=== PATIENT | male | born 1945 | race Caucasian/White ===

== ENCOUNTER 2020-10-01 10:44 | Observation (INO) ==
--- OUTSIDE RECORDS SUMMARY | 2020-10-01 10:48 | External Medical Summary | Continuity of Care Document ---
:1945 Author Name Brie Alarcon Address Unavailable Unavailable , Care Team Providers Name Role Phone Brie Alarcon Unavailable [email or web address], [email or web address] Unavailable Unavailable Problems Active medical history not documented Allergies and Adverse Reactions Allergy history not documented Medications Medications not documented Procedures Procedures not documented Immunizations Immunizations not documented Plan of Treatment Planned Observations Planned Goals not documented Results No Known Results Results not documented
--- NOTE | 2020-10-01 11:17 | Emergency Department Note ---
Impression & Plan Confusion, Fall, Contusion of hip ED Provider Note NAME: KAMERON LOPEZ AGE: 75 SEX: M : 1945 ARRIVES VIA: Ambulance INFORMANT: Patient, prehospital personnel ED PROVIDER(S): Toby Torres DO CHIEF COMPLAINT: Fall HPI: The patient is a 75-year-old male who presented to the emergency department for an evaluation after a fall. The fall was unwitnessed. We do not know the exact time of the fall. The patient was found on the floor by family members. The patient complains of left hip pain according to the prehospital personnel. The patient is also had an alteration in his mental status. The history was limited secondary to patient's mental status. The patient himself does not complain of any chest pain. He denies having any nausea or vomiting. He denies having any cough or difficulty breathing. He does have a reported fever prior to arrival. The patient was unable to ambulate because of pain in the hip. ROS: See above HPI for pertinent positives & negatives. A total of 10 systems reviewed and were otherwise negative. PAST MEDICAL HISTORY: See Below PAST SURGICAL HISTORY: See Below FAMILY HISTORY: See Below SOCIAL HISTORY: See Below HOME MEDICATIONS: See Below ALLERGIES: See Below VITALS: See Below PHYSICAL EXAMINATION: GENERAL: The patient is listless and slow to respond to questions. He does not answer questions slowly but I am unsure if he is answering appropriately. EYES: The conjunctivae are clear. The pupils are round and reactive. EARS, NOSE, MOUTH AND THROAT: The nose is without any evidence of any deformity. NECK: The neck is nontender and supple. RESPIRATORY: Normal respiratory effort is noted there is no evidence of wheezing rhonchi or rales CARDIOVASCULAR: Regular rate and rhythm noted there no murmurs rubs or gallops normal S1 normal S2. GASTROINTESTINAL abdomen is mildly distended. There is left-sided tenderness to palpation but no guarding rigidity. BACK: No midline tenderness or or step-off noted range of motion in flexion extension as well as rotation no signs of muscle spasm noted MUSCULOSKELETAL/EXTREMITIES: Patient has pain with range of motion of both hips. There is no deformity or shortening of either hip. The patient appears to have more pain with range of motion testing of the right hip rather than the left. SKIN: There is no obvious evidence of any rash. There are no petechiae, pallor or cyanosis noted. NEUROLOGIC: Patient is awake to verbal commands. He appears to acknowledge his name. He does not appear to be oriented to place or date at this time. Strength is symmetric but diminished bilaterally. MEDICAL DECISION MAKING: The patient is a 75-year-old male who presented to the emergency department by ambulance for an evaluation. The patient had an unwitnessed fall. The patient does take oral anticoagulation. The patient was found by family members. The patient was very confused upon arrival to the emergency department. He was able to answer questions but appeared to be somewhat listless. I discussed the patient's laboratory and radiographic studies with him. The patient was not found to have any signs of definite infection although he did have a reported fever prior to arrival. The patient appeared to have hip pain on evaluation but no definite bony injury was noted. I discussed this case with the on-call [facility] hospitalist. Given the patient's confusion I do feel he may require further inpatient management. Triage Nursing notes reviewed. Prior medical records reviewed Vital Signs: reviewed and remarkable for no significant abnormalities Differential diagnosis: Infection, hypoglycemia, electrolyte abnormalities, overdose, toxicologic, cardiac sources, intracerebral event, neurologic, trauma, as well as other pathologies. ER treatment provided: See below Diagnostics interpreted by me: ECG: EKG was obtained in the emergency department. My interpretation is sinus rhythm at 76 bpm. There is no ectopy. There was no acute ST segment abnormalities noted. This was compared to a tracing from January 132014. No significant changes were noted. Cardiac Monitoring: An order was placed for continuous cardiac monitoring. The monitor shows a rate of 85 bpm with sinus rhythm. Laboratory studies: As stated above and show below. Imaging studies: See below Consultation(s): 1440: I discussed this case with Judy who is on-call for the [facility] group. Past Med/Surg History Medical History Confusion Dizziness (09/19/14) Pulmonary embolism Right knee DJD Right knee pain Vertigo Social History Smoking Status: Unknown if ever smoked Preferred Language: Turkish Feels Safe at Home: Yes Allergies Allergies Allergy/AdvReac Type Severity Reaction Status Date / Time No Known Drug Allergies Allergy Unknown ` Verified 10/01/20 12:15 Home Meds Home Medications Medication Instructions Recorded Confirmed aspirin [Aspirin Low-Strength] 81 mg PO DAILY #0 06/24/10 10/01/20 folic acid 1 mg PO DAILY #30 09/19/14 10/01/20 WARFARIN SODIUM 5 mg PO UD #60 01/13/15 10/01/20 Saccharomyces boulardii 250 mg PO BID 10/01/20 10/01/20 atorvastatin 40 mg PO DAILY 10/01/20 10/01/20 donepezil 23 mg PO DAILY 10/01/20 10/01/20 memantine 10 mg PO BID 10/01/20 10/01/20 thiamine HCl (vitamin B1) 100 mg PO DAILY 10/01/20 10/01/20 warfarin 10 mg PO DAILY 10/01/20 10/01/20 Results & Data (ED) Vital Signs Vital Signs - 24 hr 10/01/20 10:55 10/01/20 11:35 10/01/20 11:37 Temperature 37 C Temperature Source Oral Pulse Rate 82 Pulse Rate [Apical] 87 Pulse Rhythm Regular Pulse Rhythm [Apical] Regular Pulse Strength Normal Pulse Strength [Apical] Normal Respiratory Rate 16 22 Respiratory Effort / Characteristics Non-Labored Spontaneous Non-Labored Spontaneous Respiratory Depth Normal Normal Respiratory Pattern Regular Regular Blood Pressure 125/79 Blood Pressure [Right Arm] 126/75 Blood Pressure Mean 94 Blood Pressure Mean [Right Arm] 92 Blood Pressure Position Lying Blood Pressure Position [Right Arm] Lying Pulse Oximetry 96 97 97 Oxygen Delivery Method Room Air Room Air Room Air Sepsis Recent Fever Within 48 Hours Yes Sepsis New/Unexplained Change in Mental Status No Sepsis Action Taken by Nursing No Action Required 10/01/20 12:01 10/01/20 12:49 10/01/20 13:36 Temperature Temperature Source Pulse Rate Pulse Rate [Apical] 82 78 77 Pulse Rhythm Pulse Rhythm [Apical] Regular Regular Pulse Strength Pulse Strength [Apical] Normal Normal Respiratory Rate 18 18 20 Respiratory Effort / Characteristics Non-Labored Spontaneous Non-Labored Spontaneous Non-Labored Respiratory Depth Normal Normal Normal Respiratory Pattern Regular Regular Blood Pressure Blood Pressure [Right Arm] 132/72 130/70 125/69 Blood Pressure Mean Blood Pressure Mean [Right Arm] 92 90 87 Blood Pressure Position Blood Pressure Position [Right Arm] Lying Lying Pulse Oximetry 95 95 95 Oxygen Delivery Method Room Air Room Air Room Air Sepsis Recent Fever Within 48 Hours Sepsis New/Unexplained Change in Mental Status Sepsis Action Taken by Assisted Medications Current Medication List: was personally reviewed by me Laboratory Data Attestation: I reviewed the patient's lab results. Result diagrams: 10/01/20 11:15 10/01/20 11:15 Lab Results 10/01/20 10/01/20 10/01/20 Range/Units 11:15 11:15 11:15 WBC 10.79 (4.8-10.8) K/uL RBC 5.31 (4.7-6.1) M/uL Hgb 17.4 (14.0-18.0) g/dL POC Hgb (14.0-18.0) g/dl Hct 49.8 (42-52) % POC Hct (42-52) % MCV 93.8 (80-100) fL MCH 32.8 (25-34) pg MCHC 34.9 (32-36) g/dL RDW Std Deviation 50.7 H (36.4-46.3) fL RDW Coeff of Brynn 14.7 H (11.5-14.5) % Plt Count 171 (130-400) K/uL MPV 9.8 (7.4-10.4) fL Immature Gran % (Auto) 0.2 % Neut % (Auto) 76.7 % Lymph % (Auto) 9.0 % Cassia % (Auto) 13.2 % Eos % (Auto) 0.5 % Baso % (Auto) 0.4 % Neut # (Auto) 8.29 H (1.4-6.5) K/uL Lymph # (Auto) 0.97 L (1.2-3.4) K/uL Cassia # (Auto) 1.42 H (0.11-0.59) K/uL Eos # (Auto) 0.05 (0-0.5) K/uL Baso # (Auto) 0.04 (0-0.2) K/uL Immature Gran # (Auto) 0.02 (0.00-0.02) K/uL PT 20.7 H (9.0-12.0) Seconds INR 2.0 H (0.9-1.1) APTT 38.8 H (21.0-31.0) Seconds PTT Ratio 1.4 POC Sodium (135-144) mmol/L Sodium 137 (136-145) mmol/L POC Potassium (3.3-5.0) mmol/L Potassium 4.4 (3.5-5.1) mmol/L POC Chloride (101-112) mmol/L Chloride 105 (98-107) mmol/L Carbon Dioxide 26 (21-32) mmol/L POC Total CO2 (24-31) mmol/L Anion Gap 7.0 (3-11) POC Anion Gap (16-25) mmol/L POC BUN (7-18) mg/dl BUN 11 (7-18) mg/dl Creatinine 1.23 (0.6-1.4) mg/dl POC Creatinine (0.6-1.3) mg/dl Est Cr Clr Drug Dosing 56.0 ml/min Est GFR ( Amer) 65.2 Est GFR (Non-Af Amer) 56.3 BUN/Creatinine Ratio 9.0 L (10-20) Glucose 102 H (70-99) mg/dl POC Glucose (other) (70-99) mg/dl Lactate (0.4-2.0) mmol/L Calcium 9.4 (8.5-10.1) mg/dl POC Ioniz Calcium Yessica (1.12-1.32) mmol/l Magnesium 2.2 (1.8-2.4) mg/dl Total Bilirubin 1.1 H (0.2-1) mg/dl AST 36 (15-37) U/L ALT 54 (12-78) U/L Alkaline Phosphatase 93 (45-117) U/L Total Creatine Kinase (39-308) U/L CK-MB (CK-2) (0.5-3.6) ng/ml CK/CKMB % Calc Troponin I 0.018 (0-0.045) ng/ml Total Protein 8.1 (6.4-8.2) gm/dl Albumin 3.8 (3.4-5.0) gm/dl Globulin 4.3 H (2.5-4.0) gm/dl Albumin/Globulin Ratio 0.9 (0.9-2) Procalcitonin (0-0.5) ng/ml Urine Color Urine Appearance (Clear) Urine pH (4.5-7.5) Ur Specific [place] (1.000-1.030) Urine Protein (Negative) Urine Glucose (UA) (Negative) Urine Ketones (Negative) Urine Blood (Negative) Urine Nitrite (Negative) Urine Bilirubin (Negative) Urine Urobilinogen (Negative) Ur Leukocyte Esterase (Negative) Urine WBC (Auto) (0-5) /hpf Urine RBC (Auto) (0-4) /hpf U Hyaline Cast (Auto) (0-5) /lpf U Epithel Cells (Auto) (0-5) /lpf Urine Bacteria (Auto) (Negative) COVID-19 Eval Order SARS-CoV-2 (PCR) (Negative) Nasopharyn COVID-19 PCR Influenza Type A (PCR) Influenza Type B (PCR) RSV (RT-PCR) (Neg) 10/01/20 10/01/20 10/01/20 Range/Units 11:15 11:15 11:21 WBC (4.8-10.8) K/uL RBC (4.7-6.1) M/uL Hgb (14.0-18.0) g/dL POC Hgb (14.0-18.0) g/dl Hct (42-52) % POC Hct (42-52) % MCV (80-100) fL MCH (25-34) pg MCHC (32-36) g/dL RDW Std Deviation (36.4-46.3) fL RDW Coeff of Brynn (11.5-14.5) % Plt Count (130-400) K/uL MPV (7.4-10.4) fL Immature Gran % (Auto) % Neut % (Auto) % Lymph % (Auto) % Cassia % (Auto) % Eos % (Auto) % Baso % (Auto) % Neut # (Auto) (1.4-6.5) K/uL Lymph # (Auto) (1.2-3.4) K/uL Cassia # (Auto) (0.11-0.59) K/uL Eos # (Auto) (0-0.5) K/uL Baso # (Auto) (0-0.2) K/uL Immature Gran # (Auto) (0.00-0.02) K/uL PT (9.0-12.0) Seconds INR (0.9-1.1) APTT (21.0-31.0) Seconds PTT Ratio POC Sodium (135-144) mmol/L Sodium (136-145) mmol/L POC Potassium (3.3-5.0) mmol/L Potassium (3.5-5.1) mmol/L POC Chloride (101-112) mmol/L Chloride (98-107) mmol/L Carbon Dioxide (21-32) mmol/L POC Total CO2 (24-31) mmol/L Anion Gap (3-11) POC Anion Gap (16-25) mmol/L POC BUN (7-18) mg/dl BUN (7-18) mg/dl Creatinine (0.6-1.4) mg/dl POC Creatinine (0.6-1.3) mg/dl Est Cr Clr Drug Dosing ml/min Est GFR ( Amer) Est GFR (Non-Af Amer) BUN/Creatinine Ratio (10-20) Glucose (70-99) mg/dl POC Glucose (other) (70-99) mg/dl Lactate 1.1 (0.4-2.0) mmol/L Calcium (8.5-10.1) mg/dl POC Ioniz Calcium Yessica (1.12-1.32) mmol/l Magnesium (1.8-2.4) mg/dl Total Bilirubin (0.2-1) mg/dl AST (15-37) U/L ALT (12-78) U/L Alkaline Phosphatase (45-117) U/L Total Creatine Kinase 99 (39-308) U/L CK-MB (CK-2) < 1.0 (0.5-3.6) ng/ml CK/CKMB % Calc TNP Troponin I (0-0.045) ng/ml Total Protein (6.4-8.2) gm/dl Albumin (3.4-5.0) gm/dl Globulin (2.5-4.0) gm/dl Albumin/Globulin Ratio (0.9-2) Procalcitonin 0.28 (0-0.5) ng/ml Urine Color Urine Appearance (Clear) Urine pH (4.5-7.5) Ur Specific [place] (1.000-1.030) Urine Protein (Negative) Urine Glucose (UA) (Negative) Urine Ketones (Negative) Urine Blood (Negative) Urine Nitrite (Negative) Urine Bilirubin (Negative) Urine Urobilinogen (Negative) Ur Leukocyte Esterase (Negative) Urine WBC (Auto) (0-5) /hpf Urine RBC (Auto) (0-4) /hpf U Hyaline Cast (Auto) (0-5) /lpf U Epithel Cells (Auto) (0-5) /lpf Urine Bacteria (Auto) (Negative) COVID-19 Eval Order SARS-CoV-2 (PCR) (Negative) Nasopharyn COVID-19 PCR Influenza Type A (PCR) Influenza Type B (PCR) RSV (RT-PCR) (Neg) 10/01/20 10/01/20 10/01/20 Range/Units 11:23 11:38 11:38 WBC (4.8-10.8) K/uL RBC (4.7-6.1) M/uL Hgb (14.0-18.0) g/dL POC Hgb 17.7 (14.0-18.0) g/dl Hct (42-52) % POC Hct 52 (42-52) % MCV (80-100) fL MCH (25-34) pg MCHC (32-36) g/dL RDW Std Deviation (36.4-46.3) fL RDW Coeff of Brynn (11.5-14.5) % Plt Count (130-400) K/uL MPV (7.4-10.4) fL Immature Gran % (Auto) % Neut % (Auto) % Lymph % (Auto) % Cassia % (Auto) % Eos % (Auto) % Baso % (Auto) % Neut # (Auto) (1.4-6.5) K/uL Lymph # (Auto) (1.2-3.4) K/uL Cassia # (Auto) (0.11-0.59) K/uL Eos # (Auto) (0-0.5) K/uL Baso # (Auto) (0-0.2) K/uL Immature Gran # (Auto) (0.00-0.02) K/uL PT (9.0-12.0) Seconds INR (0.9-1.1) APTT (21.0-31.0) Seconds PTT Ratio POC Sodium 138 (135-144) mmol/L Sodium (136-145) mmol/L POC Potassium 4.5 (3.3-5.0) mmol/L Potassium (3.5-5.1) mmol/L POC Chloride 102 (101-112) mmol/L Chloride (98-107) mmol/L Carbon Dioxide (21-32) mmol/L POC Total CO2 28 (24-31) mmol/L Anion Gap (3-11) POC Anion Gap 14.0 L (16-25) mmol/L POC BUN 13 (7-18) mg/dl BUN (7-18) mg/dl Creatinine (0.6-1.4) mg/dl POC Creatinine 1.1 (0.6-1.3) mg/dl Est Cr Clr Drug Dosing ml/min Est GFR ( Amer) Est GFR (Non-Af Amer) BUN/Creatinine Ratio (10-20) Glucose (70-99) mg/dl POC Glucose (other) 106 H (70-99) mg/dl Lactate (0.4-2.0) mmol/L Calcium (8.5-10.1) mg/dl POC Ioniz Calcium Yessica 1.13 (1.12-1.32) mmol/l Magnesium (1.8-2.4) mg/dl Total Bilirubin (0.2-1) mg/dl AST (15-37) U/L ALT (12-78) U/L Alkaline Phosphatase (45-117) U/L Total Creatine Kinase (39-308) U/L CK-MB (CK-2) (0.5-3.6) ng/ml CK/CKMB % Calc Troponin I (0-0.045) ng/ml Total Protein (6.4-8.2) gm/dl Albumin (3.4-5.0) gm/dl Globulin (2.5-4.0) gm/dl Albumin/Globulin Ratio (0.9-2) Procalcitonin (0-0.5) ng/ml Urine Color Dark Yellow Urine Appearance Clear (Clear) Urine pH 8.5 H (4.5-7.5) Ur Specific [place] 1.021 (1.000-1.030) Urine Protein Trace H (Negative) Urine Glucose (UA) Negative (Negative) Urine Ketones Negative (Negative) Urine Blood Negative (Negative) Urine Nitrite Negative (Negative) Urine Bilirubin Negative (Negative) Urine Urobilinogen Negative (Negative) Ur Leukocyte Esterase Negative (Negative) Urine WBC (Auto) 0 (0-5) /hpf Urine RBC (Auto) 0-4 (0-4) /hpf U Hyaline Cast (Auto) 1-5 (0-5) /lpf U Epithel Cells (Auto) 10-20 H (0-5) /lpf Urine Bacteria (Auto) Negative (Negative) COVID-19 Eval Order Covid19 [facility] to [facility] SARS-CoV-2 (PCR) (Negative) Nasopharyn COVID-19 PCR Influenza Type A (PCR) Influenza Type B (PCR) RSV (RT-PCR) (Neg) 10/01/20 10/01/20 Range/Units 11:38 11:38 WBC (4.8-10.8) K/uL RBC (4.7-6.1) M/uL Hgb (14.0-18.0) g/dL POC Hgb (14.0-18.0) g/dl Hct (42-52) % POC Hct (42-52) % MCV (80-100) fL MCH (25-34) pg MCHC (32-36) g/dL RDW Std Deviation (36.4-46.3) fL RDW Coeff of Brynn (11.5-14.5) % Plt Count (130-400) K/uL MPV (7.4-10.4) fL Immature Gran % (Auto) % Neut % (Auto) % Lymph % (Auto) % Cassia % (Auto) % Eos % (Auto) % Baso % (Auto) % Neut # (Auto) (1.4-6.5) K/uL Lymph # (Auto) (1.2-3.4) K/uL Cassia # (Auto) (0.11-0.59) K/uL Eos # (Auto) (0-0.5) K/uL Baso # (Auto) (0-0.2) K/uL Immature Gran # (Auto) (0.00-0.02) K/uL PT (9.0-12.0) Seconds INR (0.9-1.1) APTT (21.0-31.0) Seconds PTT Ratio POC Sodium (135-144) mmol/L Sodium (136-145) mmol/L POC Potassium (3.3-5.0) mmol/L Potassium (3.5-5.1) mmol/L POC Chloride (101-112) mmol/L Chloride (98-107) mmol/L Carbon Dioxide (21-32) mmol/L POC Total CO2 (24-31) mmol/L Anion Gap (3-11) POC Anion Gap (16-25) mmol/L POC BUN (7-18) mg/dl BUN (7-18) mg/dl Creatinine (0.6-1.4) mg/dl POC Creatinine (0.6-1.3) mg/dl Est Cr Clr Drug Dosing ml/min Est GFR ( Amer) Est GFR (Non-Af Amer) BUN/Creatinine Ratio (10-20) Glucose (70-99) mg/dl POC Glucose (other) (70-99) mg/dl Lactate (0.4-2.0) mmol/L Calcium (8.5-10.1) mg/dl POC Ioniz Calcium Yessica (1.12-1.32) mmol/l Magnesium (1.8-2.4) mg/dl Total Bilirubin (0.2-1) mg/dl AST (15-37) U/L ALT (12-78) U/L Alkaline Phosphatase (45-117) U/L Total Creatine Kinase (39-308) U/L CK-MB (CK-2) (0.5-3.6) ng/ml CK/CKMB % Calc Troponin I (0-0.045) ng/ml Total Protein (6.4-8.2) gm/dl Albumin (3.4-5.0) gm/dl Globulin (2.5-4.0) gm/dl Albumin/Globulin Ratio (0.9-2) Procalcitonin (0-0.5) ng/ml Urine Color Urine Appearance (Clear) Urine pH (4.5-7.5) Ur Specific [place] (1.000-1.030) Urine Protein (Negative) Urine Glucose (UA) (Negative) Urine Ketones (Negative) Urine Blood (Negative) Urine Nitrite (Negative) Urine Bilirubin (Negative) Urine Urobilinogen (Negative) Ur Leukocyte Esterase (Negative) Urine WBC (Auto) (0-5) /hpf Urine RBC (Auto) (0-4) /hpf U Hyaline Cast (Auto) (0-5) /lpf U Epithel Cells (Auto) (0-5) /lpf Urine Bacteria (Auto) (Negative) COVID-19 Eval Order SARS-CoV-2 (PCR) NEGATIVE (Negative) Nasopharyn COVID-19 PCR Cancelled Influenza Type A (PCR) Cancelled Negative Influenza Type B (PCR) Cancelled Negative RSV (RT-PCR) Negative (Neg) Administered Medications Discontinued Medications Ioversol (Ioversol 100ml) 94 ml IV ONCE ONE Stop: 10/01/20 11:50 Last Admin: 10/01/20 11:50 Dose: 94 ml Documented by: [id number] Imaging Data Radiologist's Impression: Patient: KAMERON LOPEZ Admit Date: 10/01/20 MR#: [id number] Address[address]: [address] Acct ID:[id number] Address2: Date: 1945 [facility] Zip: [place] [address] Age: 75 Location: ED Sex: M Room/Bed: Att Phy: Diagnosis: FALL Yanci Phy: Ernie Kim MD(TATO) Service Date: 10/01/20 Paulo Phy: Interpreting Phy: Pop Douglas MD Admit Phy: Ordering Phy: Toby Torres DO cc: ~ XR hip RT min 2V CLINICAL HISTORY: fall COMPARISON: None FINDINGS: Incidental note is made of contrast within the right ureter and bladder from recent contrast-enhanced CT. Peck catheter is in place. Alignment of the right hip is anatomic. No acute fracture. IMPRESSION: No acute fracture or dislocation within the right hip. ACT 112: Negative or not required by law. Electronically signed by: Pop Douglas M.D. 10/01/2020 12:52 PM Dictated: 10/01/20 1250 Transcribed: 10/01/20 1250 Patient: KAMERON LOPEZ Admit Date: 10/01/20 MR#: [id number] Address1: [address] Acct ID:[id number] Address2: Date: 1945 [facility] Zip: [place] [address] Age: 75 Location: ED Sex: M Room/Bed: Att Phy: Diagnosis: FALL Yanci Phy: Ernie Kim MD(TATO) Service Date: 10/01/20 Paulo Phy: Interpreting Phy: Pop Douglas MD Admit Phy: Ordering Phy: Toby Torres DO cc: ~ XR hip LT min 2V CLINICAL HISTORY: fall COMPARISON: None FINDINGS: Alignment of the left hip is anatomic. There is no acute fracture. Incidental note is made of contrast within the ureters and bladder from recent contrast-enhanced CT. A Peck catheter is in place. IMPRESSION: No acute fracture or dislocation within the left hip. ACT 112: Negative or not required by law. Electronically signed by: Pop Douglas M.D. 10/01/2020 12:53 PM Dictated: 10/01/20 1252 Transcribed: 10/01/20 1252 Patient: KAMERON LOPEZ Admit Date: 10/01/20 MR#: [id number] Address[address]: [address] Acct ID:[id number] Address2: Date: 1945 [facility] Zip: [place] [address] Age: 75 Location: ED Sex: M Room/Bed: Att Phy: Diagnosis: FALL Yanci Phy: Ernie Kim MD(TATO) Service Date: 10/01/20 Fam Phy: Interpreting Phy: Duke Ambrose MD Admit Phy: Ordering Phy: Toby Torres DO cc: ~ CT SCAN OF THE BRAIN WITHOUT IV CONTRAST CLINICAL HISTORY: Fall. COMPARISON STUDY: CT of the brain dated 01/13/2015. TECHNIQUE: Unenhanced axial CT scan of the brain is performed from the vertex to the skull base. A dose lowering technique was utilized adhering to the principles of ALARA. FINDINGS: Brain parenchyma: There are age-related involutional changes noting mild to moderate subcortical and periventricular microangiopathic change. There is no hemorrhage, mass effect, or evidence of acute territorial ischemia by CT criter ia. Tellez-white matter differentiation is preserved. No extra-axial fluid collection is seen. Ventricles, sulci, cisterns: Prominent secondary to involutional change. Intracranial vasculature: There is atherosclerotic calcification of the cavernous carotid and vertebral arteries.. Calvarium: The skeletal structures are osteopenic. No depressed calvarial fracture is identified. Sinuses and mastoids: The visualized paranasal sinuses are clear. The mastoid air cells are well pneumatized. Orbits: The bony orbits are grossly intact. There are bilateral ocular lens implants. IMPRESSION: There is no hemorrhage, mass effect, or evidence of acute territorial ischemia by CT criteria. ACT 112: Negative or not required by law. Electronically signed by: Duke Ambrose M.D. 10/01/2020 12:04 PM Dictated: 10/01/20 1202 Transcribed: 10/01/20 1202 Patient: KAMERON LOPEZ Admit Date: 10/01/20 MR#: [id number] Address1: [address] Acct ID:[id number] Address2: Date: 1945 [facility] Zip: [place] [address] Age: 75 Location: ED Sex: M Room/Bed: Att Phy: Diagnosis: FALL Yanci Phy: Ernie Kim MD(TATO) Service Date: 10/01/20 Paulo Phy: Interpreting Phy: Duke Ambrose MD Admit Phy: Ordering Phy: Toby Torres DO cc: ~ SINGLE VIEW CHEST CLINICAL HISTORY: Sepsis. Fall. FINDINGS: An AP, portable, upright chest radiograph is compared to study dated 09/19/2014 and correlated with chest CT performed the same day 10/01/2020. The examination is degraded by portable technique and patient rotation. The heart is top normal for projection. The pulmonary vasculature is noncongested. Chronic interstitial thickening is similar to previous. No airspace consolidation or large pleural effusion is identified. No pneumothorax is seen. The skeletal structures are osteopenic. The bony thorax is grossly intact. Degenerative change is noted in the thoracic spine. IMPRESSION: No acute cardiopulmonary abnormality. ACT 112: Negative or not required by law. Electronically signed by: Duke Ambrose M.D. 10/01/2020 12:52 PM Dictated: 10/01/20 1251 Transcribed: 10/01/20 1251 Patient: KAMERON LOPEZ Admit Date: 10/01/20 MR#: [id number] Address1: [address] Acct ID:[id number] Address2: Date: 1945 [facility] Zip: [place] [address] Age: 75 Location: ED Sex: M Room/Bed: Att Phy: Diagnosis: FALL Yanci Phy: Ernie Kim MD(TATO) Service Date: 10/01/20 [facility] Phy: Interpreting Phy: Duke Ambrose MD Admit Phy: Ordering Phy: Toby Torres, cc: ~ CT SCAN OF THE CHEST, ABDOMEN, AND PELVIS WITH IV CONTRAST CLINICAL HISTORY: Trauma. Fall. COMPARISON STUDY: Chest x-ray dated 09/19/2014. TECHNIQUE: Following the IV administration of 94 of Optiray 320, CT scan of the chest, abdomen, and pelvis was performed from the thoracic inlet to the proximal femora. Images are reviewed in the axial, sagittal, and coronal planes. IV contrast was administered without complication. A dose lowering technique was utilized adhering to the principles of ALARA. The examination is degraded by motion artifact, as well as by streak artifact from the arms which could not be elevated above the chest or abdomen. CT DOSE: 4428.41 mGy.cm FINDINGS: CHEST: Thyroid: Imaged portions of the thyroid gland are normal in size and attenuation. Thoracic aorta: The thoracic aorta is normal in caliber and demonstrates bovine variant arch anatomy. No dissection is seen. Pulmonary vasculature: The pulmonary trunk is normal in caliber. There are no filling defects identified in the central pulmonary vessels to indicate pu lmonary embolus. Note that this examination was not protocoled for evaluation of the pulmonary arteries. Heart: The heart is mildly enlarged and without pericardial effusion. The coronary arteries are densely calcified. Lungs and pleural spaces: Evaluation of lung parenchyma is degraded by motion artifact. There is no airspace consolidation or pneumothorax. Scarring/atelectasis is noted at the lung bases. Trace pleural effusions are noted. A calcified granuloma is noted in the left upper lobe. The trachea and central airways are clear. Mediastinum: There is no mediastinal hematoma. There are mildly enlarged mediastinal lymph nodes. A right paratracheal node on image #87 measures 1.5 cm in short axis. A paratracheal node on image #78 measures 1.1 cm in short axis. A subcarinal node measures 1.9 cm in short axis. Daisy: Clear. Axillae: There is no axillary lymphadenopathy. Bony thorax: The skeletal structures are osteopenic. Bony thorax appears intact. Degenerative change and hyperkyphosis is noted in the thoracic spine. No lytic or blastic lesions are identified. ABDOMEN AND PELVIS: Liver: The contrast-enhanced liver is normal in size, contour, and attenuation. There is no intra- or extrahepatic biliary ductal dilatation. The hepatic veins and portal veins are patent. Gallbladder: Unremarkable. Spleen: Normal in size and attenuation. Pancreas: Unremarkable. Adrenal glands: Unremarkable. Kidneys: The contrast enhanced kidneys demonstrate mild cortical atrophy and are without hydronephrosis. The kidneys enhance symmetrically. A 2.3 cm cyst arises from the upper pole on the left. Abdominal vasculature: The abdominal aorta is normal in course and caliber noting moderate atherosclerotic calcification. Bowel: There is mild colonic diverticulosis without CT evidence of acute diverticulitis. There is rectosigmoid fecal retention. No bowel obstruction is seen. The appendix is well-visualized and normal. Peritoneum: There is no intraperitoneal free air or abdominal ascites. There is a small fat-containing umbilical hernia. Lymphadenopathy: None. Pelvic viscera: The bladder is decompressed around a Peck catheter and not well evaluated. The prostate gland is mildly enlarged and heterogeneous. Skeletal structures: The skeletal structures are osteopenic. There is mild to moderate lumbosacral spondylosis. The lumbosacral spine, bony pelvis, and proximal femora appear intact. No lytic or blastic lesions are seen. IMPRESSION: 1. There is no acute posttraumatic intrathoracic abnormality. 2. Cardiomegaly and trace pleural effusions. 3. There is no airspace consolidation or pneumothorax. 4. There is no evidence of solid organ injury in the abdomen or pelvis. 5. Mildly enlarged mediastinal lymph nodes are of indeterminant etiology and significance. 6. Additional findings as above. ACT 112: Negative or not required by law. Electronically signed by: Duke Ambrose M.D. 10/01/2020 12:20 PM Dictated: 10/01/20 1205 Transcribed: 10/01/20 1205 Patient: KAMERON LOPEZ Admit Date: 10/01/20 MR#: [id number] Address1: [address]YRIC [address]ACY Acct ID:[id number] Address2: Date: 1945 [facility] Zip: [place] [address] Age: 75 Location: ED Sex: M Room/Bed: Att Phy: Diagnosis: FALL Yanci Phy: Ernie Kim MD(TATO) Service Date: 10/01/20 [facility] Phy: Interpreting Phy: Keagan Mckeon MD Admit Phy: Ordering Phy: Brian, Toby R., DO cc: ~ CERVICAL SPINE CT CT DOSE: HISTORY: fall TECHNIQUE: Multiaxial CT images of the cervical spine were performed and reformatted in the sagittal and coronal plane without the use of contrast. A dose lowering technique was utilized adhering to the principles of ALARA. COMPARISON: None. FINDINGS: No fractures. No subluxation. Prevertebral soft tissues and the C1-C2 interval are intact. No pneumothorax. Moderate disc space narrowing at C5-C6. The C2-C3 vertebral bodies and facets are fused. IMPRESSION: No fractures within the cervical spine. ACT 112: Negative or not required by law. Electronically signed by: Keagan Mckeon M.D. 10/01/2020 12:09 PM Dictated: 10/01/20 1204 Transcribed: 10/01/20 1204 Blood Pressure Blood Pressure Findings: Normal blood pressure Discharge Plan Visit Data Chief Complaint: Fall ED Provider: Toby Torres Discharge Problem: Confusion, Fall, Contusion of hip Patient Disposition: Being Evaluated by Hospitalist Condition: Good Forms Stand Alone Forms: My [facility] Prescriptions Prescriptions: No Action aspirin [Aspirin Low-Strength] 81 mg Tablet,Delayed Release (Dr/Ec) 81 mg PO DAILY Qty: 0 RF: 0 folic acid 1 mg Tablet 1 mg PO DAILY Qty: 30 RF: 0 WARFARIN SODIUM 5 MG tablet 5 mg PO UD Qty: 60 RF: 0 atorvastatin 40 mg tablet 40 mg PO DAILY RF: 0 thiamine HCl (vitamin B1) 100 mg Tablet 100 mg PO DAILY RF: 0 warfarin 5 mg Tablet 10 mg PO DAILY RF: 0 Saccharomyces boulardii 250 mg Capsule 250 mg PO BID RF: 0 memantine 10 mg tablet 10 mg PO BID RF: 0 donepezil 23 mg tablet 23 mg PO DAILY RF: 0 Referrals Referrals: Ernie Kim MD [Primary Care Provider] -
[2020-10-01 11:31] LABS: Basophils # (auto) 0.04 K/uL (0-0.2); Basophils % (auto) 0.4 %; Eosinophils # (auto) 0.05 K/uL (0-0.5); Eosinophils % (auto) 0.5 %; Hematocrit (blood only) 49.8 % (42-52); Hemoglobin 17.4 g/dL (14.0-18.0); Immature Granulocytes # (auto) 0.02 K/uL (0.00-0.02); Immature Granulocytes % (auto) 0.2 %; Lymphocytes # (auto) 0.97 K/uL (1.2-3.4); Mean Corpuscular Hemoglobin 32.8 pg (25-34); Mean Corpuscular Hgb Conc 34.9 g/dL (32-36); Mean Corpuscular Volume 93.8 fL (80-100); Mean Platelet Volume 9.8 fL (7.4-10.4); Monocytes # (auto) 1.42 K/uL (0.11-0.59); Monocytes % (auto) 13.2 %; Neutrophils # (auto) 8.29 K/uL (1.4-6.5); Neutrophils % (auto) 76.7 %; Platelet Count 171 K/uL (130-400); RDW Coefficient of Variation 14.7 % (11.5-14.5); RDW Standard Deviation 50.7 fL (36.4-46.3); Red Blood Count 5.31 M/uL (4.7-6.1); White Blood Count 10.79 K/uL (4.8-10.8)
[2020-10-01 11:35] LABS: iSTAT Creatinine 1.1 mg/dl (0.6-1.3); iSTAT Hemoglobin 17.7 g/dl (14.0-18.0); iSTAT Ionized Calcium 1.13 mmol/l (1.12-1.32); iSTAT Potassium 4.5 mmol/L (3.3-5.0)
[2020-10-01 11:43] LABS: Partial Thromboplastin Ratio 1.4; Partial Thromboplastin Time 38.8 Seconds (21.0-31.0); Prothrombin Time 20.7 Seconds (9.0-12.0)
[2020-10-01 11:47] LABS: Appearance Urine Clear (Clear); Bacteria Urine Automated Negative (Negative); Bilirubin Urine Negative (Negative); Blood Urine Negative (Negative); Color Urine Dark Yellow; Glucose Urine UA Negative (Negative); Ketones Urine Negative (Negative); Leukocyte Esterase Urine Negative (Negative); Nitrite Urine Negative (Negative); RBC Urine Automated 0-4 /hpf (0-4); Specific Gravity Urine 1.021 (1.000-1.030); Urobilinogen Urine Negative (Negative); WBC Urine Automated 0 /hpf (0-5); pH Urine 8.5 (4.5-7.5)
[2020-10-01 11:47] LABS: Albumin Level 3.8 gm/dl (3.4-5.0); Calcium 9.4 mg/dl (8.5-10.1); Est GFR (African American) 65.2; Est GFR (Non-African American) 56.3; Magnesium 2.2 mg/dl (1.8-2.4); Potassium 4.4 mmol/L (3.5-5.1)
[2020-10-01] MEDS ORDERED: IOVERSOL 100ml IV ONE (11:49)
[2020-10-01 11:52] LABS: Albumin Globulin Ratio 0.9 (0.9-2); Bilirubin,Total 1.1 mg/dl (0.2-1); Globulin 4.3 gm/dl (2.5-4.0); Total Protein 8.1 gm/dl (6.4-8.2); Troponin I 0.018 ng/ml (0-0.045)
[2020-10-01 11:55] LABS: Protein Urine Trace (Negative)
--- NOTE | 2020-10-01 12:06 | CT Scan Report ---
CT SCAN OF THE BRAIN WITHOUT IV CONTRAST CLINICAL HISTORY: Fall. COMPARISON STUDY: CT of the brain dated 01/13/2015. TECHNIQUE: Unenhanced axial CT scan of the brain is performed from the vertex to the skull base. A do se lowering technique was utilized adhering to the principles of ALARA. FINDINGS: Brain parenchyma: There are age-related involutional changes noting mild to moderate subcortical and periventricular microangiopathic change. There is no hemorrhage, mass effect, or evidence of acute t erritorial ischemia by CT criteria. Tellez-white matter differentiation is preserved. No extra-axial fl uid collection is seen. Ventricles, sulci, cisterns: Prominent secondary to involutional change. Intracranial vasculature: There is atherosclerotic calcification of the cavernous carotid and vertebr al arteries.. Calvarium: The skeletal structures are osteopenic. No depressed calvarial fracture is identified. Sinuses and mastoids: The visualized paranasal sinuses are clear. The mastoid air cells are well pneu matized. Orbits: The bony orbits are grossly intact. There are bilateral ocular lens implants. IMPRESSION: There is no hemorrhage, mass effect, or evidence of acute territorial ischemia by CT cindy wilson. ACT 112: Negative or not required by law. Electronically signed by: Duke Ambrose M.D. 10/01/2020 12:04 PM
--- NOTE | 2020-10-01 12:10 | CT Scan Report ---
CERVICAL SPINE CT CT DOSE: HISTORY: fall TECHNIQUE: Multiaxial CT images of the cervical spine were performed and reformatted in the sagittal and coronal plane without the use of contrast. A dose lowering technique was utilized adhering to th e principles of ALARA. COMPARISON: None. FINDINGS: No fractures. No subluxation. Prevertebral soft tissues and the C1-C2 interval are intact. No pneumothorax. Moderate disc space narrowing at C5-C6. The C2-C3 vertebral bodies and facets are fu sed. IMPRESSION: No fractures within the cervical spine. ACT 112: Negative or not required by law. Electronically signed by: Keagan Mckeon M.D. 10/01/2020 12:09 PM
[2020-10-01 12:21] LABS: Creatine Kinase 99 U/L (39-308); Creatine Kinase MB < 1.0 ng/ml (0.5-3.6)
--- NOTE | 2020-10-01 12:22 | CT Scan Report ---
CT SCAN OF THE CHEST, ABDOMEN, AND PELVIS WITH IV CONTRAST CLINICAL HISTORY: Trauma. Fall. COMPARISON STUDY: Chest x-ray dated 09/19/2014. TECHNIQUE: Following the IV administration of 94 of Optiray 320, CT scan of the chest, abdomen, and p elsa was performed from the thoracic inlet to the proximal femora. Images are reviewed in the axial, sagittal, and coronal planes. IV contrast was administered without complication. A dose lowering te chnique was utilized adhering to the principles of ALARA. The examination is degraded by motion artif act, as well as by streak artifact from the arms which could not be elevated above the chest or abdom en. CT DOSE: 4428.41 mGy.cm FINDINGS: CHEST: Thyroid: Imaged portions of the thyroid gland are normal in size and attenuation. Thoracic aorta: The thoracic aorta is normal in caliber and demonstrates bovine variant arch anatomy. No dissection is seen. Pulmonary vasculature: The pulmonary trunk is normal in caliber. There are no filling defects identif ied in the central pulmonary vessels to indicate pulmonary embolus. Note that this examination was no t protocoled for evaluation of the pulmonary arteries. Heart: The heart is mildly enlarged and without pericardial effusion. The coronary arteries are dense ly calcified. Lungs and pleural spaces: Evaluation of lung parenchyma is degraded by motion artifact. There is no a irspace consolidation or pneumothorax. Scarring/atelectasis is noted at the lung bases. Trace pleural effusions are noted. A calcified granuloma is noted in the left upper lobe. The trachea and central airways are clear. Mediastinum: There is no mediastinal hematoma. There are mildly enlarged mediastinal lymph nodes. A r ight paratracheal node on image #87 measures 1.5 cm in short axis. A paratracheal node on image #78 m easures 1.1 cm in short axis. A subcarinal node measures 1.9 cm in short axis. Daisy: Clear. Axillae: There is no axillary lymphadenopathy. Bony thorax: The skeletal structures are osteopenic. Bony thorax appears intact. Degenerative change and hyperkyphosis is noted in the thoracic spine. No lytic or blastic lesions are identified. ABDOMEN AND PELVIS: Liver: The contrast-enhanced liver is normal in size, contour, and attenuation. There is no intra- or extrahepatic biliary ductal dilatation. The hepatic veins and portal veins are patent. Gallbladder: Unremarkable. Spleen: Normal in size and attenuation. Pancreas: Unremarkable. Adrenal glands: Unremarkable. Kidneys: The contrast enhanced kidneys demonstrate mild cortical atrophy and are without hydronephros is. The kidneys enhance symmetrically. A 2.3 cm cyst arises from the upper pole on the left. Abdominal vasculature: The abdominal aorta is normal in course and caliber noting moderate atheroscle rotic calcification. Bowel: There is mild colonic diverticulosis without CT evidence of acute diverticulitis. There is rec tosigmoid fecal retention. No bowel obstruction is seen. The appendix is well-visualized and normal. Peritoneum: There is no intraperitoneal free air or abdominal ascites. There is a small fat-containin g umbilical hernia. Lymphadenopathy: None. Pelvic viscera: The bladder is decompressed around a Peck catheter and not well evaluated. The prost ate gland is mildly enlarged and heterogeneous. Skeletal structures: The skeletal structures are osteopenic. There is mild to moderate lumbosacral sp ondylosis. The lumbosacral spine, bony pelvis, and proximal femora appear intact. No lytic or blastic lesions are seen. IMPRESSION: 1. There is no acute posttraumatic intrathoracic abnormality. 2. Cardiomegaly and trace pleural effusions. 3. There is no airspace consolidation or pneumothorax. 4. There is no evidence of solid organ injury in the abdomen or pelvis. 5. Mildly enlarged mediastinal lymph nodes are of indeterminant etiology and significance. 6. Additional findings as above. ACT 112: Negative or not required by law. Electronically signed by: Duke Ambrose M.D. 10/01/2020 12:20 PM
[2020-10-01 12:31] LABS: Influenza A virus by PCR Negative (Neg); Influenza B virus by PCR Negative (Neg); RSV by PCR Negative (Neg); SARS CoV2 RNA(COVID-19) InHosp NEGATIVE (Negative)
--- NOTE | 2020-10-01 12:53 | XRay Report ---
SINGLE VIEW CHEST CLINICAL HISTORY: Sepsis. Fall. FINDINGS: An AP, portable, upright chest radiograph is compared to study dated 09/19/2014 and correlat ed with chest CT performed the same day 10/01/2020. The examination is degraded by portable technique a nd patient rotation. The heart is top normal for projection. The pulmonary vasculature is noncongeste d. Chronic interstitial thickening is similar to previous. No airspace consolidation or large pleural effusion is identified. No pneumothorax is seen. The skeletal structures are osteopenic. The bony th orax is grossly intact. Degenerative change is noted in the thoracic spine. IMPRESSION: No acute cardiopulmonary abnormality. ACT 112: Negative or not required by law. Electronically signed by: Duke Ambrose M.D. 10/01/2020 12:52 PM
--- NOTE | 2020-10-01 12:53 | XRay Report ---
XR hip RT min 2V CLINICAL HISTORY: fall COMPARISON: None FINDINGS: Incidental note is made of contrast within the right ureter and bladder from recent contra st-enhanced CT. Peck catheter is in place. Alignment of the right hip is anatomic. No acute fracture . IMPRESSION: No acute fracture or dislocation within the right hip. ACT 112: Negative or not required by law. Electronically signed by: Pop Douglas M.D. 10/01/2020 12:52 PM
--- NOTE | 2020-10-01 12:54 | XRay Report ---
XR hip LT min 2V CLINICAL HISTORY: fall COMPARISON: None FINDINGS: Alignment of the left hip is anatomic. There is no acute fracture. Incidental note is made of contrast within the ureters and bladder from recent contrast-enhanced CT. A Peck catheter is in place. IMPRESSION: No acute fracture or dislocation within the left hip. ACT 112: Negative or not required by law. Electronically signed by: Pop Douglas M.D. 10/01/2020 12:53 PM
--- NOTE | 2020-10-01 13:37 | Electrocardiogram Report ---
Test Reason : Blood Pressure : / mmHG Vent. Rate : 076 BPM Atrial Rate : 076 BPM P-R Int : 170 ms QRS Dur : 074 ms QT Int : 370 ms P-R-T Axes : -07 017 033 degrees QTc Int : 416 ms Sinus rhythm with Premature atrial complexes Otherwise normal ECG When compared with ECG of 13-JAN-2015 15:41, Premature atrial complexes are now Present Confirmed by Toby Navas ([id number]) on 10/01/2020 1:37:22 PM Referred By: SELF Confirmed By:Toby Navas
--- NOTE | 2020-10-01 16:17 | History & Physical Report ---
Date of Service October 01, 2020 Assessment & Plan (1) Fall: (2) AMS (altered mental status): (3) Ambulatory dysfunction: (4) Vascular dementia: (5) Alzheimer's dementia: (6) Pulmonary embolism: (7) CKD (chronic kidney disease), stage III: This is a 75-year-old male with PMH of mixed Alzheimer's and vascular dementia, primary Parkinsonism, CKD 3, history of PE on Coumadin and other medical problems listed below who presents to ED after being found on the floor early this morning. Acute on chronic confusion in setting of mixed Alzeimer's and vascular dementia Alert and oriented to person only (usually oriented to place and somewhat to situation at baseline) CT head without hemorrhage, mass effect, or evidence of acute territorial ischemia by CT criteria No leukocytosis, lactic acid or procalcitonin elevation to suggest infection. No e/o infection on CXR, CT abdomen pelvis or UA Kidney function at baseline, electrolytes wnl, CK wnl Continue Namenda, Aricept. Monitor closely Fever prior to arrival Reported fever of 101 F this morning at 0830, per . No infectious symptoms yesterday. No known covid contacts. Afebrile in ED at 37 since arrival VSS and no evidence of infection on labwork. Remains afebrile. Imaging not suggestive of infectious source Monitor vitals closely. Repeat lab work in AM. Follow blood culture Fall at home Ambulatory dysfunction Unwitnessed fall in the middle of the night Ambulates independently, but states patient is more unsteady and should be using walker/wheelchair Fall precautions, PT/OT evaluation and discharge planning-currently receives some home health nursing History of DVT/pulmonary embolism On Coumadin, therapeutic with INR of 2 Last Coumadin dose yesterday morning No evidence of acute bleeding on imaging studies shown below, hgb of 17 Plan to resume Coumadin tomorrow if hemoglobin remains stable, no bleeding CKD III Kidney function at baseline. Repeat BMP tomorrow DVT Ppx: Coumadin Code status: DNR per discussion with /POA PCP: Judy Dispo: Observation med/surg. Discharge planning ordered Elvia Mims, who would appreciate updates @ [phone] Patient seen in collaboration with Dr. Stallworth. Please see addendum. History of Present Illness Chief Complaint: Fall, fever, altered mental status Primary Care Provider: Ernie Kim MD This is a 75-year-old male with PMH of mixed Alzheimer's and vascular dementia, primary Parkinsonism, CKD 3, history of PE on Coumadin and other medical problems listed below who presents to ED after being found on the floor early this morning. Unable to obtain history from patient due to cognitive state. Discussed with Maria T over the phone. Patient was found on the floor around 3 AM. was able to get him up with son's help but he was complaining of pain in back and hips. Seem to be more confused and lethargic than baseline dementia, which she describes as alert and oriented to person and place most of the time but not to situation. At baseline, patient ambulates independently albeit is unsteady. Had a fall last week in which caregiver had to help him up. Sustained bruising on left lateral ribs from that fall and was not evaluated in the hospital because patient denied any pain. feels patient would ambulate better with walker but may be forgetful about using it. Denies any unusual behavior yesterday. No fever, chills or complaints of pain prior to fall. Was found to have fever this morning when she took a temperature around 8:30 AM of 101 F. ROS unobtainable due to cognitive state. Allergies Allergy/AdvReac Type Severity Reaction Status Date / Time No Known Drug Allergies Allergy Unknown ` Verified 10/01/20 12:15 Home Medications Medication Instructions Recorded Confirmed Type aspirin [Aspirin Low-Strength] 81 mg PO DAILY #0 06/24/10/01/20 History folic acid 1 mg PO DAILY #30 09/19/14 10/01/20 History Saccharomyces boulardii 250 mg PO BID 10/01/20 10/01/20 History atorvastatin 40 mg PO DAILY 10/01/20 10/01/20 History donepezil 23 mg PO DAILY 10/01/20 10/01/20 History memantine 10 mg PO BID 10/01/20 10/01/20 History thiamine HCl (vitamin B1) 100 mg PO DAILY 10/01/20 10/01/20 History warfarin 10 mg PO DAILY 10/01/20 10/01/20 History Past Med/Surg History Medical History (Updated 10/01/20 @ 17:02 by Judy Sheikh PA-C) Alzheimer's dementia CKD (chronic kidney disease), stage III Confusion Dizziness (09/19/14) Pulmonary embolism Right knee DJD Right knee pain Vascular dementia Surgical History (Updated 10/01/20 @ 16:44 by Judy Sheikh PA-C) H/O knee surgery Hx of tonsillectomy Family History Other Cancer Dementia Social History (Updated 10/01/20 @ 16:45 by Judy Sheikh PA-C) Smoking Status: Never smoker Hx Alcohol Use: No Hx Substance Use: No Preferred Language: Sami Communication Ability: Impaired Communication Ability Comment: Dementia, unable to answer most questions 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 Beliefs That Will Affect Care: None Current Living Situation: Spouse Other Information That Helps Us Care for You: No Feels Safe at Home: Yes Assistive Devices: None Review of Systems Review of Systems: Unobtainable due to cognitive status Physical Exam Physical Exam: General Appearance: vitals as above, NAD, lying in bed, pleasant, confused Head: normocephalic, atraumatic Eyes: normal inspection, PERRL, conjunctivae normal, anicteric sclerae ENT: external ear and nose normal, oropharynx normal Neck: normal visual inspection, trachea midline, no thyromegaly Respiratory: normal respiratory effort, lungs clear to auscultation, no wheeze, rales, rhonchi. No accessory muscle use Cardiovascular: regular rate, rhythm, no murmur, normal peripheral pulses, no BLE edema. Vessels: no JVD Chest: normal inspection of chest Abdomen/GI: normal bowel sounds, soft, nontender, no hepatosplenomegaly Extremities/Musculoskeletal: no cyanosis or clubbing, extremities motor strength 5/5 Neurologic: PERRL, EOMI, accommodation nl, no face palsy, no dysarthria, CN's II-XI intact bilaterally and moves all extremities Psychiatric: A+Ox person only, intermittent agitation Skin: no rashes, normal color, warm/dry. + Bruising on L lateral ribs Results & Data Results & Data ([facility]) Vital Signs (Past 12 Hours) Vital Signs Temp Pulse Pulse Resp BP BP Pulse Ox 10/01/20 13:36 77 20 125/69 95 10/01/20 12:49 78 18 130/70 95 10/01/20 12:01 82 18 132/72 95 10/01/20 11:37 97 02/01/21 11:35 87 22 126/75 97 10/01/20 10:55 37 C 82 16 125/79 96 Laboratory Results Short CBC 10/01/20 Range/Units 11:15 WBC 10.79 (4.8-10.8) K/uL Hgb 17.4 (14.0-18.0) g/dL Hct 49.8 (42-52) % Plt Count 171 (130-400) K/uL BMP 10/01/20 11:15 Sodium 137 Potassium 4.4 Chloride 105 Carbon Dioxide 26 BUN 11 Creatinine 1.23 Glucose 102 H Calcium 9.4 Cardiac Enzymes 10/01/20 10/01/20 Range/Units 11:15 11:21 Total Creatine Kinase 99 (39-308) U/L CK-MB (CK-2) < 1.0 (0.5-3.6) ng/ml Troponin I 0.018 (0-0.045) ng/ml Liver Function 10/01/20 Range/Units 11:15 Total Bilirubin 1.1 H (0.2-1) mg/dl AST 36 (15-37) U/L ALT 54 (12-78) U/L Alkaline Phosphatase 93 (45-117) U/L Albumin 3.8 (3.4-5.0) gm/dl Urine 10/01/20 Range/Units 11:38 Urine Color Dark Yellow Urine Appearance Clear (Clear) Urine pH 8.5 H (4.5-7.5) Ur Specific [place] 1.021 (1.000-1.030) Urine Protein Trace H (Negative) Urine Glucose (UA) Negative (Negative) Diagnostic Findings Head CT: IMPRESSION: There is no hemorrhage, mass effect, or evidence of acute territorial ischemia by CT criteria. Cervical spine CT: IMPRESSION: No fractures within the cervical spine. CXR: IMPRESSION: No acute cardiopulmonary abnormality. Chest CT: IMPRESSION: 1. There is no acute posttraumatic intrathoracic abnormality. 2. Cardiomegaly and trace pleural effusions. 3. There is no airspace consolidation or pneumothorax. 4. There is no evidence of solid organ injury in the abdomen or pelvis. 5. Mildly enlarged mediastinal lymph nodes are of indeterminant etiology and significance. 6. Additional findings as above. Abd/pelvis CT: IMPRESSION: 1. There is no acute posttraumatic intrathoracic abnormality. 2. Cardiomegaly and trace pleural effusions. 3. There is no airspace consolidation or pneumothorax. 4. There is no evidence of solid organ injury in the abdomen or pelvis. 5. Mildly enlarged mediastinal lymph nodes are of indeterminant etiology and significance. 6. Additional findings as above. R hip XR: IMPRESSION: No acute fracture or dislocation within the right hip. L hip XR: IMPRESSION: No acute fracture or dislocation within the left hip. Code Status & VTE Plan VTE Prophylaxis Plan VTE Prophylaxis will be ordered: Yes Supervising Physician Co-Signing Physician Notes Recurrent falls at home/ambulatory dysfunction Generalized weakness Altered mental status Febrile prior to admission COVID-19 ruled out History of Alzheimer's/vascular dementia History of pulmonary embolism on Coumadin History of CKD stage III Patient presented to the ED after multiple episodes of falls. CT head/chest/abdomen/pelvis without any acute findings. Dynamically patient appears to be doing fine. He did have one episode of fever prior to admission and had an episode of a febrile on admission. Blood and urine cultures were obtained. Peck catheter was placed in the ED due to urine incontinent. Crystal nt was started on vancomycin/Zosyn. Covid 19 was ruled out. Hold Coumadin for today. I performed a history and physical examination of the patient on 10/01/20, including specifically History & Physical Exam. I have discussed the patient's management with the advanced practitioner. Please refer to the Judy Sheikh note for the documented findings and plan of care. (1) Fall Encounter type: initial encounter Qualified Code(s): W19.XXXA - Unspecified fall, initial encounter
[2020-10-01] MEDS ORDERED: ONDANSETRON INJ 2 MG/ML 2 ML VIAL IV PRN (18:21)
[2020-10-01] MEDS ORDERED: POLYETHYLENE (MIRALAX) 17 GM PACK PO PRN (18:21)
[2020-10-01] MEDS ORDERED: ACETAMINOPHEN 500 MG TAB PO ONE (18:41)
[2020-10-01] MEDS ORDERED: WARFARIN SOD 10 MG TAB PO SCH (19:00)
[2020-10-01] MEDS: SACCHAROMYCES BOULARDII 250 MG CAP PO SCH (19:14)
[2020-10-01] MEDS: MEMANTINE HCL 10 MG TAB PO SCH (19:14)
[2020-10-01] MEDS ORDERED: SODIUM CHLORIDE 0.9% 500 ML IV SCH (19:30)
[2020-10-01] MEDS ORDERED: PIPERACILL/TAZOBAC CONSULT ACTIVE PRN (19:51)
[2020-10-01] MEDS ORDERED: VANCOMYCIN CONSULT ACTIVE PRN (19:51)
--- NOTE | 2020-10-01 19:53 | Pharmacy Report ---
Pharmacy Abx Dose Short Note - Date of Service October 01, 2020 - Assessment & Plan Assessment 75 year old M receiving vancomycin/Zosyn for treatment of AMS in setting of fever Day # 1 of antimicrobial therapy. Plan Vancomycin * population kinetics suggest half-life of 14 hours with elimination constant of 0.05 hr-1 * vancomycin 2000 mg IV x 1 (25 mg/kg) then vancomycin 1000 mg (12 mg/kg) IV q12 hours * empiric indication trough goal: 15-20 mcg/mL * order trough based upon duration of therapy Pharmacy will continue to follow and will adjust dose/frequency as necessary. Thank you.
[2020-10-01] MEDS ORDERED: VANCOMYCIN HCL 2,000 MG in SODIUM CHLORIDE 0.9% 500 ML IV ONE (20:00)
[2020-10-01] MEDS ORDERED: PIPERACILLIN/TAZOBACTAM 3.375 GM in DEXTROSE 5% 100 ML IV ONE (20:00)
[2020-10-02] MEDS: PIPERACILLIN/TAZOBACTAM 3.375 GM in DEXTROSE 5% 100 ML IV SCH ×3 (02:22→17:06)
[2020-10-02] MEDS: ACETAMINOPHEN 325 MG TAB PO PRN ×2 (05:43→20:27)
[2020-10-02 07:35] LABS: Hematocrit (blood only) 43.9 % (42-52); Hemoglobin 15.4 g/dL (14.0-18.0); Mean Corpuscular Hemoglobin 32.4 pg (25-34); Mean Corpuscular Hgb Conc 35.1 g/dL (32-36); Mean Corpuscular Volume 92.4 fL (80-100); Mean Platelet Volume 9.9 fL (7.4-10.4); Platelet Count 153 K/uL (130-400); RDW Coefficient of Variation 14.9 % (11.5-14.5); RDW Standard Deviation 50.1 fL (36.4-46.3); Red Blood Count 4.75 M/uL (4.7-6.1); White Blood Count 12.01 K/uL (4.8-10.8)
[2020-10-02 07:56] LABS: INR 1.8 (0.9-1.1); Prothrombin Time 18.6 Seconds (9.0-12.0)
[2020-10-02 08:09] LABS: BUN Creatinine Ratio 14.3 (10-20); Calcium 8.9 mg/dl (8.5-10.1); Creatinine Clr Calc Pharmacy 63.8 ml/min; Est GFR (African American) 76.3; Est GFR (Non-African American) 65.9; Potassium 3.6 mmol/L (3.5-5.1)
[2020-10-02] MEDS: MEMANTINE HCL 10 MG TAB PO SCH ×2 (09:08→20:27)
[2020-10-02] MEDS: SACCHAROMYCES BOULARDII 250 MG CAP PO SCH ×2 (09:08→20:27)
[2020-10-02] MEDS: VANCOMYCIN HCL 1,000 MG in SODIUM CHLORIDE 0.9% 250 ML IV SCH ×2 (09:08→19:47)
[2020-10-02] MEDS: ATORVASTATIN 40 MG TAB PO SCH (09:09)
[2020-10-02] MEDS: THIAMINE HCL 100 MG TAB PO SCH (09:09)
[2020-10-02] MEDS: ASPIRIN 81 MG ECTAB PO SCH (09:09)
[2020-10-02] MEDS: FOLIC ACID 1 MG TAB PO SCH (09:09)
--- NOTE | 2020-10-02 11:21 | Hospitalist Progress Note ---
Date of Service October 02, 2020 Assessment & Plan (1) Fall: (2) AMS (altered mental status): (3) Ambulatory dysfunction: (4) Vascular dementia: (5) Alzheimer's dementia: (6) Pulmonary embolism: (7) CKD (chronic kidney disease), stage III: This is a 75-year-old male with PMH of mixed Alzheimer's and vascular dementia, primary Parkinsonism, CKD 3, history of PE on Coumadin and other medical problems listed below who presents to ED after being found on the floor early this morning. Altered mental status in the setting of Alzeimer's and vascular dementia SIRS - febrile/leukocytosis Patient doing okay this morning. CT head negative for any acute findings. CT chest/abdomen/pelvis without any acute findings. Was febrile on admission with a T-max of 39.3. Limit. BMP and LFTs are not concerning. Procalcitonin is not concerning. UA was benign. Blood and urine cultures are pending. -Urine cultures were possibly sent after the antibiotics. Continue with vancomycin/Zosyn. Follow catheter was placed in the ED due to urinary incontinent. Continue Namenda, Aricept. Monitor closely Fall at home Ambulatory dysfunction Patient had an unwitnessed fall in the middle of the night at home. Usually am bulates independently but for the past few days has been more unsteady. Continue to work with PT/OT. is agreeable for placement. History of DVT/pulmonary embolism On Coumadin, INR at 1.8 today resume Coumadin today. No evidence of bleeding noted. Hemoglobin remains stable. CKD III Kidney function at baseline. Repeat BMP tomorrow DVT Ppx: Coumadin Code status: DNR per discussion with /POA PCP: Judy Dispo: Observation med/surg. Discharge planning ordered Elvia Mims, who would appreciate updates @ [phone] Admission and Anticipated Discharge Date Admission Date: October 01, 2020 Subjective Patient was sitting on the recliner this morning with breakfast tray in front of him with partial p.o. intake. He did not appear to be in any distress. Work with occupational therapy prior to my arrival. He was max assist. According to the , patient was able to get up and ambulate on his own few days ago. Was able to obtain a limited review of system questions from the patient. He did point his finger to the abdomen and stated that he is having pain. He was able to tell me his name. He was not oriented to time place or person. Denies any chest pain or shortness of breath. Review of Systems Review of Systems: All systems reviewed & are unremarkable except as noted in HPI & below Physical Exam Physical Exam: General: Sitting comfortably on the recliner, does not appear to be in any distress, minimally interactive HENT: NCAT, MMM, EOMI Eyes: PERRLA Neck: Supple, normal range of motion CVS: normal rate and rhythm Resp: b/l good breath sounds Abdomen: Soft, distended and nontender Extremities: Absence of any edema Neuro: face symmetric, able to move all 4 extremities Skin: warm and dry MSK: normal RO Results & Data Results & Data ([facility]) Vital Signs (Past 12 Hours) Vital Signs Temp Pulse Resp BP Pulse Ox 10/02/20 07:31 36.6 C 86 22 105/65 93 (1) Fall Encounter type: initial encounter Qualified Code(s): W19.XXXA - Unspecified fall, initial encounter
--- NOTE | 2020-10-02 15:16 | CT Scan Report ---
CT head/brain wo con CLINICAL HISTORY: 75 years-old Male with AMS. Acutely altered mental status TECHNIQUE: Multiple axial CT images of the head were obtained without contrast. A dose lowering tech nique was utilized adhering to the principles of ALARA. CT DOSE: 1547.15 mGy.cm COMPARISON: Head CT 10/01/2020 FINDINGS: Motion degraded exam. A portion of the study was then repeated. No acute intracranial hemorrhage, mid line shift, intracranial mass, hydrocephalus, territorial ischemia or abnormal extra-axial collection . Age-related involutional changes with ex vacuo ventriculomegaly. Patchy white matter hypodensities suggest chronic microvascular ischemic disease. The calvarium is intact. Prior bilateral lens replacement. The paranasal sinuses, mastoid air cells, and middle ear cavities are clear. IMPRESSION: Motion degraded exam without acute intracranial abnormality. ACT 112: Negative or not required by law. The above report was generated using voice recognition software. It may contain grammatical, syntax o r spelling errors. Electronically signed by: Sriram Sands M.D. 10/02/2020 3:14 PM
[2020-10-02] MEDS ORDERED: WARFARIN SOD 5 MG TAB PO SCH (16:00)
[2020-10-02] MEDS: SODIUM CHLORIDE 0.9% 1000ML 1,000 ML IV SCH (16:36)
--- NOTE | 2020-10-02 16:55 | XRay Report ---
SINGLE VIEW CHEST CLINICAL HISTORY: Follow-up pleural effusions. FINDINGS: An AP, portable, upright chest radiograph is compared to chest x-ray and chest CT dated 10/01. The examination is degraded by portable technique and patient rotation. The heart is mildly en larged noting atherosclerotic calcification of the thoracic aorta. The pulmonary vasculature is nonco ngested. Chronic interstitial thickening is similar to previous. Trace pleural effusions are suspecte d with dependent atelectasis. No pneumothorax is seen. The skeletal structures are osteopenic. The sly ny thorax is grossly intact. Degenerative change is noted in the thoracic spine. IMPRESSION: 1. Mild cardiomegaly without radiographic evidence of congestive failure. 2. Suspect trace pleural effusions. ACT 112: Negative or not required by law. Electronically signed by: Duke Ambrose M.D. 10/02/2020 4:54 PM
[2020-10-03] MEDS: PIPERACILLIN/TAZOBACTAM 3.375 GM in DEXTROSE 5% 100 ML IV SCH ×2 (02:17→10:01)
[2020-10-03] MEDS: VANCOMYCIN HCL 1,000 MG in SODIUM CHLORIDE 0.9% 250 ML IV SCH (07:36)
[2020-10-03 07:57] LABS: Basophils # (auto) 0.04 K/uL (0-0.2); Basophils % (auto) 0.4 %; Eosinophils % (auto) 2.1 %; Hematocrit (blood only) 43.3 % (42-52); Hemoglobin 14.7 g/dL (14.0-18.0); Immature Granulocytes # (auto) 0.02 K/uL (0.00-0.02); Immature Granulocytes % (auto) 0.2 %; Lymphocytes # (auto) 1.04 K/uL (1.2-3.4); Mean Corpuscular Hemoglobin 31.9 pg (25-34); Mean Corpuscular Hgb Conc 33.9 g/dL (32-36); Mean Corpuscular Volume 93.9 fL (80-100); Mean Platelet Volume 9.7 fL (7.4-10.4); Monocytes # (auto) 1.36 K/uL (0.11-0.59); Monocytes % (auto) 14.4 %; Neutrophils # (auto) 6.78 K/uL (1.4-6.5); Neutrophils % (auto) 71.9 %; Platelet Count 131 K/uL (130-400); RDW Coefficient of Variation 14.7 % (11.5-14.5); RDW Standard Deviation 50.3 fL (36.4-46.3); Red Blood Count 4.61 M/uL (4.7-6.1); White Blood Count 9.44 K/uL (4.8-10.8)
[2020-10-03 08:05] LABS: INR 2.2 (0.9-1.1); Prothrombin Time 21.3 Seconds (9.0-12.0)
[2020-10-03 08:29] LABS: BUN Creatinine Ratio 14.3 (10-20); Calcium 8.5 mg/dl (8.5-10.1); Creatinine Clr Calc Pharmacy 68.2 ml/min; Est GFR (African American) 82.8; Est GFR (Non-African American) 71.4; Potassium 3.9 mmol/L (3.5-5.1)
[2020-10-03] MEDS: DONEPEZIL HCL 10 MG TAB PO SCH (08:32)
[2020-10-03] MEDS: MEMANTINE HCL 10 MG TAB PO SCH ×2 (08:33→21:38)
[2020-10-03] MEDS: THIAMINE HCL 100 MG TAB PO SCH (08:33)
[2020-10-03] MEDS: FOLIC ACID 1 MG TAB PO SCH (08:33)
[2020-10-03] MEDS: ASPIRIN 81 MG ECTAB PO SCH (08:33)
[2020-10-03] MEDS: ATORVASTATIN 40 MG TAB PO SCH (08:33)
[2020-10-03] MEDS: SACCHAROMYCES BOULARDII 250 MG CAP PO SCH ×2 (08:33→21:38)
--- NOTE | 2020-10-03 12:58 | Hospitalist Progress Note ---
Date of Service October 03, 2020 Assessment & Plan (1) Fall: (2) AMS (altered mental status): (3) Ambulatory dysfunction: (4) Vascular dementia: (5) Alzheimer's dementia: (6) Pulmonary embolism: (7) CKD (chronic kidney disease), stage III: This is a 75-year-old male with PMH of mixed Alzheimer's and vascular dementia, primary Parkinsonism, CKD 3, history of PE on Coumadin and other medical problems listed below who presents to ED after being found on the floor on day of admission Metabolic encephalopathy : baseline dementia , worsening of confusion due to fever , dehydration CT head negative for any acute findings. CT chest/abdomen/pelvis without any acute findings. Was febrile on admission with a T-max of 39.3. afebrile now with stable vitals . normal Procalcitonin UA was benign. Blood and urine cultures -negative growth no evidence of infection , abx Dced Follow catheter was placed in the ED due to urinary incontinent-will order to d/c mcconnell to limit infection hx chronic urinary incontinence Fall at home Ambulatory dysfunction Patient had an unwitnessed fall in the middle of the night at home. PT/OT eval appreciated recommends rehab History of DVT/pulmonary embolism on Coumadin /hx of hypercoagulable status CKD III Kidney function at baseline. Code status: DNR per discussion with /POA PCP: DR Kim Dispo: will need rehab referral made for [facility] Elvia Mims phone # [phone] -update given over phone Admission and Anticipated Discharge Date Admission Date: October 02, 2020 Subjective Follow up visit for confusion /fall : pt found half way hanging out of bed , trying to get up Bed alarm did not go off pt remains confused , asked him repeatedly to stay still Nursing called, pt is repositioned to bed place back Bed Alarm , low height fall risk bed , q 15 mins check to make sure pt remains in safe position can be changed to 1:1 if pt continues to try to climb out of bed pt is awake and alert , oriented to person only wants to get out of " here" asking if his will be able to come and pick him up tonight pt is counselled -need to stay in hospital for care cont to observe fall precaution high risk for sundowning , avoid BDZ Review of Systems Review of Systems: Unobtainable due to cognitive status (dementia ) Physical Exam Constitutional: WD/WN, vitals as above Eyes: + anicteric sclerae ENMT: external ear and nose normal, oropharynx normal Neck: trachea midline, no thyromegaly Respiratory: normal respiratory effort; no respiratory distress and no cough Cardiovascular: Rate/Rhythm: regular rate and regular rhythm Extremities: no edema Gastrointestinal (Abdomen): Percussion/Palpation: abdomen soft; abdomen nontender Musculoskeletal: no cyanosis or clubbing, extremities motor strength 5/5 Skin: no rashes, warm and dry Neurologic: PERRL, EOMI, accommodation nl, no face palsy, no dysarthria + confused (dementia ) Psychiatric: Orientation: alert and oriented to person (DEMENTIA ) Results & Data Results & Data ([facility]) Vital Signs (Past 12 Hours) Vital Signs Temp Pulse Resp BP Pulse Ox 10/03/20 08:00 37 C 76 18 102/65 95 (1) Fall Encounter type: initial encounter Qualified Code(s): W19.XXXA - Unspecified fall, initial encounter
[2020-10-03] MEDS: SODIUM CHLORIDE 0.9% 1000ML 1,000 ML IV SCH (13:37)
--- NOTE | 2020-10-03 16:55 | Communication Note ---
Date of Service: October 03, 2020 spoke with Mrs Mims -understands with worsening of ambulatory dysfunction , high fall risk , pt will benefit with short term rehab prior to returning home is willing to consider rehab , will update CM pt had similar episode approx 8 yrs back was admitted in Hospital in [place] -with fever , confusion , severe weakness, unable to walk no source of infection was identified later lab test revealed pt had Ehrlichiosis ( tick borne disease ) his weakness , fatigue improved after treatment requests to have pt tested for Tick Brone disease including Ehrlichiosis ordered Lyme titer , Anaplasma test and Ehrlichiosis Regarding anticoagulation: hx of DVT /PE ~8 hrs back with hypercoagulable status per genetic testing high risk for blood clot off anticoagulation Coumadin resumed observe fall precaution PT/OT will benefit with rehab Marybeth Reyes MD
[2020-10-03 17:40] LABS: Lyme Ab IgG w/WB Rflx Negative (Negative); Lyme Ab IgM w/WB Rflx Negative (Negative)
[2020-10-03] MEDS ORDERED: WARFARIN SOD 5 MG TAB PO SCH (18:00)
[2020-10-03] MEDS: ACETAMINOPHEN 325 MG TAB PO PRN (22:32)
[2020-10-04 06:55] LABS: INR 2.5 (0.9-1.1); Prothrombin Time 23.3 Seconds (9.0-12.0)
[2020-10-04 07:23] LABS: Creatinine Clr Calc Pharmacy 71.8 ml/min; Est GFR (Non-African American) 75.9
[2020-10-04] MEDS: THIAMINE HCL 100 MG TAB PO SCH (08:35)
[2020-10-04] MEDS: FOLIC ACID 1 MG TAB PO SCH (08:35)
[2020-10-04] MEDS: ASPIRIN 81 MG ECTAB PO SCH (08:35)
[2020-10-04] MEDS: ATORVASTATIN 40 MG TAB PO SCH (08:35)
[2020-10-04] MEDS: MEMANTINE HCL 10 MG TAB PO SCH (08:35)
[2020-10-04] MEDS: DONEPEZIL HCL 10 MG TAB PO SCH (08:35)
[2020-10-04] MEDS: SACCHAROMYCES BOULARDII 250 MG CAP PO SCH (08:35)
--- NOTE | 2020-10-04 12:02 | Communication Note ---
Date of Service: October 04, 2020 pt has home care coordinator at home feels comfortable to have pt return home with home health , home PT pt has a medical condition( ambulatory dysfunction , Vascular dementia , History of PE on coumadin , needs HOB elevated at night for SOB /Orthopnea ) that requires positioning of the body in ways not feasible with an ordinary bed- script given for Hospital bed also script for Rolling walker , Shower bench given to case management per family request spoke with over phone family prefers pt to return home Due to his dementia , pt will do better at home already has Aid/caregiver arranged Pt' son will also help with care referral made for Home Health and home PT medically stable to be discharged home today Marybeth Reyes MD
--- NOTE | 2020-10-04 12:22 | Discharge Summary ---
Date of Service October 04, 2020 Admission HPI Per Admitting Provider This is a 75-year-old male with PMH of mixed Alzheimer's and vascular dementia, primary Parkinsonism, CKD 3, history of PE on Coumadin and other medical problems listed below who presents to ED after being found on the floor early this morning. Unable to obtain history from patient due to cognitive state. Discussed with Maria T over the phone. Patient was found on the floor around 3 AM. was able to get him up with son's help but he was complaining of pain in back and hips. Seem to be more confused and lethargic than baseline dementia, which she describes as alert and oriented to person and place most of the time but not to situation. At baseline, patient ambulates independently albeit is unsteady. Had a fall last week in which caregiver had to help him up. Sustained bruising on left lateral ribs from that fall and was not evaluated in the hospital because patient denied any pain. feels patient would ambulate better with walker but may be forgetful about using it. Denies any unusual behavior yesterday. No fever, chills or complaints of pain prior to fall. Was found to have fever this morning when she took a temperature around 8:30 AM of 101 F. ROS unobtainable due to cognitive state. Principal Diagnosis Confusion /Metabolic encephalopathy -resolved Vascular dementia Alzheimer dementia CKD stage 3 Fall /ambulatory dysfunction Hx of PE /DVT -hypercoagulable status on chronic anticoagulation with Coumadin Discharge Exam Constitutional WD/WN, vitals as above Eyes + anicteric sclerae ENMT external ear and nose normal, oropharynx normal Neck trachea midline, no thyromegaly Respiratory normal respiratory effort; no respiratory distress and no cough Cardiovascular Rate/Rhythm: regular rate and regular rhythm Extremities: no edema Gastrointestinal (Abdomen) Percussion/Palpation: abdomen soft; abdomen nontender Musculoskeletal no cyanosis or clubbing, extremities motor strength 5/5 Skin no rashes, warm and dry Neurologic PERRL, EOMI, accommodation nl, no face palsy, no dysarthria + confused (dementia ) Psychiatric Orientation: alert and oriented to person (DEMENTIA ) Discharge Data Allergies Allergy/AdvReac Type Severity Reaction Status Date / Time No Known Drug Allergies Allergy Unknown ` Verified 10/01/20 12:15 Consultations 10/01/20 14:39 ED Decision to Admit Stat 10/01/20 18:21 Consult Case Management - Discharge Planning Routine Ordered Studies 10/01/20 10:56 CT abd pelvis IV con only Stat CT cervical spine wo con Stat CT chest diagnostic w con Stat CT head/brain wo con Stat 10/02/20 14:35 CT head/brain wo con Stat Hospital Course (1) Fall: (2) AMS (altered mental status): (3) Ambulatory dysfunction: (4) Vascular dementia: (5) Alzheimer's dementia: (6) Pulmonary embolism: (7) CKD (chronic kidney disease), stage III: This is a 75-year-old male with PMH of mixed Alzheimer's and vascular dementia, primary Parkinsonism, CKD 3, history of PE on Coumadin and other medical problems listed below who presents to ED after being found on the floor on day of admission Metabolic encephalopathy : baseline dementia , worsening of confusion due to fever , dehydration CT head negative for any acute findings. CT chest/abdomen/pelvis without any acute findings. Was febrile on admission with a T-max of 39.3. has been afebrile since admission mental status improved to baseline very pleasant , awake and alert , oriented to person only Febrile episode on admission : was febrile Tmax 39 on admission , afebrile since no focus of infection noted, normal white count, normal procalcitonin level negative UA , blood and urine culture negative, Chest Xray no evidence of infiltrate or effusion suggestive of infectious process /pneumonia Abx D/pauline concerned for possible Tick borne disease ( Ehrlichiosis ) pt had similar presentation few yrs back , severe weakness, fall , fever , worsening of confusion , was admitted in Hospital in [place] detail lab work and imaging was negative later was found pt was positive for Ehrlichiosis -received tx with Antibiotic Lab sent for tick borne disease : Lyme titer negative Anaplasma smear : no WBC inclusion body noted Anaplasma DNA PCR : pending Ehrlichiosis Ab( IGM/IGG ) /DNR PCR -result pending result of the labs when available will sent to pt's primary care provider Fall at home Ambulatory dysfunction Patient had an unwitnessed fall in the middle of the night at home. PT/OT eval appreciated family feels pt will do better on returning home with continued family supports , care givers and arrangements for home health visiting nurse , home PT given underlying dementia , pt becomes more confused with change of surrounding , and will not do well at rehab pt seen sitting on chair , finishing meals independently improvement of weakness, ambulatory dysfunction will be discharged home with family support and above arrangements today History of DVT/pulmonary embolism on Coumadin /hx of hypercoagulable status INR therapeutic CKD III Kidney function at baseline. Code status: DNR per discussion with /POA Disposition : pt is discharged home today with home health and home PT family made arrangements for child care provider supports Elvia Mims phone # [phone] -update given over phone all questions answered pt is discharged home in stable condition Total Time Total Time Spent Total Time Spent (In Minutes): approx 35 mins Total Time Includes: Examination of the Patient, Discharge Planning and Medication Reconciliation Discharge Plan Discharge Items Patient Disposition: Home - Home Health Services Reason For Visit: FEVER, AMS, FALL Discharge Diagnosis: Confusion /Metabolic encephalopathy -resolved Vascular dementia Alzheimer dementia CKD stage 3 Fall /ambulatory dysfunction Hx of PE /DVT -hypercoagulable status on chronic anticoagulation with Coumadin Condition on Discharge: Good Activity: Resume your previous activity Activity Comment: observe Fall Precaution Non-emergency contact: Primary Care Provider Call non-emergency contact if: you have any medication questions Follow-up/Referrals: Ernie Kim MD [Primary Care Provider] - 10/09/20 11:40 am (Date & Time 10/09/2020 11:40 AM Provider Ernie Kim MD Department [facility] ) Diet: Heart Healthy Addtl Attending Provider Instructions: Hospital follow up with Dr Kim on 10/09/2020 is still not available -you will be notified over phone and if result is positive for infection , appropriate antibiotic will be sent to your Pharmacy Pending Studies at Discharge: Yes Studies:: Lab result for Ehrlichiosis Stand-Alone Forms: My [facility] [employer], Smoking Cessation Medications and DC Order Prescriptions: Continued aspirin 81 mg Tablet,Delayed Release (Dr/Ec) 81 mg PO DAILY Qty: 0 RF: 0 folic acid 1 mg Tablet 1 mg PO DAILY Qty: 30 RF: 0 atorvastatin 40 mg tablet 40 mg PO DAILY RF: 0 thiamine HCl (vitamin B1) 100 mg Tablet 100 mg PO DAILY RF: 0 warfarin 5 mg Tablet 10 mg PO DAILY RF: 0 Saccharomyces boulardii 250 mg Capsule 250 mg PO BID RF: 0 memantine 10 mg tablet 10 mg PO BID RF: 0 donepezil 23 mg tablet 23 mg PO DAILY RF: 0 Discharge Orders: Discharge Order (Routine); Ordered 10/04/20 Ordered By: Marybeth Hunter/Other Patient Handouts: Anatomy of the Brain, Dementia Patients Caregiver, Preventing Falls in the Home, Alzheimer Disease Admission Data Admit Date/Time: 10/02/20 13:49 Attending Provider: Marybeth Reyes Admit Provider: Dev Stallworth Primary Care Provider: Ernie Kim Other Providers: Dev Stallworth ; [facility],Home Healthcare Other Interventions: Discharge Summary Assessment (RN) Last Done: 10/04/20 12:19
[2020-10-09 04:11] LABS: Ehrlichia chaff DNA Bld Not Detected (Not Detected); Ehrlichia chaff IgG Ab <1:64 (<1:64); Ehrlichia chaff IgM Ab <1:20 (<1:20)
== END 2020-10-04 13:17 | disposition home health service (06) ==
LOC: ED 10:44 → 3N 10:44 → SUATTDRO 10-02 13:49

== ENCOUNTER 2020-11-28 16:22 | Inpatient (IN) ==
[2020-11-28] MEDS ORDERED: SODIUM CHLORIDE 0.9% 1000ML 1,000 ML IV ONE (18:46)
[2020-11-28 19:21] LABS: Basophils # (auto) 0.04 K/uL (0-0.2); Basophils % (auto) 0.4 %; Eosinophils # (auto) 0.04 K/uL (0-0.5); Eosinophils % (auto) 0.4 %; Hematocrit (blood only) 45.2 % (42-52); Hemoglobin 15.9 g/dL (14.0-18.0); Immature Granulocytes # (auto) 0.02 K/uL (0.00-0.02); Immature Granulocytes % (auto) 0.2 %; Lymphocytes # (auto) 1.42 K/uL (1.2-3.4); Lymphocytes % (auto) 13.3 %; Mean Corpuscular Hemoglobin 32.4 pg (25-34); Mean Corpuscular Hgb Conc 35.2 g/dL (32-36); Mean Corpuscular Volume 92.1 fL (80-100); Mean Platelet Volume 9.3 fL (7.4-10.4); Monocytes # (auto) 1.57 K/uL (0.11-0.59); Monocytes % (auto) 14.7 %; Neutrophils # (auto) 7.58 K/uL (1.4-6.5); Platelet Count 232 K/uL (130-400); RDW Standard Deviation 50.8 fL (36.4-46.3); Red Blood Count 4.91 M/uL (4.7-6.1); White Blood Count 10.67 K/uL (4.8-10.8)
[2020-11-28 19:33] LABS: INR 3.4 (0.9-1.1); Prothrombin Time 31.2 Seconds (9.0-12.0)
[2020-11-28 19:39] LABS: Alanine Aminotransferase 26 U/L (12-78); Albumin Level 3.5 gm/dl (3.4-5.0); Aspartate Aminotransferase 18 U/L (15-37); BUN Creatinine Ratio 12.9 (10-20); Bilirubin Direct 0.2 mg/dl (0-0.2); Blood Urea Nitrogen 14 mg/dl (7-18); Calcium 9.3 mg/dl (8.5-10.1); Carbon Dioxide 29 mmol/L (21-32); Chloride 106 mmol/L (98-107); Est GFR (African American) 73.8; Est GFR (Non-African American) 63.7; Glucose 105 mg/dl (70-99); Lipase 175 U/L (73-393); Magnesium 2.4 mg/dl (1.8-2.4); Potassium 4.1 mmol/L (3.5-5.1); Sodium 138 mmol/L (136-145)
[2020-11-28 19:42] LABS: Albumin Globulin Ratio 0.8 (0.9-2); Alkaline Phosphatase 80 U/L (45-117); Creatine Kinase 48 U/L (39-308); Globulin 4.4 gm/dl (2.5-4.0); Phosphorus 2.7 mg/dl (2.5-4.9); Total Protein 7.9 gm/dl (6.4-8.2); Troponin I < 0.015 ng/ml (0-0.045)
--- NOTE | 2020-11-28 19:55 | XRay Report ---
XR chest 1V portable HISTORY: 75 years-old Male Chest Pain acute atypical chest pain COMPARISON: Chest radiograph 10/08/2020 TECHNIQUE: Portable upright AP view of the chest FINDINGS: Cardiac silhouette is enlarged. Trace right and small left pleural effusions left lung base consolida tion is mildly progressed from comparison. No pneumothorax or overt pulmonary edema. Suggested calcif ied granuloma of the left upper lung. Bones appear grossly intact. IMPRESSION: 1. Cardiomegaly without pulmonary edema. 2. Trace right and small left pleural effusions. 3. Mildly progressed left lung base opacities suggestive of atelectasis versus pneumonia. ACT 112: Negative or not required by law. The above report was generated using voice recognition software. It may contain grammatical, syntax o r spelling errors. Electronically signed by: Sriram Sands M.D. 11/28/2020 7:53 PM
[2020-11-28 20:23] LABS: Appearance Urine Clear (Clear); Bacteria Urine Automated Negative (Negative); Bilirubin Urine Negative (Negative); Blood Urine 3+ (Negative); Color Urine Dark Yellow; Epithelial Cell Urine Auto 20-30 /lpf (0-5); Glucose Urine UA Negative (Negative); Ketones Urine 1+ (Negative); Leukocyte Esterase Urine Negative (Negative); Nitrite Urine Negative (Negative); Protein Urine 1+ (Negative); RBC Urine Automated >30 /hpf (0-4); Specific Gravity Urine 1.035 (1.000-1.030); Urobilinogen Urine Negative (Negative)
[2020-11-28] MEDS ORDERED: OPTIRAY 320 125ml IV ONE (20:29)
--- NOTE | 2020-11-28 20:56 | CT Scan Report ---
CT head/brain wo con CLINICAL HISTORY: 75 years-old Male with Dementia/weakness. Acute weakness with dementia TECHNIQUE: Multiple axial CT images of the head were obtained without contrast. A dose lowering tech nique was utilized adhering to the principles of ALARA. CT DOSE: 2426.69 mGy.cm COMPARISON: CTA head neck of same day, head CT 10/05/2020 FINDINGS: No acute intracranial hemorrhage, midline shift, intracranial mass, hydrocephalus, territorial ischem ia or abnormal extra-axial collection. Age-related involutional changes with ex vacuo ventriculomegal y. White matter hypodensities suggest chronic microvascular ischemic disease. Cerebral vascular calci fications. The calvarium is intact. Prior bilateral lens repair. The paranasal sinuses, mastoid air cells, and m iddle ear cavities are clear. IMPRESSION: No acute intracranial abnormality. ACT 112: Negative or not required by law. The above report was generated using voice recognition software. It may contain grammatical, syntax o r spelling errors. Electronically signed by: Sriram Sands M.D. 11/28/2020 8:55 PM
[2020-11-28 21:02] LABS: Influenza A virus by PCR Negative (Neg); Influenza B virus by PCR Negative (Neg); RSV by PCR Negative (Neg); SARS CoV2 RNA(COVID-19) InHosp NEGATIVE (Negative)
--- NOTE | 2020-11-28 21:06 | CT Scan Report ---
CT angio neck with con CLINICAL HISTORY: 75 years-old Male with Dementia/weakness. Acute weakness with dementia COMPARISON STUDY: Head CT of same day TECHNIQUE: Following the IV administration of 118 mL of Optiray 320, CT angiogram of the head and nec k was performed from the aortic arch to the skull apex. Images are reviewed in the axial, sagittal, a nd coronal planes. 3-D MIPS images are created and assessed. IV contrast was administered without com plication. All measurements were calculated based on NASCET criteria. A dose lowering technique was utilized adhering to the principles of ALARA. FINDINGS: Three-vessel morphology of the thoracic aortic arch. Patency of the innominate and imaged subclavian arteries. The common carotid arteries are patent. There is moderate atheromatous plaque of the caroti d bulbs and proximal cervical segments of the internal carotid arteries resulting in less than 50% st enosis bilaterally. Calcified plaque of the cavernous, clinoid and supraclinoid segments without sign ificant stenosis. The middle and anterior cerebral arteries are patent. Codominant and widely patent vertebral arteries. Mild calcified plaque of the V4 segments without high-grade stenosis. The basilar artery is patent. Patent posterior cerebral arteries with origin on the left. Cerebral venous sinuses are patent. No abnormal intracranial enhancement. No pneumothorax. Unremarkable soft tissues. Prior bilateral lens repair. No acute fracture. Degenerat janes changes of the cervical spine. IMPRESSION: 1. Unremarkable CTA of the head and neck without aneurysm, dissection, high-grade stenosis or arteria l occlusion. 2. Moderate atheromatous plaque of the carotid bulbs and proximal cervical segments of the internal c arotid arteries without significant stenosis. ACT 112: Negative or not required by law. The above report was generated using voice recognition software. It may contain grammatical, syntax o r spelling errors. Electronically signed by: Sriram Sands M.D. 11/28/2020 9:05 PM
--- NOTE | 2020-11-28 23:21 | Emergency Department Note ---
Impression & Plan Confusion, Generalized weakness, Dementia, Dehydration ED Provider Note NAME: KAMERON LOPEZ AGE: 75 SEX: M ARRIVES VIA: Walk-In INFORMANT: Patient, ED PROVIDER(S): Saad Nuñez MD CHIEF COMPLAINT: Weakness, Confusion PLAN: Disposition: Admit MEDICAL DECISION MAKING: The patient is a pleasant 75-year-old gentleman with a past medical history of atrial fibrillation on warfarin, CKD, Alzheimer's dementia who presents emergency department accompanied by his concern for worsening confusion and generalized weakness over the past week in the setting of recent history of hospitalization for aspiration pneumonia discharged to rehab and then residential facility and since he has been home has had a decline where they were seen by his neurologist today and referred to emergency department. Of note, the patient complained of chest pain over the past few days which also concerned the . However at this time the patient reports some pain in his wrist but otherwise has no complaints. On arrival the patient is fatigued appearing but no acute distress, afebrile stable vital signs. He appears clinically dry. He is alert to self. He has masked facies and otherwise no focal neurologic deficits with 4/5 strength in all extremities. EKG without overt acute ischemia. Chest x-ray with question of left basilar atelectasis versus progression of pneumonia. WBC, H/H and platelets within normal limits. INR 3.4. Chemistry without metabolic acidosis. Electrolytes and LFTs are unremarkable. Troponin negative/undetectable. Lipase within normal limits. UA without convincing evidence of infection. There is ketones which is consistent with the patient's clinically dry appearance. COVID-19, influenza and RSV PCR were negative. CT head negative for ICH or ischemia. CTA of the head and neck negative for severe narrowing or occlusion of large vessels. Unclear etiology to the patient's clinical decline at this time though could be related to a component of dehydration in the setting of progression of his Alzheimer's dementia and recent hospitalizations. However, given the patient's worsening functional status at home patient's does agree with plan for admission for further evaluation and possible placement. Case was discussed with Dr. Anaya, [facility] hospitalist, who will evaluate the patient for admission. Will defer decision for antibiotics to admitting team. Triage Nursing notes reviewed and agree them. Prior medical records reviewed Vital Signs: reviewed and remarkable for no significant abnormalities Differential diagnosis: Infection, dehydration, metabolic abnormality, hypo/hyperglycemia, electrolyte disturbance, anemia, hypoxia, cardiac sources, intracerebral event, toxicologic, neurologic, as well as other pathologies. ER treatment provided: See below. Diagnostics interpreted by me: ECG: Normal sinus rhythm, 89 bpm, no ectopy, no overt ST elevation or depression, QTC 416, dress 80. Cardiac Monitoring: Normal sinus rhythm, 89 bpm, no ectopy Laboratory studies: See below Imaging studies: See below Consultation(s): Case was discussed with Dr. Anaya, [facility] hospitalist, who will evaluate the patient for admission. HPI: The patient is a pleasant 75-year-old gentleman with a past medical history of atrial fibrillation on warfarin, CKD, Alzheimer's dementia who presents emergency department accompanied by his concern for worsening confusion and generalized weakness over the past week in the setting of recent history of hospitalization for aspiration pneumonia discharged to rehab and then residential facility and since he has been home has had a decline where they were seen by his neurologist today and referred to emergency department. Of note, the patient complained of chest pain over the past few days which also concerned the . However at this time the patient reports some pain in his wrist but otherwise has no complaints. ROS: See above HPI for pertinent positives & negatives. A total of 10 systems reviewed and were otherwise negative. PAST MEDICAL HISTORY:See Below PAST SURGICAL HISTORY:See Below FAMILY HISTORY:See Below SOCIAL HISTORY:See Below HOME MEDICATIONS:See Below ALLERGIES:See Below VITALS:See Below PHYSICAL EXAMINATION: GENERAL: Awake, alert, fatigued-appearing, in no distress HENT: Normocephalic, atraumatic. Oropharynx with dry mucous membranes and otherwise unremarkable. EYES: Normal conjunctiva. Sclera non-icteric. NECK: Supple. No nuchal rigidity. FROM. No JVD. RESPIRATORY: Clear to auscultation. CARDIAC: Regular rate, normal rhythm. Extremities warm and well perfused. Pulses equal. ABDOMEN: Soft, non-distended. No tenderness to palpation. No rebound or guarding. No masses. RECTAL: Deferred. MUSCULOSKELETAL: Chest examination reveals no tenderness. The back is symmetrical on inspection without obvious abnormality. There is no CVA tenderness to palpation. No joint edema. LOWER EXTREMITIES: Calves are equal size bilaterally and non-tender. No edema. No discoloration. NEURO: Normal sensorium. No sensory or motor deficits noted. 4/5 strength x 4 ext. SKIN: No rash or jaundice noted. 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 Beliefs That Will Affect Care: None Current Living Situation: Spouse Other Information That Helps Us Care for You: No Feels Safe at Home: Yes Safety Concerns: Feels Safe At This Time Assistive Devices: Glasses, Hearing Aid - Bilateral, Hearing Aid - Left and Hearing Aid - Right Allergies Allergies Allergy/AdvReac Type Severity Reaction Status Date / Time No Known Drug Allergies Allergy Unknown ` Verified 11/28/20 21:47 Home Meds Home Medications Medication Instructions Recorded Confirmed aspirin 81 mg PO DAILY #0 06/24/10 11/28/20 folic acid 1 mg PO DAILY #30 09/19/14 11/28/20 Saccharomyces boulardii 250 mg PO BID 10/01/20 11/28/20 atorvastatin 40 mg PO DAILY 10/01/20 11/28/20 donepezil 23 mg PO DAILY 10/01/20 11/28/20 memantine 10 mg PO BID 10/01/20 11/28/20 thiamine HCl (vitamin B1) 100 mg PO DAILY 10/01/20 11/28/20 warfarin 10 mg PO MOWEFR 10/01/20 11/28/20 zinc 50 mg PO PM 10/05/20 11/28/20 metoprolol succinate 12.5 mg PO DAILY 11/28/20 11/28/20 multivitamin 1 tab PO DAILY 11/28/20 11/28/20 warfarin 7.5 mg PO SUTUTHSA 11/28/20 11/28/20 Results & Data (ED) Vital Signs Vital Signs - 24 hr 11/28/20 16:38 11/28/20 16:44 11/28/20 18:07 Temperature 37.2 C Temperature Source Temporal Artery Scan Pulse Rate 93 H 84 Pulse Rate from SpO2 Sensor 83 Respiratory Rate 20 19 Respiratory Effort / Characteristics Non-Labored Spontaneous Non-Labored Spontaneous Respiratory Depth Normal Normal Respiratory Pattern Regular Blood Pressure 136/76 136/84 Blood Pressure Mean 96 101 Blood Pressure Position Lying Pulse Oximetry 95 95 Oxygen Delivery Method Room Air Room Air Room Air Sepsis Recent Fever Within 48 Hours No Sepsis New/Unexplained Change in Mental Status N/A Sepsis Action Taken by Nursing No Action Required 11/28/20 18:30 11/28/20 19:00 11/28/20 19:09 Temperature Temperature Source Pulse Rate 89 84 Pulse Rate from SpO2 Sensor 90 84 Respiratory Rate 20 25 H Respiratory Effort / Characteristics Respiratory Depth Respiratory Pattern Blood Pressure 132/77 137/80 Blood Pressure Mean 95 99 Blood Pressure Position Pulse Oximetry 95 96 Oxygen Delivery Method Room Air Room Air Room Air Sepsis Recent Fever Within 48 Hours Sepsis New/Unexplained Change in Mental Status Sepsis Action Taken by Nursing 11/28/20 20:01 11/28/20 21:00 11/28/20 21:30 Temperature Temperature Source Pulse Rate 93 H 83 87 Pulse Rate from SpO2 Sensor 78 Respiratory Rate 17 17 26 H Respiratory Effort / Characteristics Respiratory Depth Respiratory Pattern Blood Pressure 142/90 H 131/81 150/84 H Blood Pressure Mean 107 97 106 Blood Pressure Position Pulse Oximetry 97 Oxygen Delivery Method Sepsis Recent Fever Within 48 Hours Sepsis New/Unexplained Change in Mental Status Sepsis Action Taken by Nursing 11/28/20 22:00 11/28/20 22:30 Temperature Temperature Source Pulse Rate 83 84 Pulse Rate from SpO2 Sensor Respiratory Rate 13 20 Respiratory Effort / Characteristics Respiratory Depth Respiratory Pattern Blood Pressure 140/88 121/71 Blood Pressure Mean 105 87 Blood Pressure Position Pulse Oximetry Oxygen Delivery Method Sepsis Recent Fever Within 48 Hours Sepsis New/Unexplained Change in Mental Status Sepsis Action Taken by Nursing Laboratory Data Attestation: I reviewed the patient's lab results. Result diagrams: 11/28/20 19:15 11/28/20 19:15 Lab Results 11/28/20 11/28/20 11/28/20 Range/Units 19:15 19:15 19:15 WBC 10.67 (4.8-10.8) K/uL RBC 4.91 (4.7-6.1) M/uL Hgb 15.9 (14.0-18.0) g/dL Hct 45.2 (42-52) % MCV 92.1 (80-100) fL MCH 32.4 (25-34) pg MCHC 35.2 (32-36) g/dL RDW Std Deviation 50.8 H (36.4-46.3) fL RDW Coeff of Brynn 15.0 H (11.5-14.5) % Plt Count 232 (130-400) K/uL MPV 9.3 (7.4-10.4) fL Immature Gran % (Auto) 0.2 % Neut % (Auto) 71.0 % Lymph % (Auto) 13.3 % Stevens % (Auto) 14.7 % Eos % (Auto) 0.4 % Baso % (Auto) 0.4 % Neut # (Auto) 7.58 H (1.4-6.5) K/uL Lymph # (Auto) 1.42 (1.2-3.4) K/uL Stevens # (Auto) 1.57 H (0.11-0.59) K/uL Eos # (Auto) 0.04 (0-0.5) K/uL Baso # (Auto) 0.04 (0-0.2) K/uL Immature Gran # (Auto) 0.02 (0.00-0.02) K/uL PT 31.2 H (9.0-12.0) Seconds INR 3.4 H (0.9-1.1) Sodium 138 (136-145) mmol/L Potassium 4.1 (3.5-5.1) mmol/L Chloride 106 (98-107) mmol/L Carbon Dioxide 29 (21-32) mmol/L Anion Gap 3.0 (3-11) BUN 14 (7-18) mg/dl Creatinine 1.11 (0.6-1.4) mg/dl Est Cr Clr Drug Dosing 63.0 ml/min Est GFR ( Amer) 73.8 Est GFR (Non-Af Amer) 63.7 BUN/Creatinine Ratio 12.9 (10-20) Glucose 105 H (70-99) mg/dl Calcium 9.3 (8.5-10.1) mg/dl Phosphorus 2.7 (2.5-4.9) mg/dl Magnesium 2.4 (1.8-2.4) mg/dl Total Bilirubin 1.0 (0.2-1) mg/dl Direct Bilirubin 0.2 (0-0.2) mg/dl AST 18 (15-37) U/L ALT 26 (12-78) U/L Alkaline Phosphatase 80 (45-117) U/L Total Creatine Kinase 48 (39-308) U/L Troponin I < 0.015 (0-0.045) ng/ml Total Protein 7.9 (6.4-8.2) gm/dl Albumin 3.5 (3.4-5.0) gm/dl Globulin 4.4 H (2.5-4.0) gm/dl Albumin/Globulin Ratio 0.8 L (0.9-2) Lipase 175 (73-393) U/L COVID-19 Eval Order SARS-CoV-2 (PCR) (Negative) Influenza Type A (PCR) (Neg) Influenza Type B (PCR) (Neg) RSV (RT-PCR) (Neg) 11/28/20 11/28/20 Range/Units 20:16 20:16 WBC (4.8-10.8) K/uL RBC (4.7-6.1) M/uL Hgb (14.0-18.0) g/dL Hct (42-52) % MCV (80-100) fL MCH (25-34) pg MCHC (32-36) g/dL RDW Std Deviation (36.4-46.3) fL RDW Coeff of Brynn (11.5-14.5) % Plt Count (130-400) K/uL MPV (7.4-10.4) fL Immature Gran % (Auto) % Neut % (Auto) % Lymph % (Auto) % Stevens % (Auto) % Eos % (Auto) % Baso % (Auto) % Neut # (Auto) (1.4-6.5) K/uL Lymph # (Auto) (1.2-3.4) K/uL Stevens # (Auto) (0.11-0.59) K/uL Eos # (Auto) (0-0.5) K/uL Baso # (Auto) (0-0.2) K/uL Immature Gran # (Auto) (0.00-0.02) K/uL PT (9.0-12.0) Seconds INR (0.9-1.1) Sodium (136-145) mmol/L Potassium (3.5-5.1) mmol/L Chloride (98-107) mmol/L Carbon Dioxide (21-32) mmol/L Anion Gap (3-11) BUN (7-18) mg/dl Creatinine (0.6-1.4) mg/dl Est Cr Clr Drug Dosing ml/min Est GFR ( Amer) Est GFR (Non-Af Amer) BUN/Creatinine Ratio (10-20) Glucose (70-99) mg/dl Calcium (8.5-10.1) mg/dl Phosphorus (2.5-4.9) mg/dl Magnesium (1.8-2.4) mg/dl Total Bilirubin (0.2-1) mg/dl Direct Bilirubin (0-0.2) mg/dl AST (15-37) U/L ALT (12-78) U/L Alkaline Phosphatase (45-117) U/L Total Creatine Kinase (39-308) U/L Troponin I (0-0.045) ng/ml Total Protein (6.4-8.2) gm/dl Albumin (3.4-5.0) gm/dl Globulin (2.5-4.0) gm/dl Albumin/Globulin Ratio (0.9-2) Lipase (73-393) U/L COVID-19 Eval Order CovFluRsv at [facility] SARS-CoV-2 (PCR) NEGATIVE (Negative) Influenza Type A (PCR) Negative (Neg) Influenza Type B (PCR) Negative (Neg) RSV (RT-PCR) Negative (Neg) Administered Medications Sodium Chloride (Nss 1000ml) 1,000 mls @ 75 mls/hr IV .[id number] VALE Stop: 12/29/20 00:53 Last Admin: 11/29/20 00:55 Dose: 75 mls/hr Documented by: [id number] Doxycycline Hyclate 100 mg/ (Dextrose) 110 mls @ 50 mls/hr IV Q12H VALE Stop: 12/06/20 01:59 Last Infusion: 11/29/20 04:49 Dose: 0 mls/hr Documented by: [id number] Admin: 11/29/20 02:34 Dose: 50 mls/hr Documented by: [id number] Discontinued Medications Sodium Chloride (Nss 1000ml) 1,000 mls @ 999 mls/hr IV .[id number] ONE Stop: 11/28/20 19:46 Last Infusion: 11/28/20 22:13 Dose: 0 mls/hr Documented by: [id number] Admin: 11/28/20 20:16 Dose: 999 mls/hr Documented by: [id number] Piperacillin Sod/Tazobactam (Sod 3.375 gm/ Dextrose) 115 mls @ 230 mls/hr IV ONE ONE; Protocol Stop: 11/29/20 01:29 Last Infusion: 11/29/20 02:35 Dose: 0 mls/hr Documented by: [id number] Admin: 11/29/20 02:01 Dose: 230 mls/hr Documented by: [id number] Methylprednisolone 20 mg/ (Syringe) 0.32 mls @ 1.5 mls/min IV NOW STA Stop: 11/29/20 01:13 Last Admin: 11/29/20 02:01 Dose: 1.5 mls/min Documented by: [id number] Ioversol (Optiray 320 125ml) 118 ml IV ONCE ONE Stop: 11/28/20 20:30 Last Admin: 11/28/20 20:30 Dose: 118 ml Documented by: [id number] Imaging Data Radiologist's Impression: Head CT 11/28/20 18:41 CT head/brain wo con CLINICAL HISTORY: 75 years-old Male with Dementia/weakness. Acute weakness with dementia TECHNIQUE: Multiple axial CT images of the head were obtained without contrast. A dose lowering technique was utilized adhering to the principles of ALARA. CT DOSE: 2426.69 mGy.cm COMPARISON: CTA head neck of same day, head CT 10/05/2020 FINDINGS: No acute intracranial hemorrhage, midline shift, intracranial mass, hydrocephalus, territorial ischemia or abnormal extra-axial collection. Age- related involutional changes with ex vacuo ventriculomegaly. White matter hypodensities suggest chronic microvascular ischemic disease. Cerebral vascular calcifications. The calvarium is intact. Prior bilateral lens repair. The paranasal sinuses, mastoid air cells, and middle ear cavities are clear. IMPRESSION: No acute intracranial abnormality. ACT 112: Negative or not required by law. The above report was generated using voice recognition software. It may contain grammatical, syntax or spelling errors. Electronically signed by: Sriram Sands M.D. 11/28/2020 8:55 PM Neck CTA 11/28/20 18:41 CT angio neck with con CLINICAL HISTORY: 75 years-old Male with Dementia/weakness. Acute weakness with dementia COMPARISON STUDY: Head CT of same day TECHNIQUE: Following the IV administration of 118 mL of Optiray 320, CT angiogram of the head and neck was performed from the aortic arch to the skull apex. Images are reviewed in the axial, sagittal, and coronal planes. 3-D MIPS images are created and assessed. IV contrast was administered without complication. All measurements were calculated based on NASCET criteria. A dose lowering technique was utilized adhering to the principles of ALARA. FINDINGS: Three-vessel morphology of the thoracic aortic arch. Patency of the innominate and imaged subclavian arteries. The common carotid arteries are patent. There is moderate atheromatous plaque of the carotid bulbs and proximal cervical segments of the internal carotid arteries resulting in less than 50% stenosis bilaterally. Calcified plaque of the cavernous, clinoid and supraclinoid segments without significant stenosis. The middle and anterior cerebral arteries are patent. Codominant and widely patent vertebral arteries. Mild calcified plaque of the V4 segments without high-grade stenosis. The basilar artery is patent. Patent posterior cerebral arteries with origin on the left. Cerebral venous sinuses are patent. No abnormal intracranial enhancement. No pneumothorax. Unremarkable soft tissues. Prior bilateral lens repair. No acute fracture. Degenerative changes of the cervical spine. IMPRESSION: 1. Unremarkable CTA of the head and neck without aneurysm, dissection, high- grade stenosis or arterial occlusion. 2. Moderate atheromatous plaque of the carotid bulbs and proximal cervical segments of the internal carotid arteries without significant stenosis. ACT 112: Negative or not required by law. The above report was generated using voice recognition software. It may contain grammatical, syntax or spelling errors. Electronically signed by: Sriram Sands M.D. 11/28/2020 9:05 PM Chest X-Ray 11/28/20 18:44 XR chest 1V portable HISTORY: 75 years-old Male Chest Pain acute atypical chest pain COMPARISON: Chest radiograph 10/08/2020 TECHNIQUE: Portable upright AP view of the chest FINDINGS: Cardiac silhouette is enlarged. Trace right and small left pleural effusions left lung base consolidation is mildly progressed from comparison. No pneumothorax or overt pulmonary edema. Suggested calcified granuloma of the left upper lung. Bones appear grossly intact. IMPRESSION: 1. Cardiomegaly without pulmonary edema. 2. Trace right and small left pleural effusions. 3. Mildly progressed left lung base opacities suggestive of atelectasis versus pneumonia. ACT 112: Negative or not required by law. The above report was generated using voice recognition software. It may contain grammatical, syntax or spelling errors. Electronically signed by: Sriram Sands M.D. 11/28/2020 7:53 PM Discharge Plan Visit Data Chief Complaint: Chest Pain Stated Complaint: POSSIBLE UTI, NECK, ARM, CHEST PAIN ED Provider: Saad Nuñez Discharge Problem: Confusion, Generalized weakness, Dementia, Dehydration Patient Disposition: Admitted As Inpatient Discharge Instructions Interventions: ED Discharge Assessment Last Done: 11/28/20 23:56 Discharge Problem: Dementia Qualifiers: Dementia type: Alzheimer's Alzheimer's disease onset: unspecified onset Dementia behavioral disturbance: with behavioral disturbance Qualified Code(s): G30.9 - Alzheimer's disease, unspecified
[2020-11-29] MEDS ORDERED: PIPERACILL/TAZOBAC CONSULT ACTIVE PRN (00:54)
[2020-11-29] MEDS ORDERED: ONDANSETRON INJ 2 MG/ML 2 ML VIAL IV PRN (00:54)
[2020-11-29] MEDS ORDERED: SODIUM CHLORIDE 0.9% 1000ML 1,000 ML IV SCH (00:54)
[2020-11-29] MEDS ORDERED: ACETAMINOPHEN 325 MG TAB PO PRN (00:54)
[2020-11-29] MEDS ORDERED: NITROGLYCERIN SL 0.4 MG/TAB TAB SL PRN (00:54)
[2020-11-29] MEDS ORDERED: PIPERACILLIN/TAZOBACTAM 3.375 GM in DEXTROSE 5% 100 ML IV ONE (01:00)
[2020-11-29] MEDS ORDERED: methylPREDNISolone 20 MG in SYRINGE 0 ML IV STA (01:12)
--- NOTE | 2020-11-29 01:58 | History and Physical Report ---
DATE OF ADMISSION: 11/28/2020 CHIEF COMPLAINT: Confusion and weakness. HISTORY OF PRESENT ILLNESS: This is a 75-year-old male with past medical history significant for hyperlipidemia, pleural effusion, paroxysmal atrial fibrillation, history of dilatation of aorta, mixed Alzheimer's and vascular dementia, mediastinal lymphadenopathy, bradycardia, GERD, parkinsonism, history of pulmonary embolism and deep venous thrombosis, who lives at home with his , was brought in because of weakness and confusion and complained of some chest pain. The patient has some dementia. The patient was here in the hospital in October with possible hospital-acquired pneumonia and weakness and AFib with RVR and metabolic encephalopathy and ambulatory dysfunction and was discharged to [facility]. As per the , he stayed there for about a week and a couple of days ago he was ambulating okay with the help of walker, but since yesterday he was getting more confused and not obeying commands properly and even with the help of herself and her son he was not able to ambulate properly. Today in the morning with the help of the home health nurse, he was able to ambulate a little bit with the walker with assistance, but the patient seemed to be more confused.Last night he had a dry cough and today morning he had cough, bringing some phlegm, but he swallowed the phlegm, and he has a history of aspiration pneumonia on last admission .He was eating regular food before, but last 2 days she has tried to give soft food. The patient also complains of some chest pain. Denies any nausea, vomiting. No diarrhea. No fevers at home. Appetite was okay. Today when she was going to take him to neurologist appointment, on the way he had episode of urinary incontinence. He has never had this urinary incontinence before and was worried about UTI or pneumonia and brought him here to the hospital. The says she could not take care of the patient in current situation at home because he is having difficulty ambulation and she could not support the patient. ALLERGIES: No known drug allergies. PAST MEDICAL HISTORY: As mentioned above. PAST SURGICAL HISTORY: Right total knee arthroplasty, colonoscopy, jaw arthroscopy surgery, partial removal of the eye fluid, vasectomy, tonsillectomy and adenoidectomy. MEDICATIONS: The patient is on aspirin 81 mg daily, atorvastatin 40 mg p.o. daily, donepezil 23 mg p.o. daily, folic acid 1 mg p.o. daily, memantine 10 mg p.o. b.i.d., metoprolol succinate 12.5 mg p.o. daily, multivitamins 1 tablet daily, Saccharomyces boulardii 250 mg p.o. b.i.d., thiamine 100 mg p.o. daily, warfarin 10 mg p.o. on Thursday, Thursday and Thursday, and warfarin 7.5 mg p.o. on Thursday, Thursday, , and Thursday, zinc 50 mg p.o. daily. FAMILY HISTORY: Significant for brother had prostate cancer and heart disorder, father had cancer, mother had cancer and dementia. SOCIAL HISTORY: , quit smoking in 2002. No alcohol use, no drug use. REVIEW OF SYSTEMS: As per HPI. Could not get review of systems from the patient as the patient seemed to be confused. PHYSICAL EXAMINATION: VITAL SIGNS: Temperature 37.2, pulse 84, respiratory rate 20, blood pressure 121/71, oxygen 97% on room air. HEENT: No pallor, no icterus. Atraumatic. NECK: No JVD, no neck masses. CARDIOVASCULAR: S1, S2 heard. Regular rate and rhythm. No murmur, no gallop. RESPIRATORY SYSTEM: Normal AP diameter. No accessory muscle use. No wheezing, no crackles. ABDOMEN: Soft, bowel sounds present, nontender. No distention. CENTRAL NERVOUS SYSTEM: Alert and oriented to name. Only could tell his date of . Obeys simple commands. Speech is clear, no facial droop. Moves extremities. EXTREMITIES: No edema, no erythema. LABORATORY DATA: WBC 10.6, hemoglobin 15.9, hematocrit 45.2, platelets 232. PT 31.2, INR 3.4. Sodium 138, potassium 4.1, chloride 106, bicarbonate 29, BUN 14, creatinine 1.1, serum glucose 105, calcium 9.3, phosphorus 2.7, magnesium 2.4, total bilirubin 1, direct bilirubin 0.2, AST 18, ALT 26, alkaline phosphatase 80, total creatine kinase 48. Troponin I less than 0.015. Lipase 175. Urinalysis, +3 blood, +1 ketones. SARS-CoV-2 PCR negative. Influenza A and B PCR negative. RSV PCR negative. IMAGING DATA: Chest x-ray, cardiomegaly without pulmonary edema, trace right and small left pleural effusions, mildly progressive left lung base opacity suggestive of atelectasis versus pneumonia. CTA of the head and neck without aneurysm, dissection, high-grade stenosis, arterial occlusion. Moderate atheromatous plaque of the carotid bulbs and proximal cervical segments of the internal carotid arteries without significant stenosis. CT of the head, no acute findings. EKG: Normal sinus rhythm, rate of 89, no acute ST changes seen. ASSESSMENT AND PLAN: This is a 75-year-old male who presents with ongoing confusion, weakness and chest pain. 1. Confusion, weakness: Could be metabolic encephalopathy, possible pneumonia, history of aspiration pneumonia in the past. We will get a CT of the chest to get a better picture and empirically start on IV Zosyn and doxycycline. We will keep him on full liquid diet. Speech consult in a.m. Gentle fluids. Monitor in the med tele. We will also rule out any central lesion with MRI of the brain. PT/OT when stable. 2. Chest pain: EKG is okay. Troponin is negative. We will follow the serial enzymes and echocardiogram. Monitor in the med tele. 3. Alzheimer and vascular dementia: Seems somewhat more confused than usual as per the and also more weakness and ambulatory dysfunction. Follow the MRI scan. Consult neuro while the patient is in the hospital. PT and OT when stable. Social service to help with discharge planning. states she could not take care of the patient at present condition at home. 4. History of atrial fibrillation: Currently rate is under control, seems to be in sinus. Continue his Toprol-XL. Holding the Coumadin as INR is 3.4. Follow the repeat INR in the a.m. and adjust the Coumadin dosing. 5. History of pulmonary embolism: On Coumadin. Follow the PT/INR. 6. History of mediastinal lymphadenopathy : Will follow the CT chest. 7. Ambulatory dysfunction: PT/OT when stable, may need placement. 8. History of deep venous thrombosis, on Coumadin. Follow INR. 9. Chronic kidney disease stage III. Follow the labs. 10. Deep venous thrombosis prophylaxis, on Coumadin. INR is 3.4. 11. Code status: Level 1 full code only if there is a chance of recovery, as per the . DISPOSITION: Admit to [facility]. PT and OT prior to discharge. Social service to help with discharge planning. May need placement. Addendum: Ct chest preliminary report large pericardial effusion.Increase from 10/05/20. Gave a dose of solumedrol 20mg. Consulted cardiology . NPO until seen by cardiology. Hemodynamics seems stable. Close monitor. MTDD
[2020-11-29] MEDS: DOXYCYCLINE HYCLATE 100 MG in DEXTROSE 5% 100 ML IV SCH ×2 (02:34→13:00)
[2020-11-29] MEDS: PIPERACILLIN/TAZOBACTAM 3.375 GM in DEXTROSE 5% 100 ML IV SCH ×3 (05:43→21:35)
[2020-11-29 05:49] LABS: Basophils # (auto) 0.01 K/uL (0-0.2); Basophils % (auto) 0.1 %; Hematocrit (blood only) 40.4 % (42-52); Immature Granulocytes # (auto) 0.01 K/uL (0.00-0.02); Immature Granulocytes % (auto) 0.1 %; Lymphocytes # (auto) 0.59 K/uL (1.2-3.4); Lymphocytes % (auto) 6.7 %; Mean Corpuscular Hgb Conc 34.7 g/dL (32-36); Mean Corpuscular Volume 92.2 fL (80-100); Mean Platelet Volume 9.2 fL (7.4-10.4); Monocytes # (auto) 0.43 K/uL (0.11-0.59); Monocytes % (auto) 4.9 %; Neutrophils # (auto) 7.75 K/uL (1.4-6.5); Neutrophils % (auto) 88.2 %; Platelet Count 209 K/uL (130-400); RDW Standard Deviation 50.8 fL (36.4-46.3); Red Blood Count 4.38 M/uL (4.7-6.1); White Blood Count 8.79 K/uL (4.8-10.8)
[2020-11-29 06:08] LABS: INR 3.9 (0.9-1.1); Prothrombin Time 35.6 Seconds (9.0-12.0)
[2020-11-29 06:15] LABS: BUN Creatinine Ratio 15.4 (10-20); Blood Urea Nitrogen 12 mg/dl (7-18); Calcium 8.3 mg/dl (8.5-10.1); Carbon Dioxide 24 mmol/L (21-32); Chloride 112 mmol/L (98-107); Creatinine Clr Calc Pharmacy 86.3 ml/min; Est GFR (African American) 99.4; Est GFR (Non-African American) 85.7; Glucose 125 mg/dl (70-99); Magnesium 2.3 mg/dl (1.8-2.4); Potassium 4.1 mmol/L (3.5-5.1); Sodium 139 mmol/L (136-145)
[2020-11-29 06:24] LABS: Troponin I < 0.015 ng/ml (0-0.045)
[2020-11-29] MEDS: METOPROLOL SUCC 25MG EXT REL TAB PO SCH (08:29)
[2020-11-29] MEDS: ASPIRIN 81 MG ECTAB PO SCH (08:30)
[2020-11-29] MEDS: MULTIVITAMIN TAB PO SCH (08:30)
[2020-11-29] MEDS: ATORVASTATIN 40 MG TAB PO SCH (08:30)
[2020-11-29] MEDS: THIAMINE HCL 100 MG TAB PO SCH (08:30)
[2020-11-29] MEDS: FOLIC ACID 1 MG TAB PO SCH (08:30)
[2020-11-29] MEDS: MEMANTINE HCL 10 MG TAB PO SCH ×2 (08:30→20:29)
[2020-11-29] MEDS: SACCHAROMYCES BOULARDII 250 MG CAP PO SCH ×2 (08:30→20:29)
--- NOTE | 2020-11-29 08:51 | CT Scan Report ---
CT SCAN OF THE CHEST WITHOUT IV CONTRAST CLINICAL HISTORY: Pneumonia. COMPARISON STUDY: Chest x-ray dated 11/28/2020. Chest CT dated 10/05/2020. TECHNIQUE: CT scan of the thorax was performed from the thoracic inlet to the upper abdomen. Images are reviewed in the axial, sagittal, and coronal planes. IV contrast was not administered for this ex amination as per the referring clinician. A dose lowering technique was utilized adhering to the henry Stahl. The examination is degraded by motion artifact, as well as by streak artifact from the arms which could not be elevated above the chest. CT DOSE: 888.45 mGy.cm FINDINGS: Thyroid: Normal in size and heterogeneous in attenuation. Thoracic aorta: There is mild atherosclerotic calcification of the thoracic aorta. There is mild aneu rysmal dilatation of the ascending thoracic aorta which measures up to 4.4 cm. The remainder of the t horacic aorta is normal in caliber and the arch demonstrates bovine variant anatomy. Heart: The heart is top normal in size noting moderate to large pericardial effusion. This appears co mplex. The coronary arteries and mitral annulus are densely calcified. Lungs and pleural spaces: There are small pleural effusions, left larger than right with bibasilar co nsolidation. The trachea and central airways are clear. Mediastinum: Scattered subcentimeter mediastinal lymph nodes are not pathologically enlarged by size criteria. Daisy: Not well assessed without IV contrast. Axillae: There is no axillary lymphadenopathy. Upper abdomen: A 2.3 cm cyst is seen in the upper pole of the left kidney. Excreted IV contrast is no kali in the renal collecting systems. There is a tiny hiatal hernia. Skeletal structures: The skeletal structures are osteopenic. Degenerative change and hyperkyphosis is seen in the thoracic spine. No lytic or blastic bony lesions are seen. IMPRESSION: 1. Streak and motion compromised examination. 2. There is a moderate to large and complex appearing pericardial effusion. This represents a signifi cant change from 10/05/2020, and this could represent hemopericardium or possibly pericarditis. Clinica l correlation will be essential. 3. There are small pleural effusions, left larger than right with bibasilar consolidation. This likel y represents atelectasis and clinical correlation will be required. 4. Mild interstitial dilatation of the ascending thoracic aorta is unchanged from previous. This hawk ures 4.4 cm. 5. Additional findings as above. ACT 112: Negative or not required by law. Electronically signed by: Duke Ambrose M.D. 11/29/2020 8:50 AM
[2020-11-29] MEDS ORDERED: DONEPEZIL HCL 10 MG TAB PO SCH (09:00)
[2020-11-29] MEDS ORDERED: PHYTONADIONE 2.5 MG in SODIUM CHLORIDE 0.9% 50 ML IV ONE (09:45)
--- NOTE | 2020-11-29 10:37 | Cardiology Consultation ---
Date of Consultation November 29, 2020 Assessment & Plan (1) Pericardial effusion: Patient denies subjective chest discomfort at present, as noted, interview limited due to the patient's cognitive status. He is in no acute distress. EKG performed this morning 11/29/2020 reviewed independently reveals normal sinus rhythm 81 bpm without significant repolarization changes. Troponin I has been undetectable x3 measurements. Noncontrast CT of the chest was suggestive of a moderate to large circumf erential pericardial effusion. Follow-up echocardiogram was performed, and by echo evaluation, there appears to be a moderate sized loculated anterior and right lateral pericardial effusion without tamponade. The patient's blood pressure is stable with most recent reading of 128/77. INR has been mildly elevated, 3.9 today. Diagnostics: ESR and CRP have been requested. Therapeutics: Hold Coumadin (patient on anticoagulation due to history of past pulmonary embolism, and recent paroxysmal atrial fibrillation). Proceed with IV vitamin K 2.5 mg daily erring on the side of caution given potential for hemopericardium. Patient received 20 mg of IV Solu-Medrol last night at 2 AM. With inflammatory markers, may consider a cautious low-dose tapering dose of steroids depending upon results. Add colchicine 0.6 mg twice daily with thoughts that this pericardial effusion may have an inflammatory component. (2) Paroxysmal atrial fibrillation: Patient in sinus rhythm. Continue metoprolol. Coumadin on hold as above. I have discontinued his normal saline maintenance fluids in an effort to avoid volume overload. DVT prophylaxis: INR is 3.9 today, repeat tomorrow. History of Present Illness Attending Physician: Marybeth Reyes MD History of Present Illness Delmi Mims is a 75 year old male seen in cardiology consultation per the request of Dr Anaya for the evaluation of chest pain and pericardial effusion. Patient has a history of Parkinson's and dementia. He had been admitted in October, with concerns of aspiration pneumonia and developed paroxysmal atrial fibrillation at that time. He was discharged on metoprolol succinate 12.5 mg daily and warfarin. He returned to the emergency department overnight last night with apparent complaints of generalized weakness and chest discomfort. Interview with the patient this morning is very limited related to his cognitive status. He denied having current or recent chest discomfort. Telemetry reveals sinus rhythm in the range of 70 to 80 bpm. COVID-19 screen was negative. A noncontrast CT of the chest was performed overnight last night due to concerns of possible pneumonia with findings of small pleural effusions bilaterally and also a moderate to large pericardial effusion with appearance concerning for hemopericardium or pericarditis per the radiology report which was new compared to 10/05/2020. Also the ascending thoracic aorta was mildly dilated at 4.4 cm, unchanged compared to the previous study. Allergies Allergy/AdvReac Type Severity Reaction Status Date / Time No Known Drug Allergies Allergy Unknown ` Verified 11/28/20 21:47 Home Medications Medication Instructions Recorded Confirmed Type aspirin 81 mg PO DAILY #0 06/24/10 11/28/20 History folic acid 1 mg PO DAILY #30 09/19/14 11/28/20 History Saccharomyces boulardii 250 mg PO BID 10/01/20 11/28/20 History atorvastatin 40 mg PO DAILY 10/01/20 11/28/20 History donepezil 23 mg PO DAILY 10/01/20 11/28/20 History memantine 10 mg PO BID 10/01/20 11/28/20 History thiamine HCl (vitamin B1) 100 mg PO DAILY 10/01/20 11/28/20 History warfarin 10 mg PO MOWEFR 10/01/20 11/28/20 History zinc 50 mg PO PM 10/05/20 11/28/20 History metoprolol succinate 12.5 mg PO DAILY 11/28/20 11/28/20 History multivitamin 1 tab PO DAILY 11/28/20 11/28/20 History warfarin 7.5 mg PO SUTUTHSA 11/28/20 11/28/20 History Patient History Medical History Alzheimer's dementia CKD (chronic kidney disease), stage III Confusion Dizziness (09/19/14) Pulmonary embolism Right knee DJD Right knee pain Vascular dementia Surgical History H/O knee surgery Hx of tonsillectomy Family History Other Cancer Dementia Social History Smoking Status: Never smoker Hx Alcohol Use: No Hx Substance Use: No Preferred Language: Greenlandic Communication Ability: Impaired Ssis Architect Required: No Beliefs That Will Affect Care: None Current Living Situation: Spouse Other Information That Helps Us Care for You: No Feels Safe at Home: Yes Safety Concerns: Feels Safe At This Time Assistive Devices: None Review of Systems Review of Systems: Unobtainable due to cognitive status Physical Exam Physical Exam: Temp Pulse Resp BP Pulse Ox 36.8 C 75 18 128/77 93 11/29/20 07:28 11/29/20 07:28 11/29/20 07:28 11/29/20 07:28 11/29/20 07:28 Constitutional: + thin; no acute distress Respiratory: normal respiratory effort, lungs clear to auscultation Cardiovascular: RRR, no murmur, no edema Gastrointestinal (Abdomen): normal bowel sounds, soft, nontender, no hepatosplenomegaly Neurologic: Follows commands, conversant, but cognitive impairment noted Results & Data ([facility]) Vital Signs (Past 12 Hours) Vital Signs Temp Pulse Pulse Pulse Resp BP BP 11/29/20 07:28 36.8 C 75 18 128/77 11/29/20 07:05 72 11/29/20 04:24 36.9 C 89 20 135/77 11/29/20 02:44 36.7 C 81 20 135/83 11/29/20 02:42 85 11/28/20 23:50 36.7 C 81 20 135/83 11/28/20 23:45 81 19 128/78 11/28/20 22:30 84 20 121/71 Pulse Ox 11/29/20 07:28 93 11/29/20 07:05 11/29/20 04:24 94 11/29/20 02:44 96 11/29/20 02:42 11/28/20 23:50 96 11/28/20 23:45 96 11/28/20 22:30 Laboratory Results Cardiac Enzymes 11/28/20 11/29/20 11/29/20 Range/Units 19:15 05:21 08:56 AST 18 (15-37) U/L Troponin I < 0.015 < 0.015 < 0.015 (0-0.045) ng/ml Coagulation 11/28/20 11/29/20 Range/Units 19:15 05:21 PT 31.2 H 35.6 H (9.0-12.0) Seconds CBC 11/28/20 11/29/20 Range/Units 19:15 05:21 WBC 10.67 8.79 (4.8-10.8) K/uL RBC 4.91 4.38 L (4.7-6.1) M/uL Hgb 15.9 14.0 (14.0-18.0) g/dL Hct 45.2 40.4 L (42-52) % Plt Count 232 209 (130-400) K/uL Neut # (Auto) 7.58 H 7.75 H (1.4-6.5) K/uL Lymph # (Auto) 1.42 0.59 L (1.2-3.4) K/uL Bureau # (Auto) 1.57 H 0.43 (0.11-0.59) K/uL Eos # (Auto) 0.04 0.00 (0-0.5) K/uL Baso # (Auto) 0.04 0.01 (0-0.2) K/uL Comprehensive Metabolic Panel 11/28/20 11/29/20 Range/Units 19:15 05:21 Sodium 138 139 (136-145) mmol/L Potassium 4.1 4.1 (3.5-5.1) mmol/L Chloride 106 112 H (98-107) mmol/L Carbon Dioxide 29 24 (21-32) mmol/L BUN 14 12 (7-18) mg/dl Creatinine 1.11 0.81 D (0.6-1.4) mg/dl Glucose 105 H 125 H (70-99) mg/dl Calcium 9.3 8.3 L (8.5-10.1) mg/dl Direct Bilirubin 0.2 (0-0.2) mg/dl AST 18 (15-37) U/L ALT 26 (12-78) U/L Alkaline Phosphatase 80 (45-117) U/L Total Protein 7.9 (6.4-8.2) gm/dl Albumin 3.5 (3.4-5.0) gm/dl Intake and Output 11/28/20 11/29/20 11/29/20 22:59 06:59 14:59 Intake Total 1000 / 1225 225 / 1225 115 / 115 Balance 1000 / 1225 225 / 1225 115 / 115 Intake: IV 1000 / 1225 225 / 1225 115 / 115 Vibramycin 100 mg In D5 100 ml 110 / 110 @ 50 mls/hr IV Q12H [facility] Rx#: [id number] Zosyn 3.375 gm In D5 100 ml @ 115 / 115 115 / 115 30 mls/hr IV Q8H [facility] Rx#: [id number] Nss 1000ML 1,000 ml @ 999 mls/ 1000 / 1000 hr IV .Q1H1M ONE Rx#:[id number] Other: Other Intake Source npo Weight 84.9 kg 85.2 kg Weight Measurement Method [facility] Standing Scale
--- NOTE | 2020-11-29 10:42 | Electrocardiogram Report ---
Test Reason : Blood Pressure : / mmHG Vent. Rate : 089 BPM Atrial Rate : 089 BPM P-R Int : 162 ms QRS Dur : 080 ms QT Int : 342 ms P-R-T Axes : -02 038 047 degrees QTc Int : 416 ms Normal sinus rhythm Normal ECG When compared with ECG of 07-OCT-2020 17:44, Sinus rhythm has replaced Atrial fibrillation QT has shortened Confirmed by Mateusz Mcknight ([id number]) on 11/29/2020 10:42:19 AM Referred By: Mike Chen Confirmed By:Smith Mcknight
--- NOTE | 2020-11-29 10:42 | Communication Note ---
Date of Service: November 29, 2020 Spoke with spouse Elvia by phone and provided updates.
--- NOTE | 2020-11-29 10:44 | Electrocardiogram Report ---
Test Reason : Blood Pressure : / mmHG Vent. Rate : 086 BPM Atrial Rate : 086 BPM P-R Int : 170 ms QRS Dur : 074 ms QT Int : 346 ms P-R-T Axes : 011 025 042 degrees QTc Int : 414 ms Poor data quality, interpretation may be adversely affected Normal sinus rhythm Low voltage QRS Borderline ECG When compared with ECG of 28-NOV-2020 16:37, (unconfirmed) No significant change was found Confirmed by Mateusz Mcknight ([id number]) on 11/29/2020 10:43:46 AM Referred By: Mike Chen Confirmed By:Smith Mcknight
[2020-11-29] MEDS ORDERED: GADOBUTROL 65ML VIAL IV ONE (10:50)
--- NOTE | 2020-11-29 11:00 | Electrocardiogram Report ---
Test Reason : Blood Pressure : / mmHG Vent. Rate : 081 BPM Atrial Rate : 081 BPM P-R Int : 172 ms QRS Dur : 076 ms QT Int : 376 ms P-R-T Axes : 001 019 024 degrees QTc Int : 436 ms Normal sinus rhythm Low voltage QRS Borderline ECG When compared with ECG of 28-NOV-2020 19:55, (unconfirmed) No significant change was found Confirmed by Mateusz Mcknight ([id number]) on 11/29/2020 11:00:14 AM Referred By: Mike Chen Confirmed By:Smith Mcknight
[2020-11-29] MEDS: COLCHICINE 0.6 MG TAB PO SCH ×2 (11:09→20:29)
--- NOTE | 2020-11-29 11:10 | Magnetic Resonance Report ---
MRI OF THE BRAIN COMBO CLINICAL HISTORY: Weakness. Change in mental status. COMPARISON STUDY: CT of the brain dated 11/28/2020. TECHNIQUE: MRI of the brain was performed utilizing various T1 and T2-weighted sequences in the axial , sagittal, and coronal planes. Contrast-enhanced sequences were acquired following the administratio n of 8.5 cc of Gadavist. FINDINGS: Brain parenchyma: There is age-related involutional change noting moderate confluent subcortical and periventricular microangiopathic disease. There is no hemorrhage or mass effect. There is no restrict ed diffusion to suggest acute ischemia. No enhancing mass lesion is identified on the postcontrast im ages. Tellez-white matter differentiation is preserved. No extra-axial fluid collection is seen. The ce rebellar tonsils are normal in configuration. Ventricles, sulci, and cisterns: Prominent secondary to involutional change. Pituitary and sella: Unremarkable. Intracranial vasculature: Normal flow voids are maintained at the skull base. Orbits: The bony orbits are grossly intact. Orbital contents are normal in appearance noting bilatera l ocular lens implants. Sinuses and mastoids: Clear. Calvarium: Unremarkable. Cervical cord: Partially visualized cervical spinal cord is normal in morphology and signal intensity . IMPRESSION: No acute intracranial abnormality. ACT 112: Negative or not required by law. Electronically signed by: Duke Ambrose M.D. 11/29/2020 11:08 AM
--- NOTE | 2020-11-29 11:12 | Neurology Consultation ---
Date of Consultation November 29, 2020 Assessment & Plan (1) Dementia: 1. currently on Namenda 10 mg BID and Aricept 10 mg daily was discontinued 2. watch for 3. once leave will likely need a sitter. 4. MRI brain- microvascular periventricular disease, prominent ventricle due to involutional changes Present on Admission?: Yes (2) Generalized weakness: 1. PT/OT for discharge needs 2. balance and cognitive issues (3) Pericardial effusion: 1. currently on antibiotics zosyn and doxy possible pneumonia 2. colchicine 0.6 mg for inflammatory component 3. cardiology on board for further input 4. coumadin hypertherapeutic held due to possible hemopericardium and cardiac tampon Supervising Physician Co-Signing Physician Notes I have seen and discussed above patient with Dr Yen Luo, neurology. Pt seen and exami History of Present Illness Reason for Consultation: weakness, dementia Requesting Physician: Marybeth Reyes MD Attending Physician: Marybeth Reyes MD History of Present Illness Delmi is a 75 year old male with PMH-HLD, pleural effusion, Pafib,dilatation of aorta, mixed Alzheimer's and vascular dementia, mediastinal lymphadenopathy, bradycardia, GERD, parkinsonism, PE and DVT who lives at home with his , was brought in because of weakness and confusion and CP. He had an admission in Oct. with possible hospital-acquired pneumonia and weakness and was discharged to [facility] for about a week and a couple of days ago he was ambulating okay with the help of walker, but since yesterday he was getting more confused and not obeying commands properly and even with the help of herself and her son he was not able to ambulate properly. little bit with the walker with assistance, but the patient seemed to be more confused.Last night he had a dry cough and today morning he had cough, bringing some phlegm, but he swallowed the phlegm, and he has a history of aspiration pneumonia on last admission .He was eating regular food before, but last 2 days she has tried to give soft food. She was seen in neurology prior to arrival at [facility] ED and was tearful and couldn't take care of him. is in room and states he has been falling alot and having issues with cognitive behavior, compulsive behavior. they can help him walk and he will suddenly collapse. denies CP, SOB, abdominal pain, one sided weakness, numbness tingling, N, V. Allergies Allergy/AdvReac Type Severity Reaction Status Date / Time No Known Drug Allergies Allergy Unknown ` Verified 11/28/20 21:47 Home Medications Medication Instructions Recorded Confirmed Type aspirin 81 mg PO DAILY #0 06/24/10 11/28/20 History folic acid 1 mg PO DAILY #30 09/19/14 11/28/20 History Saccharomyces boulardii 250 mg PO BID 10/01/20 11/28/20 History atorvastatin 40 mg PO DAILY 10/01/20 11/28/20 History donepezil 23 mg PO DAILY 10/01/20 11/28/20 History memantine 10 mg PO BID 10/01/20 11/28/20 History thiamine HCl (vitamin B1) 100 mg PO DAILY 10/01/20 11/28/20 History warfarin 10 mg PO MOWEFR 10/01/20 11/28/20 History zinc 50 mg PO PM 10/05/20 11/28/20 History metoprolol succinate 12.5 mg PO DAILY 11/28/20 11/28/20 History multivitamin 1 tab PO DAILY 11/28/20 11/28/20 History warfarin 7.5 mg PO SUTUTHSA 11/28/20 11/28/20 History Patient History Medical History (Updated 11/29/20 @ 10:32 by Donte Guzman DO) Alzheimer's dementia CKD (chronic kidney disease), stage III Confusion Dizziness (09/19/14) New onset atrial fibrillation Pulmonary embolism Right knee DJD Right knee pain Vascular dementia Surgical History H/O knee surgery Hx of tonsillectomy Family History Other Cancer Dementia Social History Smoking Status: Never smoker Hx Alcohol Use: No Hx Substance Use: No Preferred Language: Tamazight Communication Ability: Effective [employer] Teacher Required: No Beliefs That Will Affect Care: None Current Living Situation: Spouse Other Information That Helps Us Care for You: No Feels Safe at Home: Yes Safety Concerns: Feels Safe At This Time Assistive Devices: None Review of Systems Review of Systems: All systems reviewed & are unremarkable except as noted in HPI & below Physical Exam Physical Exam: Physical Exam: Constitutional: appearance nourished, healthy and normal Ears, Nose, Mouth and Throat: mucous membranes moist, no injection and skin normal, eyes normal Cardiovascular: irregular Respiratory: course breath sounds Musculoskeletal: no peripheral edema and good distal pulses Skin: no stigmata of neurocutaneous disease noted and normal and intact Eyes: extraocular muscles intact (EOMI) and pupils equal, round and reactive to light (PERRL), gross visual segura intact NEUROLOGIC EXAMINATION: Mental status: Alert and interactive Oriented year-2015, is not sure where he is but does know his ,has 3 childre n and 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 Sensory: light cold or vibration Coordination: finger to nose Gait/Stance: Posture normal. Gait unsteady with 2 person assist, very small shuffling gait Motor: Negative for pronator drift of out stretched arms with eyes closed. Strength: hand winder hand, biceps triceps,deltoid 5/5 bilaerally, hip flex plantar flex ext 5/5 bilaterally Results & Data ([facility]) Vital Signs (Past 12 Hours) Vital Signs Temp Pulse Pulse Pulse Resp BP Pulse Ox 11/29/20 07:28 36.8 C 75 18 128/77 93 11/29/20 07:05 72 11/29/20 04:24 36.9 C 89 20 135/77 94 11/29/20 02:44 36.7 C 81 20 135/83 96 11/29/20 02:42 85 11/28/20 23:50 36.7 C 81 20 135/83 96 11/28/20 23:45 81 19 128/78 96 Laboratory Results Abnormal lab results 11/28/20 11/28/20 11/28/20 Range/Units 19:15 19:15 19:15 RBC (4.7-6.1) M/uL Hct (42-52) % RDW Std Deviation 50.8 H (36.4-46.3) fL RDW Coeff of Brynn 15.0 H (11.5-14.5) % Neut # (Auto) 7.58 H (1.4-6.5) K/uL Lymph # (Auto) (1.2-3.4) K/uL Tucker # (Auto) 1.57 H (0.11-0.59) K/uL PT 31.2 H (9.0-12.0) Seconds INR 3.4 H (0.9-1.1) Chloride (98-107) mmol/L Glucose 105 H (70-99) mg/dl Calcium (8.5-10.1) mg/dl Globulin 4.4 H (2.5-4.0) gm/dl Albumin/Globulin Ratio 0.8 L (0.9-2) Ur Specific [place] (1.000-1.030) Urine Protein (Negative) Urine Ketones (Negative) Urine Blood (Negative) Urine RBC (Auto) (0-4) /hpf U Epithel Cells (Auto) (0-5) /lpf 11/28/20 11/29/20 11/29/20 Range/Units Unknown 05:21 05:21 RBC 4.38 L (4.7-6.1) M/uL Hct 40.4 L (42-52) % RDW Std Deviation 50.8 H (36.4-46.3) fL RDW Coeff of Brynn 15.0 H (11.5-14.5) % Neut # (Auto) 7.75 H (1.4-6.5) K/uL Lymph # (Auto) 0.59 L (1.2-3.4) K/uL Tucker # (Auto) (0.11-0.59) K/uL PT (9.0-12.0) Seconds INR (0.9-1.1) Chloride 112 H (98-107) mmol/L Glucose 125 H (70-99) mg/dl Calcium 8.3 L (8.5-10.1) mg/dl Globulin (2.5-4.0) gm/dl Albumin/Globulin Ratio (0.9-2) Ur Specific [place] 1.035 H (1.000-1.030) Urine Protein 1+ H (Negative) Urine Ketones 1+ H (Negative) Urine Blood 3+ H (Negative) Urine RBC (Auto) >30 H (0-4) /hpf U Epithel Cells (Auto) 20-30 H (0-5) /lpf 11/29/20 Range/Units 05:21 RBC (4.7-6.1) M/uL Hct (42-52) % RDW Std Deviation (36.4-46.3) fL RDW Coeff of Brynn (11.5-14.5) % Neut # (Auto) (1.4-6.5) K/uL Lymph # (Auto) (1.2-3.4) K/uL Tucker # (Auto) (0.11-0.59) K/uL PT 35.6 H (9.0-12.0) Seconds INR 3.9 H (0.9-1.1) Chloride (98-107) mmol/L Glucose (70-99) mg/dl Calcium (8.5-10.1) mg/dl Globulin (2.5-4.0) gm/dl Albumin/Globulin Ratio (0.9-2) Ur Specific [place] (1.000-1.030) Urine Protein (Negative) Urine Ketones (Negative) Urine Blood (Negative) Urine RBC (Auto) (0-4) /hpf U Epithel Cells (Auto) (0-5) /lpf Diagnostic Findings TTE- 60-65% with pericardial effusion, no ASD MRI brain-Brain parenchyma: There is age-related involutional change noting moderate confluent subcortical and periventricular microangiopathic disease. There is no hemorrhage or mass effect. There is no restricted diffusion to suggest acute ischemia. No enhancing mass lesion is identified on the postcontrast images. Tellez-white matter differentiation is preserved. No extra- axial fluid collection is seen. The cerebellar tonsils are normal in configuration. Ventricles, sulci, and cisterns: Prominent secondary to involutional change. pituitary and sella: Unremarkable. Intracranial vasculature: Normal flow voids are maintained at the skull base. CT chest- Streak and motion compromised examination. There is a moderate to large and complex appearing pericardial effusion. This represents a significant change from 10/05/2020, and this could represent hemopericardium or possibly pericarditis. Clinical correlation will be essential. There are small pleural effusions, left larger than right with bibasilar consolidation. This likely represents atelectasis and clinical correlation will be required. Mild interstitial dilatation of the ascending thoracic aorta is unchanged from pre vious. This measures 4.4 cm. (1) Dementia Alzheimer's disease onset: unspecified onset Dementia behavioral disturbance: with behavioral disturbance Dementia type: Alzheimer's Qualified Code(s): G30.9 - Alzheimer's disease, unspecified; F02.81 - Dementia in other diseases classified elsewhere with behavioral disturbance
--- NOTE | 2020-11-29 13:45 | CT Scan Report ---
CT ANGIOGRAM OF THE BRAIN CLINICAL HISTORY: Generalized weakness. Dementia. COMPARISON STUDY: Unenhanced CT of the brain dated 11/28/2020. TECHNIQUE: Following the IV administration of 118 cc of Optiray 320, CT angiogram of the brain was pe rformed from the skull base to the vertex. Images are reviewed in the axial, sagittal, and coronal pl anes. 3-D MIPS images are created and assessed. IV contrast was administered without complication. A dose lowering technique was utilized adhering to the principles of ALARA. FINDINGS: Brain parenchyma: There is age-related involutional change noting mild to moderate subcortical and pe riventricular microangiopathic disease. There is no hemorrhage, mass effect, or evidence of acute ter ritorial ischemia by CT criteria. There is no evidence of enhancing mass lesion on the angiogram phas e images. No extra-axial fluid collection is seen. Tellez-white matter differentiation is preserved. Ventricles, sulci, and cisterns: Prominent secondary to involutional change. CT angiogram of the brain: There is atherosclerotic calcification of the cavernous carotid and verteb ral arteries. There is a left posterior to communicating artery and the left P1 segment is diminutive . The internal carotid arteries are widely patent, as are the anterior and middle cerebral arteries. The vertebrobasilar system and posterior cerebral arteries are widely patent. The vertebral arteries are codominant. There is no aneurysm, high-grade stenosis, or focal vessel cutoff identified througho ut the intracranial circulation. Dural sinuses: Clear as visualized. Orbits: The bony orbits are intact. The orbital contents are normal as visualized noting bilateral oc ular lens implants.. Sinuses and mastoids: The visualized paranasal sinuses are clear. The mastoid air cells are well pneu matized. Calvarium: Unremarkable. IMPRESSION: 1. There is no evidence of hemorrhage, mass effect, or acute territorial ischemia by CT criteria noti ng angiographic phase technique. 2. Unremarkable CT angiogram of the brain. ACT 112: Negative or not required by law. Electronically signed by: Duke Ambrose M.D. 11/29/2020 1:44 PM
--- NOTE | 2020-11-29 15:15 | Hospitalist Progress Note ---
Date of Service November 29, 2020 Assessment & Plan (1) Pericardial effusion: Ct chest shows large circumferential pericardial effusion appreciate input from cardiology ECHO : large pericardial effusion without evidence of tamponade started on colchicine , on Coumadin for hx of paroxysmal afib reverse coagulopathy to prevent risk of hemopericardium left lung base opacity suggestive of pneumonia per , pt sometimes coughs or have hiccups while eating speech eval requested to assess for aspiration (2) Paroxysmal atrial fibrillation: rate controlled hold Coumadin for large pericardial effusion (3) Generalized weakness: PT/OT eval (4) Dementia: (5) Ambulatory dysfunction: (6) Vascular dementia: caution for delirium /sun downing (7) Alzheimer's dementia: (8) CKD (chronic kidney disease), stage III: follow BMP update given to present at bedside PT/OT eval requested may need rehab on discharge , was in [facility] in past for SNF Admission and Anticipated Discharge Date Admission Date: November 28, 2020 Subjective follow up visit for chest pain /pericardial effusion , confusion pt sitting up on chair visiting , says he does not have any chest pain or SOB baseline dementia , very pleasant , oriented to person only , finds it is hard to recall or remember what happened day before or being sick does mention he feels a lot better hoping to be able to go home soon no fever or chills has non productive cough Review of Systems Review of Systems: Unobtainable due to cognitive status Physical Exam Physical Exam: Physical exam: General: No acute distress, alert awake oriented x3 HEENT: PERRLA, EOMI, Heart: Regular S1-S2, no carotid bruit, no JVD, no lower extremity edema Lungs: Clear to auscultate, no wheeze or rales Abdomen: Soft nontender, no organomegaly Extremity: No cyanosis, no deformity Neuro: No focal neurological deficit normal speech, Psych: Alert awake /baseline dementia , oriented to Person ( knows that he is at hospital after a lot of cue ) , very pleasant Results & Data Results & Data ([facility]) Vital Signs (Past 12 Hours) Vital Signs Temp Pulse Pulse Resp BP BP Pulse Ox 11/29/20 12:22 36.4 C L 69 18 105/67 93 11/29/20 07:28 36.8 C 75 18 128/77 93 11/29/20 07:05 72 11/29/20 04:24 36.9 C 89 20 135/77 94 (1) Dementia Alzheimer's disease onset: unspecified onset Dementia behavioral disturbance: with behavioral disturbance Dementia type: Alzheimer's Qualified Code(s): G30.9 - Alzheimer's disease, unspecified; F02.81 - Dementia in other diseases classified elsewhere with behavioral disturbance
[2020-11-29] MEDS: predniSONE 10 MG TABLET PO SCH (17:09)
[2020-11-29] MEDS: FAMOTIDINE 20 MG TAB PO SCH (17:09)
[2020-11-29] MEDS: ZINC SULFATE 220 MG CAPSULE PO SCH (20:29)
[2020-11-30] MEDS: DOXYCYCLINE HYCLATE 100 MG in DEXTROSE 5% 100 ML IV SCH ×2 (01:43→12:57)
[2020-11-30] MEDS: PIPERACILLIN/TAZOBACTAM 3.375 GM in DEXTROSE 5% 100 ML IV SCH (06:02)
[2020-11-30 06:58] LABS: INR 1.3 (0.9-1.1); Prothrombin Time 13.1 Seconds (9.0-12.0)
[2020-11-30 07:16] LABS: Calcium 8.8 mg/dl (8.5-10.1); Creatinine Clr Calc Pharmacy 87.4 ml/min; Est GFR (African American) 99.9; Est GFR (Non-African American) 86.2; Potassium 3.9 mmol/L (3.5-5.1)
[2020-11-30] MEDS: SACCHAROMYCES BOULARDII 250 MG CAP PO SCH ×2 (08:28→20:56)
[2020-11-30] MEDS: MEMANTINE HCL 10 MG TAB PO SCH ×2 (08:28→20:56)
[2020-11-30] MEDS: METOPROLOL SUCC 25MG EXT REL TAB PO SCH (08:28)
[2020-11-30] MEDS: FAMOTIDINE 20 MG TAB PO SCH (08:28)
[2020-11-30] MEDS: predniSONE 10 MG TABLET PO SCH (08:28)
[2020-11-30] MEDS: MULTIVITAMIN TAB PO SCH (08:28)
[2020-11-30] MEDS: ASPIRIN 81 MG ECTAB PO SCH (08:28)
[2020-11-30] MEDS: ATORVASTATIN 40 MG TAB PO SCH (08:28)
[2020-11-30] MEDS: THIAMINE HCL 100 MG TAB PO SCH (08:29)
[2020-11-30] MEDS: FOLIC ACID 1 MG TAB PO SCH (08:29)
--- NOTE | 2020-11-30 09:18 | Consultation Report ---
DATE OF CONSULTATION: 11/29/2020 ADDITIONAL NOTE: Please see Yen Tabor's note. I am seeing Mr. Mims for evaluation of increased weakness, instability and cognitive dysfunction. He is known to our practice and it seems as if he has variably been described as having a vascular dementia or Lewy body dementia with parkinsonism. He is on Aricept and memantine and has been on Sinemet in the past. On this background, he has had an aspiration pneumonia in October and has had gradual decline in gait in the last several weeks as well as confusion. No clear recent hallucinations have been noted. 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 Therefore, he was brought in by his . His admission evaluation was notable for a pericardial effusion and possible pneumonia. His MRI of the brain, noncontrast showed no acute abnormality. CTA of the head and neck was unremarkable with moderate atheromatous plaque in the carotid bulbs and proximal internal carotids without significant stenosis. His labs were notable for a left shift on differential, INR of 3.9, blood sugar of 125, CRP 9.35. Urinalysis; 3+ blood, 20-30 epithelial cells. PHYSICAL EXAMINATION: The patient was awake and alert, rather jocular, oriented to person. His pupils appear to be postsurgical. He had limited upgaze. No facial asymmetry. There was decreased blink frequency. No resting tremor or cogwheel rigidity. Symmetric strength. Symmetric reflexes. Downgoing toes. With some minor difficulty initiating movement. We were in a very small space. His gait is mildly narrow based, but his turns were adequate. IMPRESSION: This is a patient with an underlying dementia, possibly a Lewy body dementia with some parkinsonism. The patient has not responded to levodopa/carbidopa in the past and perhaps had adverse effects. His current worsening is likely related to pneumonia as well as a pericardial effusion rather than a new primary central nervous system event. I do not think he needs any additional medications from a neurologic perspective. It does not sound like he has any worrisome or bothersome hallucinations. Recommend inpatient rehabilitation post-completion of therapy for the pneumonic process with followup with Dr. Chen post discharge.
[2020-11-30] MEDS: COLCHICINE 0.6 MG TAB PO SCH ×2 (09:31→20:57)
--- NOTE | 2020-11-30 12:28 | Cardiology Progress Note ---
Date of Service November 30, 2020 Assessment & Plan (1) Pericardial effusion: History/interview of the patient once again not helpful given patient's underlying cognitive impairment due to dementia. Blood pressure remained stable. Inflammatory markers minimally elevated, ESR 35 mm/h, CRP 9.35 mg/dL. INR down to 1.3 today, having been 3.9 yesterday prior to vitamin K. I am not certain that the patient has symptomatic pericarditis as even with his memory impairment, I believe he would have persistent symptoms such as pleuritic chest pain. I am still however concerned that this is a postinflammatory reactive process related to his recent pneumonia perhaps, with perhaps underlying hemorrhagic component given anticoagulation with Coumadin with supratherapeutic INR measurements. Hemodynamics are stable. Continue colchicine. Low-dose prednisone 10 mg daily. Famotidine for GI prophylaxis. Repeat limited echo 12/01 for follow-up. Remain in hospital for now. Resume Coumadin, low-dose, 2.5 mg to start, and the INR come up slowly. Check INR tomorrow. Knee-high sequential pneumatic compression devices for DVT prophylaxis while INR less than 2. Case discussed with Dr. Reyes by phone. (2) Paroxysmal atrial fibrillation: Remains in sinus rhythm. Continue low-dose metoprolol. Slowly reintroduce Coumadin. Goal INR 2-2.5. Admission and Anticipated Discharge Date Admission Date: November 28, 2020 Subjective Patient denies chest pain. Telemetry reveals sinus rhythm in the 60s to 70s with occasional PVCs. Review of Systems Review of Systems: Unobtainable due to cognitive status Physical Exam Physical Exam: Temp Pulse Resp BP Pulse Ox 36.2 C L 78 16 142/93 H 95 11/30/20 11:59 11/30/20 11:59 11/30/20 11:59 11/30/20 11:59 11/30/20 11:59 Respiratory: normal respiratory effort, lungs clear to auscultation Cardiovascular: RRR, no murmur, no edema Results & Data ([facility]) Vital Signs (Past 12 Hours) Vital Signs Temp Pulse Pulse Resp BP BP Pulse Ox 11/30/20 11:59 36.2 C L 78 16 142/93 H 95 11/30/20 08:14 36.3 C L 60 16 114/73 93 11/30/20 07:40 66 11/30/20 03:35 36.7 C 68 18 128/78 95 11/30/20 02:31 71
--- NOTE | 2020-11-30 13:17 | Fluoroscopy Report ---
FL video swallow CLINICAL HISTORY: 75 years-old Male with r/o aspiration. Acute dysphasia with reported aspiration TECHNIQUE: Video fluoroscopic evaluation of swallowing was performed in the AP and lateral projection s by the speech pathology staff. The patient is fed nectar-thick and thin liquid barium, a barium coa kali wafer, and barium pudding. FLUOROSCOPY TIME: 1.8 minutes. COMPARISON STUDY: Chest CT 11/29/2020 FINDINGS: There is normal hyoid excursion and epiglottic deflection. No significant penetration or as piration identified. Swallowing function is within normal limits. IMPRESSION: 1. No aspiration identified. 2. Please see the speech pathologist report for detailed findings and recommendations. ACT 112: Negative or not required by law. Electronically signed by: Sriram Sands M.D. 11/30/2020 1:15 PM
--- NOTE | 2020-11-30 13:24 | Hospitalist Progress Note ---
Date of Service November 30, 2020 Assessment & Plan (1) Pericardial effusion: Ct chest shows large circumferential pericardial effusion appreciate input from cardiology ECHO : large pericardial effusion without evidence of tamponade pt remains completely asymptomatic with stable hemodynamics started on colchicine , added low dose Prednisone 10 mg daily by cardiology /agree with H2 hung Famotidine for steroid induced acid reflux prophylaxsis scheduled for repeat ECHO in am on Coumadin for hx of paroxysmal afib was given Vit K for INR > 3 to prevent hemopericardium so far pt been doing well INR 1.3 Coumadin resumed Left lower lobe pneumonia left lung base opacity suggestive of pneumonia per , pt sometimes coughs or have hiccups while eating speech eval requested to assess for aspiration /appreciate input / bedside eval and video swallow study shows no evidence of aspiration resumed diet with aspiration precaution cough has improved IV abx d/pauline PO Doxycycline (2) Paroxysmal atrial fibrillation: rate controlled on beta hung and coumadin (3) Generalized weakness: PT/OT eval -requested may need skilled rehab (4) Dementia: mental status at approx baseline (5) Ambulatory dysfunction: (6) Vascular dementia: caution for delirium /sun downing (7) Alzheimer's dementia: (8) CKD (chronic kidney disease), stage III: stable renal status update given to over phone PT/OT eval requested -may need rehab on discharge , was in [facility] in past for SNF / Admission and Anticipated Discharge Date Admission Date: November 28, 2020 Subjective follow up visit for pericardial effusion /left lower lobe pneumonia : sitting up on edge of bed smiling , comfortable , baseline dementia , very forgetful when asked denies of any chest pain or chest heaviness no cough afebrile stable vitals Review of Systems Review of Systems: All systems reviewed & are unremarkable except as noted in Subjective Physical Exam Physical Exam: Physical exam: General: No acute distress, alert awake oriented x3 HEENT: PERRLA, EOMI, Heart: Regular S1-S2, no carotid bruit, no JVD, no lower extremity edema Lungs: Clear to auscultate, no wheeze or rales Abdomen: Soft nontender, no organomegaly Extremity: No cyanosis, no deformity Neuro: No focal neurological deficit normal speech, Psych: Alert awake /baseline dementia , oriented to Person ( knows that he is at hospital after a lot of cue ) , very pleasant Results & Data Results & Data ([facility]) Vital Signs (Past 12 Hours) Vital Signs Temp Pulse Pulse Resp BP BP Pulse Ox 11/30/20 11:59 36.2 C L 78 16 142/93 H 95 11/30/20 08:14 36.3 C L 60 16 114/73 93 11/30/20 07:40 66 11/30/20 03:35 36.7 C 68 18 128/78 95 11/30/20 02:31 71 (1) Dementia Alzheimer's disease onset: unspecified onset Dementia behavioral disturbance: with behavioral disturbance Dementia type: Alzheimer's Qualified Code(s): G30.9 - Alzheimer's disease, unspecified; F02.81 - Dementia in other diseases classified elsewhere with behavioral disturbance
[2020-11-30] MEDS ORDERED: WARFARIN SOD 2.5 MG TAB PO SCH (16:00)
[2020-11-30] MEDS: ZINC SULFATE 220 MG CAPSULE PO SCH (20:56)
[2020-11-30] MEDS: DOXYCYCLINE HYCLATE 100 MG CAP PO SCH (20:57)
[2020-12-01] MEDS ORDERED: HALOPERIDOL LACTATE 5 MG/ML 1 ML VIAL IM STA (00:41)
[2020-12-01] MEDS ORDERED: HALOPERIDOL LACTATE 5 MG/ML 1 ML VIAL ONE (00:44)
[2020-12-01 08:34] LABS: INR 1.3 (0.9-1.1); Prothrombin Time 13.3 Seconds (9.0-12.0)
[2020-12-01] MEDS: DOXYCYCLINE HYCLATE 100 MG CAP PO SCH ×2 (08:40→21:28)
[2020-12-01] MEDS: ASPIRIN 81 MG ECTAB PO SCH (08:40)
[2020-12-01] MEDS: predniSONE 10 MG TABLET PO SCH (08:40)
[2020-12-01] MEDS: FOLIC ACID 1 MG TAB PO SCH (08:40)
[2020-12-01] MEDS: METOPROLOL SUCC 25MG EXT REL TAB PO SCH (08:41)
[2020-12-01] MEDS: THIAMINE HCL 100 MG TAB PO SCH (08:41)
[2020-12-01] MEDS: FAMOTIDINE 20 MG TAB PO SCH (08:41)
[2020-12-01] MEDS: ATORVASTATIN 40 MG TAB PO SCH (08:41)
[2020-12-01] MEDS: MEMANTINE HCL 10 MG TAB PO SCH ×2 (08:42→21:28)
[2020-12-01] MEDS: SACCHAROMYCES BOULARDII 250 MG CAP PO SCH ×2 (08:42→21:28)
[2020-12-01] MEDS: MULTIVITAMIN TAB PO SCH (14:23)
[2020-12-01] MEDS: COLCHICINE 0.6 MG TAB PO SCH ×2 (14:23→21:28)
[2020-12-01] MEDS ORDERED: predniSONE 10 MG TABLET PO ONE (15:36)
[2020-12-01] MEDS ORDERED: WARFARIN SOD 5 MG TAB PO SCH (16:00)
--- NOTE | 2020-12-01 17:36 | Cardiology Progress Note ---
Date of Service December 01, 2020 Assessment & Plan (1) Pericardial effusion: Echocardiogram performed today reveals small to moderate circumferential pericardial effusion. Compared to the prior study, the pericardial effusion appears more circumferential which correlates well with the recent CT scan, and I think that the images obtained at the time of the present study just better illustrate fluid collection adjacent to the inferior and posterior siegel of the left ventricle. Anterior and right lateral fluid collection has decreased in size. No tamponade. I think this is likely a reactive pericardial effusion related to his recent pneumonia. Continue colchicine, increase prednisone to 20 mg as he is tolerating it well. Continue GI prophylaxis with Pepcid. (2) Paroxysmal atrial fibrillation: He remains in sinus rhythm. INR 1.3, having received vitamin K on 11/29 for INR of 3.9. Continue coumadin load, 5 mg daily. He is on Coumadin due to past venous thromboembolic disease as well as for stroke prophylaxis. Admission and Anticipated Discharge Date Admission Date: November 28, 2020 Subjective Patient sitting in bedside chair. He has no subjective complaint with regards to chest discomfort. Hemodynamics remained stable. Telemetry reveals sinus rhythm in 70s with occasional PVCs. Review of Systems Review of Systems: Unobtainable due to cognitive status Physical Exam Physical Exam: Temp Pulse Resp BP Pulse Ox 36.7 C 70 16 112/71 96 12/01/20 15:32 12/01/20 15:32 12/01/20 15:32 12/01/20 15:32 12/01/20 15:32 Constitutional: No acute distress Respiratory: normal respiratory effort, lungs clear to auscultation Cardiovascular: RRR, no murmur, no edema Neurologic: Follows commands, cognitive impairment Results & Data ([facility]) Vital Signs (Past 12 Hours) Vital Signs Temp Pulse Pulse Resp BP Pulse Ox 12/01/20 15:32 36.7 C 70 16 112/71 96 12/01/20 15:09 76 12/01/20 12:11 36.5 C 81 16 111/64 98 12/01/20 07:57 36.4 C L 60 16 124/62 92 12/01/20 07:19 67
[2020-12-01] MEDS ORDERED: METOPROLOL TARTRATE 1 MG/ML VIAL IV PRN (18:16)
[2020-12-01] MEDS ORDERED: AMIODARONE IV BOLUS & DRIP IV STA (18:22)
[2020-12-01] MEDS ORDERED: STAT IV Infusion **Titration per Protocol STA (18:22)
[2020-12-01] MEDS ORDERED: METOPROLOL TARTRATE 1 MG/ML VIAL IV ONE (18:22)
--- NOTE | 2020-12-01 18:25 | Communication Note ---
Date of Service: December 01, 2020 pt developed aflutter HR in 140's offers no symptoms d/w Cardiology -ordered for IV amiodarone gtt transfer to PCU INR 1.3 . on Coumadin avoid Iv heparin gtt given moderate pericardial effusion will be updated over phone Marybeth Reyes MD
--- NOTE | 2020-12-01 18:36 | Hospitalist Progress Note ---
Date of Service December 01, 2020 Assessment & Plan (1) Pericardial effusion: Ct chest shows large circumferential pericardial effusion appreciate input from cardiology started on colchicine , added low dose Prednisone 10 mg daily by cardiology repeat ECHO this am shows some improvement of organized pericardial effusion Afib rvr : developed rapid afib hr in 130-140 this evening pt remains asymptomatic tx to PCU started on IV amiodarone gtt Coumadin restarted IV heparin bridge avoided due to concern for risk for bleed /pericardial effusion : Etta Mims updated over phone with change of cardiac arrythmia Left lower lobe pneumonia speech eval requested : bedside eval and video swallow study shows no evidence of aspiration resumed diet with aspiration precaution cough has improved on PO Doxycycline (2) Paroxysmal atrial fibrillation: developed rapid afib management as discussed above (3) Generalized weakness: PT/OT eval -requested may need skilled rehab (4) Dementia: mental status at approx baseline (5) Ambulatory dysfunction: (6) Vascular dementia: caution for delirium /sun downing (7) Alzheimer's dementia: (8) CKD (chronic kidney disease), stage III: stable renal status updated over phone Admission and Anticipated Discharge Date Admission Date: November 28, 2020 Subjective pleasantly demented offers no complain denies of any chest pain or SOB has minimum cough no fever or chills . Review of Systems Review of Systems: Unobtainable due to cognitive status (dementia ) Physical Exam Physical Exam: Physical exam: General: No acute distress, alert awake oriented x3 HEENT: PERRLA, EOMI, Heart: rapid , irregular Lungs: Clear to auscultate, no wheeze or rales Abdomen: Soft nontender, no organomegaly Extremity: No cyanosis, no deformity Neuro: No focal neurological deficit normal speech, Psych: Alert awake /baseline dementia , oriented to Person ( knows that he is at hospital after a lot of cue ) , very pleasant Results & Data Results & Data ([facility]) Vital Signs (Past 12 Hours) Vital Signs Temp Pulse Pulse Resp BP Pulse Ox 12/01/20 15:32 36.7 C 70 16 112/71 96 12/01/20 15:09 76 12/01/20 12:11 36.5 C 81 16 111/64 98 12/01/20 07:57 36.4 C L 60 16 124/62 92 12/01/20 07:19 67 (1) Dementia Alzheimer's disease onset: unspecified onset Dementia behavioral disturbance: with behavioral disturbance Dementia type: Alzheimer's Qualified Code(s): G30.9 - Alzheimer's disease, unspecified; F02.81 - Dementia in other diseases classified elsewhere with behavioral disturbance
[2020-12-01] MEDS ORDERED: AMIODARONE / D5W 150 MG/100 ML BAG IV STA (18:37)
[2020-12-01] MEDS ORDERED: 0.2 MICRON FILTER SET 1 EA IV ONE (18:45)
[2020-12-01] MEDS ORDERED: AMIODARONE / D5W 360 MG/200 ML BAG IV ONE (18:45)
[2020-12-01] MEDS: DONEPEZIL HCL 5 MG TAB PO SCH (21:28)
[2020-12-01] MEDS: ZINC SULFATE 220 MG CAPSULE PO SCH (21:28)
[2020-12-02] MEDS ORDERED: AMIODARONE / D5W 360 MG/200 ML BAG IV SCH (00:45)
[2020-12-02 06:31] LABS: Hematocrit (blood only) 38.4 % (42-52); Hemoglobin 13.3 g/dL (14.0-18.0); Mean Corpuscular Hemoglobin 31.9 pg (25-34); Mean Corpuscular Hgb Conc 34.6 g/dL (32-36); Mean Corpuscular Volume 92.1 fL (80-100); Mean Platelet Volume 8.8 fL (7.4-10.4); Platelet Count 298 K/uL (130-400); RDW Coefficient of Variation 14.9 % (11.5-14.5); RDW Standard Deviation 50.7 fL (36.4-46.3); Red Blood Count 4.17 M/uL (4.7-6.1); White Blood Count 9.42 K/uL (4.8-10.8)
[2020-12-02 06:39] LABS: INR 1.5 (0.9-1.1); Prothrombin Time 14.7 Seconds (9.0-12.0)
[2020-12-02 07:03] LABS: BUN Creatinine Ratio 15.5 (10-20); Calcium 8.5 mg/dl (8.5-10.1); Creatinine Clr Calc Pharmacy 88.5 ml/min; Est GFR (African American) 100.4; Est GFR (Non-African American) 86.6; Magnesium 1.9 mg/dl (1.8-2.4); Potassium 3.7 mmol/L (3.5-5.1)
[2020-12-02 08:04] LABS: Albumin Level 2.5 gm/dl (3.4-5.0); Bilirubin,Total 0.5 mg/dl (0.2-1); Total Protein 6.3 gm/dl (6.4-8.2)
[2020-12-02] MEDS: ASPIRIN 81 MG ECTAB PO SCH (08:08)
[2020-12-02] MEDS: FOLIC ACID 1 MG TAB PO SCH (08:08)
[2020-12-02] MEDS: DOXYCYCLINE HYCLATE 100 MG CAP PO SCH ×2 (08:08→20:05)
[2020-12-02] MEDS: DONEPEZIL HCL 10 MG TAB PO SCH (08:08)
[2020-12-02] MEDS: ATORVASTATIN 40 MG TAB PO SCH (08:08)
[2020-12-02] MEDS: THIAMINE HCL 100 MG TAB PO SCH (08:08)
[2020-12-02] MEDS: MULTIVITAMIN TAB PO SCH (08:08)
[2020-12-02] MEDS: FAMOTIDINE 20 MG TAB PO SCH (08:08)
[2020-12-02] MEDS: METOPROLOL SUCC 25MG EXT REL TAB PO SCH (08:11)
[2020-12-02 08:20] LABS: Thyroid Stimulating Hormone 2.28 uIu/ml (0.300-4.500)
[2020-12-02] MEDS: predniSONE 20 MG TAB PO SCH (08:58)
[2020-12-02] MEDS: APIXABAN 5 MG TABLET PO SCH ×2 (08:58→20:03)
[2020-12-02] MEDS: COLCHICINE 0.6 MG TAB PO SCH ×2 (08:58→20:03)
[2020-12-02] MEDS: MEMANTINE HCL 10 MG TAB PO SCH ×2 (08:58→20:03)
[2020-12-02] MEDS: SACCHAROMYCES BOULARDII 250 MG CAP PO SCH ×2 (08:58→20:02)
--- NOTE | 2020-12-02 10:31 | Communication Note ---
Date of Service: December 02, 2020 pt has baseline dementia, gets confused and agitated easily was transferred to PCU yesterday evening for rapid afib converted to sinus overnight on IV amiodarone gtt pt will benefit with visit from in hospital to provide support and orientation high risk for rapid arrhythmia with agitation , delirium this is a special circumstances where visit from Family member will provide benefit for pt's clinical recovery Pt's Maria T Mims is allowed to visit her in PCU /called Mrs Mims and left message . Marybeth Reyes MD
--- NOTE | 2020-12-02 11:11 | Hospitalist Progress Note ---
Date of Service December 02, 2020 Assessment & Plan (1) Pericardial effusion: presented with complain of chest pain Ct chest shows large circumferential pericardial effusion appreciate input from cardiology started on colchicine , added low dose Prednisone repeat ECHO t shows some improvement of organized pericardial effusion Left lower lobe pneumonia speech eval requested : bedside eval and video swallow study shows no evidence of aspiration resumed diet with aspiration precaution no cough or SOB on PO Doxycycline (2) Paroxysmal atrial fibrillation: developed rapid afib yesterday converted to sinus with rate controlled while on amiodarone gtt appreciate input from Cardiology (3) Generalized weakness: PT/OT eval -requested recommends skilled rehab (4) Dementia: mental status at approx baseline (5) Ambulatory dysfunction: (6) Vascular dementia: caution for delirium /sun downing allowed to visit -as pt was getting upset and increasingly confused (7) Alzheimer's dementia: (8) CKD (chronic kidney disease), stage III: stable renal status Code status : Full code updated over phone Disposition: will need rehab for ambulatory dysfunction /generalized deconditioning . referral made to [facility] Admission and Anticipated Discharge Date Admission Date: November 28, 2020 Subjective follow up visit for pericardial effusion /Rapid Afib RVR converted to normal sinus rhythm while on amiodarone gtt yesterday evening . pt remains pleasantly confused , offers no complain no recurrence of chest pain no c/o of SOB , Physical Exam Physical Exam: Physical exam: General: No acute distress, alert awake oriented x3 HEENT: PERRLA, EOMI, Heart: rapid , irregular Lungs: Clear to auscultate, no wheeze or rales Abdomen: Soft nontender, no organomegaly Extremity: No cyanosis, no deformity Neuro: No focal neurological deficit normal speech, Psych: Alert awake /baseline dementia , oriented to Person ( knows that he is at hospital after a lot of cue ) , very pleasant Results & Data Results & Data ([facility]) Vital Signs (Past 12 Hours) Vital Signs Temp Pulse Pulse Resp BP BP Pulse Ox 12/02/20 07:10 36.6 C 63 19 114/70 63 L 12/02/20 07:00 62 12/02/20 04:02 36.4 C L 62 16 111/69 95 12/02/20 00:36 36.6 C 71 17 108/66 94 12/02/20 00:04 80 (1) Dementia Alzheimer's disease onset: unspecified onset Dementia behavioral disturbance: with behavioral disturbance Dementia type: Alzheimer's Qualified Code(s): G30.9 - Alzheimer's disease, unspecified; F02.81 - Dementia in other diseases classified elsewhere with behavioral disturbance
--- NOTE | 2020-12-02 12:15 | Cardiology Progress Note ---
Date of Service December 02, 2020 Assessment & Plan (1) Pericardial effusion: Echocardiogram performed 12/01/2020 reveals small to moderate circumferential pericardial effusion. Compared to the prior study, the pericardial effusion appears more circumferential which correlates well with the recent CT scan, and I think that the images obtained at the time of the present study just better illustrate fluid collection adjacent to the inferior and posterior siegel of the left ventricle. Anterior and right lateral fluid collection has decreased in size. No tamponade. I think this is likely a reactive pericardial effusion related to his recent pneumonia. Continue colchicine, prednisone to 20 mg as he is tolerating it well. Continue GI prophylaxis with Pepcid. (2) Paroxysmal atrial fibrillation: Patient reverted to atrial fibrillation yesterday, EKG 12/01/2020 at 1825 reveals atrial fibrillation at 116 bpm, although rates been transiently higher. Telemetry reveals subsequent conversion to sinus rhythm at 2040 last evening while on IV amiodarone without conversion pause, in sinus rhythm in the range of 50 to 70 bpm has been present in the interim. Liver function tests stable, ALT minimally elevated at 38 units/L. TSH within normal limits. Discontinue IV amiodarone, start oral amiodarone 200 mg daily. Patient was previously on anticoagulation due to past history of venous thromboembolic disease, as well as stroke prevention with regards to atrial fibrillation. INR has been supratherapeutic on presentation, 3.9, prompting initiation of vitamin K. We will discontinue Coumadin at this point, and start him on Eliquis which I think is a better agent for him. He is of course at risk for hemorrhagic conversion of his pericardial effusion, however I think it is critically important to prophylax the patient against DVT/PE and stroke. The patient is back on Aricept and Namenda for his dementia. My advice was that the patient as well as his spouse would benefit from the COVID-19 related visitation policy, as he is certainly lonely, and she had expressed a lot of concern with not be able to visit with him and I spoke to her on the phone yesterday. The patient's nurse just alerted me by page, that the patient spouse has arrived, and I will review things with her in person. Admission and Anticipated Discharge Date Admission Date: November 28, 2020 Subjective Patient seen in cardiology follow-up. No subjective complaints. History afternoon, he had reverted to atrial fibrillation with rapid ventricular response. He was transferred to the PCU, IV amiodarone was initiated with subsequent conversion to sinus rhythm and has remained in sinus rhythm overnight and thus far today. Review of Systems Review of Systems: Unobtainable due to cognitive status Physical Exam Physical Exam: Temp Pulse Resp BP Pulse Ox 37.2 C 69 18 132/78 95 12/02/20 11:51 12/02/20 11:51 12/02/20 11:51 12/02/20 11:51 12/02/20 11:51 Constitutional: WD/WN, vitals as above Respiratory: normal respiratory effort, lungs clear to auscultation Cardiovascular: RRR, no murmur, no edema Neurologic: Stable cognitive impairment, no focal deficits Results & Data ([facility]) Vital Signs (Past 12 Hours) Vital Signs Temp Pulse Pulse Resp BP BP Pulse Ox 12/02/20 11:51 37.2 C 69 18 132/78 95 12/02/20 07:10 36.6 C 63 19 114/70 63 L 12/02/20 07:00 62 12/02/20 04:02 36.4 C L 62 16 111/69 95 12/02/20 00:36 36.6 C 71 17 108/66 94
[2020-12-02] MEDS: AMIODARONE 200 MG TAB PO SCH (13:11)
--- NOTE | 2020-12-02 13:29 | Electrocardiogram Report ---
Test Reason : Blood Pressure : / mmHG Vent. Rate : 116 BPM Atrial Rate : 097 BPM P-R Int : 000 ms QRS Dur : 080 ms QT Int : 330 ms P-R-T Axes : 000 007 039 degrees QTc Int : 458 ms Atrial fibrillation with rapid ventricular response Abnormal ECG When compared with ECG of 29-NOV-2020 06:30, Atrial fibrillation has replaced Sinus rhythm HR has increased by 35 bpm Confirmed by Pepe Kumar ([id number]) on 12/02/2020 1:29:09 PM Referred By: Mike hCen Confirmed By:Pepe Kumar
--- NOTE | 2020-12-02 15:50 | Communication Note ---
Date of Service: December 02, 2020 pe cardiology: anticoagulation changed to PO Eliquis 5 mg BID ( insurance coverage /co pay will be checked tomorrow ) Coumadin d/pauline IV Amiodarone gtt d/pauline Amiodarone 200 mg PO daily added for Afib -new scripts will be sent to pt's pharmacy on D/c Marybeth Reyes MD
[2020-12-02] MEDS ORDERED: WARFARIN SOD 10 MG TAB PO SCH (16:00)
[2020-12-02] MEDS: ZINC SULFATE 220 MG CAPSULE PO SCH (20:02)
[2020-12-02] MEDS: DONEPEZIL HCL 5 MG TAB PO SCH (20:04)
[2020-12-03 07:20] LABS: INR 1.6 (0.9-1.1); Prothrombin Time 15.6 Seconds (9.0-12.0)
[2020-12-03] MEDS: MEMANTINE HCL 10 MG TAB PO SCH ×2 (10:05→20:27)
[2020-12-03] MEDS: DOXYCYCLINE HYCLATE 100 MG CAP PO SCH ×2 (10:05→20:26)
[2020-12-03] MEDS: FAMOTIDINE 20 MG TAB PO SCH (10:05)
[2020-12-03] MEDS: THIAMINE HCL 100 MG TAB PO SCH (10:05)
[2020-12-03] MEDS: ATORVASTATIN 40 MG TAB PO SCH (10:05)
[2020-12-03] MEDS: predniSONE 20 MG TAB PO SCH (10:05)
[2020-12-03] MEDS: APIXABAN 5 MG TABLET PO SCH ×2 (10:06→20:26)
[2020-12-03] MEDS: ASPIRIN 81 MG ECTAB PO SCH (10:06)
[2020-12-03] MEDS: METOPROLOL SUCC 25MG EXT REL TAB PO SCH (10:06)
[2020-12-03] MEDS: COLCHICINE 0.6 MG TAB PO SCH ×2 (10:06→20:24)
[2020-12-03] MEDS: SACCHAROMYCES BOULARDII 250 MG CAP PO SCH ×2 (10:06→20:27)
[2020-12-03] MEDS: MULTIVITAMIN TAB PO SCH (10:06)
[2020-12-03] MEDS: FOLIC ACID 1 MG TAB PO SCH (10:06)
[2020-12-03] MEDS: AMIODARONE 200 MG TAB PO SCH ×2 (10:06→12:49)
[2020-12-03] MEDS: DONEPEZIL HCL 10 MG TAB PO SCH (10:06)
--- NOTE | 2020-12-03 14:41 | Electrocardiogram Report ---
Test Reason : Blood Pressure : / mmHG Vent. Rate : 130 BPM Atrial Rate : 357 BPM P-R Int : 000 ms QRS Dur : 082 ms QT Int : 328 ms P-R-T Axes : 000 019 025 degrees QTc Int : 482 ms Atrial fibrillation with rapid ventricular response Nonspecific ST and T wave abnormality Abnormal ECG When compared with ECG of 01-DEC-2020 18:25, No significant change was found Confirmed by Bronson Roberts ([id number]) on 12/03/2020 2:41:48 PM Referred By: Mike Chen Confirmed By:Bronson Roberts
[2020-12-03] MEDS ORDERED: dilTIAZem HCl 5 MG/ML 5 ML VIAL IV STA ×2 (14:53→15:57)
--- NOTE | 2020-12-03 14:54 | Cardiology Progress Note ---
Date of Service December 03, 2020 Assessment & Plan (1) Paroxysmal atrial fibrillation: Patient reverted to atrial fibrillation at 12:30 PM today 12/03/2020. EKG reveals atrial fibrillation 130 bpm. Initially, his a.m. dose of amiodarone was held this morning due to bradycardia in the 50s, this has since been administered. He is to remain on low-dose metoprolol succinate 12.5 mg daily. We will administer a dose of IV diltiazem 10 mg x 1 now. Continue Eliquis for stroke prophylaxis. (2) Pericardial effusion: Post pneumonia reactive pericardial effusion. Continue prednisone 20 (day 2). Continue colchicine. Admission and Anticipated Discharge Date Admission Date: November 28, 2020 Subjective Patient without cardiac complaint. Revered to AF RVR at 1230 pm. Review of Systems Review of Systems: Unobtainable due to cognitive status Physical Exam Physical Exam: Temp Pulse Resp BP Pulse Ox 36.2 C L 81 16 151/76 H 93 12/03/20 11:24 12/03/20 11:24 12/03/20 11:24 12/03/20 11:24 12/03/20 11:24 Constitutional: WD/WN, vitals as above Respiratory: normal respiratory effort, lungs clear to auscultation Cardiovascular: Rate/Rhythm: + irregularly irregular Neurologic: Ongoing chronic cognitive impairment, no focal deficits Results & Data ([facility]) Vital Signs (Past 12 Hours) Vital Signs Temp Pulse Pulse Resp BP BP Pulse Ox 12/03/20 11:24 36.2 C L 81 16 151/76 H 93 12/03/20 07:08 36.7 C 73 79 18 127/76 95 12/03/20 05:06 36.7 C 77 24 136/84 95
--- NOTE | 2020-12-03 15:12 | Communication Note ---
Date of Service: December 03, 2020 I updated spouse, Elvia , by phone. Looking ahead, she expressed thoughts that he requires a higher level of care to which he is able to provide for him at home. She is interested in discussing Options with case management such as term care at [facility].
[2020-12-03] MEDS ORDERED: dilTIAZem HCl 5 MG/ML 5 ML VIAL IV ONE (16:11)
[2020-12-03] MEDS ORDERED: AMIODARONE IV BOLUS & DRIP IV STA (17:28)
[2020-12-03] MEDS ORDERED: STAT IV Infusion **Titration per Protocol STA (17:28)
[2020-12-03] MEDS ORDERED: AMIODARONE / D5W 360 MG/200 ML BAG IV ONE (17:28)
[2020-12-03] MEDS ORDERED: AMIODARONE / D5W 150 MG/100 ML BAG IV STA (17:31)
--- NOTE | 2020-12-03 17:33 | Communication Note ---
Date of Service: December 03, 2020 Resume amiodarone gtt.
[2020-12-03] MEDS ORDERED: 0.2 MICRON FILTER SET 1 EA IV ONE (17:45)
[2020-12-03] MEDS: DONEPEZIL HCL 5 MG TAB PO SCH (20:25)
[2020-12-03] MEDS: ZINC SULFATE 220 MG CAPSULE PO SCH (20:26)
[2020-12-03] MEDS: QUEtiapine FUMARATE 25 MG TABLET PO PRN (21:29)
[2020-12-03] MEDS: AMIODARONE / D5W 360 MG/200 ML BAG IV SCH (23:18)
--- NOTE | 2020-12-03 23:59 | Hospitalist Progress Note ---
Date of Service December 03, 2020 Assessment & Plan (1) Pericardial effusion: presented with complain of chest pain Ct chest shows large circumferential pericardial effusion appreciate input from cardiology on colchicine , Prednisone repeat ECHO t shows some improvement of organized pericardial effusion Rapid Afib RVR : was converted to normal sinus after brief episode of IV Amiodarone was changed to pO Amiodarone 200 mg daily developed Afib RVR this AM , HR variable between 120-130 pt offers no complain restarted on IV Amiodarone gtt on Eliquis for stroke prophylaxis Left lower lobe pneumonia no symptoms of cough , SOB , no cough concern for aspiration given dementia , deconditioning speech eval requested : bedside eval and video swallow study shows no evidence of aspiration resumed diet with aspiration precaution no cough or SOB on PO Doxycycline -complete 5 days tx (2) Paroxysmal atrial fibrillation: (3) Generalized weakness: PT/OT eval -requested recommends skilled rehab (4) Dementia: mental status at approx baseline (5) Ambulatory dysfunction: (6) Vascular dementia: caution for delirium /sun downing allowed to visit -as pt was getting upset and increasingly confused (7) Alzheimer's dementia: (8) CKD (chronic kidney disease), stage III: stable renal status Code status : Full code updated at bedside Disposition: will need rehab for ambulatory dysfunction /generalized deconditioning . referral made to [facility] needs continued hospital stay for cardiac arrhythmia Admission and Anticipated Discharge Date Admission Date: November 28, 2020 Subjective developed Afib RVR this morning remains asymptomatic pleasantly confused cardiology aware , started on IV AMiodarone gtt Review of Systems Review of Systems: Unobtainable due to cognitive status Physical Exam Physical Exam: Physical exam: General: No acute distress, alert awake oriented x3 HEENT: PERRLA, EOMI, Heart: rapid , irregular Lungs: Clear to auscultate, no wheeze or rales Abdomen: Soft nontender, no organomegaly Extremity: No cyanosis, no deformity Neuro: No focal neurological deficit normal speech, Psych: Alert awake /baseline dementia , oriented to Person ( knows that he is at hospital after a lot of cue ) , very pleasant Results & Data Results & Data ([facility]) Vital Signs (Past 12 Hours) Vital Signs Temp Pulse Pulse Resp BP BP Pulse Ox 12/03/20 21:25 36.5 C 84 18 109/71 96 12/03/20 19:46 36.3 C L 134 H 20 132/96 95 12/03/20 16:28 102 H 12/03/20 16:14 36.2 C L 120 H 20 127/77 96 (1) Dementia Alzheimer's disease onset: unspecified onset Dementia behavioral disturbance: with behavioral disturbance Dementia type: Alzheimer's Qualified Code(s): G30.9 - Alzheimer's disease, unspecified; F02.81 - Dementia in other diseases classified elsewhere with behavioral disturbance
[2020-12-04 07:13] LABS: BUN Creatinine Ratio 14.9 (10-20); Calcium 8.3 mg/dl (8.5-10.1); Creatinine Clr Calc Pharmacy 79.4 ml/min; Est GFR (Non-African American) 82.9; Potassium 3.7 mmol/L (3.5-5.1)
[2020-12-04] MEDS: QUEtiapine FUMARATE 25 MG TABLET PO PRN ×2 (08:48→20:35)
[2020-12-04] MEDS: DONEPEZIL HCL 10 MG TAB PO SCH (08:48)
[2020-12-04] MEDS: COLCHICINE 0.6 MG TAB PO SCH ×2 (08:49→20:35)
[2020-12-04] MEDS: DOXYCYCLINE HYCLATE 100 MG CAP PO SCH ×2 (08:49→20:34)
[2020-12-04] MEDS: MEMANTINE HCL 10 MG TAB PO SCH ×2 (08:49→20:33)
[2020-12-04] MEDS: SACCHAROMYCES BOULARDII 250 MG CAP PO SCH ×2 (08:49→20:34)
[2020-12-04] MEDS: THIAMINE HCL 100 MG TAB PO SCH (08:49)
[2020-12-04] MEDS: APIXABAN 5 MG TABLET PO SCH ×2 (08:49→20:36)
[2020-12-04] MEDS: ASPIRIN 81 MG ECTAB PO SCH (08:50)
[2020-12-04] MEDS: predniSONE 20 MG TAB PO SCH (08:50)
[2020-12-04] MEDS: MULTIVITAMIN TAB PO SCH (08:50)
[2020-12-04] MEDS: FOLIC ACID 1 MG TAB PO SCH (08:50)
[2020-12-04] MEDS: ATORVASTATIN 40 MG TAB PO SCH (08:50)
[2020-12-04] MEDS: AMIODARONE 200 MG TAB PO SCH (08:50)
[2020-12-04] MEDS: FAMOTIDINE 20 MG TAB PO SCH (08:50)
[2020-12-04] MEDS: METOPROLOL SUCC 25MG EXT REL TAB PO SCH (08:50)
[2020-12-04] MEDS: AMIODARONE / D5W 360 MG/200 ML BAG IV SCH ×2 (11:31→23:04)
--- NOTE | 2020-12-04 15:24 | Hospitalist Progress Note ---
Date of Service December 04, 2020 Assessment & Plan (1) Pericardial effusion: presented with complain of chest pain Ct chest shows large circumferential pericardial effusion appreciate input from cardiology on colchicine , Prednisone repeat ECHO t shows some improvement of organized pericardial effusion Rapid Afib RVR : cont on IV amiodarone gtt PO dose adjusted by cardiology on Eliquis for stroke prophylaxis Left lower lobe pneumonia no symptoms of cough , SOB , no cough concern for aspiration given dementia , deconditioning speech eval requested : bedside eval and video swallow study shows no evidence of aspiration resumed diet with aspiration precaution no cough or SOB on PO Doxycycline -complete 5 days tx (2) Paroxysmal atrial fibrillation: as discussed above (3) Generalized weakness: PT/OT eval -requested recommends skilled rehab (4) Dementia: mental status at approx baseline (5) Ambulatory dysfunction: (6) Vascular dementia: caution for delirium /sun downing allowed to visit -as pt was getting upset and increasingly confused (7) Alzheimer's dementia: (8) CKD (chronic kidney disease), stage III: stable renal status Code status : Full code updated at bedside Disposition: will need rehab for ambulatory dysfunction /generalized deconditioning . referral made to [facility] needs continued hospital stay for cardiac arrhythmia Admission and Anticipated Discharge Date Admission Date: November 28, 2020 Subjective remains confused , offers no complain on IV Amiodarone gtt was agitated last night, required PRN seroquel Review of Systems Review of Systems: All systems reviewed & are unremarkable except as noted in Subjective Physical Exam Physical Exam: Physical exam: General: No acute distress, alert awake oriented x3 HEENT: PERRLA, EOMI, Heart: rapid , irregular Lungs: Clear to auscultate, no wheeze or rales Abdomen: Soft nontender, no organomegaly Extremity: No cyanosis, no deformity Neuro: No focal neurological deficit normal speech, Psych: Alert awake /baseline dementia , oriented to Person ( knows that he is at hospital after a lot of cue ) , very pleasant Results & Data Results & Data ([facility]) Vital Signs (Past 12 Hours) Vital Signs Temp Pulse Resp BP Pulse Ox 12/04/20 15:22 36.6 C 75 14 126/89 95 12/04/20 12:48 36.9 C 100 H 16 107/71 95 12/04/20 08:57 36.6 C 75 18 117/77 (1) Dementia Alzheimer's disease onset: unspecified onset Dementia behavioral disturbance: with behavioral disturbance Dementia type: Alzheimer's Qualified Code(s): G30.9 - Alzheimer's disease, unspecified; F02.81 - Dementia in other diseases classified elsewhere with behavioral disturbance
--- NOTE | 2020-12-04 18:18 | Cardiology Progress Note ---
Date of Service December 04, 2020 Assessment & Plan (1) Paroxysmal atrial fibrillation: Continue Eliquis. Continue rhythm control with amiodarone infusion today. Along with oral dosing. Continue low-dose metoprolol. (2) Pericardial effusion: Continue prednisone 20 mg daily, colchicine. (3) Dementia: Family looking at options with regards to longterm level care post hospitalization. Admission and Anticipated Discharge Date Admission Date: November 28, 2020 Subjective Events overnight noted, patient converted back to sinus rhythm on amiodarone infusion, had been agitated overnight, resting comfortably today. Physical Exam Physical Exam: Temp Pulse Resp BP Pulse Ox 36.6 C 75 14 126/89 95 12/04/20 15:22 12/04/20 15:22 12/04/20 15:22 12/04/20 15:22 12/04/20 15:22 Respiratory: normal respiratory effort, lungs clear to auscultation Cardiovascular: RRR, no murmur, no edema Results & Data ([facility]) Vital Signs (Past 12 Hours) Vital Signs Temp Pulse Resp BP Pulse Ox 12/04/20 15:22 36.6 C 75 14 126/89 95 12/04/20 12:48 36.9 C 100 H 16 107/71 95 12/04/20 08:57 36.6 C 75 18 117/77 Laboratory Results Comprehensive Metabolic Panel 12/04/20 Range/Units 06:23 Sodium 142 (136-145) mmol/L Potassium 3.7 (3.5-5.1) mmol/L Chloride 110 H (98-107) mmol/L Carbon Dioxide 27 (21-32) mmol/L BUN 13 (7-18) mg/dl Creatinine 0.88 (0.6-1.4) mg/dl Glucose 92 (70-99) mg/dl Calcium 8.3 L (8.5-10.1) mg/dl Intake and Output 12/04/20 12/04/20 12/04/20 06:59 14:59 22:59 Intake Total 222.605 / 1042.605 200 / 200 Balance 222.605 / 767.605 200 / 200 Intake: IV 172.605 / 272.605 200 / 200 NEXTERONE / D5W 360 mg In 200 172.605 / 172.605 200 / 200 ml @ 33.333 mls/hr IV ONE ONE Rx#:[id number] Oral 50 / 770 Other: Weight 83.2 kg (1) Dementia Alzheimer's disease onset: unspecified onset Dementia behavioral disturbance: with behavioral disturbance Dementia type: Alzheimer's Qualified Code(s): G30.9 - Alzheimer's disease, unspecified; F02.81 - Dementia in other diseases classified elsewhere with behavioral disturbance
[2020-12-04] MEDS: DONEPEZIL HCL 5 MG TAB PO SCH (20:33)
[2020-12-04] MEDS: ZINC SULFATE 220 MG CAPSULE PO SCH (20:35)
[2020-12-05] MEDS: SACCHAROMYCES BOULARDII 250 MG CAP PO SCH ×2 (08:31→20:11)
[2020-12-05] MEDS: MEMANTINE HCL 10 MG TAB PO SCH ×2 (08:31→20:12)
[2020-12-05] MEDS: DONEPEZIL HCL 10 MG TAB PO SCH (08:31)
[2020-12-05] MEDS: COLCHICINE 0.6 MG TAB PO SCH ×2 (08:31→20:13)
[2020-12-05] MEDS: DOXYCYCLINE HYCLATE 100 MG CAP PO SCH (08:31)
[2020-12-05] MEDS: METOPROLOL SUCC 25MG EXT REL TAB PO SCH (08:31)
[2020-12-05] MEDS: FAMOTIDINE 20 MG TAB PO SCH (08:31)
[2020-12-05] MEDS: FOLIC ACID 1 MG TAB PO SCH (08:32)
[2020-12-05] MEDS: AMIODARONE 200 MG TAB PO SCH (08:32)
[2020-12-05] MEDS: predniSONE 20 MG TAB PO SCH (08:32)
[2020-12-05] MEDS: THIAMINE HCL 100 MG TAB PO SCH (08:32)
[2020-12-05] MEDS: APIXABAN 5 MG TABLET PO SCH ×2 (08:32→19:58)
[2020-12-05] MEDS: ATORVASTATIN 40 MG TAB PO SCH (08:32)
[2020-12-05] MEDS: MULTIVITAMIN TAB PO SCH (08:33)
[2020-12-05] MEDS: ASPIRIN 81 MG ECTAB PO SCH (08:33)
--- NOTE | 2020-12-05 10:35 | Hospitalist Progress Note ---
Date of Service December 05, 2020 Assessment & Plan (1) Pericardial effusion: no evidence of cardiac tamponade, cont prednisone and colchicine per Cards recs. Repeat bedside echo this morning reveals no changes in size. (2) Pneumonia: He was treated with Zosyn and doxycycline for two days and completed a course of PO doxycycline. Currently no coughing or other respiratory symptoms and he is breathing at baseline and oxygenating well on room air. Consider repeat chest imaging in 4 weeks to re-evaluate and ensure complete resolution of pneumonia. Defer to PCP. (3) Paroxysmal atrial fibrillation: required intravenous amiodarone loading, which was stopped this morning. Patient is now on oral amio. Cont telemetry monitoring. Cont metoprolol 12.5mg PO daily and Eliquis. (4) Ambulatory dysfunction: Patient is reportedly unable to ambulate well. May be multifactorial including prolonged hospitalization and overall physical decline in setting of multiple comorbidities. Repeat evaluation by PT/OT requested to re-evaluate his needs. (5) Vascular dementia: monitor for delirium, currently mentating around baseline. (6) CKD (chronic kidney disease), stage III: stable renal status (7) DVT prophylaxis: Eliquis Full COde Dispo-to rehab once stable from a cardiac perspective. Awaiting re-evaluation by PT/OT, also. Possibly transfer to SNF in am. DO Conrad [facility] Hospitalist Admission and Anticipated Discharge Date Admission Date: November 28, 2020 Subjective 75 yo M with atrial fibrillation -alert and answering questions correctly -sinus rhythm overnight on tele review -he denies any pain or symptoms this morning including no chest pain or difficulty breathing -he reports that he is eating and moving his bowels -he reports weakness with ambulation short distances -amio infusion load was just discontinued this morning Review of Systems Review of Systems: All systems reviewed & are unremarkable except as noted in Subjective Physical Exam Physical Exam: CONSTITUTIONAL: WNWD, vitals as above, generally well- appearing EYES: normal conjunctivae, no scleral icterus ENT: external ear and nose normal, oropharynx clear, MMM NECK: trachea midline RESPIRATORY: clear to auscultation bilaterally, no crackles, rales or wheezes, normal respiratory effort CARDIOVASCULAR: regular rate and rhythm, S1 and 2 heard without murmurs, gallops or rubs, no JVD, no peripheral edema GASTROINTESTINAL: soft, nontender, nondistended, no guarding MUSCULOSKELETAL: generalized weakness SKIN: warm and dry NEUROLOGIC: CN 2-12 grossly intact, normal cognition, normal speech. No gross focal deficits. PSYCHIATRIC: alert cooperative and answering questions appropriately with some time. Results & Data Results & Data ([facility]) Vital Signs (Past 12 Hours) Vital Signs Temp Pulse Pulse Resp BP BP Pulse Ox 12/05/20 09:44 59 L 12/05/20 07:39 36.5 C 63 18 114/71 95 12/05/20 04:05 36.4 C L 68 16 118/76 94 12/04/20 23:02 36.7 C 64 16 113/74 96 12/04/20 23:00 64 Medications Administered Current Inpatient Medications Acetaminophen (Acetaminophen 325 Mg Tab) 650 mg PO Q4H PRN PRN Reason: Pain or Fever Stop: 12/29/20 00:53 Amiodarone HCl (Amiodarone 200 Mg Tab) 200 mg PO QAM VALE Stop: 01/01/21 12:14 Last Admin: 12/05/20 08:32 Dose: 200 mg Documented by: Apixaban (Apixaban 5 Mg Tablet) 5 mg PO BID VALE Stop: 01/01/21 08:59 Last Admin: 12/05/20 08:32 Dose: 5 mg Documented by: Aspirin (Aspirin 81 Mg Ectab) 81 mg PO DAILY VALE Stop: 12/29/20 08:59 Last Admin: 12/05/20 08:33 Dose: 81 mg Documented by: Atorvastatin Calcium (Atorvastatin 40 Mg Tab) 40 mg PO DAILY VALE Stop: 12/29/20 08:59 Last Admin: 12/05/20 08:32 Dose: 40 mg Documented by: Colchicine (Colchicine 0.6 Mg Tab) 0.6 mg PO BID VALE Stop: 12/29/20 09:44 Last Admin: 12/05/20 08:31 Dose: 0.6 mg Documented by: Donepezil HCl (Donepezil Hcl 10 Mg Tab) 20 mg PO DAILY VALE Stop: 01/01/21 08:59 Last Admin: 12/05/20 08:31 Dose: 20 mg Documented by: Donepezil HCl (Donepezil Hcl 5 Mg Tab) 5 mg PO HS VALE Stop: 12/31/20 20:59 Last Admin: 12/04/20 20:33 Dose: 5 mg Documented by: Famotidine (Famotidine 20 Mg Tab) 20 mg PO QAM VALE Stop: 12/29/20 15:44 Last Admin: 12/05/20 08:31 Dose: 20 mg Documented by: Folic Acid (Folic Acid 1 Mg Tab) 1 mg PO DAILY VALE Stop: 12/29/20 08:59 Last Admin: 12/05/20 08:32 Dose: 1 mg Documented by: Memantine (Memantine Hcl 10 Mg Tab) 10 mg PO BID VALE Stop: 12/29/20 08:59 Last Admin: 12/05/20 08:31 Dose: 10 mg Documented by: Metoprolol Succinate (Metoprolol Succ 25mg Ext Rel Tab) 12.5 mg PO DAILY VALE Stop: 12/29/20 08:59 Last Admin: 12/05/20 08:31 Dose: 12.5 mg Documented by: Multivitamins (Multivitamin Tab) 1 tab PO DAILY VALE Stop: 12/29/20 08:59 Last Admin: 12/05/20 08:33 Dose: 1 tab Documented by: Nitroglycerin (Nitroglycerin Sl 0.4 Mg/Tab Tab) 0.4 mg SL UD PRN PRN Reason: Chest Pain Stop: 12/29/20 00:53 Prednisone (Prednisone 20 Mg Tab) 20 mg PO DAILY VALE Stop: 01/01/21 08:59 Last Admin: 12/05/20 08:32 Dose: 20 mg Documented by: Quetiapine Fumarate (Quetiapine Fumarate 25 Mg Tablet) 12.5 mg PO TID PRN PRN Reason: Agitation Stop: 01/02/21 20:59 Last Admin: 12/04/20 20:35 Dose: 12.5 mg Documented by: Saccharomyces Boulardii (Saccharomyces Boulardii 250 Mg Cap) 250 mg PO BID VALE Stop: 12/29/20 08:59 Last Admin: 12/05/20 08:31 Dose: 250 mg Documented by: Thiamine HCl (Thiamine Hcl 100 Mg Tab) 100 mg PO DAILY VALE Stop: 12/29/20 08:59 Last Admin: 12/05/20 08:32 Dose: 100 mg Documented by: Zinc Sulfate (Zinc Sulfate 220 Mg Capsule) 220 mg PO PM VALE Stop: 12/29/20 20:59 Last Admin: 12/04/20 20:35 Dose: 220 mg Documented by:
--- NOTE | 2020-12-05 11:25 | XRay Report ---
XR chest 1V portable CLINICAL HISTORY: Pleural effusions COMPARISON STUDY: 11/28/2020 FINDINGS: The cardiac and mediastinal contours remain stable. There is a trace right pleural effusion . There is a small left pleural effusion with associated left basilar atelectasis/consolidation. Ther e is calcified left midlung zone granuloma[ IMPRESSION: 1. Small left pleural effusion with associated left basilar atelectasis/consolidation 2. Trace right pleural effusion ACT 112: Negative or not required by law. Electronically signed by: Titus Rosen M.D. 12/05/2020 11:24 AM
[2020-12-05] MEDS ORDERED: POTASSIUM CHLORIDE CRTAB 20 MEQ TABCR PO STA (14:47)
--- NOTE | 2020-12-05 14:54 | Cardiology Progress Note ---
Date of Service December 05, 2020 Assessment & Plan (1) Pericardial effusion: Focused echo today revealed ongoing small circumferential pericardial effusion, with subtle improvement compared to prior study. Continue colchicine, prednisone 20 mg daily, with plans for a long slow prednisone taper over 3 weeks. Trace pleural effusions noted on chest x-ray and echo. Supplement potassium, proceed with low-dose furosemide 10 mg IV x1. Chemistry panel already ordered for a.m. (2) Paroxysmal atrial fibrillation: Continue with rhythm control strategy. Baseline heart rate is relatively slow, therefore on metoprolol succinate 12.5 mg daily. Continue amiodarone 200 mg p.o. daily. IV amiodarone discontinued. (3) Ambulatory dysfunction: Dementia. Ambulatory dysfunction. Poor gait, recently declined to being wheelchair-bound. Looking into placement options. Admission and Anticipated Discharge Date Admission Date: November 28, 2020 Subjective No complaints. In good humor. Sinus rhythm in the range of 50 to 60 bpm noted on telemetry overnight last night and again this morning. Amiodarone infusion discontinued. Physical Exam Physical Exam: Temp Pulse Resp BP Pulse Ox 36.5 C 84 18 112/70 95 12/05/20 11:12 12/05/20 11:12 12/05/20 11:12 12/05/20 11:12 12/05/20 11:12 Constitutional: WD/WN, vitals as above Respiratory: normal respiratory effort, lungs clear to auscultation Cardiovascular: RRR, no murmur, no edema Results & Data ([facility]) Vital Signs (Past 12 Hours) Vital Signs Temp Pulse Pulse Resp BP Pulse Ox 12/05/20 11:12 36.5 C 84 18 112/70 95 12/05/20 09:44 59 L 12/05/20 07:39 36.5 C 63 18 114/71 95 12/05/20 04:05 36.4 C L 68 16 118/76 94
[2020-12-05] MEDS ORDERED: FUROSEMIDE 10 MG in SYRINGE 0 ML IV ONE (15:15)
[2020-12-05] MEDS: QUEtiapine FUMARATE 25 MG TABLET PO PRN (17:27)
[2020-12-05] MEDS: ZINC SULFATE 220 MG CAPSULE PO SCH (20:12)
[2020-12-05] MEDS: DONEPEZIL HCL 5 MG TAB PO SCH (20:13)
[2020-12-06] MEDS: QUEtiapine FUMARATE 25 MG TABLET PO PRN ×2 (06:42→17:55)
[2020-12-06 06:50] LABS: Hematocrit (blood only) 42.5 % (42-52); Hemoglobin 14.4 g/dL (14.0-18.0); Mean Corpuscular Hemoglobin 31.2 pg (25-34); Mean Corpuscular Hgb Conc 33.9 g/dL (32-36); Mean Platelet Volume 8.8 fL (7.4-10.4); Platelet Count 387 K/uL (130-400); RDW Coefficient of Variation 14.7 % (11.5-14.5); RDW Standard Deviation 49.8 fL (36.4-46.3); Red Blood Count 4.62 M/uL (4.7-6.1); White Blood Count 9.39 K/uL (4.8-10.8)
[2020-12-06 07:29] LABS: Calcium 8.3 mg/dl (8.5-10.1); Creatinine Clr Calc Pharmacy 72.8 ml/min; Est GFR (Non-African American) 75.9; Magnesium 2.4 mg/dl (1.8-2.4); Phosphorus 3.5 mg/dl (2.5-4.9); Potassium 3.5 mmol/L (3.5-5.1)
[2020-12-06] MEDS: SACCHAROMYCES BOULARDII 250 MG CAP PO SCH ×2 (08:27→22:21)
[2020-12-06] MEDS: COLCHICINE 0.6 MG TAB PO SCH (08:27)
[2020-12-06] MEDS: ASPIRIN 81 MG ECTAB PO SCH (08:27)
[2020-12-06] MEDS: ATORVASTATIN 40 MG TAB PO SCH (08:27)
[2020-12-06] MEDS: METOPROLOL SUCC 25MG EXT REL TAB PO SCH (08:27)
[2020-12-06] MEDS: predniSONE 20 MG TAB PO SCH (08:27)
[2020-12-06] MEDS: THIAMINE HCL 100 MG TAB PO SCH (08:28)
[2020-12-06] MEDS: AMIODARONE 200 MG TAB PO SCH (08:28)
[2020-12-06] MEDS: MEMANTINE HCL 10 MG TAB PO SCH ×2 (08:28→22:19)
[2020-12-06] MEDS: FAMOTIDINE 20 MG TAB PO SCH (08:28)
[2020-12-06] MEDS: DONEPEZIL HCL 10 MG TAB PO SCH (08:28)
[2020-12-06] MEDS: APIXABAN 5 MG TABLET PO SCH ×2 (08:28→22:19)
[2020-12-06] MEDS: FOLIC ACID 1 MG TAB PO SCH (08:28)
[2020-12-06] MEDS: MULTIVITAMIN TAB PO SCH (08:29)
[2020-12-06] MEDS ORDERED: POTASSIUM CHLORIDE CRTAB 20 MEQ TABCR PO STA (16:41)
--- NOTE | 2020-12-06 16:42 | Cardiology Progress Note ---
Date of Service December 06, 2020 Assessment & Plan (1) Pericardial effusion: Reduce colchicine to 0.6 mg daily. Has been on prednisone 20 mg x 5 days. Will reduce to 10 mg daily. Plan for slow prednisone taper over 3 weeks, 10 mg x 7 days, 5 mg x 7 days, 2.5 mg x 7 days. (2) Paroxysmal atrial fibrillation: Continue metoprolol succinate, amiodarone 200 mg daily. Pepcid for GI prophylaxis given Eliquis plus prednisone. Stable from my perspective for discharge to rehab/ NH. Admission and Anticipated Discharge Date Admission Date: November 28, 2020 Subjective No complaints, resting comfortably. Remains in sinus rhythm. Review of Systems Review of Systems: Unobtainable due to cognitive status Physical Exam Physical Exam: Temp Pulse Resp BP Pulse Ox 36.8 C 69 18 110/70 96 12/06/20 16:28 12/06/20 16:28 12/06/20 16:28 12/06/20 16:28 12/06/20 16:28 Constitutional: no acute distress and not ill appearing Respiratory: normal respiratory effort, lungs clear to auscultation Cardiovascular: RRR, no murmur, no edema Gastrointestinal (Abdomen): normal bowel sounds, soft, nontender, no hepatosplenomegaly Neurologic: Cognitive impairment, no focal deficits otherwise Results & Data ([facility]) Vital Signs (Past 12 Hours) Vital Signs Temp Pulse Pulse Resp BP BP Pulse Ox 12/06/20 16:28 36.8 C 69 18 110/70 96 12/06/20 11:36 36.5 C 65 20 111/72 95 12/06/20 08:25 36.6 C 64 14 125/76 94 12/06/20 07:00 85 Laboratory Results CBC 12/06/20 Range/Units 06:05 WBC 9.39 (4.8-10.8) K/uL RBC 4.62 L (4.7-6.1) M/uL Hgb 14.4 (14.0-18.0) g/dL Hct 42.5 (42-52) % Plt Count 387 (130-400) K/uL Comprehensive Metabolic Panel 12/06/20 Range/Units 06:05 Sodium 143 (136-145) mmol/L Potassium 3.5 (3.5-5.1) mmol/L Chloride 111 H (98-107) mmol/L Carbon Dioxide 26 (21-32) mmol/L BUN 15 (7-18) mg/dl Creatinine 0.96 (0.6-1.4) mg/dl Glucose 83 (70-99) mg/dl Calcium 8.3 L (8.5-10.1) mg/dl Intake and Output 12/06/20 12/06/20 12/06/20 06:59 14:59 22:59 Intake Total 250 / 649.287 540 / 540 Output Total 151 / 151 Balance 250 / 599.287 389 / 389 Intake: Oral 250 / 450 540 / 540 Output: Urine 150 / 150 # Bowel Movements Other: # Unmeasured Voids 2 # Urine Diapers 1 Weight 83 kg
--- NOTE | 2020-12-06 18:17 | Hospitalist Progress Note ---
Date of Service December 06, 2020 Assessment & Plan (1) Pericardial effusion: no evidence of cardiac tamponade, cont prednisone and colchicine per Cards recs. Repeat bedside echo this morning reveals no changes in size. (2) Pneumonia: He was treated with Zosyn and doxycycline for two days and completed a course of PO doxycycline. Currently no coughing or other respiratory symptoms and he is breathing at baseline and oxygenating well on room air. Consider repeat chest imaging in 4 weeks to re-evaluate and ensure complete resolution of pneumonia. Defer to PCP. (3) Paroxysmal atrial fibrillation: required intravenous amiodarone loading, which was stopped yesterday. Patient is now on oral amiodarone and maintaining in sinus rhythm. Cont telemetry monitoring. Cont metoprolol 12.5mg PO daily and Eliquis. (4) Ambulatory dysfunction: Patient is not ambulating well likely related to prolonged hospitalization and overall physical decline in setting of multiple comorbidities. Nursing has also been giving him seroquel intermittently in the hospital and this may be contributing to confusion, lethargy and may make him a fall risk. Per repeat PT and OT assessments, SNF is recommended and authorization is in place. (5) Vascular dementia: monitor for delirium, currently mentating around baseline. (6) CKD (chronic kidney disease), stage III: stable renal status (7) DVT prophylaxis: Eliquis Full Code Dispo-to rehab once insurance authorization obtained. DO [facility] Hospitalist Admission and Anticipated Discharge Date Admission Date: November 28, 2020 Subjective CONSTITUTIONAL: WNWD, vitals as above, generally well-appearing EYES: normal conjunctivae, no scleral icterus ENT: external ear and nose normal, oropharynx clear, MMM NECK: trachea midline RESPIRATORY: clear to auscultation bilaterally, no crackles, rales or wheezes, normal respiratory effort CARDIOVASCULAR: regular rate and rhythm, S1 and 2 heard without murmurs, gallops or rubs, no JVD, no peripheral edema GASTROINTESTINAL: soft, nontender, nondistended, no guarding MUSCULOSKELETAL: generalized weakness SKIN: warm and dry NEUROLOGIC: CN 2-12 grossly intact, normal cognition, normal speech. No gross focal deficits. PSYCHIATRIC: alert cooperative and answering questions appropriately but inter mittently appears confused. Review of Systems Review of Systems: All systems reviewed & are unremarkable except as noted in Subjective Physical Exam Physical Exam: CONSTITUTIONAL: WNWD, vitals as above, generally well- appearing EYES: normal conjunctivae, no scleral icterus ENT: external ear and nose normal, oropharynx clear, MMM NECK: trachea midline RESPIRATORY: clear to auscultation bilaterally, no crackles, rales or wheezes, normal respiratory effort CARDIOVASCULAR: regular rate and rhythm, S1 and 2 heard without murmurs, gallops or rubs, no JVD, no peripheral edema GASTROINTESTINAL: soft, nontender, nondistended, no guarding MUSCULOSKELETAL: generalized weakness SKIN: warm and dry NEUROLOGIC: CN 2-12 grossly intact, normal cognition, normal speech. No gross focal deficits. PSYCHIATRIC: alert cooperative and answering questions appropriately with some time. Results & Data Results & Data ([facility]) Vital Signs (Past 12 Hours) Vital Signs Temp Pulse Pulse Resp BP BP Pulse Ox 12/06/20 16:28 36.8 C 69 18 110/70 96 12/06/20 14:20 64 12/06/20 11:36 36.5 C 65 20 111/72 95 12/06/20 08:25 36.6 C 64 14 125/76 94 12/06/20 07:00 85 Laboratory Results Short CBC 12/06/20 Range/Units 06:05 WBC 9.39 (4.8-10.8) K/uL Hgb 14.4 (14.0-18.0) g/dL Hct 42.5 (42-52) % Plt Count 387 (130-400) K/uL BMP 12/06/20 06:05 Sodium 143 Potassium 3.5 Chloride 111 H Carbon Dioxide 26 BUN 15 Creatinine 0.96 Glucose 83 Calcium 8.3 L Medications Administered Current Inpatient Medications Acetaminophen (Acetaminophen 325 Mg Tab) 650 mg PO Q4H PRN PRN Reason: Pain or Fever Stop: 12/29/20 00:53 Amiodarone HCl (Amiodarone 200 Mg Tab) 200 mg PO QAM [facility] Stop: 01/01/21 12:14 Last Admin: 12/06/20 08:28 Dose: 200 mg Documented by: Apixaban (Apixaban 5 Mg Tablet) 5 mg PO BID VALE Stop: 01/01/21 08:59 Last Admin: 12/06/20 08:28 Dose: 5 mg Documented by: Aspirin (Aspirin 81 Mg Ectab) 81 mg PO DAILY VALE Stop: 12/29/20 08:59 Last Admin: 12/06/20 08:27 Dose: 81 mg Documented by: Atorvastatin Calcium (Atorvastatin 40 Mg Tab) 40 mg PO DAILY VALE Stop: 12/29/20 08:59 Last Admin: 12/06/20 08:27 Dose: 40 mg Documented by: Colchicine (Colchicine 0.6 Mg Tab) 0.6 mg PO DAILY VALE Stop: 01/06/21 08:59 Donepezil HCl (Donepezil Hcl 10 Mg Tab) 20 mg PO DAILY VALE Stop: 01/01/21 08:59 Last Admin: 12/06/20 08:28 Dose: 20 mg Documented by: Donepezil HCl (Donepezil Hcl 5 Mg Tab) 5 mg PO HS VALE Stop: 12/31/20 20:59 Last Admin: 12/05/20 20:13 Dose: 5 mg Documented by: Famotidine (Famotidine 20 Mg Tab) 20 mg PO QAM VALE Stop: 12/29/20 15:44 Last Admin: 12/06/20 08:28 Dose: 20 mg Documented by: Folic Acid (Folic Acid 1 Mg Tab) 1 mg PO DAILY VALE Stop: 12/29/20 08:59 Last Admin: 12/06/20 08:28 Dose: 1 mg Documented by: Memantine (Memantine Hcl 10 Mg Tab) 10 mg PO BID VALE Stop: 12/29/20 08:59 Last Admin: 12/06/20 08:28 Dose: 10 mg Documented by: Metoprolol Succinate (Metoprolol Succ 25mg Ext Rel Tab) 12.5 mg PO DAILY VALE Stop: 12/29/20 08:59 Last Admin: 12/06/20 08:27 Dose: 12.5 mg Documented by: Multivitamins (Multivitamin Tab) 1 tab PO DAILY VALE Stop: 12/29/20 08:59 Last Admin: 12/06/20 08:29 Dose: 1 tab Documented by: Nitroglycerin (Nitroglycerin Sl 0.4 Mg/Tab Tab) 0.4 mg SL UD PRN PRN Reason: Chest Pain Stop: 12/29/20 00:53 Prednisone (Prednisone 10 Mg Tablet) 10 mg PO DAILY VALE Stop: 01/06/21 08:59 Saccharomyces Boulardii (Saccharomyces Boulardii 250 Mg Cap) 250 mg PO BID VALE Stop: 12/29/20 08:59 Last Admin: 12/06/20 08:27 Dose: 250 mg Documented by: Thiamine HCl (Thiamine Hcl 100 Mg Tab) 100 mg PO DAILY VALE Stop: 12/29/20 08:59 Last Admin: 12/06/20 08:28 Dose: 100 mg Documented by: Zinc Sulfate (Zinc Sulfate 220 Mg Capsule) 220 mg PO PM VALE Stop: 12/29/20 20:59 Last Admin: 12/05/20 20:12 Dose: 220 mg Documented by:
[2020-12-06] MEDS: DONEPEZIL HCL 5 MG TAB PO SCH (22:19)
[2020-12-06] MEDS: ZINC SULFATE 220 MG CAPSULE PO SCH (22:21)
[2020-12-07] MEDS: METOPROLOL SUCC 25MG EXT REL TAB PO SCH (08:26)
[2020-12-07] MEDS: COLCHICINE 0.6 MG TAB PO SCH (08:27)
[2020-12-07] MEDS: FAMOTIDINE 20 MG TAB PO SCH (08:27)
[2020-12-07] MEDS: APIXABAN 5 MG TABLET PO SCH ×2 (08:28→21:20)
[2020-12-07] MEDS: ATORVASTATIN 40 MG TAB PO SCH (08:28)
[2020-12-07] MEDS: MEMANTINE HCL 10 MG TAB PO SCH ×2 (08:28→21:19)
[2020-12-07] MEDS: predniSONE 10 MG TABLET PO SCH (08:28)
[2020-12-07] MEDS: AMIODARONE 200 MG TAB PO SCH (08:29)
[2020-12-07] MEDS: ASPIRIN 81 MG ECTAB PO SCH (08:29)
[2020-12-07] MEDS: MULTIVITAMIN TAB PO SCH (08:29)
[2020-12-07] MEDS: THIAMINE HCL 100 MG TAB PO SCH (08:29)
[2020-12-07] MEDS: FOLIC ACID 1 MG TAB PO SCH (08:30)
[2020-12-07] MEDS: DONEPEZIL HCL 10 MG TAB PO SCH (08:30)
[2020-12-07] MEDS: SACCHAROMYCES BOULARDII 250 MG CAP PO SCH ×2 (08:30→21:18)
--- NOTE | 2020-12-07 13:29 | Discharge Summary ---
Date of Service December 07, 2020 Admission HPI Per Admitting Provider HISTORY OF PRESENT ILLNESS: This is a 75-year-old male with past medical history significant for hyperlipidemia, pleural effusion, paroxysmal atrial fibrillation, history of dilatation of aorta, mixed Alzheimer's and vascular dementia, mediastinal lymphadenopathy, bradycardia, GERD, parkinsonism, history of pulmonary embolism and deep venous thrombosis, who lives at home with his , was brought in because of weakness and confusion and complained of some chest pain. The patient has some dementia. The patient was here in the hospital in October with possible hospital-acquired pneumonia and weakness and AFib with RVR and metabolic encephalopathy and ambulatory dysfunction and was discharged to [facility]. As per the , he stayed there for about a week and a couple of days ago he was ambulating okay with the help of walker, but since yesterday he was getting more confused and not obeying commands properly and even with the help of herself and her son he was not able to ambulate properly. Today in the morning with the help of the home health nurse, he was able to ambulate a little bit with the walker with assistance, but the patient seemed to be more confused.Last night he had a dry cough and today morning he had cough, bringing some phlegm, but he swallowed the phlegm, and he has a history of aspiration pneumonia on last admission .He was eating regular food before, but last 2 days she has tried to give soft food. The patient also complains of some chest pain. Denies any nausea, vomiting. No diarrhea. No fevers at home. Appetite was okay. Today when she was going to take him to neurologist appointment, on the way he had episode of urinary incontinence. He has never had this urinary incontinence before and was worried about UTI or pneumonia and brought him here to the hospital. The says she could not take care of the patient in current situation at home because he is having difficulty ambulation and she could not support the patient. Admission Exam Per Admitting Provider PHYSICAL EXAMINATION: VITAL SIGNS: Temperature 37.2, pulse 84, respiratory rate 20, blood pressure 121/71, oxygen 97% on room air. HEENT: No pallor, no icterus. Atraumatic. NECK: No JVD, no neck masses. CARDIOVASCULAR: S1, S2 heard. Regular rate and rhythm. No murmur, no gallop. RESPIRATORY SYSTEM: Normal AP diameter. No accessory muscle use. No wheezing, no crackles. ABDOMEN: Soft, bowel sounds present, nontender. No distention. CENTRAL NERVOUS SYSTEM: Alert and oriented to name. Only could tell his date of . Obeys simple commands. Speech is clear, no facial droop. Moves extremities. EXTREMITIES: No edema, no erythema. Principal Diagnosis * Pericardial effusion * left lower lobe pneumonia * Alzheimer /vascular dementia * Ambulatory dysfunction /generalized weakness * Paroxysmal Afib on Coumadin Discharge Exam CONSTITUTIONAL: WNWD, vitals as above, generally well-appearing EYES: normal conjunctivae, no scleral icterus ENT: external ear and nose normal, oropharynx clear, MMM NECK: trachea midline RESPIRATORY: clear to auscultation bilaterally, no crackles, rales or wheezes, normal respiratory effort CARDIOVASCULAR: regular rate and rhythm, S1 and 2 heard without murmurs, gallops or rubs, no JVD, no peripheral edema GASTROINTESTINAL: soft, nontender, nondistended, no guarding MUSCULOSKELETAL: generalized weakness SKIN: warm and dry NEUROLOGIC: CN 2-12 grossly intact, normal cognition, normal speech. No gross focal deficits. PSYCHIATRIC: alert cooperative and answering questions appropriately with some time. Discharge Data Allergies Allergy/AdvReac Type Severity Reaction Status Date / Time No Known Drug Allergies Allergy Unknown ` Verified 11/28/20 21:47 Consultations 11/28/20 21:09 ED Decision to Admit Stat 11/29/20 07:00 Consult Cardiology Routine 11/29/20 08:00 Consult Neurology Routine Ordered Studies 11/28/20 18:41 CT angio head w con Stat CT angio neck with con Stat CT head/brain wo con Stat 11/28/20 23:11 CT chest diagnostic wo con Urgent 11/29/20 00:54 MR brain wo/w con Routine 11/30/20 11:00 FL video swallow Routine Hospital Course (1) Pericardial effusion: no evidence of cardiac tamponade, cont prednisone and colchicine per Cards recs. Repeat bedside echo this morning reveals no changes in size. (2) Pneumonia: He was treated with Zosyn and doxycycline for two days and completed a course of PO doxycycline. Currently no coughing or other respiratory symptoms and he is breathing at baseline and oxygenating well on room air. Consider repeat chest imaging in 4 weeks to re-evaluate and ensure complete resolution of pneumonia. Defer to PCP. (3) Paroxysmal atrial fibrillation: required intravenous amiodarone loading, which was stopped yesterday. Patient is now on oral amiodarone and maintaining in sinus rhythm. Cont telemetry monitoring. Cont metoprolol 12.5mg PO daily and Eliquis. (4) Ambulatory dysfunction: Patient is not ambulating well likely related to prolonged hospitalization and overall physical decline in setting of multiple comorbidities. Nursing has also been giving him seroquel intermittently in the hospital and this may be contributing to confusion, lethargy and may make him a fall risk. Per repeat PT and OT assessments, SNF is recommended and authorization is in place. (5) Vascular dementia: monitor for delirium, currently mentating around baseline. (6) CKD (chronic kidney disease), stage III: stable renal status (7) DVT prophylaxis: Eliquis Full Code Dispo-to rehab once insurance authorization obtained. Yenifer Mendoza DO [facility] Hospitalist Total Time Total Time Spent Total Time Spent (In Minutes): 60 Total Time Includes: Examination of the Patient, Discharge Planning, Medication Reconciliation and Communication With Other Providers Discharge Plan Discharge Items Patient Disposition: Transfer Care Home Fac Reason For Visit: WEAKNESS,CHEST PAIN Discharge Diagnosis: * Pericardial effusion * left lower lobe pneumonia * Alzheimer /vascular dementia * Ambulatory dysfunction /generalized weakness * Paroxysmal Afib on Coumadin Condition on Discharge: Good Activity: As commented below Activity Comment: Continue Physical and Occupational therapy at rehab Non-emergency contact: Primary Care Provider Call non-emergency contact if: you have any medication questions Follow-up/Referrals: Donte Guzman DO [[facility]] - Vinicio Haro DO [Primary Care Provider] - Diet: Heart Healthy Diet Texture: Dental soft (bite-sized) Addtl Attending Provider Instructions: Please take all medications as instructed on discharge list below. It is recommended that you follow-up with your primary care physician within 1-2 weeks of hospital discharge to ensure you are still doing well. Please follow-up with [facility] Cardiology in the next few weeks for followup on your heart rhythm issues. Please call if you have any questions or problems. You can reach a [facility] hospitalist on duty at [facility] 24 hours a day by calling [phone] It was a pleasure taking care of you! Please call if you have any questions or problems. You can reach a [facility] hospitalist on duty at [facility] 24 hours a day by calling [phone]. Take care of yourself. DO [facility] Pending Studies at Discharge: No Stand-Alone Forms: My [facility] Skilled Items Patient informed of condition?: Yes DNR: No Discharge Level of Care: Skilled Communicable Disease: No Discharge Prognosis: Stable Lines: None Urinary Catheter: No Medications and DC Order Prescriptions: New amiodarone 200 mg Tablet 200 mg PO QAM Qty: 30 RF: 0 famotidine 20 mg Tablet 20 mg PO QAM Qty: 30 RF: 0 Eliquis 5 mg Tablet 5 mg PO BID Qty: 60 RF: 0 prednisone 10 mg Tablet 10 mg PO UD Qty: 20 RF: 0 colchicine [Colcrys] 0.6 mg Tablet 0.6 mg PO DAILY Qty: 30 RF: 0 Continued aspirin 81 mg Tablet,Delayed Release (Dr/Ec) 81 mg PO DAILY Qty: 0 RF: 0 folic acid 1 mg Tablet 1 mg PO DAILY Qty: 30 RF: 0 atorvastatin 40 mg tablet 40 mg PO DAILY RF: 0 thiamine HCl (vitamin B1) 100 mg Tablet 100 mg PO DAILY RF: 0 Saccharomyces boulardii 250 mg Capsule 250 mg PO BID RF: 0 memantine 10 mg tablet 10 mg PO BID RF: 0 donepezil 23 mg tablet 23 mg PO DAILY RF: 0 zinc 50 mg Tablet 50 mg PO PM RF: 0 multivitamin Tablet 1 tab PO DAILY RF: 0 metoprolol succinate 25 mg tablet extended release 24 hr 12.5 mg PO DAILY RF: 0 Discontinued warfarin 5 mg Tablet 10 mg PO MOWEFR RF: 0 warfarin 5 mg tablet 7.5 mg PO SUTUTHSA RF: 0 Discharge Orders: Discharge Order (Routine); Ordered 12/07/20 Ordered By: Yenifer Mendoza Admission Data Admit Date/Time: 11/28/20 23:11 Attending Provider: Yenifer Mendoza Admit Provider: Edwardo Anaya Primary Care Provider: Vinicio Haro Other Providers: Machelle Monte at [facility] ; Edwardo Anaya ; Maurice Castillo ; Donte Guzman ; Adama Lozoya ; Ralph Willis ; Mahendra Pretty ; Jamaal Mackenzie ; Trish Dhaliwal ; Yen Beltran ; Vito Jacinto ; Mike Chen.
--- NOTE | 2020-12-07 16:04 | Hospitalist Progress Note ---
Date of Service December 07, 2020 Assessment & Plan (1) Pericardial effusion: no evidence of cardiac tamponade, cont prednisone and colchicine per Cards recs. Repeat bedside echo this morning reveals no changes in size. (2) Pneumonia: He was treated with Zosyn and doxycycline for two days and completed a course of PO doxycycline. Currently no coughing or other respiratory symptoms and he is breathing at baseline and oxygenating well on room air. Consider repeat chest imaging in 4 weeks to re-evaluate and ensure complete resolution of pneumonia. Defer to PCP. (3) Confusion: Some intermittent worsening confusion that waxes and wanes throughout this hospitalization in the setting of known dementia may be partly related to steroid use for the treatment of pericardial effusion in addition to change in environment i.e. hospital induced delirium. He is currently mentating around his baseline. (4) Paroxysmal atrial fibrillation: required intravenous amiodarone and is now on oral amiodarone and maintaining in sinus rhythm. Cont metoprolol 12.5mg PO daily and Eliquis. (5) Ambulatory dysfunction: Patient is not ambulating well likely related to prolonged hospitalization and overall physical decline in setting of multiple comorbidities. Nursing has also been giving him seroquel intermittently in the hospital and this may be contributing to confusion, lethargy and may make him a fall risk. Per repeat PT and OT assessments, SNF is recommended and authorization is in place. (6) Vascular dementia: monitor for delirium, currently mentating around baseline. (7) CKD (chronic kidney disease), stage III: stable renal status (8) DVT prophylaxis: Eliquis Full Code Dispo-to rehab once insurance authorization obtained. Yenifer Mendoza DO [facility] Hospitalist Admission and Anticipated Discharge Date Admission Date: November 28, 2020 Subjective 75-year-old man presented with weakness and confusion in addition to chest pain found to have pericardial effusion and atrial fibrillation with rapid ventricular response. Work-up also revealed pneumonia which was treated this hospitalization. Recently hospitalized in October with pneumonia, weakness A. fib with RVR, metabolic encephalopathy and ambulatory dysfunction discharged to [facility]. Today the patient is reporting some agitation and anxiety with upcoming transfer and not being able to see his . He also reports some agitation with not having had a shower. He otherwise denies any pain or shortness of breath. His was able to visit for approximately 30 minutes today per nursing staff. Of note his discharge could not occur secondary to a lack of transport once authorization came through. Possible DC in a.m. Review of Systems Review of Systems: All systems reviewed & are unremarkable except as noted in Subjective Physical Exam Physical Exam: CONSTITUTIONAL: WNWD, vitals as above, generally well-appe aring EYES: normal conjunctivae, no scleral icterus ENT: external ear and nose normal, oropharynx clear, MMM NECK: trachea midline RESPIRATORY: clear to auscultation bilaterally, no crackles, rales or wheezes, normal respiratory effort CARDIOVASCULAR: regular rate and rhythm, S1 and 2 heard without murmurs, gallops or rubs, no JVD, no peripheral edema GASTROINTESTINAL: soft, nontender, nondistended, no guarding MUSCULOSKELETAL: generalized weakness SKIN: warm and dry NEUROLOGIC: CN 2-12 grossly intact, normal cognition, normal speech. No gross focal deficits. PSYCHIATRIC: alert cooperative and answering questions appropriately with some time. Results & Data Results & Data ([facility]) Vital Signs (Past 12 Hours) Vital Signs Temp Pulse Pulse Resp BP BP Pulse Ox 12/07/20 15:44 36.7 C 79 19 111/66 95 12/07/20 14:32 36.8 C 75 19 119/72 118/77 96 12/07/20 14:20 72 12/07/20 11:51 36.8 C 75 19 119/72 96 12/07/20 08:10 36.5 C 61 18 108/71 96 12/07/20 07:11 64 Medications Administered Current Inpatient Medications Acetaminophen (Acetaminophen 325 Mg Tab) 650 mg PO Q4H PRN PRN Reason: Pain or Fever Stop: 12/29/20 00:53 Amiodarone HCl (Amiodarone 200 Mg Tab) 200 mg PO QAM [facility] Stop: 01/01/21 12:14 Last Admin: 12/07/20 08:29 Dose: 200 mg Documented by: Apixaban (Apixaban 5 Mg Tablet) 5 mg PO BID [facility] Stop: 01/01/21 08:59 Last Admin: 12/07/20 08:28 Dose: 5 mg Documented by: Aspirin (Aspirin 81 Mg Ectab) 81 mg PO DAILY [facility] Stop: 12/29/20 08:59 Last Admin: 12/07/20 08:29 Dose: 81 mg Documented by: Atorvastatin Calcium (Atorvastatin 40 Mg Tab) 40 mg PO DAILY [facility] Stop: 12/29/20 08:59 Last Admin: 12/07/20 08:28 Dose: 40 mg Documented by: Colchicine (Colchicine 0.6 Mg Tab) 0.6 mg PO DAILY [facility] Stop: 01/06/21 08:59 Last Admin: 12/07/20 08:27 Dose: 0.6 mg Documented by: Donepezil HCl (Donepezil Hcl 10 Mg Tab) 20 mg PO DAILY [facility] Stop: 01/01/21 08:59 Last Admin: 12/07/20 08:30 Dose: 20 mg Documented by: Donepezil HCl (Donepezil Hcl 5 Mg Tab) 5 mg PO HS [facility] Stop: 12/31/20 20:59 Last Admin: 12/06/20 22:19 Dose: 5 mg Documented by: Famotidine (Famotidine 20 Mg Tab) 20 mg PO QAM [facility] Stop: 12/29/20 15:44 Last Admin: 12/07/20 08:27 Dose: 20 mg Documented by: Folic Acid (Folic Acid 1 Mg Tab) 1 mg PO DAILY [facility] Stop: 12/29/20 08:59 Last Admin: 12/07/20 08:30 Dose: 1 mg Documented by: Memantine (Memantine Hcl 10 Mg Tab) 10 mg PO BID [facility] Stop: 12/29/20 08:59 Last Admin: 12/07/20 08:28 Dose: 10 mg Documented by: Metoprolol Succinate (Metoprolol Succ 25mg Ext Rel Tab) 12.5 mg PO DAILY [facility] Stop: 12/29/20 08:59 Last Admin: 12/07/20 08:26 Dose: 12.5 mg Documented by: Multivitamins (Multivitamin Tab) 1 tab PO DAILY [facility] Stop: 12/29/20 08:59 Last Admin: 12/07/20 08:29 Dose: 1 tab Documented by: Nitroglycerin (Nitroglycerin Sl 0.4 Mg/Tab Tab) 0.4 mg SL UD PRN PRN Reason: Chest Pain Stop: 12/29/20 00:53 Prednisone (Prednisone 10 Mg Tablet) 10 mg PO DAILY [facility] Stop: 01/06/21 08:59 Last Admin: 12/07/20 08:28 Dose: 10 mg Documented by: Saccharomyces Boulardii (Saccharomyces Boulardii 250 Mg Cap) 250 mg PO BID [facility] Stop: 12/29/20 08:59 Last Admin: 12/07/20 08:30 Dose: 250 mg Documented by: Thiamine HCl (Thiamine Hcl 100 Mg Tab) 100 mg PO DAILY [facility] Stop: 12/29/20 08:59 Last Admin: 12/07/20 08:29 Dose: 100 mg Documented by: Zinc Sulfate (Zinc Sulfate 220 Mg Capsule) 220 mg PO PM [facility] Stop: 12/29/20 20:59 Last Admin: 12/06/20 22:21 Dose: 220 mg Documented by:
[2020-12-07] MEDS: DONEPEZIL HCL 5 MG TAB PO SCH (21:18)
[2020-12-07] MEDS: ZINC SULFATE 220 MG CAPSULE PO SCH (21:19)
[2020-12-08] MEDS: SACCHAROMYCES BOULARDII 250 MG CAP PO SCH (08:38)
[2020-12-08] MEDS: MEMANTINE HCL 10 MG TAB PO SCH (08:38)
[2020-12-08] MEDS: APIXABAN 5 MG TABLET PO SCH (08:38)
[2020-12-08] MEDS: COLCHICINE 0.6 MG TAB PO SCH (08:39)
[2020-12-08] MEDS: DONEPEZIL HCL 10 MG TAB PO SCH (08:39)
[2020-12-08] MEDS: FAMOTIDINE 20 MG TAB PO SCH (08:39)
[2020-12-08] MEDS: AMIODARONE 200 MG TAB PO SCH (08:39)
[2020-12-08] MEDS: ATORVASTATIN 40 MG TAB PO SCH (08:40)
[2020-12-08] MEDS: THIAMINE HCL 100 MG TAB PO SCH (08:40)
[2020-12-08] MEDS: FOLIC ACID 1 MG TAB PO SCH (08:40)
[2020-12-08] MEDS: ASPIRIN 81 MG ECTAB PO SCH (08:40)
[2020-12-08] MEDS: METOPROLOL SUCC 25MG EXT REL TAB PO SCH (08:41)
[2020-12-08] MEDS: MULTIVITAMIN TAB PO SCH (08:41)
--- NOTE | 2020-12-08 09:12 | Discharge Summary ---
Date of Service December 08, 2020 Admission HPI Per Admitting Provider HISTORY OF PRESENT ILLNESS: This is a 75-year-old male with past medical history significant for hyperlipidemia, pleural effusion, paroxysmal atrial fibrillation, history of dilatation of aorta, mixed Alzheimer's and vascular dementia, mediastinal lymphadenopathy, bradycardia, GERD, parkinsonism, history of pulmonary embolism and deep venous thrombosis, who lives at home with his , was brought in because of weakness and confusion and complained of some chest pain. The patient has some dementia. The patient was here in the hospital in October with possible hospital-acquired pneumonia and weakness and AFib with RVR and metabolic encephalopathy and ambulatory dysfunction and was discharged to [facility]. As per the , he stayed there for about a week and a couple of days ago he was ambulating okay with the help of walker, but since yesterday he was getting more confused and not obeying commands properly and even with the help of herself and her son he was not able to ambulate properly. Today in the morning with the help of the home health nurse, he was able to ambulate a little bit with the walker with assistance, but the patient seemed to be more confused.Last night he had a dry cough and today morning he had cough, bringing some phlegm, but he swallowed the phlegm, and he has a history of aspiration pneumonia on last admission .He was eating regular food before, but last 2 days she has tried to give soft food. The patient also complains of some chest pain. Denies any nausea, vomiting. No diarrhea. No fevers at home. Appetite was okay. Today when she was going to take him to neurologist appointment, on the way he had episode of urinary incontinence. He has never had this urinary incontinence before and was worried about UTI or pneumonia and brought him here to the hospital. The says she could not take care of the patient in current situation at home because he is having difficulty ambulation and she could not support the patient. Admission Exam Per Admitting Provider PHYSICAL EXAMINATION: VITAL SIGNS: Temperature 37.2, pulse 84, respiratory rate 20, blood pressure 121/71, oxygen 97% on room air. HEENT: No pallor, no icterus. Atraumatic. NECK: No JVD, no neck masses. CARDIOVASCULAR: S1, S2 heard. Regular rate and rhythm. No murmur, no gallop. RESPIRATORY SYSTEM: Normal AP diameter. No accessory muscle use. No wheezing, no crackles. ABDOMEN: Soft, bowel sounds present, nontender. No distention. CENTRAL NERVOUS SYSTEM: Alert and oriented to name. Only could tell his date of . Obeys simple commands. Speech is clear, no facial droop. Moves extremities. EXTREMITIES: No edema, no erythema. Principal Diagnosis * Pericardial effusion * left lower lobe pneumonia * Alzheimer /vascular dementia * Ambulatory dysfunction /generalized weakness * Paroxysmal Afib on Coumadin Discharge Exam CONSTITUTIONAL: WNWD, vitals as above, generally well-appearing EYES: normal conjunctivae, no scleral icterus ENT: external ear and nose normal, oropharynx clear, MMM NECK: trachea midline RESPIRATORY: clear to auscultation bilaterally, no crackles, rales or wheezes, normal respiratory effort CARDIOVASCULAR: regular rate and rhythm, S1 and 2 heard without murmurs, gallops or rubs, no JVD, no peripheral edema GASTROINTESTINAL: soft, nontender, nondistended, no guarding MUSCULOSKELETAL: generalized weakness SKIN: warm and dry NEUROLOGIC: CN 2-12 grossly intact, normal cognition, normal speech. No gross focal deficits. PSYCHIATRIC: alert cooperative and answering questions appropriately with some time. Discharge Data Allergies Allergy/AdvReac Type Severity Reaction Status Date / Time No Known Drug Allergies Allergy Unknown ` Verified 11/28/20 21:47 Consultations 11/28/20 21:09 ED Decision to Admit Stat 11/29/20 07:00 Consult Cardiology Routine 11/29/20 08:00 Consult Neurology Routine Ordered Studies Laboratory Results WBC 9.39 K/uL (4.8-10.8) 12/06/20 06:05 RBC 4.62 M/uL (4.7-6.1) L 12/06/20 06:05 Hgb 14.4 g/dL (14.0-18.0) 12/06/20 06:05 Hct 42.5 % (42-52) 12/06/20 06:05 MCV 92.0 fL (80-100) 12/06/20 06:05 MCH 31.2 pg (25-34) 12/06/20 06:05 MCHC 33.9 g/dL (32-36) 12/06/20 06:05 RDW Std Deviation 49.8 fL (36.4-46.3) H 12/06/20 06:05 RDW Coeff of Brynn 14.7 % (11.5-14.5) H 12/06/20 06:05 Plt Count 387 K/uL (130-400) 12/06/20 06:05 MPV 8.8 fL (7.4-10.4) 12/06/20 06:05 Immature Gran % (Auto) 0.1 % 11/29/20 05:21 Neut % (Auto) 88.2 % 11/29/20 05:21 Lymph % (Auto) 6.7 % 11/29/20 05:21 [place] % (Auto) 4.9 % 11/29/20 05:21 Eos % (Auto) 0.0 % 11/29/20 05:21 Baso % (Auto) 0.1 % 11/29/20 05:21 Neut # (Auto) 7.75 K/uL (1.4-6.5) H 11/29/20 05:21 Lymph # (Auto) 0.59 K/uL (1.2-3.4) L 11/29/20 05:21 [place] # (Auto) 0.43 K/uL (0.11-0.59) 11/29/20 05:21 Eos # (Auto) 0.00 K/uL (0-0.5) 11/29/20 05:21 Baso # (Auto) 0.01 K/uL (0-0.2) 11/29/20 05:21 Immature Gran # (Auto) 0.01 K/uL (0.00-0.02) 11/29/20 05:21 ESR 35 mm/hr (0-14) H 11/29/20 05:21 PT 15.6 Seconds (9.0-12.0) H 12/03/20 06:57 INR 1.6 (0.9-1.1) H 12/03/20 06:57 Sodium 143 mmol/L (136-145) 12/06/20 06:05 Potassium 3.5 mmol/L (3.5-5.1) 12/06/20 06:05 Chloride 111 mmol/L (98-107) H 12/06/20 06:05 Carbon Dioxide 26 mmol/L (21-32) 12/06/20 06:05 Anion Gap 6.0 (3-11) 12/06/20 06:05 BUN 15 mg/dl (7-18) 12/06/20 06:05 Creatinine 0.96 mg/dl (0.6-1.4) 12/06/20 06:05 Est Cr Clr Drug Dosing 72.8 ml/min 12/06/20 06:05 Est GFR ( Amer) 88.0 12/06/20 06:05 Est GFR (Non-Af Amer) 75.9 12/06/20 06:05 BUN/Creatinine Ratio 16.0 (10-20) 12/06/20 06:05 Glucose 83 mg/dl (70-99) 12/06/20 06:05 POC Glucose 123 mg/dl (70-99) H 11/29/20 16:17 Calcium 8.3 mg/dl (8.5-10.1) L 12/06/20 06:05 Phosphorus 3.5 mg/dl (2.5-4.9) 12/06/20 06:05 Magnesium 2.4 mg/dl (1.8-2.4) 12/06/20 06:05 Total Bilirubin 0.5 mg/dl (0.2-1) 12/02/20 06:10 Direct Bilirubin < 0.1 mg/dl (0-0.2) 12/02/20 08:38 AST 38 U/L (15-37) H 12/02/20 06:10 ALT 44 U/L (12-78) 12/02/20 06:10 Alkaline Phosphatase 60 U/L (45-117) 12/02/20 06:10 Total Creatine Kinase 48 U/L (39-308) 11/28/20 19:15 Troponin I < 0.015 ng/ml (0-0.045) 11/29/20 08:56 C-Reactive Protein 9.35 mg/dl (0-0.29) H 11/29/20 08:56 Total Protein 6.3 gm/dl (6.4-8.2) L 12/02/20 06:10 Albumin 2.5 gm/dl (3.4-5.0) L 12/02/20 06:10 Globulin 4.4 gm/dl (2.5-4.0) H 11/28/20 19:15 Albumin/Globulin Ratio 0.8 (0.9-2) L 11/28/20 19:15 Lipase 175 U/L (73-393) 11/28/20 19:15 TSH 2.280 uIu/ml (0.300-4.500) 12/02/20 06:10 Specimen Hemolysis 12/02/20 06:10 Urine Color Dark Yellow 11/28/20 Unknown Urine Appearance Clear (Clear) 11/28/20 Unknown Urine pH 5.0 (4.5-7.5) 11/28/20 Unknown Ur Specific [place] 1.035 (1.000-1.030) H 11/28/20 Unknown Urine Protein 1+ (Negative) H 11/28/20 Unknown Urine Glucose (UA) Negative (Negative) 11/28/20 Unknown Urine Ketones 1+ (Negative) H 11/28/20 Unknown Urine Blood 3+ (Negative) H 11/28/20 Unknown Urine Nitrite Negative (Negative) 11/28/20 Unknown Urine Bilirubin Negative (Negative) 11/28/20 Unknown Urine Urobilinogen Negative (Negative) 11/28/20 Unknown Ur Leukocyte Esterase Negative (Negative) 11/28/20 Unknown Urine WBC (Auto) 1-5 /hpf (0-5) 11/28/20 Unknown Urine RBC (Auto) >30 /hpf (0-4) H 11/28/20 Unknown U Hyaline Cast (Auto) 1-5 /lpf (0-5) 11/28/20 Unknown U Epithel Cells (Auto) 20-30 /lpf (0-5) H 11/28/20 Unknown Urine Bacteria (Auto) Negative (Negative) 11/28/20 Unknown COVID-19 Eval [facility]Now [facility] 12/07/20 14:29 SARS-CoV-2 (PCR) NEGATIVE (Negative) 11/28/20 20:16 Influenza Type A (PCR) Negative (Neg) 11/28/20 20:16 Influenza Type B (PCR) Negative (Neg) 11/28/20 20:16 RSV (RT-PCR) Negative (Neg) 11/28/20 20:16 SARS-CoV-2, RNA, NAAT NEGATIVE (NEGATIVE) 12/07/20 14:[address] 11/28/20 18:41 CT head/brain wo con CLINICAL HISTORY: 75 years-old Male with Dementia/weakness. Acute weakness with dementia TECHNIQUE: Multiple axial CT images of the head were obtained without contrast. A dose lowering technique was utilized adhering to the principles of ALARA. CT DOSE: 2426.69 mGy.cm COMPARISON: CTA head neck of same day, head CT 10/05/2020 FINDINGS: No acute intracranial hemorrhage, midline shift, intracranial mass, hydrocephalus, territorial ischemia or abnormal extra-axial collection. Age- related involutional changes with ex vacuo ventriculomegaly. White matter hypodensities suggest chronic microvascular ischemic disease. Cerebral vascular calcifications. The calvarium is intact. Prior bilateral lens repair. The paranasal sinuses, mastoid air cells, and middle ear cavities are clear. IMPRESSION: No acute intracranial abnormality. ACT 112: Negative or not required by law. The above report was generated using voice recognition software. It may contain grammatical, syntax or spelling errors. Electronically signed by: Sriram Sands M.D. 11/28/2020 8:55 PM Head CTA 11/28/20 18:41 CT ANGIOGRAM OF THE BRAIN CLINICAL HISTORY: Generalized weakness. Dementia. COMPARISON STUDY: Unenhanced CT of the brain dated 11/28/2020. TECHNIQUE: Following the IV administration of 118 cc of Optiray 320, CT angiogram of the brain was performed from the skull base to the vertex. Images are reviewed in the axial, sagittal, and coronal planes. 3-D MIPS images are created and assessed. IV contrast was administered without complication. A dose lowering technique was utilized adhering to the principles of ALARA. FINDINGS: Brain parenchyma: There is age-related involutional change noting mild to moderate subcortical and periventricular microangiopathic disease. There is no hemorrhage, mass effect, or evidence of acute territorial ischemia by CT criteria. There is no evidence of enhancing mass lesion on the angiogram phase images. No extra-axial fluid collection is seen. Tellez-white matter differentiation is preserved. Ventricles, sulci, and cisterns: Prominent secondary to involutional change. CT angiogram of the brain: There is atherosclerotic calcification of the cavernous carotid and vertebral arteries. There is a left posterior to communicating artery and the left P1 segment is diminutive. The internal carotid arteries are widely patent, as are the anterior and middle cerebral arteries. The vertebrobasilar system and posterior cerebral arteries are widely patent. The vertebral arteries are codominant. There is no aneurysm, high-grade stenosis, or focal vessel cutoff identified throughout the intracranial circulation. Dural sinuses: Clear as visualized. Orbits: The bony orbits are intact. The orbital contents are normal as visualized noting bilateral ocular lens implants.. Sinuses and mastoids: The visualized paranasal sinuses are clear. The mastoid air cells are well pneumatized. Calvarium: Unremarkable. IMPRESSION: 1. There is no evidence of hemorrhage, mass effect, or acute territorial ischemia by CT criteria noting angiographic phase technique. 2. Unremarkable CT angiogram of the brain. ACT 112: Negative or not required by law. Electronically signed by: Duke Ambrose M.D. 11/29/2020 1:44 PM Neck CTA 11/28/20 18:41 CT angio neck with con CLINICAL HISTORY: 75 years-old Male with Dementia/weakness. Acute weakness with dementia COMPARISON STUDY: Head CT of same day TECHNIQUE: Following the IV administration of 118 mL of Optiray 320, CT angiogram of the head and neck was performed from the aortic arch to the skull apex. Images are reviewed in the axial, sagittal, and coronal planes. 3-D MIPS images are created and assessed. IV contrast was administered without complication. All measurements were calculated based on NASCET criteria. A dose lowering technique was utilized adhering to the principles of ALARA. FINDINGS: Three-vessel morphology of the thoracic aortic arch. Patency of the innominate and imaged subclavian arteries. The common carotid arteries are patent. There is moderate atheromatous plaque of the carotid bulbs and proximal cervical segments of the internal carotid arteries resulting in less than 50% stenosis bilaterally. Calcified plaque of the cavernous, clinoid and supraclinoid segm ents without significant stenosis. The middle and anterior cerebral arteries are patent. Codominant and widely patent vertebral arteries. Mild calcified plaque of the V4 segments without high-grade stenosis. The basilar artery is patent. Patent posterior cerebral arteries with origin on the left. Cerebral venous sinuses are patent. No abnormal intracranial enhancement. No pneumothorax. Unremarkable soft tissues. Prior bilateral lens repair. No acute fracture. Degenerative changes of the cervical spine. IMPRESSION: 1. Unremarkable CTA of the head and neck without aneurysm, dissection, high- grade stenosis or arterial occlusion. 2. Moderate atheromatous plaque of the carotid bulbs and proximal cervical segments of the internal carotid arteries without significant stenosis. ACT 112: Negative or not required by law. The above report was generated using voice recognition software. It may contain grammatical, syntax or spelling errors. Electronically signed by: Sriram Sands M.D. 11/28/2020 9:[address] 11/28/20 23:11 CT SCAN OF THE CHEST WITHOUT IV CONTRAST CLINICAL HISTORY: Pneumonia. COMPARISON STUDY: Chest x-ray dated 11/28/2020. Chest CT dated 10/05/2020. TECHNIQUE: CT scan of the thorax was performed from the thoracic inlet to the upper abdomen. Images are reviewed in the axial, sagittal, and coronal planes. I V contrast was not administered for this examination as per the referring clinician. A dose lowering technique was utilized adhering to the principles of ALARA. The examination is degraded by motion artifact, as well as by streak artifact from the arms which could not be elevated above the chest. CT DOSE: 888.45 mGy.cm FINDINGS: Thyroid: Normal in size and heterogeneous in attenuation. Thoracic aorta: There is mild atherosclerotic calcification of the thoracic aorta. There is mild aneurysmal dilatation of the ascending thoracic aorta which measures up to 4.4 cm. The remainder of the thoracic aorta is normal in caliber and the arch demonstrates bovine variant anatomy. Heart: The heart is top normal in size noting moderate to large pericardial effusion. This appears complex. The coronary arteries and mitral annulus are densely calcified. Lungs and pleural spaces: There are small pleural effusions, left larger than right with bibasilar consolidation. The trachea and central airways are clear. Mediastinum: Scattered subcentimeter mediastinal lymph nodes are not pathologically enlarged by size criteria. Daisy: Not well assessed without IV contrast. Axillae: There is no axillary lymphadenopathy. Upper abdomen: A 2.3 cm cyst is seen in the upper pole of the left kidney. Excreted IV contrast is noted in the renal collecting systems. There is a tiny hiatal hernia. Skeletal structures: The skeletal structures are osteopenic. Degenerative change and hyperkyphosis is seen in the thoracic spine. No lytic or blastic bony lesions are seen. IMPRESSION: 1. Streak and motion compromised examination. 2. There is a moderate to large and complex appearing pericardial effusion. This represents a significant change from 10/05/2020, and this could represent hemoper icardium or possibly pericarditis. Clinical correlation will be essential. 3. There are small pleural effusions, left larger than right with bibasilar consolidation. This likely represents atelectasis and clinical correlation will be required. 4. Mild interstitial dilatation of the ascending thoracic aorta is unchanged from previous. This measures 4.4 cm. 5. Additional findings as above. ACT 112: Negative or not required by law. Electronically signed by: Duke Ambrose M.D. 11/29/2020 8:50 AM Brain MRI 11/29/20 00:54 MRI OF THE BRAIN COMBO CLINICAL HISTORY: Weakness. Change in mental status. COMPARISON STUDY: CT of the brain dated 11/28/2020. TECHNIQUE: MRI of the brain was performed utilizing various T1 and T2-weighted sequences in the axial, sagittal, and coronal planes. Contrast-enhanced sequences were acquired following the administration of 8.5 cc of Gadavist. FINDINGS: Brain parenchyma: There is age-related involutional change noting moderate confluent subcortical and periventricular microangiopathic disease. There is no hemorrhage or mass effect. There is no restricted diffusion to suggest acute ischemia. No enhancing mass lesion is identified on the postcontrast images. Tellez-white matter differentiation is preserved. No extra-axial fluid collection is seen. The cerebellar tonsils are normal in configuration. Ventricles, sulci, and cisterns: Prominent secondary to involutional change. Pituitary and sella: Unremarkable. Intracranial vasculature: Normal flow voids are maintained at the skull base. Orbits: The bony orbits are grossly intact. Orbital contents are normal in appearance noting bilateral ocular lens implants. Sinuses and mastoids: Clear. Calvarium: Unremarkable. Cervical cord: Partially visualized cervical spinal cord is normal in morphology and signal intensity. IMPRESSION: No acute intracranial abnormality. ACT 112: Negative or not required by law. Electronically signed by: Duke Ambrose M.D. 11/29/2020 11:08 AM Videofluoroscopic Swallow 11/30/20 11:00 FL video swallow CLINICAL HISTORY: 75 years-old Male with r/o aspiration. Acute dysphasia with reported aspiration TECHNIQUE: Video fluoroscopic evaluation of swallowing was performed in the AP and lateral projections by the speech pathology staff. The patient is fed nectar-thick and thin liquid barium, a barium coated wafer, and barium pudding. FLUOROSCOPY TIME: 1.8 minutes. COMPARISON STUDY: Chest CT 11/29/2020 FINDINGS: There is normal hyoid excursion and epiglottic deflection. No significant penetration or aspiration identified. Swallowing function is within normal limits. IMPRESSION: 1. No aspiration identified. 2. Please see the speech pathologist report for detailed findings and recommendations. ACT 112: Negative or not required by law. Electronically signed by: Sriram Sands M.D. 11/30/2020 1:15 PM Chest X-Ray 12/05/20 10:30 XR chest 1V portable CLINICAL HISTORY: Pleural effusions COMPARISON STUDY: 11/28/2020 FINDINGS: The cardiac and mediastinal contours remain stable. There is a trace right pleural effusion. There is a small left pleural effusion with associated left basilar atelectasis/consolidation. There is calcified left midlung zone granuloma[ IMPRESSION: 1. Small left pleural effusion with associated left basilar atelectasis/consolidation 2. Trace right pleural effusion ACT 112: Negative or not required by law. Electronically signed by: Titus Rosen M.D. 12/05/2020 11:24 AM Hospital Course (1) Pericardial effusion: no evidence of cardiac tamponade, cont prednisone and colchicine per Cards recs. Repeat bedside echo just prior to discharge reveals no changes in size. (2) Pneumonia: He was treated with Zosyn and doxycycline for two days and completed a course of PO doxycycline. Currently no coughing or other respiratory symptoms and he is breathing at baseline and oxygenating well on room air. Consider repeat chest imaging in 4 weeks to re-evaluate and ensure complete resolution of pneumonia. Defer to PCP. (3) Confusion: Some intermittent confusion that waxes and wanes throughout this hospitalization in the setting of known dementia may be partly related to steroid use for the treatment of pericardial effusion in addition to change in environment i.e. hospital induced delirium. He is currently mentating around his baseline. Strong cardiology recommendation to continue with the three week taper, however, SNF provider may need to re-evaluate this if agitation occurs. (4) Paroxysmal atrial fibrillation: required intravenous amiodarone and is now on oral amiodarone and maintaining in sinus rhythm. Cont metoprolol 12.5mg PO daily and warfarin was switched to Eliquis. Followup with Cardiology after hospital discharge. (5) Ambulatory dysfunction: Patient is not ambulating well likely related to prolonged hospitalization and overall physical decline in setting of multiple comorbidities. Nursing has also been giving him seroquel intermittently in the hospital and this may be contributing to confusion, lethargy and may make him a fall risk. Per repeat PT and OT assessments, SNF is recommended and planned for transfer to [facility]. (6) Vascular dementia: monitor for delirium, currently mentating around baseline. (7) CKD (chronic kidney disease), stage III: stable renal status At time of discharge he was hemodynamically stable and afebrile and tolerating p.o. He was mentating around his baseline with some agitation but easily reoriented, and he was physically deconditioned generally. He was alert with normal cognition and physical exam was unremarkable. He was oxygenating well on room air. He was sent to care home facility and stable condition with close primary care follow-up recommended. I did contact his and spoke with her regarding the plan over the next couple of weeks and answered all questions. I also discussed with cardiology the importance of continuing with the prednisone taper given the intermittent agitation in the setting of dementia. The prednisone taper should be a prolonged slow taper over 3 weeks if possible. Total Time Total Time Spent Total Time Spent (In Minutes): 60 Total Time Includes: Examination of the Patient, Discharge Planning, Medication Reconciliation and Communication With Other Providers Discharge Plan Discharge Items Patient Disposition: Transfer Long-Term Fac Reason For Visit: WEAKNESS,CHEST PAIN Discharge Diagnosis: * Pericardial effusion * left lower lobe pneumonia * Alzheimer /vascular dementia * Ambulatory dysfunction /generalized weakness * Paroxysmal Afib on Coumadin Condition on Discharge: Good Activity: As commented below Activity Comment: Continue Physical and Occupational therapy at rehab Non-emergency contact: Primary Care Provider Call non-emergency contact if: you have any medication questions Follow-up/Referrals: Donte Guzman DO [[facility]] - Vinicio Haro DO [Primary Care Provider] - Diet: Heart Healthy Diet Texture: Dental soft (bite-sized) Addtl Attending Provider Instructions: Please take all medications as instructed on discharge list below. It is recommended that you follow-up with your primary care physician (PCP) within 1-2 weeks of hospital discharge to ensure you are still doing well. Repeat chest imaging is recommended n 4-6 weeks to ensure complete resolution of pneumonia. This may be ordered by your PCP. Please follow-up with [facility] Cardiology in the next few weeks for followup on your heart rhythm issues. Please call if you have any questions or problems. You can reach a [facility] Hospitalist on duty at [facility] 24 hours a day by calling [phone] It was a pleasure taking care of you! Please call if you have any questions or problems. You can reach a [facility] hospitalist on duty at [facility] 24 hours a day by calling [phone]. Take care of yourself. Yenifer Mendoza, DO [facility] Hospital[facility] Pending Studies at Discharge: No Stand-Alone Forms: My [facility] Skilled Items Patient informed of condition?: Yes DNR: No Discharge Level of Care: Skilled Communicable Disease: No Discharge Prognosis: Stable Lines: None Urinary Catheter: No Medications and DC Order Prescriptions: New amiodarone 200 mg Tablet 200 mg PO QAM Qty: 30 RF: 0 famotidine 20 mg Tablet 20 mg PO QAM Qty: 30 RF: 0 Eliquis 5 mg Tablet 5 mg PO BID Qty: 60 RF: 0 prednisone 10 mg Tablet 10 mg PO UD Qty: 20 RF: 0 colchicine [Colcrys] 0.6 mg Tablet 0.6 mg PO DAILY Qty: 30 RF: 0 Continued aspirin 81 mg Tablet,Delayed Release (Dr/Ec) 81 mg PO DAILY Qty: 0 RF: 0 folic acid 1 mg Tablet 1 mg PO DAILY Qty: 30 RF: 0 atorvastatin 40 mg tablet 40 mg PO DAILY RF: 0 thiamine HCl (vitamin B1) 100 mg Tablet 100 mg PO DAILY RF: 0 Saccharomyces boulardii 250 mg Capsule 250 mg PO BID RF: 0 memantine 10 mg tablet 10 mg PO BID RF: 0 donepezil 23 mg tablet 23 mg PO DAILY RF: 0 zinc 50 mg Tablet 50 mg PO PM RF: 0 multivitamin Tablet 1 tab PO DAILY RF: 0 metoprolol succinate 25 mg tablet extended release 24 hr 12.5 mg PO DAILY RF: 0 Discontinued warfarin 5 mg Tablet 10 mg PO MOWEFR RF: 0 warfarin 5 mg tablet 7.5 mg PO SUTUTHSA RF: 0 Discharge Orders: Discharge Order (Routine); Ordered 12/08/20 Ordered By: Yenifer Mendoza Admission Data Admit Date/Time: 11/28/20 23:11 Attending Provider: Yenifer Mendoza Admit Provider: Edwardo Anaya Primary Care Provider: Tahir,Vinicio Other Providers: Machelle Monte Happy ; Edwardo Anaya ; Maurice Castillo ; Donte Guzman ; Adama Lozoya ; Ralph Willis ; Mahendra Pretty ; Jamaal Mackenzie ; Trish Dhaliwal ; Yen Beltran ; Vito Jacinto ; Mike Chen Other Interventions: Discharge Summary Assessment (RN) Last Done: 12/07/20 14:32
[2020-12-08] MEDS: predniSONE 10 MG TABLET PO SCH (10:01)
== END 2020-12-08 11:45 | DRG 314 ==
LOC: ED 16:22 → SUATTDRO 23:11 → 2W 23:11 → 2S 12-01 18:16 → 3N 12-07 18:03

== ENCOUNTER 2021-01-29 22:15 | Inpatient (IN) ==
[2021-01-29] MEDS ORDERED: SODIUM CHLORIDE 0.9% 1000ML 1,000 ML IV SCH (22:45)
--- NOTE | 2021-01-29 22:55 | Emergency Department Note ---
History of Present Illness General Chief complaint: Illness Time Seen by Provider: 01/29/21 22:24 Source: patient Mode of arrival: EMS Limitations: no limitations History of Present Illness Provider complaint: Weakness, cough This is a 76-year-old male who presents to the ED via ambulance. He comes from [facility]. He is typically wheelchair-bound there. Per the nurses note, staff reported that the patient was more lethargic than usual this morning and had a fever 103. He was given Tylenol through the day. They did a rapid Covid test that was negative. Staff reported a cough for the past couple of days. The patient admits to a cough as well. Last Tylenol was at 8 PM. The patient has no additional complaints this time. Denies any shortness of breath or chest pains. He is wheelchair-bound related to his Parkinson's. The patient is chronically on Eliquis for history of PE. Home Medications Medication Instructions Recorded Confirmed Type folic acid 1 mg PO QAM #30 09/19/14 01/29/21 History Saccharomyces boulardii 250 mg PO AMHS 10/01/20 01/29/21 History atorvastatin 40 mg PO DAILY 10/01/20 01/29/21 History donepezil 23 mg PO HS 10/01/20 01/29/21 History memantine 10 mg PO AMHS 10/01/20 01/29/21 History thiamine HCl (vitamin B1) 100 mg PO QAM 10/01/20 01/29/21 History zinc 50 mg PO QAM 10/05/20 01/29/21 History metoprolol succinate 12.5 mg PO QAM 11/28/20 01/29/21 History multivitamin 1 tab PO QAM 11/28/20 01/29/21 History amiodarone 200 mg PO QAM #30 tab 12/02/20 01/29/21 Rx famotidine 20 mg PO QAM #30 tab 12/02/20 01/29/21 Rx acetaminophen 325 mg PO Q4 PRN 01/29/21 01/29/21 History apixaban [Eliquis] 5 mg PO AMHS 01/29/21 01/29/21 History aspirin [Aspirin Childrens] 81 mg PO DAILY 01/29/21 01/29/21 History buspirone 5 mg PO TID 01/29/21 01/29/21 History colchicine [Colcrys] 0.6 mg PO QAM 01/29/21 01/29/21 History docusate sodium 100 mg PO DAILY PRN 01/29/21 01/29/21 History polyethylene glycol 3350 [Miralax] 17 g PO DAILY PRN 01/29/21 01/29/21 History sennosides 8.6 mg PO BID 01/29/21 01/29/21 History Allergies Allergy/AdvReac Type Severity Reaction Status Date / Time No Known Drug Allergies Allergy Unknown ` Verified 01/29/21 23:12 Past Med/Surg History Medical History Alzheimer's dementia CKD (chronic kidney disease), stage III Confusion Dizziness (09/19/14) New onset atrial fibrillation Pulmonary embolism Right knee DJD Right knee pain Vascular dementia Surgical History H/O knee surgery Hx of tonsillectomy Family History Other Cancer Dementia Social History Smoking Status: Never smoker Hx Alcohol Use: No Hx Substance Use: No Preferred Language: Lao Communication Ability: Effective Manager Shift Required: No Beliefs That Will Affect Care: None Current Living Situation: Spouse Feels Safe at Home: Yes Assistive Devices: Walker Review of Systems A total of 10 systems reviewed and were otherwise negative Physical Exam Vital Signs Vital Signs - 24 hr 01/29/21 22:15 01/29/21 23:04 01/30/21 00:00 Temperature 36.7 C Temperature Source Oral Pulse Rate 56 L Pulse Rate [Apical] 88 Pulse Rhythm [Apical] Regular Pulse Strength [Apical] Normal Respiratory Rate 16 12 Respiratory Effort / Characteristics Non-Labored Respiratory Depth Normal Respiratory Pattern Regular Blood Pressure 98/54 L Blood Pressure [Right Arm] 114/67 Blood Pressure Mean 68 Blood Pressure Mean [Right Arm] 82 Blood Pressure Position [Right Arm] Lying Pulse Oximetry 97 95 Oxygen Delivery Method Room Air Room Air Sepsis Recent Fever Within 48 Hours Yes Sepsis New/Unexplained Change in Mental Status No Sepsis Action Taken by Nursing No Action Required CONSTITUTIONAL/VITAL SIGNS: Reviewed / noted above. GENERAL: Non-toxic in appearance. Generalized weakness. INTEGUMENTARY: Warm, dry, and [place]. HEAD: Normocephalic. EYES: without scleral icterus or trauma. ENT/OROPHARYNX: clear and moist. LYMPHADENOPATHY/NECK: Is supple without lymphadenopathy or meningismus. RESPIRATORY: Lungs clear and equal. CARDIOVASCULAR: Regular rate and rhythm. GI/ABDOMEN: Soft and nontender. No organomegaly or pulsatile mass. No rebound or guarding. Normal bowel sounds. EXTREMITIES: Warm and well perfused. BACK: No CVA tenderness. NEUROLOGICAL: Intact with generalized weakness especially lower extremities. PSYCHIATRIC: normal affect. MUSCULOSKELETAL: Normally developed with good muscle tone. TRIAGE NURSING DOCUMENTATION REVIEWED. Course Administered Medications Discontinued Medications Sodium Chloride (Nss 1000ml) 1,000 mls @ 999 mls/hr IV .Q1H1M VALE Stop: 01/29/21 23:45 Last Admin: 01/29/21 23:03 Dose: 999 mls/hr Documented by: [id number] Medical Decision Making Differential Diagnosis Differential includes acute coronary syndrome, myocardial infarction, CVA, TIA, anemia, infection, pneumonia, UTI, pyelonephritis, poor nutrition, dehydration, electrolyte disturbance,hypoglycemia. Medical Records Attestation: I reviewed the patient's medical records. Home Medications Current Medication List: was personally reviewed by me Laboratory Data Attestation: I reviewed the patient's lab results. Result diagrams: 01/29/21 23:00 01/29/21 23:00 Lab Results 01/29/21 01/29/21 Range/Units 23:00 23:00 WBC 19.17 H (4.8-10.8) K/uL RBC 4.36 L (4.7-6.1) M/uL Hgb 13.7 L (14.0-18.0) g/dL Hct 39.6 L (42-52) % MCV 90.8 (80-100) fL MCH 31.4 (25-34) pg MCHC 34.6 (32-36) g/dL RDW Std Deviation 52.3 H (36.4-46.3) fL RDW Coeff of Brynn 15.6 H (11.5-14.5) % Plt Count 206 (130-400) K/uL MPV 9.3 (7.4-10.4) fL Immature Gran % (Auto) 0.4 % Neut % (Auto) 83.4 % Lymph % (Auto) 6.8 % Hendry % (Auto) 9.2 % Eos % (Auto) 0.0 % Baso % (Auto) 0.2 % Neut # (Auto) 16.00 H (1.4-6.5) K/uL Lymph # (Auto) 1.30 (1.2-3.4) K/uL Hendry # (Auto) 1.76 H (0.11-0.59) K/uL Eos # (Auto) 0.00 (0-0.5) K/uL Baso # (Auto) 0.04 (0-0.2) K/uL Immature Gran # (Auto) 0.07 H (0.00-0.02) K/uL Sodium 142 (136-145) mmol/L Potassium 3.5 (3.5-5.1) mmol/L Chloride 110 H (98-107) mmol/L Carbon Dioxide 24 (21-32) mmol/L Anion Gap 8.0 (3-11) BUN 16 (7-18) mg/dl Creatinine 1.20 (0.6-1.4) mg/dl Est Cr Clr Drug Dosing 55.7 ml/min Est GFR ( Amer) 66.7 ml/min Est GFR (Non-Af Amer) 57.6 ml/min BUN/Creatinine Ratio 13.6 (10-20) Glucose 122 H (70-99) mg/dl Calcium 8.1 L (8.5-10.1) mg/dl Total Bilirubin 1.0 (0.2-1) mg/dl AST 17 (15-37) U/L ALT 14 (12-78) U/L Alkaline Phosphatase 80 (45-117) U/L Troponin I < 0.015 (0-0.045) ng/ml Total Protein 6.7 (6.4-8.2) gm/dl Albumin 2.8 L (3.4-5.0) gm/dl Globulin 3.9 (2.5-4.0) gm/dl Albumin/Globulin Ratio 0.7 L (0.9-2) Imaging Data Attestation: I personally reviewed and interpreted this imaging study as follows: My Impression: Chest x-ray: Per my interpretation there is no acute disease. ECG Data Attestation: I personally reviewed and interpreted this ECG as follows: Indication: + weakness Rate (beats per minute): 53 Rhythm: + sinus rhythm ECG Intervals/blocks: + Normal QT-c ECG ST segments: no ST elevation ECG Findings: no PVCs MDM Narrative Patient presents with a cough and some generalized weakness, lethargy and fever according to the alf. Covid test was negative earlier today. The patient is chronically wheelchair-bound. Pulse ox 97% on room air. He is in no distress. He is currently afebrile. Blood pressure was 98/54. Heart rate is 56. The patient's white blood cell count is elevated 19.17. Chemistry panel was unremarkable. Chest x-ray did not show clear infiltrate. Because of the patient's leukocytosis, blood cultures and lactic acid have been ordered. The patient will be given empiric cefepime. Urinalysis is being obtained by the nurses. The patient will require inpatient hospitalization for further evaluation of his leukocytosis, fever, cough and lethargy. Impression & Plan Acute bronchitis, Weakness, Fever, Lethargic Discharge Plan Visit Data Chief Complaint: Illness ED Provider: Kobe Mc Discharge Problem: Acute bronchitis, Weakness, Fever, Lethargic Forms Stand Alone Forms: [facility] Prescriptions Prescriptions: No Action folic acid 1 mg Tablet 1 mg PO QAM Qty: 30 RF: 0 atorvastatin 40 mg tablet 40 mg PO DAILY RF: 0 thiamine HCl (vitamin B1) 100 mg Tablet 100 mg PO QAM RF: 0 Saccharomyces boulardii 250 mg Capsule 250 mg PO AMHS RF: 0 memantine 10 mg tablet 10 mg PO AMHS RF: 0 donepezil 23 mg tablet 23 mg PO HS RF: 0 zinc 50 mg Tablet 50 mg PO QAM RF: 0 multivitamin Tablet 1 tab PO QAM RF: 0 metoprolol succinate 25 mg tablet extended release 24 hr 12.5 mg PO QAM RF: 0 amiodarone 200 mg Tablet 200 mg PO QAM Qty: 30 RF: 0 famotidine 20 mg Tablet 20 mg PO QAM Qty: 30 RF: 0 acetaminophen 325 mg Tablet 325 mg PO Q4 PRN (Reason: Fever Or Pain) RF: 0 aspirin [Aspirin Childrens] 81 mg Tablet,Chewable 81 mg PO DAILY RF: 0 Eliquis 5 mg tablet 5 mg PO AMHS RF: 0 buspirone 5 mg tablet 5 mg PO TID RF: 0 colchicine [Colcrys] 0.6 mg tablet 0.6 mg PO QAM RF: 0 docusate sodium 100 mg Capsule 100 mg PO DAILY PRN (Reason: Constipation) RF: 0 sennosides 8.6 mg Tablet 8.6 mg PO BID RF: 0 polyethylene glycol 3350 [Miralax] 17 gram/dose Powder 17 g PO DAILY PRN (Reason: Constipation) RF: 0 Referrals Referrals: Vinicio Haro DO [Primary Care Provider] -
[2021-01-29 23:07] LABS: Basophils # (auto) 0.04 K/uL (0-0.2); Basophils % (auto) 0.2 %; Hematocrit (blood only) 39.6 % (42-52); Hemoglobin 13.7 g/dL (14.0-18.0); Immature Granulocytes # (auto) 0.07 K/uL (0.00-0.02); Immature Granulocytes % (auto) 0.4 %; Lymphocytes % (auto) 6.8 %; Mean Corpuscular Hemoglobin 31.4 pg (25-34); Mean Corpuscular Hgb Conc 34.6 g/dL (32-36); Mean Corpuscular Volume 90.8 fL (80-100); Mean Platelet Volume 9.3 fL (7.4-10.4); Monocytes # (auto) 1.76 K/uL (0.11-0.59); Monocytes % (auto) 9.2 %; Neutrophils % (auto) 83.4 %; Platelet Count 206 K/uL (130-400); RDW Coefficient of Variation 15.6 % (11.5-14.5); RDW Standard Deviation 52.3 fL (36.4-46.3); Red Blood Count 4.36 M/uL (4.7-6.1); White Blood Count 19.17 K/uL (4.8-10.8)
[2021-01-29 23:27] LABS: Alanine Aminotransferase 14 U/L (12-78); Albumin Level 2.8 gm/dl (3.4-5.0); Aspartate Aminotransferase 17 U/L (15-37); BUN Creatinine Ratio 13.6 (10-20); Blood Urea Nitrogen 16 mg/dl (7-18); Calcium 8.1 mg/dl (8.5-10.1); Carbon Dioxide 24 mmol/L (21-32); Chloride 110 mmol/L (98-107); Creatinine Clr Calc Pharmacy 55.7 ml/min; Est GFR (African American) 66.7 ml/min; Est GFR (Non-African American) 57.6 ml/min; Glucose 122 mg/dl (70-99); Potassium 3.5 mmol/L (3.5-5.1); Sodium 142 mmol/L (136-145)
[2021-01-29 23:30] LABS: Albumin Globulin Ratio 0.7 (0.9-2); Alkaline Phosphatase 80 U/L (45-117); Globulin 3.9 gm/dl (2.5-4.0); Total Protein 6.7 gm/dl (6.4-8.2); Troponin I < 0.015 ng/ml (0-0.045)
[2021-01-30] MEDS ORDERED: CEFEPIME 2,000 MG/20 ML VIAL IV STA (00:01)
--- NOTE | 2021-01-30 04:08 | History and Physical Report ---
DATE OF ADMISSION: 01/29/2021 CHIEF COMPLAINT: High fever, confusion. HISTORY OF PRESENT ILLNESS: This is a 76-year-old male with past medical history significant for hyperlipidemia, pleural effusion, paroxysmal atrial fibrillation, history of dilatation of aorta, mixed Alzheimer's and vascular dementia, mediastinal lymphadenopathy, history of bradycardia, GERD, parkinsonism, history of pulmonary embolism and deep vein thrombosis. Currently living at [facility]. Currently, he is wheelchair bound, was brought in because was lethargic than usual in the morning and had fever of 103 degrees. His rapid COVID test was negative and staff reported cough for the past couple of days. The patient was brought in here. In the ER, he is currently so far afebrile and hemodynamically stable, but he is having shaking and white count is 19, lactate 0.7. SARS-CoV-2 PCR negative. Chest x-ray, no obvious findings. EKG, no acute findings. The patient denies any pain, but has shakings of his body. Denies any chest pain, abdominal pain. Denies nausea .The patient is a poor historian, could not get much history from the patient. Patient was recently in the hospital in November with pneumonia and also found to have pericardial effusion, treated with prednisone and currently on colchicine . Also during that admission has some confusion thought to be from delirium. He was also here in October, treated for hospital-acquired pneumonia. ALLERGIES: No known drug allergies. PAST MEDICAL HISTORY: As mentioned above. PAST SURGICAL HISTORY: Right total knee arthroplasty, colonoscopy, jaw arthroscopy surgery, partial removal of eye fluid, vasectomy, tonsillectomy and adenoidectomy. FAMILY HISTORY: Significant for prostate cancer and heart disorder. Father had cancer. Mother had cancer, dementia. SOCIAL HISTORY: Quit smoking in 2002. No alcohol use, no drug use. Currently lives in [facility]. HOME MEDICATIONS: The patient currently on Tylenol 650 mg p.o. q.4 h. p.r.n., amiodarone 200 mg p.o. a.m., Eliquis 5 mg p.o. b.i.d., aspirin 81 mg p.o. daily, atorvastatin 40 mg p.o. daily, buspirone 5 mg p.o. t.i.d., colchicine 0.6 mg p.o. a.m., Colace 100 mg p.o. daily p.r.n., donepezil 23 mg p.o. at bedtime, famotidine 20 mg p.o. a.m., folic acid 1 mg p.o. a.m., memantine 10 mg p.o. b.i.d., metoprolol succinate 12.5 mg p.o. a.m., multivitamins 1 tablet p.o. a.m., MiraLax 17 grams p.o. daily p.r.n. Saccharomyces 250 mg p.o. a.m. b.i.d., Senokot 8.6 mg p.o. b.i.d., thiamine 100 mg p.o. a.m., zinc 50 mg p.o. a.m. REVIEW OF SYMPTOMS: Could not get complete review of systems at this time. PHYSICAL EXAMINATION: GENERAL: The patient is moderate build, not in acute distress. VITAL SIGNS: Temperature 36.7, pulse 85, respiratory rate 19, blood pressure 111/62, oxygen 97% on room air. HEENT: Pupils equal, round, reactive to light. Oral mucosa moist. NECK: No JVD. CARDIOVASCULAR: S1, S2 heard. Regular rate and rhythm, no murmur, no gallop. RESPIRATORY SYSTEM: Normal AP diameter. No accessory muscle use. No wheezing or crackles. ABDOMEN: Soft, bowel sounds present, nontender. CENTRAL NERVOUS SYSTEM: Alert and awake. Having shaking chills. Obeys simple commands. Moves extremities. EXTREMITIES: No edema, no erythema. LABORATORY DATA: WBC 19, hemoglobin 13.7, hematocrit 39.6, platelets 206. Sodium 142, potassium 3.5, chloride 110, bicarbonate 24, BUN 16, creatinine 1.2, serum glucose 102, lactate 0.7, calcium 8.1, total bilirubin 1, AST 17, ALT 14, alkaline phosphatase 80. Troponin I less than 0.015. SARS-CoV-2 PCR negative. Chest x-ray, no acute findings. EKG: Sinus bradycardia, rate of 53, nonspecific ST abnormalities. ASSESSMENT AND PLAN: This is a 76-year-old male who currently is wheelchair bound, who presents with high fever and cough, probably sepsis because of elevated white count and shaking chills. Urinalysis still pending. Will do ct chest and abdomen to find any source of infection. Will also check a Lyme screen and anaplasmosis studies. Empirically starting on Rocephin and doxycycline. IV fluids, normal saline at 100 mL per hour. Closely monitor in the tele floor. 2.Recent history of pericardial effusion. We will follow the repeat echo. Continue colchicine. 3.Atrial fibrillation, continue amiodarone, Toprol-XL, and Eliquis. Follow the echo. 4.History of Alzheimer's and vascular dementia. Continue donepezil and memantine. Monitor for any delirium and hx of Parkinson's. 5.History of pulmonary embolism, on DVT and pulmonary embolism. On eliquis. 6.Ambulatory dysfunction. Currently, wheelchair bound. PT and OT when stable. 7.Chronic kidney disease stage III. Follow the labs. 8.Nutrition. We will keep on soft diet for now. . We will consult speech evaluation. Deep venous thrombosis prophylaxis, on Eliquis. DISPOSITION: Closely monitor in tele floor. Level 1 full code. PT and OT prior to discharge. Social service to help with discharge planning. CLEMENTINA
[2021-01-30] MEDS ORDERED: NITROGLYCERIN SL 0.4 MG/TAB TAB SL PRN (04:16)
[2021-01-30] MEDS ORDERED: DOCUSATE SODIUM 100 MG CAP PO PRN (04:16)
[2021-01-30] MEDS ORDERED: POLYETHYLENE (MIRALAX) 17 GM PACK PO PRN (04:16)
[2021-01-30] MEDS ORDERED: cefTRIAXone SODIUM 2,000 MG in DEXTROSE 5% 50 ML IV SCH (05:00)
[2021-01-30] MEDS: SODIUM CHLORIDE 0.9% 1000ML 1,000 ML IV SCH ×2 (05:16→15:45)
[2021-01-30] MEDS: DOXYCYCLINE HYCLATE 100 MG in DEXTROSE 5% 100 ML IV SCH ×2 (05:16→17:34)
--- NOTE | 2021-01-30 07:24 | XRay Report ---
XR chest 1V portable CLINICAL HISTORY: Weakness COMPARISON STUDY: 12/05/2020 FINDINGS: The heart is mildly enlarged. There is no failure. There is no focal pulmonary consolidatio n. There are no pleural effusions. There is a calcified granuloma within the left mid to upper lung z one.[ IMPRESSION: No active disease in the chest. ACT 112: Negative or not required by law. Electronically signed by: Titus Rosen M.D. 01/30/2021 7:22 AM
[2021-01-30] MEDS: ZINC SULFATE 220 MG CAPSULE PO SCH (07:47)
[2021-01-30] MEDS: ASPIRIN 81 MG ECTAB PO SCH (07:48)
[2021-01-30] MEDS: MEMANTINE HCL 10 MG TAB PO SCH ×2 (07:48→19:52)
[2021-01-30] MEDS: METOPROLOL SUCC 25MG EXT REL TAB PO SCH (07:48)
[2021-01-30] MEDS: FOLIC ACID 1 MG TAB PO SCH (07:48)
[2021-01-30] MEDS: FAMOTIDINE 20 MG TAB PO SCH (07:48)
[2021-01-30] MEDS: APIXABAN 5 MG TABLET PO SCH ×2 (07:48→19:50)
[2021-01-30] MEDS: MULTIVITAMIN TAB PO SCH (07:49)
[2021-01-30] MEDS: ATORVASTATIN 40 MG TAB PO SCH (07:49)
[2021-01-30] MEDS: AMIODARONE 200 MG TAB PO SCH (07:49)
[2021-01-30] MEDS: THIAMINE HCL 100 MG TAB PO SCH (07:49)
[2021-01-30] MEDS: SENNA 8.6 MG TAB PO SCH ×2 (07:49→19:53)
[2021-01-30] MEDS: busPIRone 5 MG TAB PO SCH ×3 (07:49→19:51)
[2021-01-30] MEDS: COLCHICINE 0.6 MG TAB PO SCH (07:49)
[2021-01-30] MEDS: SACCHAROMYCES BOULARDII 250 MG CAP PO SCH ×2 (07:50→19:52)
--- NOTE | 2021-01-30 08:04 | CT Scan Report ---
CT chest diagnostic wo con CLINICAL HISTORY: Fever, cough. COMPARISON STUDY: 11/29/2020 CT DOSE: TECHNIQUE: CT of the thorax was performed from the thoracic inlet to the lung bases. Images are revi ewed in the axial, sagittal, and coronal planes. IV contrast was not administered for this examinatio n. A dose lowering technique was utilized adhering to the principles of ALARA. FINDINGS: Thyroid: Imaged portions of the thyroid gland are normal in appearance. Thoracic aorta: There is mild dilatation of the ascending thoracic aorta which measures 41 mm the lev el the main pulmonary artery. Heart: There is a small pericardial effusion. There are coronary artery calcifications. Lungs and pleural spaces: There are small bilateral pleural effusions. There are dependent pulmonary airspace opacities, statistically atelectatic. Mediastinum: There is no evidence of pathologic mediastinal lymphadenopathy. Daisy: There is no is a pathologic hilar adenopathy given the limitations of a noncontrast study. Axilla: There is no evidence of pathologic axillary lymphadenopathy. Upper abdomen: There is 26 mm left renal cyst. Skeletal structures: There are no lytic or blastic osseous lesions. There is calcification of the ant erior longitudinal ligament. IMPRESSION: 1. Small bilateral pleural effusions with associated dependent opacities statistically atelectatic 2. Coronary calcifications and small pericardial effusion 3. Mild dilatation of the ascending thoracic aorta which measures 41 mm. at the level the main pulmon doreen artery. ACT 112: Negative or not required by law. Electronically signed by: Titus Rosen M.D. 01/30/2021 8:03 AM
[2021-01-30 08:35] LABS: Basophils # (auto) 0.04 K/uL (0-0.2); Basophils % (auto) 0.2 %; Hematocrit (blood only) 41.3 % (42-52); Hemoglobin 14.2 g/dL (14.0-18.0); Immature Granulocytes # (auto) 0.07 K/uL (0.00-0.02); Immature Granulocytes % (auto) 0.4 %; Lymphocytes # (auto) 0.92 K/uL (1.2-3.4); Mean Corpuscular Hemoglobin 31.2 pg (25-34); Mean Corpuscular Hgb Conc 34.4 g/dL (32-36); Mean Corpuscular Volume 90.8 fL (80-100); Mean Platelet Volume 8.9 fL (7.4-10.4); Monocytes % (auto) 5.5 %; Neutrophils # (auto) 16.21 K/uL (1.4-6.5); Neutrophils % (auto) 88.9 %; Platelet Count 173 K/uL (130-400); RDW Coefficient of Variation 15.9 % (11.5-14.5); RDW Standard Deviation 52.8 fL (36.4-46.3); Red Blood Count 4.55 M/uL (4.7-6.1); White Blood Count 18.24 K/uL (4.8-10.8)
[2021-01-30 08:53] LABS: BUN Creatinine Ratio 16.2 (10-20); Calcium 8.5 mg/dl (8.5-10.1); Creatinine Clr Calc Pharmacy 73.4 ml/min; Est GFR (African American) 93.2 ml/min; Est GFR (Non-African American) 80.4 ml/min; Magnesium 2.1 mg/dl (1.8-2.4); Potassium 3.8 mmol/L (3.5-5.1)
--- NOTE | 2021-01-30 08:53 | Electrocardiogram Report ---
Test Reason : Blood Pressure : / mmHG Vent. Rate : 053 BPM Atrial Rate : 053 BPM P-R Int : 188 ms QRS Dur : 084 ms QT Int : 504 ms P-R-T Axes : 031 034 089 degrees QTc Int : 472 ms Sinus bradycardia Diffuse Nonspecific T wave abnormality Prolonged QT Abnormal ECG When compared with ECG of 03-DEC-2020 11:38, Sinus rhythm has replaced Atrial fibrillation Vent. rate has decreased BY 77 BPM Nonspecific T wave abnormality now evident in multiple leads Confirmed by Pepe Kumar ([id number]) on 01/30/2021 8:52:33 AM Referred By: REFERRED SELF Confirmed By:Pepe Kumar
--- NOTE | 2021-01-30 09:21 | CT Scan Report ---
CT SCAN OF THE ABDOMEN AND PELVIS WITHOUT CONTRAST CLINICAL HISTORY: Fever cough and abdominal pain COMPARISON STUDY: 10/01/2020 TECHNIQUE: CT scan of the abdomen and pelvis was performed from the lung bases to the proximal femurs . Images are reviewed in the axial, sagittal, and coronal planes. IV contrast was not administered fo r this examination. A dose lowering technique was utilized adhering to the principles of ALARA. CT DOSE: 1596.90 mGy.cm FINDINGS: Lower chest: There are small bilateral pleural effusions with associated basilar airspace opacities, likely atelectatic. Heart is mildly enlarged with coronary artery calcifications. There is trace paco cardial fluid. Liver: The unenhanced liver is normal in size, contour, and attenuation. There is no intrahepatic mitch iary ductal dilatation. Gallbladder: Unremarkable. Spleen: Normal in size and attenuation. Pancreas: Unremarkable. Adrenal glands: Unremarkable. Kidneys: There is a 25 mm left renal cyst. No renal, ureteral, or bladder calculi are visualized. Bowel: There are no transition zones to indicate bowel obstruction. There is no evidence of acute div erticulitis. There are no findings to indicate acute appendicitis. There is scattered colonic air-flu id levels. Peritoneum: There is no intraperitoneal free air or abdominal ascites. Vasculature: The abdominal aorta is normal in course and caliber. Adenopathy: None. Pelvic viscera: There is prostatomegaly. Skeletal structures: No destructive osseous lesions are seen. IMPRESSION: 1. Motion compromised study 2. No evidence of bowel obstruction. No evidence of free air 3. No evidence of acute diverticulitis. No evidence of acute appendicitis 4. No renal, ureteral, or bladder calculi identified 5. Prostatomegaly 6. Small bilateral pleural effusions with associated basilar parenchymal opacities likely atelectatic ACT 112: Negative or not required by law. Electronically signed by: Titus Rosen M.D. 01/30/2021 9:19 AM
[2021-01-30] MEDS ORDERED: CONSULT PHARMACY STA (09:24)
[2021-01-30] MEDS ORDERED: CEFEPIME CONSULT ACTIVE PRN (09:39)
[2021-01-30 09:40] LABS: Lyme Ab IgG w/WB Rflx Negative (Negative); Lyme Ab IgM w/WB Rflx Negative (Negative)
[2021-01-30] MEDS: CEFEPIME 2,000 MG in SYRINGE 0 ML IV SCH ×2 (10:49→17:34)
[2021-01-30] MEDS: D5NSS + 20MEQ KCL 20 MEQ/1,000 ML BAG IV SCH (16:44)
[2021-01-30] MEDS: DONEPEZIL HCL 10 MG TAB PO SCH (19:51)
--- NOTE | 2021-01-30 22:59 | Hospitalist Progress Note ---
Date of Service January 30, 2021 Assessment & Plan (1) Fever: (2) Weakness: ASSESSMENT AND PLAN: This is a 76-year-old male who currently is wheelchair bound, who presents with high fever and cough, probably sepsis because of elevated white count and shaking chills. 1. Fever, Chills - unclear etiology - urinalysis unremarkable blood cultures pending - CT chest and Abd/pelvis: unrevealing - initial COVID PCR negative repeat in AM Isolation precautions for now - Lyme and Anaplasmosis studies pending 2.Recent history of pericardial effusion. -- ff up repeat echo continue Colchicine 3.Atrial fibrillation, continue amiodarone, Toprol-XL, and Eliquis. 4.History of Alzheimer's and vascular dementia. Continue donepezil and memantine. 5.History of pulmonary embolism, on DVT and pulmonary embolism. On eliquis. 6.Ambulatory dysfunction. Currently, wheelchair bound. PT and OT when stable. 7.Chronic kidney disease stage III. 8.Nutrition. - soft diet Deep venous thrombosis prophylaxis, on Eliquis. DISPOSITION: lives at [facility] Admission and Anticipated Discharge Date Admission Date: January 30, 2021 Subjective ff up for fever, chills, etc seen resting in bed, sitting up having dinner alert, pleasantly confused states he feels fine overall denies headache, dizziness, palpitations, chest pain, dyspnea, abdominal pain no nausea/vomiting denies other symptoms Review of Systems Review of Systems: All systems reviewed & are unremarkable except as noted in Subjective Physical Exam Physical Exam: General- oriented x 1, not in distress, speaks in sentences with no effort or accessory muscle use Head- atraumatic Eyes- PERRL, EOMI, anicteric ENT- oropharynx clear Neck- supple, no JVD, no adenopathy, no thyromegaly; carotids +2/2, no bruits appreciated Lungs- clear to auscultation bilaterally, no rales/wheezes Heart- normal rate, regular rhythm; no murmur, no gallop, no rub appreciated Abdomen- normal bowel sounds, nondistended, soft, nontender, no masses or hepatosplenomegaly Extremities- no pretibial edema, no calf tenderness; peripheral pulses intact Neuro- alert, oriented x 1; CN 2-12 grossly intact; motor 5/5 bilaterally;sensation 100% on all extremities; no other gross focal neurologic deficits Skin- warm & dry Results & Data Results & Data ([facility]) Vital Signs (Past 12 Hours) Vital Signs Temp Pulse Pulse Resp BP Pulse Ox Pulse Ox 01/30/21 19:58 36.6 C 58 L 16 129/71 98 98 01/30/21 14:56 58 L 01/30/21 12:11 37.1 C 69 19 90/54 L 96 all noted and reviewed including below Laboratory Results Laboratory Results - last 24 hr 01/29/21 01/29/21 01/29/21 23:00 23:00 23:58 WBC 19.17 H RBC 4.36 L Hgb 13.7 L Hct 39.6 L MCV 90.8 MCH 31.4 MCHC 34.6 RDW Std Deviation 52.3 H RDW Coeff of Brynn 15.6 H Plt Count 206 MPV 9.3 Immature Gran % (Auto) 0.4 Neut % (Auto) 83.4 Lymph % (Auto) 6.8 [place] % (Auto) 9.2 Eos % (Auto) 0.0 Baso % (Auto) 0.2 Neut # (Auto) 16.00 H Lymph # (Auto) 1.30 [place] # (Auto) 1.76 H Eos # (Auto) 0.00 Baso # (Auto) 0.04 Immature Gran # (Auto) 0.07 H Sodium 142 Potassium 3.5 Chloride 110 H Carbon Dioxide 24 Anion Gap 8.0 BUN 16 Creatinine 1.20 Est Cr Clr Drug Dosing 55.7 Est GFR ( Amer) 66.7 Est GFR (Non-Af Amer) 57.6 BUN/Creatinine Ratio 13.6 Glucose 122 H Lactate Calcium 8.1 L Magnesium Total Bilirubin 1.0 AST 17 ALT 14 Alkaline Phosphatase 80 Troponin I < 0.015 Total Protein 6.7 Albumin 2.8 L Globulin 3.9 Albumin/Globulin Ratio 0.7 L Nasal Screen MRSA (PCR) Anaplasma Smear A. phagocytophilum DNA Lyme Disease IgG Ab Lyme Disease IgM Ab COVID-19 Eval Order Covid19 at [facility] SARS-CoV-2 (PCR) 01/29/21 01/30/21 01/30/21 23:58 00:31 04:30 WBC RBC Hgb Hct MCV MCH MCHC RDW Std Deviation RDW Coeff of Brynn Plt Count MPV Immature Gran % (Auto) Neut % (Auto) Lymph % (Auto) [place] % (Auto) Eos % (Auto) Baso % (Auto) Neut # (Auto) Lymph # (Auto) [place] # (Auto) Eos # (Auto) Baso # (Auto) Immature Gran # (Auto) Sodium Potassium Chloride Carbon Dioxide Anion Gap BUN Creatinine Est Cr Clr Drug Dosing Est GFR ( Amer) Est GFR (Non-Af Amer) BUN/Creatinine Ratio Glucose Lactate 0.7 Calcium Magnesium Total Bilirubin AST ALT Alkaline Phosphatase Troponin I Total Protein Albumin Globulin Albumin/Globulin Ratio Nasal Screen MRSA (PCR) Negative Anaplasma Smear A. phagocytophilum DNA Lyme Disease IgG Ab Lyme Disease IgM Ab COVID-19 Eval Order SARS-CoV-2 (PCR) NEGATIVE 01/30/21 01/30/21 01/30/21 08:14 08:14 08:14 WBC 18.24 H RBC 4.55 L Hgb 14.2 Hct 41.3 L MCV 90.8 MCH 31.2 MCHC 34.4 RDW Std Deviation 52.8 H RDW Coeff of Brynn 15.9 H Plt Count 173 MPV 8.9 Immature Gran % (Auto) 0.4 Neut % (Auto) 88.9 Lymph % (Auto) 5.0 [place] % (Auto) 5.5 Eos % (Auto) 0.0 Baso % (Auto) 0.2 Neut # (Auto) 16.21 H Lymph # (Auto) 0.92 L [place] # (Auto) 1.00 H Eos # (Auto) 0.00 Baso # (Auto) 0.04 Immature Gran # (Auto) 0.07 H Sodium 140 Potassium 3.8 Chloride 110 H Carbon Dioxide 24 Anion Gap 6.0 BUN 15 Creatinine 0.91 Est Cr Clr Drug Dosing 73.4 Est GFR ( Amer) 93.2 Est GFR (Non-Af Amer) 80.4 BUN/Creatinine Ratio 16.2 Glucose 103 H Lactate Calcium 8.5 Magnesium 2.1 Total Bilirubin AST ALT Alkaline Phosphatase Troponin I Total Protein Albumin Globulin Albumin/Globulin Ratio Nasal Screen MRSA (PCR) Anaplasma Smear See Comment A. phagocytophilum DNA Lyme Disease IgG Ab Negative Lyme Disease IgM Ab Negative COVID-19 Eval Order SARS-CoV-2 (PCR) 01/30/21 01/30/21 08:14 08:24 WBC RBC Hgb Hct MCV MCH MCHC RDW Std Deviation RDW Coeff of Brynn Plt Count MPV Immature Gran % (Auto) Neut % (Auto) Lymph % (Auto) [place] % (Auto) Eos % (Auto) Baso % (Auto) Neut # (Auto) Lymph # (Auto) [place] # (Auto) Eos # (Auto) Baso # (Auto) Immature Gran # (Auto) Sodium Potassium Chloride Carbon Dioxide Anion Gap BUN Creatinine Est Cr Clr Drug Dosing Est GFR ( Amer) Est GFR (Non-Af Amer) BUN/Creatinine Ratio Glucose Lactate 1.6 Calcium Magnesium Total Bilirubin AST ALT Alkaline Phosphatase Troponin I Total Protein Albumin Globulin Albumin/Globulin Ratio Nasal Screen MRSA (PCR) Anaplasma Smear A. phagocytophilum DNA Pending Lyme Disease IgG Ab Lyme Disease IgM Ab COVID-19 Eval Order SARS-CoV-2 (PCR)
[2021-01-31] MEDS: D5NSS + 20MEQ KCL 20 MEQ/1,000 ML BAG IV SCH ×2 (01:48→12:16)
[2021-01-31] MEDS: CEFEPIME 2,000 MG in SYRINGE 0 ML IV SCH ×3 (03:15→17:50)
[2021-01-31] MEDS: DOXYCYCLINE HYCLATE 100 MG in DEXTROSE 5% 100 ML IV SCH ×2 (05:56→17:50)
[2021-01-31] MEDS: busPIRone 5 MG TAB PO SCH ×3 (08:21→19:46)
[2021-01-31] MEDS: MULTIVITAMIN TAB PO SCH (08:21)
[2021-01-31] MEDS: AMIODARONE 200 MG TAB PO SCH (08:21)
[2021-01-31] MEDS: ATORVASTATIN 40 MG TAB PO SCH (08:22)
[2021-01-31] MEDS: FAMOTIDINE 20 MG TAB PO SCH (08:22)
[2021-01-31] MEDS: FOLIC ACID 1 MG TAB PO SCH (08:22)
[2021-01-31] MEDS: ASPIRIN 81 MG ECTAB PO SCH (08:22)
[2021-01-31] MEDS: APIXABAN 5 MG TABLET PO SCH ×2 (08:22→19:47)
[2021-01-31] MEDS: ZINC SULFATE 220 MG CAPSULE PO SCH (08:22)
[2021-01-31] MEDS: METOPROLOL SUCC 25MG EXT REL TAB PO SCH (08:22)
[2021-01-31] MEDS: COLCHICINE 0.6 MG TAB PO SCH (08:22)
[2021-01-31] MEDS: THIAMINE HCL 100 MG TAB PO SCH (08:22)
[2021-01-31] MEDS: SACCHAROMYCES BOULARDII 250 MG CAP PO SCH ×2 (08:22→19:47)
[2021-01-31] MEDS: MEMANTINE HCL 10 MG TAB PO SCH ×2 (08:22→19:45)
[2021-01-31] MEDS: ACETAMINOPHEN 325 MG TAB PO PRN ×2 (08:23→19:57)
[2021-01-31] MEDS: SENNA 8.6 MG TAB PO SCH ×2 (08:24→19:44)
--- NOTE | 2021-01-31 09:26 | Hospitalist Progress Note ---
Date of Service January 31, 2021 Assessment & Plan (1) Fever: (2) Weakness: ASSESSMENT AND PLAN: This is a 76-year-old male who currently is wheelchair bound, who presents with high fever and cough, probably sepsis because of elevated white count and shaking chills. 1. Fever, Chills, Leukocytosis-Trending down on Cefepime and Doxy - unclear etiology - urinalysis unremarkable blood cultures pending - CT chest and Abd/pelvis: unrevealing - initial COVID PCR negative repeat in AM Isolation precautions for now - Lyme and Anaplasmosis studies pending 2.Recent history of pericardial effusion. -- ff up repeat echo continue Colchicine 3.Atrial fibrillation, continue amiodarone, Toprol-XL, and Eliquis. 4.History of Alzheimer's and vascular dementia. Continue donepezil and memantine. 5.History of pulmonary embolism, on DVT and pulmonary embolism. On eliquis. 6.Ambulatory dysfunction. Currently, wheelchair bound. PT and OT when stable. 7.Chronic kidney disease stage III. 8.Nutrition. - soft diet Deep venous thrombosis prophylaxis, on Eliquis. DISPOSITION: lives at [facility] ROS-No Headache, No Visual Changes, No Nausea, No Vomiting, No Fever, No Chills, No Neck Pain or Stiffness, No Chest Pain, No Palpitations, No SOB, No LEE, No Cough, No Sputum, No Wheezing, No Abdominal Pain, No Diarrhea, No Hematemesis, No Hemoptysis, No Unexpected Weight Loss, No Flank pain, No Melena, No Hematochezia, No Frequency, No Urgency, No Burning, No Hematuria, No Rashes, No Diaphoresis. Appetite is Normal Physical Exam Gen-AAO x 1, NAD, Afebrile Head-NCAT, EOMI, PERRLA, Anicteric Sclera, No Posterior Pharyngeal Erythema Neck-Supple, No JVD, No Thyromegaly, No Masses, No LAD, No Bruits Lungs-Clear to Auscultation Bilaterally, No Rales, No Rhonchi, No Wheezing, No Crepitus Chest-No S4, +S1, +S2, No S3, No Murmurs, No Rubs, No Gallops, No Ectopy Abdomen-Soft, Bowel Sounds Present, Non Tender, Non Distended, No Hepatomegaly, No Splenomegaly, No Palpable Masses, No Rebound, No Rigidity, No Guarding Musculoskeletal-Full Range of Motion Bilaterally, No CVAT Extremities-No Cyanosis, No Clubbing, No Edema Nuero-Cranial Nerves II-XII grossly intact, Motor WNL, DTRs WNL, Strength WNL, Non Focal Psych-Flat Admission and Anticipated Discharge Date Admission Date: January 30, 2021 Results & Data Results & Data ([facility]) Vital Signs (Past 12 Hours) Vital Signs Temp Pulse Pulse Resp BP Pulse Ox 01/31/21 08:03 36.6 C 59 L 18 154/78 H 100 01/31/21 08:00 74 01/31/21 03:47 36.7 C 57 L 18 122/75 97 01/31/21 00:25 37.1 C 63 18 115/70 98
[2021-01-31] MEDS: metroNIDAZOLE 500 MG/100 ML BAG IV SCH ×2 (15:00→21:58)
[2021-01-31] MEDS: RASPBERRY SYRUP 5 ML UDP PO SCH (18:01)
[2021-01-31] MEDS: VANCOMYCIN HCL 125 MG/2.5ML SOLN PO SCH (18:01)
[2021-01-31] MEDS: DONEPEZIL HCL 10 MG TAB PO SCH (19:46)
[2021-02-01] MEDS: RASPBERRY SYRUP 5 ML UDP PO SCH ×3 (00:03→12:31)
[2021-02-01] MEDS: VANCOMYCIN HCL 125 MG/2.5ML SOLN PO SCH ×3 (00:03→12:31)
[2021-02-01] MEDS: CEFEPIME 2,000 MG in SYRINGE 0 ML IV SCH ×3 (02:59→17:33)
[2021-02-01] MEDS: D5NSS + 20MEQ KCL 20 MEQ/1,000 ML BAG IV SCH ×3 (02:59→13:32)
[2021-02-01] MEDS: DOXYCYCLINE HYCLATE 100 MG in DEXTROSE 5% 100 ML IV SCH (05:40)
[2021-02-01] MEDS: metroNIDAZOLE 500 MG/100 ML BAG IV SCH ×2 (05:40→13:32)
[2021-02-01 05:55] LABS: Basophils # (auto) 0.03 K/uL (0-0.2); Basophils % (auto) 0.4 %; Eosinophils % (auto) 2.9 %; Hematocrit (blood only) 38.6 % (42-52); Hemoglobin 12.9 g/dL (14.0-18.0); Immature Granulocytes # (auto) 0.02 K/uL (0.00-0.02); Immature Granulocytes % (auto) 0.3 %; Lymphocytes # (auto) 0.86 K/uL (1.2-3.4); Lymphocytes % (auto) 12.4 %; Mean Corpuscular Hemoglobin 30.4 pg (25-34); Mean Corpuscular Hgb Conc 33.4 g/dL (32-36); Mean Corpuscular Volume 90.8 fL (80-100); Mean Platelet Volume 9.5 fL (7.4-10.4); Monocytes # (auto) 0.47 K/uL (0.11-0.59); Monocytes % (auto) 6.8 %; Neutrophils # (auto) 5.35 K/uL (1.4-6.5); Neutrophils % (auto) 77.2 %; Platelet Count 181 K/uL (130-400); RDW Coefficient of Variation 15.8 % (11.5-14.5); RDW Standard Deviation 53.2 fL (36.4-46.3); Red Blood Count 4.25 M/uL (4.7-6.1); White Blood Count 6.93 K/uL (4.8-10.8)
[2021-02-01 06:35] LABS: Albumin Globulin Ratio 0.6 (0.9-2); Albumin Level 2.2 gm/dl (3.4-5.0); BUN Creatinine Ratio 8.4 (10-20); Bilirubin,Total 0.6 mg/dl (0.2-1); Calcium 7.8 mg/dl (8.5-10.1); Creatinine Clr Calc Pharmacy 107.8 ml/min; Est GFR (African American) 110.1 ml/min; Globulin 3.6 gm/dl (2.5-4.0); Potassium 3.9 mmol/L (3.5-5.1); Total Protein 5.8 gm/dl (6.4-8.2)
[2021-02-01] MEDS: busPIRone 5 MG TAB PO SCH ×3 (08:45→21:02)
[2021-02-01] MEDS: THIAMINE HCL 100 MG TAB PO SCH (08:45)
[2021-02-01] MEDS: FOLIC ACID 1 MG TAB PO SCH (08:46)
[2021-02-01] MEDS: ASPIRIN 81 MG ECTAB PO SCH (08:46)
[2021-02-01] MEDS: FAMOTIDINE 20 MG TAB PO SCH (08:46)
[2021-02-01] MEDS: MEMANTINE HCL 10 MG TAB PO SCH ×2 (08:46→21:01)
[2021-02-01] MEDS: AMIODARONE 200 MG TAB PO SCH (08:46)
[2021-02-01] MEDS: COLCHICINE 0.6 MG TAB PO SCH (08:47)
[2021-02-01] MEDS: SACCHAROMYCES BOULARDII 250 MG CAP PO SCH ×2 (08:47→21:02)
[2021-02-01] MEDS: ZINC SULFATE 220 MG CAPSULE PO SCH (08:47)
[2021-02-01] MEDS: METOPROLOL SUCC 25MG EXT REL TAB PO SCH (08:47)
[2021-02-01] MEDS: ATORVASTATIN 40 MG TAB PO SCH (08:47)
[2021-02-01] MEDS: APIXABAN 5 MG TABLET PO SCH ×2 (08:47→21:03)
[2021-02-01] MEDS: MULTIVITAMIN TAB PO SCH (08:47)
[2021-02-01] MEDS: SENNA 8.6 MG TAB PO SCH ×2 (08:48→21:02)
[2021-02-01] MEDS ORDERED: CONSULT PHARMACY STA (18:43)
[2021-02-01] MEDS: levoFLOXacin 500 MG TAB PO SCH (21:01)
[2021-02-01] MEDS: DONEPEZIL HCL 10 MG TAB PO SCH (21:02)
--- NOTE | 2021-02-01 23:07 | Hospitalist Progress Note ---
Date of Service February 01, 2021 Assessment & Plan (1) Fever: Admitted 3 days ago and was initially started on Rocephin and doxycycline and given IVF resuscitation for possible evolving sepsis (did not meet criteria on retrospective review of the chart and this was not documented). WBC was 19K and no fevers have been documented this admission. As patient is unable to give a clear history in setting of dementia, notes reveal a possible dry cough prior to arrival. Chest imaging including CT scan reveal small bilateral pleural effusions that are consistent with atelectasis. Notably the left effusion has improved significantly from chest CT two months ago when he was hospitalized for his pericardial effusion. He has not been hypoxic or tachycardic this admission. He appears overall improved. Per ID recommendations, will stop current IV antibiotics and place him on a 7 day course of Levaquin to cover potential pneumonia/bronchitis or missed UTI. As patient on amiodarone and currently with a QTc of 472ms, will repeat EKG in am. (2) Pericardial effusion: Recent admission for pneumonia and pericaridal effusion without evidence of tamponade in November 2020. Was given a course of prednisone and is now on colchicine. Effusion has improved on echo repeated this admission. (3) Paroxysmal atrial fibrillation: Cont oral amiodarone, metoprolol and apixaban per home regimen. He remains in sinus rhythm this admission. (4) Dementia: Known h/o vascular dementia. Monitor for delirium. Observe good day/night cycles. (5) CKD (chronic kidney disease), stage III: stable, chronic. Avoid nephrotoxic substances and renally dose medications as appropriate. (6) Ambulatory dysfunction: Described as wheelchair-bound, related to physical deconditioning from prolonged hospitalizations recently. Will re-engage PT and OT to see where he stands with his needs at this point. (7) DVT prophylaxis: apixaban Full Code Dispo-stable, transfer back to as soon as bed available. DO Daniel Vigil Hospitalist Admission and Anticipated Discharge Date Admission Date: January 30, 2021 Subjective 76 yo M admitted from his residence at [facility] for lethargy and fever. No clear source of infection was found, however, no urine studies were performed. Since initiation of antibiotics, he has improved. He has been afebrile now for over 48 hours with a resolution of leukocytosis. He reports still feeling terrible, however, but cannot describe why. He gets frustrated with further questioning. He appears to forget pieces of the conversation and is easily distracted by trying to remove his socks. Easy to redirect and follows instructions, however, this limits ROS somewhat. Review of Systems Review of Systems: Other (somewhat limited 2/2 dementia) Physical Exam Physical Exam: CONSTITUTIONAL: WNWD, vitals as above, generally well- appearing EYES: normal conjunctivae, no scleral icterus ENT: external ear and nose normal, MMM RESPIRATORY: clear to auscultation bilaterally, no crackles, rales or wheezes, normal respiratory effort CARDIOVASCULAR: regular rate and rhythm, S1 and 2 heard without murmurs, ga llops or rubs, no JVD, no peripheral edema GASTROINTESTINAL: soft, nontender, nondistended, no guarding MUSCULOSKELETAL: strength 5/5 throughout, head is normocephalic and atraumatic SKIN: warm and dry, no overt rashes or skin lesions. NEUROLOGIC: CN 2-12 grossly intact, normal cognition, normal speech, no tremor PSYCHIATRIC: alert cooperative and oriented to person, place and time. Easily frustrated with questions and with himself. Appears to get frustrated when he cannot express something the way he would like to. Results & Data Results & Data ([facility]) Vital Signs (Past 12 Hours) Vital Signs Temp Pulse Pulse Pulse Resp BP Pulse Ox 02/01/21 19:09 36.4 C L 63 16 134/76 99 02/01/21 16:15 36.4 C L 54 L 18 143/68 H 99 02/01/21 16:00 46 L 02/01/21 12:02 36.3 C L 54 L 18 118/64 99 Laboratory Results Short CBC 02/01/21 Range/Units 05:36 WBC 6.93 (4.8-10.8) K/uL Hgb 12.9 L (14.0-18.0) g/dL Hct 38.6 L (42-52) % Plt Count 181 (130-400) K/uL BMP 02/01/21 05:36 Sodium 144 Potassium 3.9 Chloride 117 H Carbon Dioxide 22 BUN 5 L D Creatinine 0.62 Glucose 101 H Calcium 7.8 L Liver Function 02/01/21 Range/Units 05:36 Total Bilirubin 0.6 (0.2-1) mg/dl AST 19 (15-37) U/L ALT 15 (12-78) U/L Alkaline Phosphatase 67 (45-117) U/L Albumin 2.2 L (3.4-5.0) gm/dl Medications Administered Current Inpatient Medications Acetaminophen (Acetaminophen 325 Mg Tab) 650 mg PO Q4H PRN PRN Reason: Pain or Fever Stop: 03/01/21 04:15 Last Admin: 01/31/21 19:57 Dose: 650 mg Documented by: Amiodarone HCl (Amiodarone 200 Mg Tab) 200 mg PO QAM [facility] Stop: 03/01/21 08:59 Last Admin: 02/01/21 08:46 Dose: 200 mg Documented by: Apixaban (Apixaban 5 Mg Tablet) 5 mg PO BID [facility] Stop: 03/01/21 08:59 Last Admin: 02/01/21 21:03 Dose: 5 mg Documented by: Aspirin (Aspirin 81 Mg Ectab) 81 mg PO DAILY [facility] Stop: 03/01/21 08:59 Last Admin: 02/01/21 08:46 Dose: 81 mg Documented by: Atorvastatin Calcium (Atorvastatin 40 Mg Tab) 40 mg PO DAILY [facility] Stop: 03/01/21 08:59 Last Admin: 02/01/21 08:47 Dose: 40 mg Documented by: Buspirone HCl (Buspirone 5 Mg Tab) 5 mg PO TID [facility] Stop: 03/01/21 08:59 Last Admin: 02/01/21 21:02 Dose: 5 mg Documented by: Colchicine (Colchicine 0.6 Mg Tab) 0.6 mg PO QAM [facility] Stop: 03/01/21 08:59 Last Admin: 02/01/21 08:47 Dose: 0.6 mg Documented by: Docusate Sodium (Docusate Sodium 100 Mg Cap) 100 mg PO DAILY PRN PRN Reason: Constipation Stop: 03/01/21 04:15 Donepezil HCl (Donepezil Hcl 10 Mg Tab) 20 mg PO HS [facility] Stop: 03/01/21 20:59 Last Admin: 02/01/21 21:02 Dose: 20 mg Documented by: Famotidine (Famotidine 20 Mg Tab) 20 mg PO QAM [facility] Stop: 03/01/21 08:59 Last Admin: 02/01/21 08:46 Dose: 20 mg Documented by: Folic Acid (Folic Acid 1 Mg Tab) [facility] [place] Stop: 03/01/21 08:59 Last Admin: 02/01/21 08:46 Dose: 1 mg Documented by: Levofloxacin (Levofloxacin 500 Mg Tab) 500 mg PO Q24H [facility]; Protocol Stop: 02/08/21 18:59 Last Admin: 02/01/21 21:01 Dose: 500 mg Documented by: Memantine (Memantine Hcl 10 Mg Tab) 10 mg PO [facility] Stop: 03/01/21 08:59 Last Admin: 02/01/21 21:01 Dose: 10 mg Documented by: Metoprolol Succinate (Metoprolol Succ 25mg Ext Rel Tab) 12.5 mg PO [facility] Stop: 03/01/21 08:59 Last Admin: 02/01/21 08:47 Dose: Not Given Documented by: Multivitamins (Multivitamin Tab) 1 tab PO [facility] Stop: 03/01/21 08:59 Last Admin: 02/01/21 08:47 Dose: 1 tab Documented by: Nitroglycerin (Nitroglycerin Sl 0.4 Mg/Tab Tab) 0.4 mg SL UD PRN PRN Reason: Chest Pain Stop: 03/01/21 04:15 Polyethylene Glycol (Polyethylene (Miralax) 17 Gm Pack) 17 gm PO DAILY PRN PRN Reason: Constipation Stop: 03/01/21 04:15 Saccharomyces Boulardii (Saccharomyces Boulardii 250 Mg Cap) 250 mg PO BID [facility] Stop: 03/01/21 08:59 Last Admin: 02/01/21 21:02 Dose: 250 mg Documented by: Sennosides (Senna 8.6 Mg Tab) 8.6 mg PO BID [facility] Stop: 03/01/21 08:59 Last Admin: 02/01/21 21:02 Dose: Not Given Documented by: Thiamine HCl (Thiamine Hcl 100 Mg Tab) 100 mg PO [facility] Stop: 03/01/21 08:59 Last Admin: 02/01/21 08:45 Dose: 100 mg Documented by: Zinc Sulfate (Zinc Sulfate 220 Mg Capsule) 220 mg PO [facility] Stop: 03/01/21 08:59 Last Admin: 02/01/21 08:47 Dose: 220 mg Documented by: (1) Dementia Alzheimer's disease onset: unspecified onset Dementia behavioral disturbance: with behavioral disturbance Dementia type: Alzheimer's Qualified Code(s): G30.9 - Alzheimer's disease, unspecified; F02.81 - Dementia in other diseases classified elsewhere with behavioral disturbance
[2021-02-02 05:49] LABS: Hematocrit (blood only) 39.7 % (42-52); Hemoglobin 13.8 g/dL (14.0-18.0); Mean Corpuscular Hemoglobin 31.2 pg (25-34); Mean Corpuscular Hgb Conc 34.8 g/dL (32-36); Mean Corpuscular Volume 89.8 fL (80-100); Mean Platelet Volume 9.2 fL (7.4-10.4); Platelet Count 235 K/uL (130-400); RDW Coefficient of Variation 15.6 % (11.5-14.5); RDW Standard Deviation 52.1 fL (36.4-46.3); Red Blood Count 4.42 M/uL (4.7-6.1); White Blood Count 7.41 K/uL (4.8-10.8)
[2021-02-02 06:32] LABS: BUN Creatinine Ratio 5.8 (10-20); Calcium 7.9 mg/dl (8.5-10.1); Creatinine Clr Calc Pharmacy 94.1 ml/min; Est GFR (African American) 104.2 ml/min; Est GFR (Non-African American) 89.9 ml/min; Potassium 3.7 mmol/L (3.5-5.1)
[2021-02-02] MEDS: SENNA 8.6 MG TAB PO SCH ×2 (08:05→20:52)
[2021-02-02] MEDS: SACCHAROMYCES BOULARDII 250 MG CAP PO SCH ×2 (08:07→20:52)
[2021-02-02] MEDS: THIAMINE HCL 100 MG TAB PO SCH (08:07)
[2021-02-02] MEDS: ZINC SULFATE 220 MG CAPSULE PO SCH (08:07)
[2021-02-02] MEDS: MULTIVITAMIN TAB PO SCH (08:07)
[2021-02-02] MEDS: FAMOTIDINE 20 MG TAB PO SCH (08:07)
[2021-02-02] MEDS: APIXABAN 5 MG TABLET PO SCH ×2 (08:07→20:53)
[2021-02-02] MEDS: FOLIC ACID 1 MG TAB PO SCH (08:07)
[2021-02-02] MEDS: ASPIRIN 81 MG ECTAB PO SCH (08:07)
[2021-02-02] MEDS: ATORVASTATIN 40 MG TAB PO SCH (08:07)
[2021-02-02] MEDS: busPIRone 5 MG TAB PO SCH ×3 (08:07→20:52)
[2021-02-02] MEDS: AMIODARONE 200 MG TAB PO SCH (08:07)
[2021-02-02] MEDS: COLCHICINE 0.6 MG TAB PO SCH (08:07)
[2021-02-02] MEDS: METOPROLOL SUCC 25MG EXT REL TAB PO SCH (08:08)
[2021-02-02] MEDS: MEMANTINE HCL 10 MG TAB PO SCH ×2 (12:42→20:52)
--- NOTE | 2021-02-02 12:54 | Electrocardiogram Report ---
Test Reason : Blood Pressure : / mmHG Vent. Rate : 057 BPM Atrial Rate : 057 BPM P-R Int : 182 ms QRS Dur : 084 ms QT Int : 464 ms P-R-T Axes : -05 -03 024 degrees QTc Int : 451 ms Sinus bradycardia Low voltage QRS Borderline ECG When compared with ECG of 29-JAN-2021 23:00, No significant change was found Confirmed by Pepe Kumar ([id number]) on 02/02/2021 12:54:26 PM Referred By: REFERRED SELF Confirmed By:Pepe Kumar
[2021-02-02] MEDS: levoFLOXacin 500 MG TAB PO SCH (18:00)
[2021-02-02] MEDS: DONEPEZIL HCL 10 MG TAB PO SCH (20:53)
--- NOTE | 2021-02-02 22:14 | Hospitalist Progress Note ---
Date of Service February 02, 2021 Assessment & Plan (1) Fever: Admitted 3 days ago and was initially started on Rocephin and doxycycline and given IVF resuscitation for possible evolving sepsis (did not meet criteria on retrospective review of the chart and this was not documented). WBC was 19K and no fevers have been documented this admission. As patient is unable to give a clear history in setting of dementia, notes reveal a possible dry cough prior to arrival. Chest imaging including CT scan reveal small bilateral pleural effusions that are consistent with atelectasis. Notably the left effusion has improved significantly from chest CT two months ago when he was hospitalized for his pericardial effusion. He has not been hypoxic or tachycardic this admission. He appears overall improved. Cont with Levaquin per ID recs. QTc within normal limits on EKG today. (2) Pericardial effusion: Recent admission for pneumonia and pericaridal effusion without evidence of tamponade in November 2020. Was given a course of prednisone and is now on colchicine. Effusion has improved on echo repeated this admission. Cont follow-up as outpatient with PCP. (3) Paroxysmal atrial fibrillation: Cont oral amiodarone, metoprolol and apixaban per home regimen. He remains in sinus rhythm this admission. (4) Dementia: Known h/o vascular dementia. Monitor for delirium. Observe good day/night cycles. (5) CKD (chronic kidney disease), stage III: stable, chronic. Avoid nephrotoxic substances and renally dose medicatio ns as appropriate. (6) Ambulatory dysfunction: Described as wheelchair-bound, related to physical deconditioning from prolonged hospitalizations recently. Will re-engage PT and OT to see where he stands with his needs at this point. (7) DVT prophylaxis: apixaban Full Code Dispo-stable, transfer back to as soon as bed available. I attempted to call by phone but she was unavailable. I left a message and will call her back. [facility] Admission and Anticipated Discharge Date Admission Date: January 30, 2021 Subjective 76 yo M admitted from his residence at [facility] for lethargy and fever. No clear source of infection was found, however, no urine studies were performed. Since initiation of antibiotics, he has improved. He has been afebrile now for over 48 hours with a resolution of leukocytosis. He reports still feeling terrible, however, but cannot describe why. ROS is limited 2/2 dementia. Denies pain. Review of Systems Review of Systems: All systems reviewed & are unremarkable except as noted in Subjective Physical Exam Physical Exam: CONSTITUTIONAL: WNWD, vitals as above, generally well- appearing EYES: normal conjunctivae, no scleral icterus ENT: external ear and nose normal, MMM RESPIRATORY: clear to auscultation bilaterally, no crackles, rales or wheezes, normal respiratory effort CARDIOVASCULAR: regular rate and rhythm, S1 and 2 heard without murmurs, gallops or rubs, no JVD, no peripheral edema GASTROINTESTINAL: soft, nontender, nondistended, no guarding MUSCULOSKELETAL: strength 5/5 throughout, head is normocephalic and atraumatic SKIN: warm and dry, no overt rashes or skin lesions. NEUROLOGIC: CN 2-12 grossly intact, normal cognition, normal speech, no tremor PSYCHIATRIC: alert and cooperative. Easily frustrated with questions and with himself. Results & Data Results & Data ([facility]) Vital Signs (Past 12 Hours) Vital Signs Temp Pulse Pulse Resp BP Pulse Ox 02/02/21 18:39 36.9 C 97 H 20 119/74 96 02/02/21 17:46 116 H 02/02/21 15:19 36.3 C L 56 L 18 100/63 95 02/02/21 15:13 62 02/02/21 11:37 36.6 C 61 18 111/68 93 Laboratory Results Short CBC 02/02/21 Range/Units 05:19 WBC 7.41 (4.8-10.8) K/uL Hgb 13.8 L (14.0-18.0) g/dL Hct 39.7 L (42-52) % Plt Count 235 (130-400) K/uL BMP 02/02/21 05:19 Sodium 141 Potassium 3.7 Chloride 112 H Carbon Dioxide 22 BUN 4 L Creatinine 0.71 Glucose 88 Calcium 7.9 L Medications Administered Current Inpatient Medications Acetaminophen (Acetaminophen 325 Mg Tab) 650 mg PO Q4H PRN PRN Reason: Pain or Fever Stop: 03/01/21 04:15 Last Admin: 01/31/21 19:57 Dose: 650 mg Documented by: Amiodarone HCl (Amiodarone 200 Mg Tab) 200 mg PO QAM [facility] Stop: 03/01/21 08:59 Last Admin: 02/02/21 08:07 Dose: 200 mg Documented by: Apixaban (Apixaban 5 Mg Tablet) 5 mg PO BID [facility] Stop: 03/01/21 08:59 Last Admin: 02/02/21 20:53 Dose: 5 mg Documented by: Aspirin (Aspirin 81 Mg Ectab) 81 mg PO DAILY [facility] Stop: 03/01/21 08:59 Last Admin: 02/02/21 08:07 Dose: 81 mg Documented by: Atorvastatin Calcium (Atorvastatin 40 Mg Tab) 40 mg PO DAILY [facility] Stop: 03/01/21 08:59 Last Admin: 02/02/21 08:07 Dose: 40 mg Documented by: Buspirone HCl (Buspirone 5 Mg Tab) 5 mg PO TID [facility] Stop: 03/01/21 08:59 Last Admin: 02/02/21 20:52 Dose: 5 mg Documented by: Colchicine (Colchicine 0.6 Mg Tab) 0.6 mg PO QAM [facility] Stop: 03/01/21 08:59 Last Admin: 02/02/21 08:07 Dose: 0.6 mg Documented by: Docusate Sodium (Docusate Sodium 100 Mg Cap) 100 mg PO DAILY PRN PRN Reason: Constipation Stop: 03/01/21 04:15 Donepezil HCl (Donepezil Hcl 10 Mg Tab) 20 mg PO HS [facility] Stop: 03/01/21 20:59 Last Admin: 02/02/21 20:53 Dose: 20 mg Documented by: Famotidine (Famotidine 20 Mg Tab) 20 mg PO QAM [facility] Stop: 03/01/21 08:59 Last Admin: 02/02/21 08:07 Dose: 20 mg Documented by: Folic Acid (Folic Acid 1 Mg Tab) 1 mg PO QAM [facility] Stop: 03/01/21 08:59 Last Admin: 02/02/21 08:07 Dose: 1 mg Documented by: Levofloxacin (Levofloxacin 500 Mg Tab) 500 mg PO Q24H [facility]; Protocol Stop: 02/08/21 18:59 Last Admin: 02/02/21 18:00 Dose: 500 mg Documented by: Memantine (Memantine Hcl 10 Mg Tab) 10 mg PO AMHS [facility] Stop: 03/01/21 08:59 Last Admin: 02/02/21 20:52 Dose: 10 mg Documented by: Metoprolol Succinate (Metoprolol Succ 25mg Ext Rel Tab) [facility] Stop: 03/01/21 08:59 Last Admin: 02/02/21 08:08 Dose: 12.5 mg Documented by: Multivitamins (Multivitamin Tab) 1 tab PO QAM [facility] Stop: 03/01/21 08:59 Last Admin: 02/02/21 08:07 Dose: 1 tab Documented by: Nitroglycerin (Nitroglycerin Sl 0.4 Mg/Tab Tab) 0.4 mg SL UD PRN PRN Reason: Chest Pain Stop: 03/01/21 04:15 Polyethylene Glycol (Polyethylene (Miralax) 17 Gm Pack) 17 gm PO DAILY PRN PRN Reason: Constipation Stop: 03/01/21 04:15 Saccharomyces Boulardii (Saccharomyces Boulardii 250 Mg Cap) 250 mg PO BID [facility] Stop: 03/01/21 08:59 Last Admin: 02/02/21 20:52 Dose: 250 mg Documented by: Sennosides (Senna 8.6 Mg Tab) 8.6 mg PO BID [facility] Stop: 03/01/21 08:59 Last Admin: 02/02/21 20:52 Dose: 8.6 mg Documented by: Thiamine HCl (Thiamine Hcl 100 Mg Tab) [facility] Stop: 03/01/21 08:59 Last Admin: 02/02/21 08:07 Dose: 100 mg Documented by: Zinc Sulfate (Zinc Sulfate 220 Mg Capsule) 220 mg PO QAM [facility] Stop: 03/01/21 08:59 Last Admin: 02/02/21 08:07 Dose: 220 mg Documented by: (1) Dementia Alzheimer's disease onset: unspecified onset Dementia behavioral disturbance: with behavioral disturbance Dementia type: Alzheimer's Qualified Code(s): G30.9 - Alzheimer's disease, unspecified; F02.81 - Dementia in other diseases cl assified elsewhere with behavioral disturbance
--- NOTE | 2021-02-03 08:25 | Electrocardiogram Report ---
Test Reason : Blood Pressure : / mmHG Vent. Rate : 053 BPM Atrial Rate : 053 BPM P-R Int : 176 ms QRS Dur : 084 ms QT Int : 478 ms P-R-T Axes : -03 -05 028 degrees QTc Int : 448 ms Sinus bradycardia Low voltage QRS Borderline ECG When compared with ECG of 02-FEB-2021 11:26, No significant change was found Confirmed by Pepe Kumar ([id number]) on 02/03/2021 8:25:49 AM Referred By: REFERRED SELF Confirmed By:Pepe Kumar
[2021-02-03] MEDS: SENNA 8.6 MG TAB PO SCH ×2 (08:46→20:25)
[2021-02-03] MEDS: SACCHAROMYCES BOULARDII 250 MG CAP PO SCH ×2 (08:46→20:25)
[2021-02-03] MEDS: busPIRone 5 MG TAB PO SCH ×3 (08:46→20:24)
[2021-02-03] MEDS: APIXABAN 5 MG TABLET PO SCH ×2 (08:46→20:24)
[2021-02-03] MEDS: FOLIC ACID 1 MG TAB PO SCH (08:47)
[2021-02-03] MEDS: MEMANTINE HCL 10 MG TAB PO SCH ×2 (08:47→20:25)
[2021-02-03] MEDS: ATORVASTATIN 40 MG TAB PO SCH (08:47)
[2021-02-03] MEDS: THIAMINE HCL 100 MG TAB PO SCH (08:48)
[2021-02-03] MEDS: MULTIVITAMIN TAB PO SCH (08:48)
[2021-02-03] MEDS: COLCHICINE 0.6 MG TAB PO SCH (08:49)
[2021-02-03] MEDS: AMIODARONE 200 MG TAB PO SCH (08:51)
[2021-02-03] MEDS: ZINC SULFATE 220 MG CAPSULE PO SCH (08:52)
[2021-02-03] MEDS: FAMOTIDINE 20 MG TAB PO SCH (08:52)
[2021-02-03] MEDS: METOPROLOL SUCC 25MG EXT REL TAB PO SCH (08:53)
[2021-02-03] MEDS: ASPIRIN 81 MG ECTAB PO SCH (08:53)
--- NOTE | 2021-02-03 12:17 | Hospitalist Progress Note ---
Date of Service February 03, 2021 Assessment & Plan (1) Fever: Started on Rocephin and doxycycline and given IVF resuscitation for possible evolving sepsis (did not meet criteria on retrospective review of the chart and this was not documented). WBC was 19K and no fevers have been documented this admission. As patient is unable to give a clear history in setting of dementia, notes reveal a possible dry cough prior to arrival. Chest imaging including CT scan reveal small bilateral pleural effusions that are consistent with atelectasis. Notably the left effusion has improved significantly from chest CT two months ago when he was hospitalized for his pericardial effusion. He has not been hypoxic or tachycardic this admission. He appears overall improved. Cont with short course Levaquin per ID recs. QTc within normal limits on EKG. (2) Pericardial effusion: Recent admission for pneumonia and pericaridal effusion without evidence of tamponade in November 2020. Was given a course of prednisone and is now on colchicine. Effusion has improved on echo repeated this admission. Cont follow-up as outpatient with PCP. (3) Paroxysmal atrial fibrillation: Cont oral amiodarone, metoprolol and apixaban per home regimen. He remains in sinus rhythm this admission. (4) Dementia: Known h/o vascular dementia. Monitor for delirium. Observe good day/night cycles. (5) CKD (chronic kidney disease), stage III: stable, chronic. Avoid nephrotoxic substances and renally dose medications as appropriate. (6) Ambulatory dysfunction: Described as wheelchair-bound, related to physical deconditioning from prolonged hospitalizations recently. Will re-engage PT and OT to see where he stands with his needs at this point. (7) DVT prophylaxis: apixaban Full Code Dispo-stable, transfer back to as soon as bed available. I spoke with his this morning and updated her on the plan. 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 We decided that a palliative care consult to better outline goals of care on Thursday would be helpful, especially for her. Consult was placed. DO [facility] Hospital[facility] Admission and Anticipated Discharge Date Admission Date: January 30, 2021 Subjective 76 yo M admitted from his residence at [facility] for lethargy and fever. No clear source of infection was found, however, no urine studies were performed. Since initiation of antibiotics, he has improved. He has been afebrile now for over 48 hours with a resolution of leukocytosis. He reports feeling much better overall today and feels good about heading back to [facility] in am. I discussed this plan with his today by phone who is also in agreement with him transitioning back through SNF. . Review of Systems Review of Systems: All systems reviewed & are unremarkable except as noted in Subjective Physical Exam Physical Exam: CONSTITUTIONAL: WNWD, vitals as above, generally well- appearing EYES: normal conjunctivae, no scleral icterus ENT: external ear and nose normal, MMM RESPIRATORY: clear to auscultation bilaterally, no crackles, rales or wheezes, normal respiratory effort CARDIOVASCULAR: regular rate and rhythm, S1 and 2 heard without murmurs, gallops or rubs, no JVD, no peripheral edema GASTROINTESTINAL: soft, nontender, nondistended, no guarding MUSCULOSKELETAL: strength 5/5 throughout, head is normocephalic and atraumatic SKIN: warm and dry, no overt rashes or skin lesions. NEUROLOGIC: CN 2-12 grossly intact, normal cognition, normal speech, no tremor PSYCHIATRIC: alert and cooperative. Oriented. Some frustration wtih working the TV remote today Results & Data Results & Data ([facility]) Vital Signs (Past 12 Hours) Vital Signs Temp Pulse Resp BP Pulse Ox 02/03/21 07:23 36.6 C 55 L 16 99/62 L 95 Medications Administered Current Inpatient Medications Acetaminophen (Acetaminophen 325 Mg Tab) 650 mg PO Q4H PRN PRN Reason: Pain or Fever Stop: 03/01/21 04:15 Last Admin: 01/31/21 19:57 Dose: 650 mg Documented by: Amiodarone HCl (Amiodarone 200 Mg Tab) 200 mg PO QAM [facility] Stop: 03/01/21 08:59 Last Admin: 02/03/21 08:51 Dose: 200 mg Documented by: Apixaban (Apixaban 5 Mg Tablet) 5 mg PO BID [facility] Stop: 03/01/21 08:59 Last Admin: 02/03/21 08:46 Dose: 5 mg Documented by: Aspirin (Aspirin 81 Mg Ectab) 81 mg PO DAILY [facility] Stop: 03/01/21 08:59 Last Admin: 02/03/21 08:53 Dose: 81 mg Documented by: Atorvastatin Calcium (Atorvastatin 40 Mg Tab) 40 mg PO DAILY [facility] Stop: 03/01/21 08:59 Last Admin: 02/03/21 08:47 Dose: 40 mg Documented by: Buspirone HCl (Buspirone 5 Mg Tab) 5 mg PO TID [facility] Stop: 03/01/21 08:59 Last Admin: 02/03/21 08:46 Dose: 5 mg Documented by: Colchicine (Colchicine 0.6 Mg Tab) [facility] [place] Stop: 03/01/21 08:59 Last Admin: 02/03/21 08:49 Dose: 0.6 mg Documented by: Docusate Sodium (Docusate Sodium 100 Mg Cap) 100 mg PO DAILY PRN PRN Reason: Constipation Stop: 03/01/21 04:15 Donepezil HCl (Donepezil Hcl 10 Mg Tab) 20 mg PO [facility] Stop: 03/01/21 20:59 Last Admin: 02/02/21 20:53 Dose: 20 mg Documented by: Famotidine (Famotidine 20 Mg Tab) [facility] [place] [facility] Stop: 03/01/21 08:59 Last Admin: 02/03/21 08:52 Dose: 20 mg Documented by: Folic Acid (Folic Acid 1 Mg Tab) [facility] [place] Stop: 03/01/21 08:59 Last Admin: 02/03/21 08:47 Dose: 1 mg Documented by: Levofloxacin (Levofloxacin 500 Mg Tab) 500 mg PO Q24H [facility]; Protocol Stop: 02/08/21 18:59 Last Admin: 02/02/21 18:00 Dose: 500 mg Documented by: Memantine (Memantine Hcl 10 Mg Tab) 10 mg PO [facility] Stop: 03/01/21 08:59 Last Admin: 02/03/21 08:47 Dose: 10 mg Documented by: Metoprolol Succinate (Metoprolol Succ 25mg Ext Rel Tab) 12.5 mg PO [facility] Stop: 03/01/21 08:59 Last Admin: 02/03/21 08:53 Dose: Not Given Documented by: Multivitamins (Multivitamin Tab) 1 [facility] [place] Stop: 03/01/21 08:59 Last Admin: 02/03/21 08:48 Dose: 1 tab Documented by: Nitroglycerin (Nitroglycerin Sl 0.4 Mg/Tab Tab) 0.4 mg SL UD PRN PRN Reason: Chest Pain Stop: 03/01/21 04:15 Polyethylene Glycol (Polyethylene (Miralax) 17 Gm Pack) 17 gm PO DAILY PRN PRN Reason: Constipation Stop: 03/01/21 04:15 Saccharomyces Boulardii (Saccharomyces Boulardii 250 Mg Cap) 250 mg PO BID [facility] Stop: 03/01/21 08:59 Last Admin: 02/03/21 08:46 Dose: 250 mg Documented by: Sennosides (Senna 8.6 Mg Tab) 8.6 mg PO BID [facility] Stop: 03/01/21 08:59 Last Admin: 02/03/21 08:46 Dose: 8.6 mg Documented by: Thiamine HCl (Thiamine Hcl 100 Mg Tab) 100 mg PO QAM [facility] Stop: 03/01/21 08:59 Last Admin: 02/03/21 08:48 Dose: 100 mg Documented by: Zinc Sulfate (Zinc Sulfate 220 Mg Capsule) 220 mg PO QAM [facility] Stop: 03/01/21 08:59 Last Admin: 02/03/21 08:52 Dose: 220 mg Documented by: (1) Dementia Alzheimer's disease onset: unspecified onset Dementia behavioral disturbance: with behavioral disturbance Dementia type: Alzheimer's Qualified Code(s): G30.9 - Alzheimer's disease, unspecified; F02.81 - Dementia in other diseases classified elsewhere with behavioral disturbance
[2021-02-03] MEDS: levoFLOXacin 500 MG TAB PO SCH (20:23)
[2021-02-03] MEDS: DONEPEZIL HCL 10 MG TAB PO SCH (20:24)
[2021-02-04] MEDS: APIXABAN 5 MG TABLET PO SCH ×2 (08:34→20:43)
[2021-02-04] MEDS: busPIRone 5 MG TAB PO SCH ×3 (08:35→20:43)
[2021-02-04] MEDS: MEMANTINE HCL 10 MG TAB PO SCH ×2 (08:35→20:42)
[2021-02-04] MEDS: COLCHICINE 0.6 MG TAB PO SCH (08:35)
[2021-02-04] MEDS: THIAMINE HCL 100 MG TAB PO SCH (08:35)
[2021-02-04] MEDS: FOLIC ACID 1 MG TAB PO SCH (08:35)
[2021-02-04] MEDS: ASPIRIN 81 MG ECTAB PO SCH (08:35)
[2021-02-04] MEDS: MULTIVITAMIN TAB PO SCH (08:35)
[2021-02-04] MEDS: SACCHAROMYCES BOULARDII 250 MG CAP PO SCH ×2 (08:35→20:42)
[2021-02-04] MEDS: ATORVASTATIN 40 MG TAB PO SCH (08:35)
[2021-02-04] MEDS: SENNA 8.6 MG TAB PO SCH ×2 (08:35→20:41)
[2021-02-04] MEDS: FAMOTIDINE 20 MG TAB PO SCH (08:35)
[2021-02-04] MEDS: ZINC SULFATE 220 MG CAPSULE PO SCH (08:36)
[2021-02-04] MEDS: METOPROLOL SUCC 25MG EXT REL TAB PO SCH (08:38)
[2021-02-04] MEDS: AMIODARONE 200 MG TAB PO SCH (08:45)
[2021-02-04 10:42] LABS: Basophils # (auto) 0.05 K/uL (0-0.2); Basophils % (auto) 0.6 %; Eosinophils # (auto) 0.14 K/uL (0-0.5); Eosinophils % (auto) 1.7 %; Hematocrit (blood only) 41.1 % (42-52); Hemoglobin 13.8 g/dL (14.0-18.0); Immature Granulocytes # (auto) 0.02 K/uL (0.00-0.02); Immature Granulocytes % (auto) 0.2 %; Lymphocytes # (auto) 1.49 K/uL (1.2-3.4); Lymphocytes % (auto) 18.2 %; Mean Corpuscular Hemoglobin 30.5 pg (25-34); Mean Corpuscular Hgb Conc 33.6 g/dL (32-36); Mean Corpuscular Volume 90.9 fL (80-100); Mean Platelet Volume 9.2 fL (7.4-10.4); Monocytes # (auto) 0.82 K/uL (0.11-0.59); Neutrophils # (auto) 5.67 K/uL (1.4-6.5); Neutrophils % (auto) 69.3 %; Platelet Count 290 K/uL (130-400); RDW Standard Deviation 53.5 fL (36.4-46.3); Red Blood Count 4.52 M/uL (4.7-6.1); White Blood Count 8.19 K/uL (4.8-10.8)
[2021-02-04 11:04] LABS: Albumin Level 2.5 gm/dl (3.4-5.0); BUN Creatinine Ratio 9.6 (10-20); Calcium 8.2 mg/dl (8.5-10.1); Creatinine Clr Calc Pharmacy 85.7 ml/min; Est GFR (African American) 100.2 ml/min; Est GFR (Non-African American) 86.5 ml/min; Potassium 3.7 mmol/L (3.5-5.1)
[2021-02-04 11:08] LABS: Albumin Globulin Ratio 0.7 (0.9-2); Bilirubin,Total 0.6 mg/dl (0.2-1); Globulin 3.8 gm/dl (2.5-4.0); Total Protein 6.3 gm/dl (6.4-8.2)
--- NOTE | 2021-02-04 12:18 | Palliative Care Consultation ---
Date of Consultation February 04, 2021 Assessment & Plan (1) Generalized weakness: Being evaluated by PT/OT and speech (2) Palliative care encounter: I spoke with his , Elvia, by phone. She has many questions about what to expect as Pilars dementia progresses and what his prognosis might be. She asked about the difference between hospice and palliative care which we reviewed. Based on what I see at this point, I would estimate his FAST score to be 6D. He would not be eligible for hospice with his current status. We discussed prognosis associated with this. While dementia does not follow a straight course, I would estimate that his prognosis could be less than a year with his FAST score and aspiration. We talked about goals of care. Elvia tells me that she and Delmi have living bolanos that were updated around 2017. He had said that he would not want CPR or intubation. "Don't put a tube in my throat". He has also said that he would not want a feeding tube if he were unable to swallow safely. Elvia would want antibiotics depending on the situation and would want him to return to the hospital for limited interventions at this time. She asked if she could call with further questions after he is discharged. I explained that I am not able to see him at [facility] but could see him as an outpatient in the office if she felt that was feasible or helpful for her and Delmi. She would like to follow palliative care as an outpatient for assistance with prognosis, plan of care and support. A POLST form is completed today to reflect our discussion and will be sent to [facility] with him when he is stable for discharge. (3) Paroxysmal atrial fibrillation: (4) Dementia: Alzheimer's disease onset: unspecified onset Dementia behavioral disturbance: with behavioral disturbance Dementia type: Alzheimer's Qualified Code(s): G30.9 - Alzheimer's disease, unspecified; F02.81 - Dementia in other diseases classified elsewhere with behavioral disturbance (5) Pericardial effusion: (6) Fever: History of Present Illness Reason for Consultation: goals of care Requesting Physician: Dr. Mendoza Attending Physician: Dev Stallworth MD History of Present Illness 76 yo gentleman with dementia who resides at [facility]. He was admitted for lethargy and fever. He had been hospitalized in November and found to have pericardial effusion which has improved with steroids and colchicine. He has received antibiotic therapy here and has had some clinical improvement. He is awake and alert, eating pureed lunch. He denies pain or dyspnea. He is frustrated by unable to clearly articulate what is frustrating him. After a few attempts, his TV channel was adjusted and he was more content. He is not at this time capable for a goals of care discussion. Allergies Allergy/AdvReac Type Severity Reaction Status Date / Time No Known Drug Allergies Allergy Unknown ` Verified 01/29/21 23:12 Home Medications Medication Instructions Recorded Confirmed Type folic acid 1 mg PO QAM #30 09/19/14 01/29/21 History Saccharomyces boulardii 250 mg PO AMHS 10/01/20 01/29/21 History atorvastatin 40 mg PO DAILY 10/01/20 01/29/21 History donepezil 23 mg PO HS 10/01/20 01/29/21 History memantine 10 mg PO AMHS 10/01/20 01/29/21 History thiamine HCl (vitamin B1) 100 mg PO QAM 10/01/20 01/29/21 History zinc 50 mg PO QAM 10/05/20 01/29/21 History metoprolol succinate 12.5 mg PO QAM 11/28/20 01/29/21 History multivitamin 1 tab PO QAM 11/28/20 01/29/21 History amiodarone 200 mg PO QAM #30 tab 12/02/20 01/29/21 Rx famotidine 20 mg PO QAM #30 tab 12/02/20 01/29/21 Rx acetaminophen 325 mg PO Q4 PRN 01/29/21 01/29/21 History apixaban [Eliquis] 5 mg PO AMHS 01/29/21 01/29/21 History aspirin [Aspirin Childrens] 81 mg PO DAILY 01/29/21 01/29/21 History buspirone 5 mg PO TID 01/29/21 01/29/21 History colchicine [Colcrys] 0.6 mg PO QAM 01/29/21 01/29/21 History docusate sodium 100 mg PO DAILY PRN 01/29/21 01/29/21 History polyethylene glycol 3350 [Miralax] 17 g PO DAILY PRN 01/29/21 01/29/21 History sennosides 8.6 mg PO BID 01/29/21 01/29/21 History Patient History Medical History Alzheimer's dementia CKD (chronic kidney disease), stage III Confusion Dizziness (09/19/14) New onset atrial fibrillation Pulmonary embolism Right knee DJD Right knee pain Vascular dementia Surgical History H/O knee surgery Hx of tonsillectomy Family History Other Cancer Dementia Social History Smoking Status: Unknown if ever smoked Hx Alcohol Use: No Hx Substance Use: No Preferred Language: Macanese Communication Ability: Impaired 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 Beliefs That Will Affect Care: None Current Living Situation: [facility] Feels Safe at Home: Yes Safety Concerns: Feels Safe At This Time Assistive Devices: None Review of Systems Review of Systems: [place] Symptom Assessment Scale Pain 0/3 Dyspnea 0/3 Anxiety 1/3 Fatigue 2/3 Anorexia 1/3 Nausea 0/3 Drowsiness 0/3 Palliative Performance Score 30% Physical Exam Constitutional: no acute distress ENMT: Ears: no hearing impairment Mouth: oral mucous membranes not dry Respiratory: normal respiratory effort; no labored breathing Gastrointestinal (Abdomen): Percussion/Palpation: abdomen nontender Musculoskeletal: Extremities: extremities normal to inspection Skin: warm and dry Neurologic: awake and + confused Results & Data ([facility]) Vital Signs (Past 12 Hours) Vital Signs Temp Pulse Resp BP Pulse Ox 02/04/21 07:21 97.9 F 52 L 16 108/68 94 02/04/21 03:34 98.6 F 54 L 16 100/61 95 PG Care Time/CCT Total # of Minutes Spent Total Time Spent with Patient: Total time spent is greater than 50% in coordination of care (as documented) at patient's floor/unit and/or counseling patient: Total time 90 minutes with more than 50% of time spent on prognosis, goals of care, POLST, family education and support. Coding Level of Care Code 86757 Inpt Consult Level 5 Diagnoses Generalized weakness R53.1 Palliative care encounter Z51.5 Paroxysmal atrial fibrillation I48.0 Dementia G30.9; F02.81 Alzheimer's disease onset: unspecified onset Dementia behavioral disturbance: with behavioral disturbance Dementia type: Alzheimer's Pericardial effusion I31.3 Fever R50.9
--- NOTE | 2021-02-04 14:21 | Hospitalist Progress Note ---
Date of Service February 04, 2021 Assessment & Plan (1) Fever: On admission there was concern for sepsis. Patient had leukocytosis of 19 K. Absence of any fever. Blood cultures have been negative. We will continue short course of Levaquin as per ID recs. Patient remains afebrile. White count is within normal limit. Patient is currently on room air. Review of system is mainly negative. Chest imaging including CT scan reveal small bilateral pleural effusions that are consistent with atelectasis. Notably the left effusion has improved significantly from chest CT two months ago when he was hospitalized for his pericardial effusion. Currently awaiting placement and insurance authorization. (2) Pericardial effusion: Recent admission for pneumonia and pericaridal effusion without evidence of tamponade in November 2020. Continue with short course of prednisone and is now on colchicine. Effusion has improved on echo repeated this admission. Cont follow-up as outpatient with PCP. (3) Paroxysmal atrial fibrillation: Cont oral amiodarone, metoprolol and apixaban per home regimen. (4) Dementia: Known h/o vascular dementia. Monitor for delirium. Observe good day/night cycles. (5) CKD (chronic kidney disease), stage III: stable, chronic. Avoid nephrotoxic substances and renally dose medications as appropriate. (6) Ambulatory dysfunction: Described as wheelchair-bound, related to physical deconditioning from prolonged hospitalizations recently. Continue to work with PT/OT. (7) DVT prophylaxis: apixaban Full Code Admission and Anticipated Discharge Date Admission Date: January 30, 2021 Subjective Patient is awake and alert. He does not appear to be in any distress. Not oriented to time place or person. Denies any chest pain, shortness of breath, pain, diarrhea or dysuria Review of Systems Review of Systems: Unobtainable due to cognitive status Physical Exam Physical Exam: General: Awake and alert HENT: NCAT, MMM, EOMI Eyes: PERRLA Neck: Supple, normal range of motion CVS: normal rate and rhythm Resp: b/l good breath sounds Abdomen: Soft, nondistended and nontender Extremities: No c/c/e Neuro: face symmetric, strength grossly equal, no focal deficit Skin: warm and dry, no rashes/lesions/errythema MSK: normal ROM, no joint swelling/erythema Results & Data Results & Data ([facility]) Vital Signs (Past 12 Hours) Vital Signs Temp Pulse Resp BP Pulse Ox 02/04/21 07:21 36.6 C 52 L 16 108/68 94 02/04/21 03:34 37.0 C 54 L 16 100/61 95 (1) Dementia Alzheimer's disease onset: unspecified onset Dementia behavioral disturbance: with behavioral disturbance Dementia type: Alzheimer's Qualified Code(s): G30.9 - Alzheimer's disease, unspecified; F02.81 - Dementia in other diseases classified elsewhere with behavioral disturbance
[2021-02-04] MEDS: levoFLOXacin 500 MG TAB PO SCH (19:15)
[2021-02-04] MEDS: DONEPEZIL HCL 10 MG TAB PO SCH (20:43)
[2021-02-05] MEDS: ATORVASTATIN 40 MG TAB PO SCH (08:50)
[2021-02-05] MEDS: APIXABAN 5 MG TABLET PO SCH ×2 (08:50→19:56)
[2021-02-05] MEDS: ASPIRIN 81 MG ECTAB PO SCH (08:50)
[2021-02-05] MEDS: busPIRone 5 MG TAB PO SCH ×3 (08:50→19:55)
[2021-02-05] MEDS: AMIODARONE 200 MG TAB PO SCH (08:50)
[2021-02-05] MEDS: SACCHAROMYCES BOULARDII 250 MG CAP PO SCH ×2 (08:51→19:54)
[2021-02-05] MEDS: THIAMINE HCL 100 MG TAB PO SCH (08:51)
[2021-02-05] MEDS: COLCHICINE 0.6 MG TAB PO SCH (08:51)
[2021-02-05] MEDS: FOLIC ACID 1 MG TAB PO SCH (08:51)
[2021-02-05] MEDS: SENNA 8.6 MG TAB PO SCH ×2 (08:51→19:55)
[2021-02-05] MEDS: ZINC SULFATE 220 MG CAPSULE PO SCH (08:51)
[2021-02-05] MEDS: MULTIVITAMIN TAB PO SCH (08:51)
[2021-02-05] MEDS: METOPROLOL SUCC 25MG EXT REL TAB PO SCH (08:51)
[2021-02-05] MEDS: MEMANTINE HCL 10 MG TAB PO SCH ×2 (08:51→19:56)
[2021-02-05] MEDS: FAMOTIDINE 20 MG TAB PO SCH (09:18)
--- NOTE | 2021-02-05 16:25 | Hospitalist Progress Note ---
Date of Service February 05, 2021 Assessment & Plan (1) Fever: On admission there was concern for sepsis. Patient had leukocytosis of 19 K. Absence of any fever. Blood cultures have been negative. Will continue short course of Levaquin as per ID recs. Patient remains afebrile. White count is within normal limit. Patient is currently on room air. Review of system is mainly negative. Chest imaging including CT scan reveal small bilateral pleural effusions that are consistent with atelectasis. Notably the left effusion has improved significantly from chest CT two months ago when he was hospitalized for his pericardial effusion. Currently awaiting placement and insurance authorization. (2) Pericardial effusion: Recent admission for pneumonia and pericaridal effusion without evidence of tamponade in November 2020. Completed short course of prednisone and is now on colchicine. Effusion has improved on echo repeated this admission. Cont follow-up as outpatient with PCP. (3) Paroxysmal atrial fibrillation: Cont oral amiodarone, metoprolol and apixaban per home regimen. (4) Dementia: Known h/o vascular dementia. Monitor for delirium. Observe good day/night cycles. (5) CKD (chronic kidney disease), stage III: stable, chronic. Avoid nephrotoxic substances and renally dose medications as appropriate. (6) Ambulatory dysfunction: Described as wheelchair-bound, related to physical deconditioning from prolonged hospitalizations recently. Continue to work with PT/OT. (7) DVT prophylaxis: apixaban Full Code Admission and Anticipated Discharge Date Admission Date: January 30, 2021 Subjective Doing okay this morning. He is awake and alert. Oriented to place. Does not appear to be in any distress. Review of Systems Review of Systems: All systems reviewed & are unremarkable except as noted in HPI & below Physical Exam Physical Exam: General: Awake and alert HENT: NCAT, MMM, EOMI Eyes: PERRLA Neck: Supple, normal range of motion CVS: normal rate and rhythm Resp: b/l good breath sounds Abdomen: Soft, nondistended and nontender Extremities: No c/c/e Neuro: face symmetric, strength grossly equal, no focal deficit Skin: warm and dry, no rashes/lesions/errythema MSK: normal ROM, no joint swelling/erythema Results & Data Results & Data ([facility]) Vital Signs (Past 12 Hours) Vital Signs Temp Pulse Resp BP BP Pulse Ox 02/05/21 15:05 36.3 C L 57 L 16 119/72 96 02/05/21 07:21 36.3 C L 52 L 16 113/68 96 (1) Dementia Alzheimer's disease onset: unspecified onset Dementia behavioral disturbance: with behavioral disturbance Dementia type: Alzheimer's Qualified Code(s): G30.9 - Alzheimer's disease, unspecified; F02.81 - Dementia in other diseases classified elsewhere with behavioral disturbance
[2021-02-05] MEDS: levoFLOXacin 500 MG TAB PO SCH (18:06)
[2021-02-05] MEDS: DONEPEZIL HCL 10 MG TAB PO SCH (19:55)
[2021-02-06] MEDS: MEMANTINE HCL 10 MG TAB PO SCH (08:44)
[2021-02-06] MEDS: AMIODARONE 200 MG TAB PO SCH (08:45)
[2021-02-06] MEDS: busPIRone 5 MG TAB PO SCH (08:45)
[2021-02-06] MEDS: ZINC SULFATE 220 MG CAPSULE PO SCH (08:45)
[2021-02-06] MEDS: APIXABAN 5 MG TABLET PO SCH (08:45)
[2021-02-06] MEDS: SACCHAROMYCES BOULARDII 250 MG CAP PO SCH (08:45)
[2021-02-06] MEDS: FOLIC ACID 1 MG TAB PO SCH (08:46)
[2021-02-06] MEDS: METOPROLOL SUCC 25MG EXT REL TAB PO SCH (08:46)
[2021-02-06] MEDS: SENNA 8.6 MG TAB PO SCH (08:46)
[2021-02-06] MEDS: THIAMINE HCL 100 MG TAB PO SCH (08:46)
[2021-02-06] MEDS: MULTIVITAMIN TAB PO SCH (08:46)
[2021-02-06] MEDS: ATORVASTATIN 40 MG TAB PO SCH (08:46)
[2021-02-06] MEDS: COLCHICINE 0.6 MG TAB PO SCH (08:47)
[2021-02-06] MEDS: ASPIRIN 81 MG ECTAB PO SCH (08:47)
[2021-02-06] MEDS: FAMOTIDINE 20 MG TAB PO SCH (08:47)
--- NOTE | 2021-02-06 17:02 | Discharge Summary ---
Date of Service February 06, 2021 Admission HPI Per Admitting Provider 76-year-old male with past medical history significant for hyperlipidemia, pleural effusion, paroxysmal atrial fibrillation, history of dilatation of aorta, mixed Alzheimer's and vascular dementia, mediastinal lymphadenopathy, history of bradycardia, GERD, parkinsonism, history of pulmonary embolism and deep vein thrombosis. Currently living at [facility]. Currently, he is wheelchair bound, was brought in because was lethargic than usual in the morning and had fever of 103 degrees. His rapid COVID test was negative and staff reported cough for the past couple of days. The patient was brought in here. In the ER, he is currently so far afebrile and hemodynamically stable, but he is having shaking and white count is 19, lactate 0.7. SARS-CoV-2 PCR negative. Chest x-ray, no obvious findings. EKG, no acute findings. The patient denies any pain, but has shakings of his body. Denies any chest pain, abdominal pain. Denies nausea .The patient is a poor historian, could not get much history from the patient. Patient was recently in the hospital in November with pneumonia and also found to have pericardial effusion, treated with prednisone and currently on colchicine . Also during that admission has some confusion thought to be from delirium. He was also here in October, treated for hospital-acquired pneumonia. Admission Exam Per Admitting Provider GENERAL: The patient is moderate build, not in acute distress. VITAL SIGNS: Temperature 36.7, pulse 85, respiratory rate 19, blood pressure 111/62, oxygen 97% on room air. HEENT: Pupils equal, round, reactive to light. Oral mucosa moist. NECK: No JVD. CARDIOVASCULAR: S1, S2 heard. Regular rate and rhythm, no murmur, no gallop. RESPIRATORY SYSTEM: Normal AP diameter. No accessory muscle use. No wheezing or crackles. ABDOMEN: Soft, bowel sounds present, nontender. CENTRAL NERVOUS SYSTEM: Alert and awake. Having shaking chills. Obeys simple commands. Moves extremities. EXTREMITIES: No edema, no erythema. Principal Diagnosis Fever Sepsis uncertain origin Discharge Exam Constitutional + well hydrated; no acute distress Eyes PERRL, conjunctivae normal, anicteric sclerae ENMT external ear and nose normal, oropharynx normal Respiratory normal respiratory effort, lungs clear to auscultation Cardiovascular Rate/Rhythm: regular rate and regular rhythm S1 S2 Gastrointestinal (Abdomen) normal bowel sounds, soft, nontender, no hepatosplenomegaly Musculoskeletal no cyanosis or clubbing, extremities motor strength 5/5 Neurologic PERRL, EOMI, accommodation nl, no face palsy, no dysarthria Psychiatric Orientation: alert, oriented to person and cooperative; + not oriented to place and + not oriented to time Discharge Data Allergies Allergy/AdvReac Type Severity Reaction Status Date / Time No Known Drug Allergies Allergy Unknown ` Verified 01/29/21 23:12 Consultations 01/30/21 00:02 ED Decision to Admit Stat 02/01/21 11:47 Consult Infectious Diseases Routine 02/03/21 10:35 Consult Palliative Care Routine Ordered Studies 01/30/21 02:51 CT abd pelvis wo con Urgent FINDINGS: Lower chest: There are small bilateral pleural effusions with associated basilar airspace opacities, likely atelectatic. Heart is mildly enlarged with coronary artery calcifications. There is trace pericardial fluid. Liver: The unenhanced liver is normal in size, contour, and attenuation. There is no intrahepatic biliary ductal dilatation. Gallbladder: Unremarkable. Spleen: Normal in size and attenuation. Pancreas: Unremarkable. Adrenal glands: Unremarkable. Kidneys: There is a 25 mm left renal cyst. No renal, ureteral, or bladder calculi are visualized. Bowel: There are no transition zones to indicate bowel obstruction. There is no evidence of acute diverticulitis. There are no findings to indicate acute appendicitis. There is scattered colonic air-fluid levels. Peritoneum: There is no intraperitoneal free air or abdominal ascites. Vasculature: The abdominal aorta is normal in course and caliber. Adenopathy: None. Pelvic viscera: There is prostatomegaly. Skeletal structures: No destructive osseous lesions are seen. IMPRESSION: 1. Motion compromised study 2. No evidence of bowel obstruction. No evidence of free air 3. No evidence of acute diverticulitis. No evidence of acute appendicitis 4. No renal, ureteral, or bladder calculi identified 5. Prostatomegaly 6. Small bilateral pleural effusions with associated basilar parenchymal opacities likely atelectatic CT chest diagnostic wo con Urgent Thyroid: Imaged portions of the thyroid gland are normal in appearance. Thoracic aorta: There is mild dilatation of the ascending thoracic aorta which measures 41 mm the level the main pulmonary artery. Heart: There is a small pericardial effusion. There are coronary artery calcifications. Lungs and pleural spaces: There are small bilateral pleural effusions. There are dependent pulmonary airspace opacities, statistically atelectatic. Mediastinum: There is no evidence of pathologic mediastinal lymphadenopathy. Daisy: There is no is a pathologic hilar adenopathy given the limitations of a noncontrast study. Axilla: There is no evidence of pathologic axillary lymphadenopathy. Upper abdomen: There is 26 mm left renal cyst. Skeletal structures: There are no lytic or blastic osseous lesions. There is calcification of the anterior longitudinal ligament. IMPRESSION: 1. Small bilateral pleural effusions with associated dependent opacities statistically atelectatic 2. Coronary calcifications and small pericardial effusion 3. Mild dilatation of the ascending thoracic aorta which measures 41 mm. at the level the main pulmonary artery. Hospital Course (1) Fever: On admission there was concern for sepsis. Patient had leukocytosis of 19 K. Absence of any fever. Blood cultures have been negative. Fever uncertain origin, or missed UTI as UA was not obtained Completed 7 days of antibiotic therapy Patient remains afebrile. White count is now within normal limit. Patient is currently on room air. Review of system is mainly negative. Chest imaging including CT scan reveal small bilateral pleural effusions , consistent with atelectasis. Notably the left effusion has improved significantly from chest CT two months ago when he was hospitalized for his pericardial effusion. (2) Pericardial effusion: Recent admission for pneumonia and pericaridal effusion without evidence of tamponade in November 2020. Completed short course of prednisone and is now on colchicine. Effusion has improved on echo repeated this admission. Cont follow-up as outpatient with PCP. (3) Paroxysmal atrial fibrillation: Cont oral amiodarone, metoprolol and apixaban per home regimen. (4) Dementia: Known h/o vascular dementia. Monitor for delirium. Observe good day/night cycles. (5) CKD (chronic kidney disease), stage III: stable, chronic. Avoid nephrotoxic substances and renally dose medications as appropriate. (6) Ambulatory dysfunction: Described as wheelchair-bound, related to physical deconditioning from prolonged hospitalizations recently. Discharged to SNF Total Time Total Time Spent Total Time Spent (In Minutes): 35 Total Time Includes: Examination of the Patient, Discharge Planning and Medication Reconciliation Discharge Plan Discharge Items Patient Disposition: Transfer Group Home Fac Reason For Visit: ILLNESS Discharge Diagnosis: Fever Sepsis uncertain origin Activity: As commented below Activity Comment: Per PT/OT instructions Non-emergency contact: Primary Care Provider Call non-emergency contact if: you have any medication questions and your symptoms worsen Follow-up/Referrals: Vinicio Haro DO [Primary Care Provider] - Diet: Heart Healthy Diet Texture: Easy to Chew Renzo Attending Provider Instructions: Mr Mims You came to the hospital for fever. You were evaluated and treated for sepsis of uncertain origin You have completed your antibiotics and feeling better. You are being discharged to assisted facility for rehab. Please ensure follow up with your Primary Doctor. It was a pleasure taking care of you. Renzo Housekeeping Director Provider Instructions: Palliative Care Outpatient on Discharge Pending Studies at Discharge: No Stand-Alone Forms: My [facility] Skilled Items Patient informed of condition?: Yes DNR: Yes Discharge Level of Care: Skilled Communicable Disease: No Discharge Prognosis: Stable Lines: None Urinary Catheter: No Medications and DC Order Prescriptions: Continued folic acid 1 mg Tablet 1 mg PO QAM Qty: 30 RF: 0 atorvastatin 40 mg tablet 40 mg PO DAILY RF: 0 thiamine HCl (vitamin B1) 100 mg Tablet 100 mg PO QAM RF: 0 Saccharomyces boulardii 250 mg Capsule 250 mg PO AMHS RF: 0 memantine 10 mg tablet 10 mg PO AMHS RF: 0 donepezil 23 mg tablet 23 mg PO HS RF: 0 zinc 50 mg Tablet 50 mg PO QAM RF: 0 multivitamin Tablet 1 tab PO QAM RF: 0 metoprolol succinate 25 mg tablet extended release 24 hr 12.5 mg PO QAM RF: 0 amiodarone 200 mg Tablet 200 mg PO QAM Qty: 30 RF: 0 famotidine 20 mg Tablet 20 mg PO QAM Qty: 30 RF: 0 acetaminophen 325 mg Tablet 325 mg PO Q4 PRN (Reason: Fever Or Pain) RF: 0 aspirin [Aspirin Childrens] 81 mg Tablet,Chewable 81 mg PO DAILY RF: 0 Eliquis 5 mg tablet 5 mg PO AMHS RF: 0 buspirone 5 mg tablet 5 mg PO TID RF: 0 colchicine [Colcrys] 0.6 mg tablet 0.6 mg PO QAM RF: 0 docusate sodium 100 mg Capsule 100 mg PO DAILY PRN (Reason: Constipation) RF: 0 sennosides 8.6 mg Tablet 8.6 mg PO BID RF: 0 polyethylene glycol 3350 [Miralax] 17 gram/dose Powder 17 g PO DAILY PRN (Reason: Constipation) RF: 0 Discharge Orders: Discharge Order (Routine); Ordered 02/06/21 Ordered By: Sruthi Hazel Admission Data Admit Date/Time: 01/30/21 02:51 Attending Provider: Sruthi Hazel I. Admit Provider: Edwardo Anaya Primary Care Provider: Vinicio Haro Other Providers: Yony Presley ; Machelle Monte [place] ; Edwardo Anaya ; Chester Lawrence ; Mak Glover ; Eric Sheikh I. ; Boone Xie II ; Rachel Jang ; Jamaal Bronw ; Bonny Burden ; Dev Stallworth Other Interventions: Discharge Summary Assessment (RN) Last Done: 02/06/21 09:49
== END 2021-02-06 11:13 | DRG 872 ==
LOC: ED 22:15 → 2S 01-30 02:51 → SUATTDRO 01-30 02:51 → 2S 01-30 03:35 → 2N 02-01 22:10 → 3N 02-04 03:36

== ENCOUNTER 2022-04-05 08:27 | Inpatient (IN) ==
[2022-04-05] MEDS ORDERED: SODIUM CHLORIDE 0.9% 1000ML 500 ML IV ONE (08:45)
[2022-04-05 08:50] LABS: Basophils # (auto) 0.02 K/uL (0-0.2); Basophils % (auto) 0.1 %; Eosinophils % (auto) 18.4 %; Hematocrit (blood only) 38.5 % (40.1-51.0); Hemoglobin 13.3 g/dl (14.0-18.0); Immature Granulocytes # (auto) 0.12 K/uL (0.00-0.02); Immature Granulocytes % (auto) 0.6 %; Lymphocytes # (auto) 1.34 K/uL (1.2-3.4); Lymphocytes % (auto) 6.5 %; Mean Corpuscular Hemoglobin 31.5 pg (25.0-34.0); Mean Corpuscular Hgb Conc 34.5 g/dL (32.0-36.0); Mean Corpuscular Volume 91.2 fL (80.0-100.0); Mean Platelet Volume 9.3 fL (9.4-12.4); Monocytes # (auto) 0.78 K/uL (0.24-0.82); Monocytes % (auto) 3.8 %; Neutrophils # (auto) 14.61 K/uL (1.4-6.5); Neutrophils % (auto) 70.6 %; Platelet Count 324 K/uL (130-400); RDW Coefficient of Variation 14.3 % (11.5-14.5); Red Blood Count 4.22 M/uL (4.63-6.08); White Blood Count 20.67 K/ul (4.8-10.8)
[2022-04-05 08:51] LABS: Base Excess VBG 4.4 mEq/L; HCO3 VBG 27 mmol/L; Oxygen Saturation VBG 92.8 %; PCO2 VBG 32 mmHg (38-50); PO2 VBG 59 mmHg; pH VBG 7.53 (7.36-7.41)
[2022-04-05 09:11] LABS: Alanine Aminotransferase 19 U/L (7-52); Albumin Globulin Ratio 0.7 (0.9-2); Albumin Level 2.5 gm/dl (3.4-5.0); Alkaline Phosphatase 63 U/L (34-104); Anion Gap 9 (3-11); Aspartate Aminotransferase 27 U/L (13-39); Bilirubin,Total 0.8 mg/dl (0.2-1.0); Blood Urea Nitrogen 23 mg/dl (6-23); Calcium 7.7 mg/dl (8.5-10.1); Carbon Dioxide 24 mmol/L (21-32); Chloride 108 mmol/L (98-107); Est GFR (African American) 86.8 ml/min; Est GFR (Non-African American) 74.9 ml/min; Globulin 3.4 gm/dl (2.5-4.0); Glucose 114 mg/dl (70-99(Fasting)); Potassium 3.4 mmol/L (3.5-5.1); Sodium 141 mmol/L (136-145); Total Protein 5.9 gm/dl (6.0-8.3)
[2022-04-05 09:28] LABS: Appearance Urine Clear (Clear); Bacteria Urine Automated Negative (Negative); Blood Urine Negative (Negative); Color Urine Dark Yellow; Epithelial Cell Urine Auto 20-30 /lpf (0-5); Glucose Urine UA Negative (Negative); Ketones Urine Trace (Negative); Leukocyte Esterase Urine Trace (Negative); Nitrite Urine Negative (Negative); Protein Urine 1+ (Negative); RBC Urine Automated 0-4 /hpf (0-4); Specific Gravity Urine 1.032 (1.000-1.030); Urobilinogen Urine Negative (Negative)
[2022-04-05 09:34] LABS: Bilirubin Urine 1+ (Negative)
[2022-04-05] MEDS ORDERED: PIPERACILLIN/TAZOBACTAM 4.5 GM in DEXTROSE 5% 100 ML IV ONE (09:43)
[2022-04-05] MEDS ORDERED: VANCOMYCIN CONSULT ACTIVE PRN (09:46)
[2022-04-05] MEDS ORDERED: VANCOMYCIN HCL 1,500 MG in SODIUM CHLORIDE 0.9% 500 ML IV ONE (09:46)
[2022-04-05] MEDS: SODIUM CHLORIDE 0.9% 1000ML 1,000 ML IV SCH ×2 (09:46→21:54)
--- NOTE | 2022-04-05 09:53 | XRay Report ---
XR chest 1V portable HISTORY: Dyspnea COMPARISON: Chest 01/29/2021. Chest CT 01/30/2021. FINDINGS: No pneumothorax. The cardiac silhouette remains mildly enlarged. Interval development of bi lateral mid to lower lung zone airspace opacities with diffuse interstitial thickening. There may be trace bilateral pleural effusions. Prominence of the mediastinum which may be due to the AP portable technique or lymphadenopathy given the suspected pneumonia. Possible 1.3 cm nodule within the left up per lobe. IMPRESSION: 1. Bilateral mid to lower lung zone airspace opacities with interstitial thickening. This likely repr esents an atypical pneumonia could be due to a viral process. Superimposed pulmonary edema could also have a similar appearance. 2. Cardiomegaly and trace bilateral pleural effusions. 3. Mild widening the superior mediastinum which could be due to the AP portable technique or possibly reactive lymphadenopathy given the suspected pneumonia. Follow-up chest x-ray is recommended to ensu re resolution. 4. Possible 1.3 cm nodule within the left upper lobe. This could also be reassessed on follow-up ches t x-ray. ACT 112: Negative or not required by law. Electronically signed by: Keagan Mckeon M.D. 04/05/2022 9:51 AM
--- NOTE | 2022-04-05 10:09 | History & Physical Report ---
Date of Service April 05, 2022 Assessment & Plan (1) Acute respiratory failure with hypoxemia: (2) COVID-19: (3) Bilateral pneumonia: (4) Alzheimer's dementia: (5) Ambulatory dysfunction: (6) Paroxysmal atrial fibrillation: Plan 77 year old male with Alzheimer's dementia, resident of memory care unit who was sent to the ED for hypoxia, shortness of breath and fever. Acute hypoxic respiratory failure due to COVID 19 pneumonia- continue supplemental oxygen. Wean off as tolerated Bilateral PNA with COVID 19 infection- CXR noted. COVID 19 positive. Leucocytosis 20K, normal lactate. He tested positive for COVID 19 about 3 weeks ago and was treated with a course of paxlovid- he did not have any respiratory symptoms until today. Although his COVID positive status could be the residual from recent infection, however with new onset profound hypoxemia, bilateral pneumonia and COVID 19 still being positive, will consider as possible reinfection and consider a course of remdesevir to see if it would help. Will start on remdesevir and decadron D1. Will also cover with empiric ceftriaxone/doxy to cover any bacterial infection with significant leucocytosis. Check sputum clx, blood culture, procalcitonin. Follow up CXR to ensure resolution. IS, flutter valve if able to use. Low concern for PE as he is on therapeutic eliquis. PAF- on amiodarone, eliquis Alzheimer's dementia- on donepezil, memantine, Delirium precautions Possible NEHEMIAS lung nodule- seen in CXR. Follow up CXR recommended. Prolonged QTc- QTc noted to be 568. Avoid further QT prolonging agents. Hypokalemia- mild, recheck in am Generalized weakness/ambulatory dysfunction- PT/OT eval when he is stable DVT ppx- eliquis Dispo- PCU on tele DNR/DNI- per prior palliative discussion and POLST form. Also confirmed with over the phone. History of Present Illness Chief Complaint: hypoxia, fever Primary Care Provider: Vinicio Haro DO 77 year old male with history of mixed Alzheimer's dementia, PAF, h/o PE/DVT, h/o pericardial effusion s/p colchicine, resident of [facility] sent to the ED for hypoxia and low grade fever. Patient is a resident of memory care unit but was declining over the past few days, hence transferred to the skilled unit yesterday. This morning, he had hypoxia for which he was sent to the ED. I spoke to the over the phone as well as the staff from the facility to get the history and verify the medications. Also, saw and examined the patient at bedside. Patient is awake, alert oriented to self and doesn't know why he was sent to the ED. Denies any issues currently and is comfortable. Per the facility staff, he tested positive for COVID 3 weeks back around March 17 and completed 5 day of paxolvid around March 23 however he never had any respiratory issues other than mild cough. He was never hypoxic or short of breath. They did not test him again afterwards to see if he was negative and never had any CXR done. He also completed a course of bactrim and Augmentin over the past month for UTIs but recent urine culture from 04/02 was negative. He also had hip and leg pain for which he was on oxycodone 5 mg bid from 03/21 to 03/28 but was held due to concern for cognitive changes. Hip/pelvis xray was done which did not show any acute abnormalities other than OA. He was noted to be declining functionally and cognitively over the past few days and was transferred to the skilled unit yesterday. This morning, he was noted to be hypoxic- oxygen saturation of 68% with 2 L oxygen and was put on 4 L oxygen by EMS and went up to 88%. He was placed on non rebreather which improved the saturation to 90s and he was brought to the ED. In the ED, work up showed leucocytosis of 20K, mild temperature of 37.9, normal leucocytosis and CXR with PNA. He was given zosyn/vanc in the ED. Hospitalist service was consulted for further management. Allergies Allergy/AdvReac Type Severity Reaction Status Date / Time No Known Drug Allergies Allergy Unknown ` Verified 01/29/21 23:12 Home Medications Medication Instructions Recorded Confirmed Type folic acid 1 mg tablet 1 mg PO QAM ##30 09/19/14 01/29/21 History Saccharomyces boulardii 250 mg 250 mg PO AMHS 10/01/20 01/29/21 History capsule atorvastatin 40 mg tablet 40 mg PO DAILY 10/01/20 01/29/21 History donepezil 23 mg tablet 23 mg PO HS 10/01/20 01/29/21 History memantine 10 mg tablet 10 mg PO AMHS 10/01/20 01/29/21 History thiamine HCl (vitamin B1) 100 mg 100 mg PO QAM 10/01/20 01/29/21 History tablet zinc 50 mg tablet 50 mg PO QAM 10/05/20 01/29/21 History metoprolol succinate 25 mg 12.5 mg PO QAM 11/28/20 01/29/21 History tablet,extended release 24 hr multivitamin 1 tab PO QAM 11/28/20 01/29/21 History amiodarone 200 mg tablet 200 mg PO QAM #30 tabs 12/02/20 01/29/21 Rx famotidine 20 mg tablet 20 mg PO QAM #30 tabs 12/02/20 01/29/21 Rx acetaminophen 325 mg tablet 325 mg PO Q4 PRN Fever Or Pain 01/29/21 01/29/21 History apixaban 5 mg tablet (Eliquis) 5 mg PO AMHS 01/29/21 01/29/21 History aspirin 81 mg chewable tablet 81 mg PO DAILY 01/29/21 01/29/21 History (Aspirin Childrens) buspirone 5 mg tablet 5 mg PO TID 01/29/21 01/29/21 History colchicine 0.6 mg tablet (Colcrys) 0.6 mg PO QAM 01/29/21 01/29/21 History docusate sodium 100 mg capsule 100 mg PO DAILY PRN Constipation 01/29/21 01/29/21 History polyethylene glycol 3350 17 17 g PO DAILY PRN Constipation 01/29/21 01/29/21 History gram/dose oral powder (Miralax) sennosides 8.6 mg tablet 8.6 mg PO BID 01/29/21 01/29/21 History Past Med/Surg History Medical History Alzheimer's dementia CKD (chronic kidney disease), stage III Confusion Dizziness (09/19/14) New onset atrial fibrillation Pulmonary embolism Right knee DJD Right knee pain Vascular dementia Surgical History H/O knee surgery Hx of tonsillectomy Family History Other Cancer Dementia Social History Smoking Status: Never smoker Hx Alcohol Use: No Hx Substance Use: No Preferred Language: Turkish Communication Ability: Impaired Director Fixed Income Required: No Beliefs That Will Affect Care: None Current Living Situation: Snf Feels Safe at Home: Yes Assistive Devices: None Review of Systems Review of Systems: All systems reviewed & are unremarkable except as noted in Subjective Physical Exam Physical Exam: General: Lying comfortably in bed, not in acute distress, on non rebreather mask at 11 L HEENT: PERRL, dry oral mucosa Chest: Clear breath sounds bilaterally with basilar crackles CVS: Regular rate and rhythm, normal heart sounds, no murmur Abdomen: Soft, non tender, not distended, normal bowel sounds Neuro: Awake, alert, oriented to self, answers simple questions, follows simple commands Extremities: No edema Results & Data Results & Data ([facility]) Vital Signs (Past 12 Hours) Vital Signs Temp Pulse Pulse Resp BP BP Pulse Ox 04/05/22 09:10 71 24 104/58 L 94 04/05/22 09:06 37.9 C H 04/05/22 09:06 68 24 98 04/05/22 08:38 04/05/22 08:29 37.4 C 67 24 91/57 L 88 L O2 Del Method O2 Flow Rate 04/05/22 09:10 Non-rebreather 04/05/22 09:06 04/05/22 09:06 Non-rebreather 10 04/05/22 08:38 Non-rebreather 10 04/05/22 08:29 Room Air Laboratory Results Short CBC 04/05/22 Range/Units 08:41 WBC 20.67 H (4.8-10.8) K/ul Hgb 13.3 L (14.0-18.0) g/dl Hct 38.5 L (40.1-51.0) % Plt Count 324 (130-400) K/uL BMP 04/05/22 08:41 Sodium 141 Potassium 3.4 L Chloride 108 H Carbon Dioxide 24 BUN 23 Creatinine 0.96 Glucose 114 H Calcium 7.7 L Liver Function 04/05/22 Range/Units 08:41 Total Bilirubin 0.8 (0.2-1.0) mg/dl AST 27 (13-39) U/L ALT 19 (7-52) U/L Alkaline Phosphatase 63 (34-104) U/L Albumin 2.5 L (3.4-5.0) gm/dl Urine 04/05/22 Range/Units 09:01 Urine Color Dark Yellow Urine Appearance Clear (Clear) Urine pH 6.0 (4.5-7.5) Ur Specific [place] 1.032 H (1.000-1.030) Urine Protein 1+ H (Negative) Urine Glucose (UA) Negative (Negative) Diagnostic Findings Chest X-Ray 04/05/22 08:44 XR chest 1V portable HISTORY: Dyspnea COMPARISON: Chest 01/29/2021. Chest CT 01/30/2021. FINDINGS: No pneumothorax. The cardiac silhouette remains mildly enlarged. Interval development of bilateral mid to lower lung zone airspace opacities with diffuse interstitial thickening. There may be trace bilateral pleural effusions. Prominence of the mediastinum which may be due to the AP portable technique or lymphadenopathy given the suspected pneumonia. Possible 1.3 cm nodule within the left upper lobe. IMPRESSION: 1. Bilateral mid to lower lung zone airspace opacities with interstitial thickening. This likely represents an atypical pneumonia could be due to a viral process. Superimposed pulmonary edema could also have a similar appearance. 2. Cardiomegaly and trace bilateral pleural effusions. 3. Mild widening the superior mediastinum which could be due to the AP portable technique or possibly reactive lymphadenopathy given the suspected pneumonia. Follow-up chest x-ray is recommended to ensure resolution. 4. Possible 1.3 cm nodule within the left upper lobe. This could also be reassessed on follow-up chest x-ray. ACT 112: Negative or not required by law. Electronically signed by: Keagan Mckeon M.D. 04/05/2022 9:51 AM
[2022-04-05] MEDS ORDERED: AZITHROMYCIN 500 MG in DEXTROSE 5% 250 ML IV SCH (10:15)
[2022-04-05] MEDS ORDERED: REMDESIVIR 200 MG in SODIUM CHLORIDE 0.9% 210 ML IV STA (10:50)
[2022-04-05] MEDS: DOXYCYCLINE HYCLATE 100 MG in DEXTROSE 5% 100 ML IV SCH (10:56)
[2022-04-05] MEDS: dexAMETHasone 6 MG in SYRINGE 0 ML IV SCH (11:08)
--- NOTE | 2022-04-05 11:23 | Electrocardiogram Report ---
Test Reason : Blood Pressure : / mmHG Vent. Rate : 067 BPM Atrial Rate : 067 BPM P-R Int : 166 ms QRS Dur : 084 ms QT Int : 538 ms P-R-T Axes : 015 010 001 degrees QTc Int : 568 ms Normal sinus rhythm Nonspecific T wave abnormality Anteroseptal leads Prolonged QT Abnormal ECG When compared with ECG of 02-FEB-2021 11:30, Nonspecific T wave abnormality now evident in Anteroseptal leads QT has lengthened Confirmed by Pepe Kumar ([id number]) on 04/05/2022 11:23:34 AM Referred By: REFERRED SELF Confirmed By:Pepe Kumar
[2022-04-05] MEDS ORDERED: ACETAMINOPHEN 325 MG TAB PO PRN (11:26)
[2022-04-05] MEDS ORDERED: DOCUSATE SODIUM 100 MG CAP PO PRN (11:26)
--- NOTE | 2022-04-05 13:04 | Emergency Department Note ---
Impression & Plan Pneumonia due to severe acute respiratory syndrome coronavirus 2 (SARS-CoV-2), Dementia ED Provider Note CHIEF COMPLAINT: Shortness of breath HISTORY OF PRESENT ILLNESS: This 77-year-old male patient presents to the emergency department with complaints of respiratory failure. The patient re sides at a nursing facility and was noted to be hypoxic with increased work of breathing by nursing staff. The ambulance was called patient was confirmed to be hypoxic into the 60s on room air. Patient was given some supplemental oxygenation and on my evaluation was in the 90s on nonrebreather. Patient is of history of significant dementia and is unable to answer questions appropriately. He does have a history of an pulmonary embolus, he is anticoagulated on Eliquis. REVIEW OF SYSTEMS: Did review of systems secondary to the patient's dementia/mental status ALLERGIES: see below MEDICATIONS: see below PMH: see below SOCIAL HISTORY: see below DDx:Reactive airway disease, pneumonia, pneumothorax, COPD, CHF, infections, cardiac ischemia, pulmonary embolism, musculoskeletal, gastrointestinal, as well as other pathologies. PHYSICAL EXAM: Vital signs reviewed. General: Chronically ill-appearing 77-year-old male on nonrebreather, in no significant distress. HEENT: No scleral icterus, PERRLA, neck supple. Atraumatic. Cardiovascular: Regular rate and rhythm, no extra sounds. Pulmonary: Diminished breath sounds bilaterally with poor inspiratory effort. No coughing, nonlabored work of breathing on NRB. Abdomen: Soft, nontender, nondistended, positive bowel sounds. Musculoskeletal: Atraumatic, no peripheral edema. Neurologic: Patient awake alert but unable to answer questions appropriately. Speech is jumbled/mumbled Skin: Warm, dry, no rash EMERGENCY DEPARTMENT COURSE/MDM: This patient was evaluated and appeared to be in respiratory distress. IV access was obtained and laboratory work was drawn. Patient seemed to be breathing comfortably on nonrebreather. Oxygen saturations were maintained at 93 to 94%. at 93-94% on NRB. Chest x-ray reveals a diffuse infiltrative process consistent with pneumonitis. Blood cultures were obtained and the patient was medicated with IV Zosyn and vancomycin. He was hydrated with normal saline solution. Lactic acid is normal. Patient's COVID swab was positive. Patient's case was discussed with the hospitalist service will evaluate the patient for admission and further management. MONITORING: An order for cardiac monitoring was placed and the patient is noted to be in a NSR at 67 beats per minute. RADIOLOGY: see below EKG:NSR at 67 bpm, nonspecific T wave abnormality in the anterior septal leads. Prolonged QTC of 568. No PVC, no PAC. Compared to February 02, 2021, nonspecific T wave abnormality in the anterior septal leads is new. DISPOSITION: Admission I have personally spent 30 minutes of critical care time in the direct management of this patient. This was a life/limb threatening event. This 30 minutes is in excess of all separately billable procedures. Past Med/Surg History Medical History Alzheimer's dementia CKD (chronic kidney disease), stage III Confusion Dizziness (09/19/14) New onset atrial fibrillation Pulmonary embolism Right knee DJD Right knee pain Vascular dementia Surgical History H/O knee surgery Hx of tonsillectomy Family History Other Cancer Dementia Social History Smoking Status: Never smoker Hx Alcohol Use: No Hx Substance Use: No Preferred Language: Japanese Communication Ability: Impaired Drama Teacher Required: No Beliefs That Will Affect Care: None Current Living Situation: Half-Way Current Living Situation Comment: [facility] Feels Safe at Home: Yes Assistive Devices: Glasses and Hearing Aid - Bilateral Allergies Allergies Allergy/AdvReac Type Severity Reaction Status Date / Time No Known Drug Allergies Allergy Unknown ` Verified 01/29/21 23:12 Home Meds Home Medications Medication Instructions Recorded Confirmed folic acid 1 mg tablet 1 mg PO [facility] ##30 09/19/14 04/06/22 Saccharomyces boulardii 250 mg 250 mg PO [facility] 10/01/20 04/06/22 capsule atorvastatin 40 mg tablet 40 mg PO 10/01/20 04/06/22 donepezil 23 mg tablet 23 mg PO 10/01/20 04/06/22 memantine 10 mg tablet 10 mg PO [facility] 10/01/20 04/06/22 thiamine HCl (vitamin B1) 100 mg 100 mg PO QA 10/01/20 04/06/22 tablet zinc 50 mg tablet 50 mg PO [facility] 10/05/20 04/06/22 multivitamin 1 tab PO QAM 11/28/20 04/06/22 acetaminophen 325 mg tablet 325 mg PO Q4 PRN Fever Or Pain 01/29/21 04/06/22 apixaban 5 mg tablet (Eliquis) 5 mg PO [facility] 01/29/21 04/06/22 aspirin 81 mg chewable tablet 81 mg PO DAILY 01/29/21 04/06/22 (Aspirin Childrens) docusate sodium 100 mg capsule 100 mg PO DAILY PRN Constipation 01/29/21 04/06/22 polyethylene glycol 3350 17 17 g PO DAILY PRN Constipation 01/29/21 04/06/22 gram/dose oral powder (Miralax) GenTeal Tears Moderate (PF) 2 drp BID PRN Dry Eye(S) 04/06/22 04/06/22 benzocaine 1 unit PO Q6 PRN Toothache 04/06/22 04/06/22 duloxetine 30 mg capsule,delayed 30 mg PO DAILY 04/06/22 04/06/22 release (Cymbalta) Previous Rx's Medication Instructions Recorded amiodarone 200 mg tablet 200 mg PO QAM #30 tabs 12/02/20 famotidine 20 mg tablet 20 mg PO QAM #30 tabs 12/02/20 Results & Data (ED) Vital Signs Vital Signs - 24 hr 04/05/22 08:29 04/05/22 08:38 04/05/22 08:38 Temperature 37.4 C Temperature Source Axillary Pulse Rate 67 Pulse Rate [Apical] Respiratory Rate 24 Respiratory Effort / Characteristics Non-Labored Respiratory Depth Normal Respiratory Pattern Tachypnea Tachypnea Blood Pressure 91/57 L Blood Pressure [Right Arm] Blood Pressure Mean 68 Blood Pressure Mean [Right Arm] Pulse Oximetry 88 L Oxygen Delivery Method Room Air Non-rebreather Oxygen Flow Rate 10 Sepsis Recent Fever Within 48 Hours Yes Sepsis New/Unexplained Change in Mental Status Yes Sepsis Action Taken by Nursing Physician Notified 04/05/22 09:06 04/05/22 09:06 04/05/22 09:10 Temperature 37.9 C H Temperature Source Rectal Pulse Rate 68 Pulse Rate [Apical] 71 Respiratory Rate 24 24 Respiratory Effort / Characteristics Respiratory Depth Respiratory Pattern Tachypnea Blood Pressure Blood Pressure [Right Arm] 104/58 L Blood Pressure Mean Blood Pressure Mean [Right Arm] 73 Pulse Oximetry 98 94 Oxygen Delivery Method Non-rebreather Non-rebreather Oxygen Flow Rate 10 Sepsis Recent Fever Within 48 Hours Sepsis New/Unexplained Change in Mental Status Sepsis Action Taken by [facility]-Way Medications Current Medication List: was personally reviewed by me Laboratory Data Attestation: I reviewed the patient's lab results. Result diagrams: 04/08/22 09:36 04/08/22 09:36 Lab Results 04/05/22 04/05/22 04/05/22 Range/Units 08:41 08:41 08:41 WBC 20.67 H (4.8-10.8) K/ul RBC 4.22 L (4.63-6.08) M/uL Hgb 13.3 L (14.0-18.0) g/dl Hct 38.5 L (40.1-51.0) % MCV 91.2 (80.0-100.0) fL MCH 31.5 (25.0-34.0) pg MCHC 34.5 (32.0-36.0) g/dL RDW Std Deviation 48.0 H (36.4-46.3) fL RDW Coeff of Brynn 14.3 (11.5-14.5) % Plt Count 324 (130-400) K/uL MPV 9.3 L (9.4-12.4) fL Immature Gran % (Auto) 0.6 % Neut % (Auto) 70.6 % Lymph % (Auto) 6.5 % [place] % (Auto) 3.8 % Eos % (Auto) 18.4 % Baso % (Auto) 0.1 % Neut # (Auto) 14.61 H (1.4-6.5) K/uL Lymph # (Auto) 1.34 (1.2-3.4) K/uL [place] # (Auto) 0.78 (0.24-0.82) K/uL Eos # (Auto) 3.80 H (0-0.50) K/uL Baso # (Auto) 0.02 (0-0.2) K/uL Immature Gran # (Auto) 0.12 H (0.00-0.02) K/uL VBG pH 7.53 H (7.36-7.41) VBG pCO2 32 L (38-50) mmHg VBG pO2 59 mmHg VBG HCO3 27 mmol/L VBG O2 Saturation 92.8 % VBG Base Excess 4.4 mEq/L Sodium 141 (136-145) mmol/L Potassium 3.4 L (3.5-5.1) mmol/L Chloride 108 H (98-107) mmol/L Carbon Dioxide 24 (21-32) mmol/L Anion Gap 9 (3-11) BUN 23 (6-23) mg/dl Creatinine 0.96 (0.6-1.4) mg/dl Est Cr Clr Drug Dosing Not Reportable Est GFR ( Amer) 86.8 ml/min Est GFR (Non-Af Amer) 74.9 ml/min BUN/Creatinine Ratio 24.0 H (10-20) Glucose 114 H (70-99(Fasting)) mg/dl Lactate (0.4-2.0) mmol/L Calcium 7.7 L (8.5-10.1) mg/dl Total Bilirubin 0.8 (0.2-1.0) mg/dl AST 27 (13-39) U/L ALT 19 (7-52) U/L Alkaline Phosphatase 63 (34-104) U/L Total Protein 5.9 L (6.0-8.3) gm/dl Albumin 2.5 L (3.4-5.0) gm/dl Globulin 3.4 (2.5-4.0) gm/dl Albumin/Globulin Ratio 0.7 L (0.9-2) Urine Color Urine Appearance (Clear) Urine pH (4.5-7.5) Ur Specific [place] (1.000-1.030) Urine Protein (Negative) Urine Glucose (UA) (Negative) Urine Ketones (Negative) Urine Blood (Negative) Urine Nitrite (Negative) Urine Bilirubin (Negative) Urine Urobilinogen (Negative) Ur Leukocyte Esterase (Negative) Urine WBC (Auto) (0-5) /hpf Urine RBC (Auto) (0-4) /hpf U Hyaline Cast (Auto) (0-5) /lpf U Epithel Cells (Auto) (0-5) /lpf Urine Bacteria (Auto) (Negative) SARS-CoV-2 (PCR) (Negative) 04/05/22 04/05/22 04/05/22 Range/Units 08:41 09:01 09:30 WBC (4.8-10.8) K/ul RBC (4.63-6.08) M/uL Hgb (14.0-18.0) g/dl Hct (40.1-51.0) % MCV (80.0-100.0) fL MCH (25.0-34.0) pg MCHC (32.0-36.0) g/dL RDW Std Deviation (36.4-46.3) fL RDW Coeff of Brynn (11.5-14.5) % Plt Count (130-400) K/uL MPV (9.4-12.4) fL Immature Gran % (Auto) % Neut % (Auto) % Lymph % (Auto) % [place] % (Auto) % Eos % (Auto) % Baso % (Auto) % Neut # (Auto) (1.4-6.5) K/uL Lymph # (Auto) (1.2-3.4) K/uL [place] # (Auto) (0.24-0.82) K/uL Eos # (Auto) (0-0.50) K/uL Baso # (Auto) (0-0.2) K/uL Immature Gran # (Auto) (0.00-0.02) K/uL VBG pH (7.36-7.41) VBG pCO2 (38-50) mmHg VBG pO2 mmHg VBG HCO3 mmol/L VBG O2 Saturation % VBG Base Excess mEq/L Sodium (136-145) mmol/L Potassium (3.5-5.1) mmol/L Chloride (98-107) mmol/L Carbon Dioxide (21-32) mmol/L Anion Gap (3-11) BUN (6-23) mg/dl Creatinine (0.6-1.4) mg/dl Est Cr Clr Drug Dosing Est GFR ( Amer) ml/min Est GFR (Non-Af Amer) ml/min BUN/Creatinine Ratio (10-20) Glucose (70-99(Fasting)) mg/dl Lactate 1.1 (0.4-2.0) mmol/L Calcium (8.5-10.1) mg/dl Total Bilirubin (0.2-1.0) mg/dl AST (13-39) U/L ALT (7-52) U/L Alkaline Phosphatase (34-104) U/L Total Protein (6.0-8.3) gm/dl Albumin (3.4-5.0) gm/dl Globulin (2.5-4.0) gm/dl Albumin/Globulin Ratio (0.9-2) Urine Color Dark Yellow Urine Appearance Clear (Clear) Urine pH 6.0 (4.5-7.5) Ur Specific [place] 1.032 H (1.000-1.030) Urine Protein 1+ H (Negative) Urine Glucose (UA) Negative (Negative) Urine Ketones Trace H (Negative) Urine Blood Negative (Negative) Urine Nitrite Negative (Negative) Urine Bilirubin 1+ H (Negative) Urine Urobilinogen Negative (Negative) Ur Leukocyte Esterase Trace H (Negative) Urine WBC (Auto) 1-5 (0-5) /hpf Urine RBC (Auto) 0-4 (0-4) /hpf U Hyaline Cast (Auto) 1-5 (0-5) /lpf U Epithel Cells (Auto) 20-30 H (0-5) /lpf Urine Bacteria (Auto) Negative (Negative) SARS-CoV-2 (PCR) POSITIVE A* (Negative) Administered Medications Morphine Sulfate (Morphine Sulf/Nss) 100 mg in 100 mls @ 3.5 mls/hr IV .[id number] [facility]; Protocol Stop: 04/24/22 10:14 Last Admin: 04/13/22 04:21 Dose: 3.5 mg/hr, 3.5 mls/hr Documented By: KIRILL Co-signed By: SHERRIE Titration: 04/13/22 04:21 Dose: 3.5 mg/hr, 3.5 mls/hr Documented By: KIRILL Co-signed By: SHERRIE Admin: 04/12/22 20:05 Dose: Not Given Documented By: Titration: 04/12/22 10:15 Dose: 3.5 mg/hr, 3.5 mls/hr Documented By: Admin: 04/11/22 23:36 Dose: 3 mg/hr, 3 mls/hr Documented By: SHERRIE Co-signed By: JIM Titration: 04/11/22 23:36 Dose: 3 mg/hr, 3 mls/hr Documented By: SHERRIE Co-signed By: JIM Titration: 04/11/22 09:24 Dose: 3 mg/hr, 3 mls/hr Documented By: Titration: 04/10/22 15:38 Dose: 2.5 mg/hr, 2.5 mls/hr Documented By: Admin: 04/10/22 12:09 Dose: 2 mg/hr, 2 mls/hr Documented By: KRUPA Co-signed By: ALVIN Lorazepam 1 mg/ Syringe 1 mls @ 2 mls/min IV Q4H PRN PRN Reason: Anxiety/Agitation Stop: 05/08/22 22:05 Last Admin: 04/13/22 13:37 Dose: 2 mls/min Documented By: Admin: 04/12/22 20:04 Dose: 2 mls/min Documented By: Admin: 04/12/22 10:00 Dose: 2 mls/min Documented By: Admin: 04/11/22 08:18 Dose: 2 mls/min Documented By: Admin: 04/10/22 15:42 Dose: 2 mls/min Documented By: ALVIN Morphine Sulfate (Morphine Sulfate 4 Mg/Ml 1 Ml Carp\Vial) 2 mg IV Q30M PRN PRN Reason: Pain or dyspnea Stop: 04/22/22 10:47 Last Admin: 04/12/22 23:16 Dose: 2 mg Documented By: Admin: 04/12/22 18:35 Dose: 2 mg Documented By: Admin: 04/12/22 14:02 Dose: 2 mg Documented By: Admin: 04/12/22 06:18 Dose: 2 mg Documented By: Admin: 04/11/22 20:05 Dose: 2 mg Documented By: Admin: 04/11/22 16:19 Dose: 2 mg Documented By: Admin: 04/11/22 13:11 Dose: 2 mg Documented By: Admin: 04/11/22 11:43 Dose: 2 mg Documented By: Admin: 04/11/22 08:26 Dose: 2 mg Documented By: Admin: 04/10/22 17:51 Dose: 2 mg Documented By: Admin: 04/10/22 15:25 Dose: 2 mg Documented By: Admin: 04/10/22 13:34 Dose: 2 mg Documented By: ALVIN Olanzapine (Olanzapine Zydis 10 Mg Orally Dis. Tab) 10 mg PO BID [facility] Stop: 05/10/22 20:59 Last Admin: 04/13/22 09:05 Dose: 10 mg Documented By: Admin: 04/12/22 20:04 Dose: 10 mg Documented By: Admin: 04/12/22 10:00 Dose: 10 mg Documented By: Admin: 04/11/22 20:05 Dose: 10 mg Documented By: Admin: 04/11/22 08:18 Dose: 10 mg Documented By: Admin: 04/10/22 20:14 Dose: 10 mg Documented By: ALIREZA Discontinued Medications Amiodarone HCl (Amiodarone 200 Mg Tab) 200 mg PO QAM [facility] Stop: 05/06/22 08:59 Last Admin: 04/08/22 10:32 Dose: Not Given Documented By: Admin: 04/07/22 13:43 Dose: Not Given Documented By: Admin: 04/06/22 12:37 Dose: 200 mg Documented By: TERRY Apixaban (Apixaban 5 Mg Tablet) 5 mg PO [facility] Stop: 05/05/22 20:59 Last Admin: 04/07/22 13:43 Dose: Not Given Documented By: Admin: 04/06/22 21:06 Dose: 5 mg Documented By: Admin: 04/06/22 12:33 Dose: 5 mg Documented By: Admin: 04/05/22 20:36 Dose: Not Given Documented By: ANDRIY Aspirin (Aspirin 81 Mg Chew) 81 mg PO DAILY [facility] Stop: 05/06/22 08:59 Last Admin: 04/08/22 10:32 Dose: Not Given Documented By: Admin: 04/07/22 13:43 Dose: Not Given Documented By: Admin: 04/06/22 12:34 Dose: 81 mg Documented By: TERRY Atorvastatin Calcium (Atorvastatin 40 Mg Tab) 40 mg PO DAILY [facility] Stop: 05/06/22 08:59 Last Admin: 04/08/22 10:33 Dose: Not Given Documented By: Admin: 04/07/22 13:43 Dose: Not Given Documented By: Admin: 04/06/22 12:36 Dose: 40 mg Documented By: TERRY Buspirone HCl (Buspirone 7.5 Mg Tab) 7.5 mg PO TID [facility] Stop: 05/05/22 13:59 Last Admin: 04/08/22 10:33 Dose: Not Given Documented By: Admin: 04/07/22 21:45 Dose: Not Given Documented By: Admin: 04/07/22 14:48 Dose: Not Given Documented By: Admin: 04/07/22 13:43 Dose: Not Given Documented By: Admin: 04/06/22 21:07 Dose: 7.5 mg Documented By: Admin: 04/06/22 16:49 Dose: 7.5 mg Documented By: Admin: 04/06/22 12:35 Dose: 7.5 mg Documented By: Admin: 04/05/22 20:36 Dose: Not Given Documented By: Admin: 04/05/22 15:00 Dose: 7.5 mg Documented By: TERRY Donepezil HCl (Donepezil Hcl 10 Mg Tab) 20 mg PO [facility] Stop: 05/05/22 20:59 Last Admin: 04/07/22 21:45 Dose: Not Given Documented By: Admin: 04/06/22 21:06 Dose: 20 mg Documented By: Admin: 04/05/22 20:36 Dose: Not Given Documented By: ANDRIY Doxycycline Monohydrate (Doxycycline Susp 25 Mg/5 Ml 60ml) 100 mg PO BID [facility] Stop: 04/13/22 20:59 Last Admin: 04/07/22 13:59 Dose: Not Given Documented By: Admin: 04/06/22 21:05 Dose: 100 mg Documented By: ANDRIY Duloxetine HCl (Duloxetine Hcl 30 Mg Cap) 30 mg PO [facility] Stop: 05/06/22 08:59 Last Admin: 04/08/22 10:33 Dose: Not Given Documented By: Admin: 04/07/22 13:43 Dose: Not Given Documented By: Admin: 04/06/22 12:34 Dose: 30 mg Documented By: TERRY Duloxetine HCl (Duloxetine Hcl 30 Mg Cap) 30 mg PO ONE ONE Stop: 04/05/22 15:27 Last Admin: 04/05/22 16:42 Dose: 30 mg Documented By: TERRY Enoxaparin Sodium (Enoxaparin Inj 40 Mg/0.4 Ml Syr) 40 mg SQ NOW ONE Stop: 04/07/22 13:46 Last Admin: 04/07/22 14:43 Dose: 40 mg Documented By: Enoxaparin Sodium (Enoxaparin Inj 40 Mg/0.4 Ml Syr) 40 mg SQ [facility] Stop: 05/08/22 08:59 Last Admin: 04/08/22 08:00 Dose: 40 mg Documented By: MS Famotidine (Famotidine 20 Mg Tab) 20 mg PO [facility] Stop: 05/06/22 08:59 Last Admin: 04/08/22 10:33 Dose: Not Given Documented By: Admin: 04/07/22 13:43 Dose: Not Given Documented By: Admin: 04/06/22 12:33 Dose: 20 mg Documented By: TERRY Sodium Chloride (Nss 1000ml) 500 mls @ 999 mls/hr IV .Q31M ONE Stop: 04/05/22 09:15 Last Infusion: 04/05/22 09:53 Dose: 0 mls/hr Documented By: Admin: 04/05/22 09:14 Dose: 999 mls/hr Documented By: BUTCH Sodium Chloride (Nss 1000ml) 1,000 mls @ 80 mls/hr IV .[id number] [facility] Stop: 05/05/22 08:44 Last Infusion: 04/06/22 13:39 Dose: 0 mls/hr Documented By: Admin: 04/06/22 10:53 Dose: 80 mls/hr Documented By: Infusion: 04/06/22 10:24 Dose: 80 mls/hr Documented By: Admin: 04/05/22 21:54 Dose: 80 mls/hr Documented By: Infusion: 04/05/22 18:29 Dose: 80 mls/hr Documented By: Infusion: 04/05/22 16:30 Dose: 80 mls/hr Documented By: Admin: 04/05/22 09:46 Dose: 125 mls/hr Documented By: BUTCH Piperacillin Sod/Tazobactam (Sod 4.5 gm/ Dextrose) 120 mls @ 200 mls/hr IV NOW ONE; Protocol Stop: 04/05/22 10:18 Last Infusion: 04/05/22 10:55 Dose: 0 mls/hr Documented By: Admin: 04/05/22 10:11 Dose: 200 mls/hr Documented By: BUTCH Vancomycin HCl 1,500 mg/ (Sodium Chloride) 530 mls @ 200 mls/hr IV NOW ONE Stop: 04/05/22 12:24 Last Infusion: 04/05/22 13:36 Dose: 0 mls/hr Documented By: Admin: 04/05/22 10:37 Dose: 200 mls/hr Documented By: BUTCH Azithromycin 500 mg/ Dextrose 255 mls @ 125 mls/hr IV DAILY [facility] Stop: 04/12/22 10:14 Last Admin: 04/05/22 10:45 Dose: Not Given Documented By: BUTCH Doxycycline Hyclate 100 mg/ (Dextrose) 110 mls @ 50 mls/hr IV Q12H [facility] Stop: 04/12/22 10:59 Last Admin: 04/07/22 04:40 Dose: Not Given Documented By: Infusion: 04/06/22 04:08 Dose: 0 mls/hr Documented By: Admin: 04/06/22 00:23 Dose: 50 mls/hr Documented By: Infusion: 04/05/22 13:35 Dose: 0 mls/hr Documented By: Admin: 04/05/22 10:56 Dose: 50 mls/hr Documented By: BUTCH Remdesivir 200 mg/ Sodium (Chloride) 250 mls @ 125 mls/hr IV ONE ST[facility]; Protocol Stop: 04/05/22 12:49 Last Infusion: 04/05/22 17:13 Dose: 0 mls/hr Documented By: Admin: 04/05/22 13:25 Dose: 125 mls/hr Documented By: TERRY Remdesivir 100 mg/ Sodium (Chloride) 250 mls @ 250 mls/hr IV Q24H [facility] Stop: 04/09/22 20:59 Last Infusion: 04/06/22 21:11 Dose: 0 mls/hr Documented By: Admin: 04/06/22 19:53 Dose: 250 mls/hr Documented By: ANDRIY Dexamethasone 6 mg/ Syringe 1.5 mls @ 1 mls/min IV DAILY [facility] Stop: 04/15/22 10:59 Last Admin: 04/08/22 08:00 Dose: 1 mls/min Documented By: Admin: 04/07/22 09:52 Dose: 1 mls/min Documented By: Admin: 04/06/22 10:54 Dose: 1 mls/min Documented By: Admin: 04/05/22 11:08 Dose: 1 mls/min Documented By: BUTCH Ceftriaxone Sodium 2,000 mg/ (Dextrose) 70 mls @ 100 mls/hr IV DAILY [facility]; Protocol Stop: 04/12/22 13:29 Last Infusion: 04/05/22 17:31 Dose: 0 mls/hr Documented By: Admin: 04/05/22 16:31 Dose: 100 mls/hr Documented By: KS Piperacillin Sod/Tazobactam (Sod 3.375 gm/ Dextrose) 115 mls @ 28.75 mls/hr IV Q8H [facility]; Protocol Stop: 04/13/22 01:59 Last Infusion: 04/08/22 08:42 Dose: 0 mls/hr Documented By: Admin: 04/08/22 04:42 Dose: 28.8 mls/hr Documented By: MNKarena Infusion: 04/08/22 01:51 Dose: 0 mls/hr Documented By: Admin: 04/07/22 21:45 Dose: 28.8 mls/hr Documented By: Infusion: 04/07/22 17:42 Dose: 0 mls/hr Documented By: Admin: 04/07/22 13:41 Dose: 28.8 mls/hr Documented By: Infusion: 04/07/22 09:55 Dose: 0 mls/hr Documented By: Admin: 04/07/22 05:52 Dose: 28.8 mls/hr Documented By: Infusion: 04/07/22 02:11 Dose: 0 mls/hr Documented By: Admin: 04/06/22 22:07 Dose: 28.8 mls/hr Documented By: Infusion: 04/06/22 17:42 Dose: 0 mls/hr Documented By: Admin: 04/06/22 13:39 Dose: 28.8 mls/hr Documented By: Infusion: 04/06/22 06:42 Dose: 0 mls/hr Documented By: Admin: 04/06/22 02:25 Dose: 28.8 mls/hr Documented By: AMB Piperacillin Sod/Tazobactam (Sod 3.375 gm/ Dextrose) 115 mls @ 230 mls/hr IV NOW ONE; Protocol Stop: 04/05/22 21:14 Last Infusion: 04/05/22 22:44 Dose: 0 mls/hr Documented By: Admin: 04/05/22 21:54 Dose: 230 mls/hr Documented By: AMB Dextrose/Sodium Chloride (D5w And 1/2nss) 1,000 mls @ 50 mls/hr IV .Q20H [facility] Stop: 04/07/22 07:44 Last Infusion: 04/07/22 09:39 Dose: 0 mls/hr Documented By: Admin: 04/06/22 13:39 Dose: 50 mls/hr Documented By: TERRY Doxycycline Hyclate 100 mg/ (Dextrose) 110 mls @ 50 mls/hr IV Q12H [facility] Stop: 04/14/22 13:29 Last Infusion: 04/08/22 04:42 Dose: 0 mls/hr Documented By: Admin: 04/08/22 01:51 Dose: 50 mls/hr Documented By: Infusion: 04/07/22 16:57 Dose: 0 mls/hr Documented By: Admin: 04/07/22 14:45 Dose: 50 mls/hr Documented By: MS Dextrose/Sodium Chloride (D5w And 1/2nss) 1,000 mls @ 60 mls/hr IV .[id number] [facility] Stop: 05/07/22 13:29 Last Infusion: 04/07/22 14:31 Dose: 0 mls/hr Documented By: Admin: 04/07/22 13:42 Dose: 60 mls/hr Documented By: Potassium Acetate (Potassium Acetate/Nss) 10 meq in 105 mls @ 105 mls/hr IV Q1H ONE Stop: 04/07/22 14:59 Last Infusion: 04/07/22 15:40 Dose: 0 mls/hr Documented By: Admin: 04/07/22 14:40 Dose: 105 mls/hr Documented By: Lactated Ringer's (Lr) 1,000 mls @ 60 mls/hr IV .[id number] [facility] Stop: 05/07/22 14:14 Last Infusion: 04/08/22 11:41 Dose: 0 mls/hr Documented By: Admin: 04/08/22 07:57 Dose: 60 mls/hr Documented By: Infusion: 04/08/22 07:21 Dose: 60 mls/hr Documented By: Admin: 04/07/22 14:40 Dose: 60 mls/hr Documented By: Memantine (Memantine Hcl 10 Mg Tab) 10 mg PO AMHS [facility] Stop: 05/05/22 20:59 Last Admin: 04/08/22 10:33 Dose: Not Given Documented By: Admin: 04/07/22 21:45 Dose: Not Given Documented By: Admin: 04/07/22 13:42 Dose: Not Given Documented By: Admin: 04/06/22 21:07 Dose: 10 mg Documented By: Admin: 04/06/22 12:33 Dose: 10 mg Documented By: Admin: 04/05/22 20:36 Dose: Not Given Documented By: AMB Metoprolol Succinate (Metoprolol Succ 25mg Ext Rel Tab) [facility] [place]: 05/06/22 08:59 Last Admin: 04/08/22 10:33 Dose: Not Given Documented By: Admin: 04/07/22 13:42 Dose: Not Given Documented By: Admin: 04/06/22 12:31 Dose: Not Given Documented By: TERRY Morphine Sulfate (Morphine Sulfate 4 Mg/Ml 1 Ml Carp\Vial) 4 mg IV Q1H PRN PRN Reason: Pain or dyspnea Stop: 04/22/22 10:47 Last Admin: 04/10/22 06:05 Dose: 4 mg Documented By: Admin: 04/10/22 01:09 Dose: 4 mg Documented By: Admin: 04/09/22 21:25 Dose: 4 mg Documented By: Admin: 04/09/22 18:41 Dose: 4 mg Documented By: Admin: 04/09/22 16:27 Dose: 4 mg Documented By: Admin: 04/09/22 13:41 Dose: 4 mg Documented By: Admin: 04/09/22 10:28 Dose: 4 mg Documented By: Admin: 04/09/22 06:41 Dose: 4 mg Documented By: Admin: 04/09/22 01:29 Dose: 4 mg Documented By: Admin: 04/08/22 20:46 Dose: 4 mg Documented By: Admin: 04/08/22 18:15 Dose: 4 mg Documented By: [id number] Admin: 04/08/22 16:50 Dose: 4 mg Documented By: Admin: 04/08/22 14:00 Dose: 4 mg Documented By: Admin: 04/08/22 11:05 Dose: 4 mg Documented By: Olanzapine (Olanzapine Zydis 5 Mg Orally Dis. Tab) 5 mg PO BID [facility] Stop: 05/08/22 20:59 Last Admin: 04/10/22 09:40 Dose: 5 mg Documented By: Admin: 04/09/22 21:23 Dose: 5 mg Documented By: Admin: 04/09/22 12:17 Dose: Not Given Documented By: Admin: 04/08/22 21:13 Dose: 5 mg Documented By: LAIREZA Sennosides (Senna 8.6 Mg Tab) 8.6 mg PO BID [facility] Stop: 05/05/22 20:59 Last Admin: 04/08/22 10:33 Dose: Not Given Documented By: Admin: 04/07/22 21:45 Dose: Not Given Documented By: Admin: 04/07/22 13:42 Dose: Not Given Documented By: Admin: 04/06/22 21:06 Dose: 8.6 mg Documented By: Admin: 04/06/22 12:34 Dose: 8.6 mg Documented By: Admin: 04/05/22 20:36 Dose: Not Given Documented By: ANDRIY Tramadol HCl (Tramadol Hcl 50 Mg Tablet) 50 - 100 mg PO Q4H PRN PRN Reason: mod-sev pain Stop: 05/05/22 14:29 Last Admin: 04/05/22 15:00 Dose: 50 mg Documented By: TERRY Zinc Sulfate (Zinc Sulfate 220 Mg Capsule) 220 mg PO QAM [facility] Stop: 05/06/22 08:59 Last Admin: 04/08/22 10:33 Dose: Not Given Documented By: Admin: 04/07/22 13:42 Dose: Not Given Documented By: Admin: 04/06/22 12:34 Dose: 220 mg Documented By: TERRY Imaging Data Radiologist's Impression: Chest X-Ray 04/05/22 08:44 XR chest 1V portable HISTORY: Dyspnea COMPARISON: Chest 01/29/2021. Chest CT 01/30/2021. FINDINGS: No pneumothorax. The cardiac silhouette remains mildly enlarged. Interval development of bilateral mid to lower lung zone airspace opacities with diffuse interstitial thickening. There may be trace bilateral pleural effusions. Prominence of the mediastinum which may be due to the AP portable technique or lymphadenopathy given the suspected pneumonia. Possible 1.3 cm nodule within the left upper lobe. IMPRESSION: 1. Bilateral mid to lower lung zone airspace opacities with interstitial thickening. This likely represents an atypical pneumonia could be due to a viral process. Superimposed pulmonary edema could also have a similar appearance. 2. Cardiomegaly and trace bilateral pleural effusions. 3. Mild widening the superior mediastinum which could be due to the AP portable technique or possibly reactive lymphadenopathy given the suspected pneumonia. Follow-up chest x-ray is recommended to ensure resolution. 4. Possible 1.3 cm nodule within the left upper lobe. This could also be reassessed on follow-up chest x-ray. ACT 112: Negative or not required by law. Electronically signed by: Keagan Mckeon M.D. 04/05/2022 9:51 AM Blood Pressure Blood Pressure Findings: Normal blood pressure Blood Pressure Disposition: did not require urgent referral Discharge Plan Visit Data Chief Complaint: Shortness of Breath/Dyspnea Stated Complaint: AMS, HYPOXIA ED Provider: Wanda Hanks Discharge Problem: Pneumonia due to severe acute respiratory syndrome coronavirus 2 (SARS-CoV-2), Dementia Patient Disposition: Admitted As Inpatient Discharge Instructions Interventions: ED Discharge Assessment Last Done: 04/05/22 11:22
[2022-04-05] MEDS ORDERED: cefTRIAXone SODIUM 2,000 MG in DEXTROSE 5% 50 ML IV SCH (13:30)
[2022-04-05] MEDS ORDERED: traMADol HCL 50 MG TABLET PO PRN (14:19)
[2022-04-05] MEDS: busPIRone 7.5 MG TAB PO SCH ×2 (15:00→20:36)
[2022-04-05] MEDS ORDERED: DULoxetine HCL 30 MG CAP PO ONE (15:26)
[2022-04-05] MEDS: MEMANTINE HCL 10 MG TAB PO SCH (20:36)
[2022-04-05] MEDS: DONEPEZIL HCL 10 MG TAB PO SCH (20:36)
[2022-04-05] MEDS: SENNA 8.6 MG TAB PO SCH (20:36)
[2022-04-05] MEDS: APIXABAN 5 MG TABLET PO SCH (20:36)
[2022-04-05] MEDS ORDERED: PIPERACILLIN/TAZOBACTAM 3.375 GM in DEXTROSE 5% 100 ML IV ONE (20:45)
[2022-04-06] MEDS: DOXYCYCLINE HYCLATE 100 MG in DEXTROSE 5% 100 ML IV SCH (00:23)
[2022-04-06] MEDS: PIPERACILLIN/TAZOBACTAM 3.375 GM in DEXTROSE 5% 100 ML IV SCH ×3 (02:25→22:07)
[2022-04-06 06:35] LABS: Basophils # (auto) 0.03 K/uL (0-0.2); Basophils % (auto) 0.2 %; Eosinophils # (auto) 0.34 K/uL (0-0.50); Eosinophils % (auto) 1.8 %; Hematocrit (blood only) 34.7 % (40.1-51.0); Hemoglobin 11.8 g/dl (14.0-18.0); Lymphocytes # (auto) 1.44 K/uL (1.2-3.4); Lymphocytes % (auto) 7.5 %; Mean Corpuscular Hemoglobin 31.6 pg (25.0-34.0); Mean Corpuscular Volume 92.8 fL (80.0-100.0); Mean Platelet Volume 9.6 fL (9.4-12.4); Monocytes # (auto) 0.66 K/uL (0.24-0.82); Monocytes % (auto) 3.4 %; Neutrophils # (auto) 16.51 K/uL (1.4-6.5); Neutrophils % (auto) 86.1 %; Platelet Count 298 K/uL (130-400); RDW Coefficient of Variation 14.2 % (11.5-14.5); RDW Standard Deviation 48.1 fL (36.4-46.3); Red Blood Count 3.74 M/uL (4.63-6.08); White Blood Count 19.18 K/ul (4.8-10.8)
[2022-04-06 07:01] LABS: Albumin Level 2.2 gm/dl (3.4-5.0); BUN Creatinine Ratio 28.4 (10-20); Bilirubin Direct 0.1 mg/dl (0-0.2); Bilirubin,Total 0.5 mg/dl (0.2-1.0); Calcium 7.4 mg/dl (8.5-10.1); Creatinine Clr Calc Pharmacy 88.4 ml/min; Est GFR (African American) 101.7 ml/min; Est GFR (Non-African American) 87.7 ml/min; Potassium 3.5 mmol/L (3.5-5.1); Total Protein 5.2 gm/dl (6.0-8.3)
[2022-04-06] MEDS: SODIUM CHLORIDE 0.9% 1000ML 1,000 ML IV SCH (10:53)
[2022-04-06] MEDS: dexAMETHasone 6 MG in SYRINGE 0 ML IV SCH (10:54)
[2022-04-06] MEDS ORDERED: D5W AND 1/2NSS 1,000 ML IV SCH (11:45)
--- NOTE | 2022-04-06 11:49 | Hospitalist Progress Note ---
Date of Service April 06, 2022 Assessment & Plan (1) Acute respiratory failure with hypoxemia: (2) COVID-19: (3) Bilateral pneumonia: (4) Alzheimer's dementia: (5) Ambulatory dysfunction: (6) Paroxysmal atrial fibrillation: Plan 77 year old male with Alzheimer's dementia, resident of memory care unit who was sent to the ED for hypoxia, shortness of breath and fever. Acute hypoxic respiratory failure due to COVID 19 pneumonia CXR noted bilateral opacities, cardiomegaly and trace pleural effusion COVID 19 positive. Leucocytosis 20K, normal lactate. He tested positive for COVID 19 about 3 weeks ago and was treated with a course of paxlovid Was reported to not have resp symptoms then until this illness. 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 Monitor fluid status closely Wean oxygen as tolerated Will appreciate Pulm eval/recs Updated who was at bedside. She agrees with current plan and maintains DNR code status -PAF On amiodarone, eliquis Bradycardic. Monitor -Alzheimer's dementia- On donepezil, memantine Delirium precautions -Possible NEHEMIAS lung nodule- seen in CXR. Follow up CXR recommended. -Prolonged QTc- QTc noted to be 568. Avoid further QT prolonging agents. -Generalized weakness/ambulatory dysfunction- PT/OT eval when stable DVT ppx- eliquis Dispo- PCU on tele DNR/DNI Admission and Anticipated Discharge Date Admission Date: April 05, 2022 Subjective Patient seen and examined Alert and oriented to person only Currently on NRB 15l/min Per RN, there was concerns with aspirating water overnight and failed bedside swallow Review of Systems Review of Systems: Unobtainable due to cognitive status Physical Exam Constitutional: + well hydrated; no acute distress Eyes: PERRL, conjunctivae normal, anicteric sclerae ENMT: On NRB Respiratory: normal respiratory effort; no respiratory distress Diminished breath sounds On NRB Cardiovascular: Rate/Rhythm: regular rhythm and + bradycardic S1 S2 Gastrointestinal (Abdomen): normal bowel sounds, soft, nontender, no hepatosplenomegaly Musculoskeletal: No pedal edema Neurologic: PERRL, EOMI, accommodation nl, no face palsy, no dysarthria Limited exam due to dementia Results & Data Results & Data ([facility]) Vital Signs (Past 12 Hours) Vital Signs Temp Pulse Pulse Resp BP Pulse Ox O2 Del Method 04/06/22 07:00 51 L 04/06/22 04:00 36.4 C L 51 L 20 100/53 L 92 Non-rebreather 04/06/22 00:47 54 L O2 Flow Rate 04/06/22 07:00 04/06/22 04:00 15 04/06/22 00:47 Laboratory Results Abnormal lab results 04/06/22 04/06/22 Range/Units 05:55 05:55 WBC 19.18 H (4.8-10.8) K/ul RBC 3.74 L (4.63-6.08) M/uL Hgb 11.8 L (14.0-18.0) g/dl Hct 34.7 L (40.1-51.0) % RDW Std Deviation 48.1 H (36.4-46.3) fL Neut # (Auto) 16.51 H (1.4-6.5) K/uL Immature Gran # (Auto) 0.20 H (0.00-0.02) K/uL Chloride 113 H (98-107) mmol/L BUN/Creatinine Ratio 28.4 H (10-20) Glucose 115 H (70-99(Fasting)) mg/dl Calcium 7.4 L (8.5-10.1) mg/dl Total Protein 5.2 L (6.0-8.3) gm/dl Albumin 2.2 L (3.4-5.0) gm/dl
[2022-04-06] MEDS ORDERED: Nursing to Pharmacy Communication SCH (12:30)
[2022-04-06] MEDS: METOPROLOL SUCC 25MG EXT REL TAB PO SCH (12:31)
[2022-04-06] MEDS: MEMANTINE HCL 10 MG TAB PO SCH ×2 (12:33→21:07)
[2022-04-06] MEDS: APIXABAN 5 MG TABLET PO SCH ×2 (12:33→21:06)
[2022-04-06] MEDS: FAMOTIDINE 20 MG TAB PO SCH (12:33)
[2022-04-06] MEDS: SENNA 8.6 MG TAB PO SCH ×2 (12:34→21:06)
[2022-04-06] MEDS: ASPIRIN 81 MG CHEW PO SCH (12:34)
[2022-04-06] MEDS: DULoxetine HCL 30 MG CAP PO SCH (12:34)
[2022-04-06] MEDS: ZINC SULFATE 220 MG CAPSULE PO SCH (12:34)
[2022-04-06] MEDS: busPIRone 7.5 MG TAB PO SCH ×3 (12:35→21:07)
[2022-04-06] MEDS: ATORVASTATIN 40 MG TAB PO SCH (12:36)
[2022-04-06] MEDS: AMIODARONE 200 MG TAB PO SCH (12:37)
--- NOTE | 2022-04-06 15:58 | Pulmonary Consultation ---
Date of Consultation April 06, 2022 Assessment & Plan (1) Acute respiratory failure with hypoxemia: Multifactorial from atelectasis, inflammatory lung disease related to COVID-19 and likely aspiration pneumonia. Continue broad-spectrum antibiotics and steroids. Remdesivir unlikely to be useful in this scenario given that he is 3 to 4 weeks out from acute illness and already underwent antiviral therapy as an outpatient. No role for more advanced therapy such as baricitinib or tocilizumab. reiterates that the patient would not want intubated if his condition became worse. I think this is reasonable. If he does not improve clinically in the next 1 to 2 days, would recommend a palliative approach given his advanced dementia. (2) COVID-19: Continue steroids. Discontinue remdesivir as likely no benefit. (3) Dementia: Patient with advanced Alzheimer's dementia in a memory care unit. Recommend palliative care consultation and consideration of transitioning to comfort measures only. will talk about this with her family. She would like to honor his wishes which she reiterates should be a DNR/DNI. Alzheimer's disease onset: unspecified onset Dementia behavioral disturbance: with behavioral disturbance Dementia type: Alzheimer's Qualified Code(s): G30.9 - Alzheimer's disease, unspecified; F02.81 - Dementia in other diseases classified elsewhere with behavioral disturbance Plan Pulmonary to sign off. Please call with questions. Thank you for the consult. History of Present Illness Reason for Consultation: COVID-19 viral pneumonia and aspiration Attending Physician: Sruthi Hazel MD History of Present Illness 77-year-old male with advanced Alzheimer's dementia who lives in a snf. and son are present at bedside. Patient unable to give any history given acute delirium on top of dementia. History is obtained from chart review, discussion with hospitalist, discussion with bedside nurse and discussion with the patient's . Patient tested positive for COVID about 3 weeks ago and was treated with Paxil of it. He had continued decline over the past 3 to 4 weeks and his mental status and breathing. He presents today with chest x-ray does demonstrate bilateral increased interstitial markings particularly at the bases. These findings are concerning for ongoing viral pneumonia and aspiration pneumonitis. Patient is currently on Decadron and remdesivir. He also has a history of grade 2 diastolic dysfunction. He is requiring 15 L oxygen via nonrebreather. Allergies Allergy/AdvReac Type Severity Reaction Status Date / Time No Known Drug Allergies Allergy Unknown ` Verified 01/29/21 23:12 Home Medications Medication Instructions Recorded Confirmed Type folic acid 1 mg tablet 1 mg PO QAM ##30 09/19/14 04/06/22 History Saccharomyces boulardii 250 mg 250 mg PO AMHS 10/01/20 04/06/22 History capsule atorvastatin 40 mg tablet 40 mg PO HS 10/01/20 04/06/22 History donepezil 23 mg tablet 23 mg PO HS 10/01/20 04/06/22 History memantine 10 mg tablet 10 mg PO AMHS 10/01/20 04/06/22 History thiamine HCl (vitamin B1) 100 mg 100 mg PO QAM 10/01/20 04/06/22 History tablet zinc 50 mg tablet 50 mg PO QAM 10/05/20 04/06/22 History multivitamin 1 tab PO QAM 11/28/20 04/06/22 History amiodarone 200 mg tablet 200 mg PO QAM #30 tabs 12/02/20 04/06/22 Rx famotidine 20 mg tablet 20 mg PO QAM #30 tabs 12/02/20 04/06/22 Rx acetaminophen 325 mg tablet 325 mg PO Q4 PRN Fever Or Pain 01/29/21 04/06/22 History apixaban 5 mg tablet (Eliquis) 5 mg PO AMHS 01/29/21 04/06/22 History aspirin 81 mg chewable tablet 81 mg PO DAILY 01/29/21 04/06/22 History (Aspirin Childrens) docusate sodium 100 mg capsule 100 mg PO DAILY PRN Constipation 01/29/21 04/06/22 History polyethylene glycol 3350 17 17 g PO DAILY PRN Constipation 01/29/21 04/06/22 History gram/dose oral powder (Miralax) GenTeal Tears Moderate (PF) 2 drp BID PRN Dry Eye(S) 04/06/22 04/06/22 History benzocaine 1 unit PO Q6 PRN Toothache 04/06/22 04/06/22 History duloxetine 30 mg capsule,delayed 30 mg PO DAILY 04/06/22 04/06/22 History release (Cymbalta) Patient History Medical History Alzheimer's dementia CKD (chronic kidney disease), stage III Confusion Dizziness (09/19/14) New onset atrial fibrillation Pulmonary embolism Right knee DJD Right knee pain Vascular dementia Surgical History H/O knee surgery Hx of tonsillectomy Family History Other Cancer Dementia Social History Smoking Status: Never smoker Hx Alcohol Use: No Hx Substance Use: No Preferred Language: Romansh Communication Ability: Impaired 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 Appears older than stated age and disheveled. Eyes: Pupils are equal round and reactive to light. Conjunctivae are normal. Anicteric sclera. Ears nose, mouth and throat: Deferred. Neck: Trachea is midline. Visual inspection is normal. Respiratory: Coarse crackles bilaterally. Tachypnea. Cardiovascular: Regular rate and rhythm. No murmurs. No edema. Gastrointestinal: Normal bowel sounds, soft, nontender and nondistended. No hepatosplenomegaly noted. Musculoskeletal: No cyanosis. Patient is able to move all extremities. Skin: No rashes, warm dry and intact. Neurologic: No obvious focal neurological deficits seen. Psychiatric: Delirious and unable to answer questions appropriately. Results & Data Results & Data ([facility]) Vital Signs (Past 12 Hours) Vital Signs Temp Pulse Pulse Resp BP Pulse Ox O2 Del Method 04/06/22 15:39 36.5 C 54 L 22 110/49 L 92 Non-rebreather 04/06/22 15:00 50 L 04/06/22 12:31 50 L 102/50 L 04/06/22 07:00 51 L 04/06/22 04:00 36.4 C L 51 L 20 100/53 L 92 Non-rebreather O2 Flow Rate 04/06/22 15:39 15.0 04/06/22 15:00 04/06/22 12:31 04/06/22 07:00 04/06/22 04:00 15 PG Care Time/CCT Total # of Minutes Spent Total Time Spent with Patient: Total time spent is greater than 50% in coordination of care (as documented) at patient's floor/unit and/or counseling patient: Coding Level of Care Code 80592 Initial Inpt Care Lvl 3 Diagnoses Acute respiratory failure with hypoxemia J96.01 COVID-19 U07.1 Dementia G30.9; F02.81 Alzheimer's disease onset: unspecified onset Dementia behavioral disturbance: with behavioral disturbance Dementia type: Alzheimer's
[2022-04-06] MEDS ORDERED: REMDESIVIR 100 MG in SODIUM CHLORIDE 0.9% 230 ML IV SCH (20:00)
[2022-04-06] MEDS: DOXYCYCLINE SUSP 25 MG/5 ML 60ML PO SCH (21:05)
[2022-04-06] MEDS: DONEPEZIL HCL 10 MG TAB PO SCH (21:06)
[2022-04-07] MEDS: DOXYCYCLINE HYCLATE 100 MG in DEXTROSE 5% 100 ML IV SCH ×2 (04:40→14:45)
[2022-04-07] MEDS: PIPERACILLIN/TAZOBACTAM 3.375 GM in DEXTROSE 5% 100 ML IV SCH ×3 (05:52→21:45)
[2022-04-07] MEDS: dexAMETHasone 6 MG in SYRINGE 0 ML IV SCH (09:52)
[2022-04-07 10:01] LABS: Hematocrit (blood only) 39.9 % (40.1-51.0); Hemoglobin 13.3 g/dl (14.0-18.0); Mean Corpuscular Hemoglobin 31.4 pg (25.0-34.0); Mean Corpuscular Hgb Conc 33.3 g/dL (32.0-36.0); Mean Corpuscular Volume 94.1 fL (80.0-100.0); Mean Platelet Volume 9.5 fL (9.4-12.4); Platelet Count 325 K/uL (130-400); RDW Coefficient of Variation 14.5 % (11.5-14.5); RDW Standard Deviation 49.9 fL (36.4-46.3); Red Blood Count 4.24 M/uL (4.63-6.08); White Blood Count 19.96 K/ul (4.8-10.8)
[2022-04-07 11:12] LABS: Alanine Aminotransferase 25 U/L (7-52); Albumin Level 2.3 gm/dl (3.4-5.0); Alkaline Phosphatase 52 U/L (34-104); Anion Gap 7 (3-11); BUN Creatinine Ratio 29.6 (10-20); Bilirubin,Total 0.5 mg/dl (0.2-1.0); Blood Urea Nitrogen 24 mg/dl (6-23); Calcium 7.8 mg/dl (8.5-10.1); Carbon Dioxide 22 mmol/L (21-32); Chloride 115 mmol/L (98-107); Creatinine Clr Calc Pharmacy 80.7 ml/min; Est GFR (Non-African American) 84.5 ml/min; Glucose 112 mg/dl (70-99(Fasting)); Sodium 144 mmol/L (136-145); Total Protein 5.6 gm/dl (6.0-8.3)
--- NOTE | 2022-04-07 12:46 | Hospitalist Progress Note ---
Date of Service April 07, 2022 Assessment & Plan (1) Acute respiratory failure with hypoxemia: (2) COVID-19: (3) Bilateral pneumonia: (4) Alzheimer's dementia: (5) Ambulatory dysfunction: (6) Paroxysmal atrial fibrillation: Plan 77 year old male with Alzheimer's dementia, resident of memory care unit who was sent to the ED for hypoxia, shortness of breath and fever. Acute hypoxic respiratory failure due to COVID 19 pneumonia CXR noted bilateral opacities, cardiomegaly and trace pleural effusion COVID 19 positive. Leucocytosis He tested positive for COVID 19 about 3 weeks ago and was treated with a course of paxlovid Was reported to not have resp symptoms then until this illness. 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 Was started on pureed yesterday but not tolerating po right now Resume maintenance IVF Wean oxygen as tolerated Pulm recs appreciated. Remdesivir discontinued per recommendations Had a family GOC meeting with and Dr Burden. She maintains DNR. We discussed patient's poor prognosis and declining clinical status. She is considering comfort measures but will like to discuss with her family -PAF On amiodarone, eliquis Bradycardic. Monitor Replete hypokalemia -Alzheimer's dementia- Was on donepezil, memantine at home Delirium precautions -Possible NEHEMIAS lung nodule- seen in CXR. Follow up CXR recommended. -Prolonged QTc- QTc noted to be 568 on admission Avoid further QT prolonging agents. -Generalized weakness/ambulatory dysfunction- PT/OT eval when stable DVT ppx- eliquis held since patient cannot tolerate po. Lovenox sq for now Dispo- PCU on tele DNR/DNI Admission and Anticipated Discharge Date Admission Date: April 05, 2022 Subjective Patient seen and examined More confused today Per RN, not able to take meds by mouth Remains on NRB at 15l/min Has hand mitts due to pulling oxygen Has been bradycardic on tele overnight down to 38 Review of Systems Review of Systems: Unobtainable due to cognitive status Physical Exam Constitutional: no acute distress Awake but oriented or cooperative Eyes: PERRL, conjunctivae normal, anicteric sclerae ENMT: On NRB Respiratory: normal respiratory effort; no respiratory distress Diminished breath sounds Cardiovascular: Rate/Rhythm: regular rhythm and + bradycardic S1 S2 Gastrointestinal (Abdomen): normal bowel sounds, soft, nontender, no hepatosplenomegaly Musculoskeletal: No pedal edema Neurologic: Difficult to assess Moves all extremities Awake but not oriented/cooperative Confused Results & Data Results & Data ([facility] [place]) Vital Signs (Past 12 Hours) Vital Signs Temp Pulse Pulse Resp BP BP Pulse Ox 04/07/22 11:48 36.4 C L 49 L 16 107/51 L 92 04/07/22 07:03 04/07/22 07:58 36.6 C 49 L 16 108/53 L 92 04/07/22 04:00 47 L 93 04/07/22 03:52 112/51 L 04/07/22 03:52 48 L 90 04/07/22 03:04 121/62 04/07/22 03:04 49 L 92 04/07/22 03:00 49 L 91 04/07/22 02:29 52 L O2 Del Method O2 Flow Rate 04/07/22 11:48 Non-rebreather 15 04/07/22 07:03 Non-rebreather 15 04/07/22 07:58 Non-rebreather 15 04/07/22 04:00 04/07/22 03:52 04/07/22 03:52 Non-rebreather 15 04/07/22 03:04 04/07/22 03:04 Non-rebreather 15 04/07/22 03:00 04/07/22 02:29 Laboratory Results Abnormal lab results 04/07/22 04/07/22 04/07/22 Range/Units 09:27 09:27 11:59 WBC 19.96 H (4.8-10.8) K/ul RBC 4.24 L (4.63-6.08) M/uL Hgb 13.3 L (14.0-18.0) g/dl Hct 39.9 L (40.1-51.0) % RDW Std Deviation 49.9 H (36.4-46.3) fL Potassium 3.4 L (3.5-5.1) mmol/L Chloride 115 H (98-107) mmol/L BUN 24 H (6-23) mg/dl BUN/Creatinine Ratio 29.6 H (10-20) Glucose 112 H (70-99(Fasting)) mg/dl Calcium 7.8 L (8.5-10.1) mg/dl Total Protein 5.6 L (6.0-8.3) gm/dl Albumin 2.3 L (3.4-5.0) gm/dl
[2022-04-07 12:54] LABS: Bilirubin Direct 0.1 mg/dl (0-0.2); Potassium 3.4 mmol/L (3.5-5.1)
[2022-04-07] MEDS ORDERED: D5W AND 1/2NSS 1,000 ML IV SCH (13:30)
[2022-04-07] MEDS: ZINC SULFATE 220 MG CAPSULE PO SCH (13:42)
[2022-04-07] MEDS: SENNA 8.6 MG TAB PO SCH ×2 (13:42→21:45)
[2022-04-07] MEDS: MEMANTINE HCL 10 MG TAB PO SCH ×2 (13:42→21:45)
[2022-04-07] MEDS: METOPROLOL SUCC 25MG EXT REL TAB PO SCH (13:42)
[2022-04-07] MEDS: ASPIRIN 81 MG CHEW PO SCH (13:43)
[2022-04-07] MEDS: FAMOTIDINE 20 MG TAB PO SCH (13:43)
[2022-04-07] MEDS: busPIRone 7.5 MG TAB PO SCH ×3 (13:43→21:45)
[2022-04-07] MEDS: APIXABAN 5 MG TABLET PO SCH (13:43)
[2022-04-07] MEDS: DULoxetine HCL 30 MG CAP PO SCH (13:43)
[2022-04-07] MEDS: ATORVASTATIN 40 MG TAB PO SCH (13:43)
[2022-04-07] MEDS: AMIODARONE 200 MG TAB PO SCH (13:43)
[2022-04-07] MEDS ORDERED: ENOXAPARIN INJ 40 MG/0.4 ML SYR SQ ONE (13:45)
--- NOTE | 2022-04-07 13:57 | Palliative Care Consultation ---
Date of Consultation April 07, 2022 Assessment & Plan (1) Delirium: Likely hospital related with baseline dementia, exacerbated by hypoxia. Could consider zyprexa ODT with comfort measures. Monitor for now as family has some concern about sedation. Mitts in place for his protection to prevent removing O2, Peck. (2) Palliative care encounter: I met with his to discuss goals of care. Dr. Hazel was able to join us for part of that meeting. She has a good understanding of his illness. She tells me that she and Delmi have living bolanos which indicate that he would not want resuscitation or intubation. She recalls him saying that he would not want intubation or vent support after a friend last summer. She feels that he would want focus of care to be comfort and symptom management but is not sure when that point would be. We talked about increased oxygen need, labs and vital sign indications that unfortunately he is worsening despite optimal treatment. We talked in detail about what would be involved with focus on comfort including weaning O2 for relief of dyspnea, rather than titrating for O2 sat, using only medications for symptom management and stopping steroid and antibiotic therapy. She asked about prognosis which would likely be hours to a day or two given his current status. We assured her that timing of that transition would be based on when she and her family felt it would be appropriate with respect to Delmi's wishes. She expressed some concern that she would have regret in the future if the decision were made "too soon". She would like to consider this and speak with her son and daughter. Palliative care will follow. (3) Acute respiratory failure with hypoxemia: History of Present Illness Reason for Consultation: goals of care Requesting Physician: Dr. Hazel Attending Physician: Sruthi Hazel MD History of Present Illness 77 yo gentleman with dementia who had been in memory care at [facility]. He was positive for covid last month and received paxlovid. He had been doing okay from a respiratory standpoint but had functional decline. His reports that at baseline he was incontinent but able to ambulate with his walker. He was able to converse with family in abbreviated sentences. Since he was covid positive, he had decreased appetite, increased weakness and falls. He was transferred to skilled care and the next morning was noted to be hypoxic and lethargic. Chest xray on admission shows bilateral pneumonia. He is being treated for possible covid pneumonia as well as aspiration pneumonia. He has had progressive hypoxia and is currently on 15L NRB. He is lethargic and becomes restless with any stimulation. He has been pulling at mask per his . Allergies Allergy/AdvReac Type Severity Reaction Status Date / Time No Known Drug Allergies Allergy Unknown ` Verified 01/29/21 23:12 Home Medications Medication Instructions Recorded Confirmed Type folic acid 1 mg tablet 1 mg PO QAM ##30 09/19/14 04/06/22 History Saccharomyces boulardii 250 mg 250 mg PO AMHS 10/01/20 04/06/22 History capsule atorvastatin 40 mg tablet 40 mg PO HS 10/01/20 04/06/22 History donepezil 23 mg tablet 23 mg PO HS 10/01/20 04/06/22 History memantine 10 mg tablet 10 mg PO AMHS 10/01/20 04/06/22 History thiamine HCl (vitamin B1) 100 mg 100 mg PO QAM 10/01/20 04/06/22 History tablet zinc 50 mg tablet 50 mg PO QAM 10/05/20 04/06/22 History multivitamin 1 tab PO QAM 11/28/20 04/06/22 History amiodarone 200 mg tablet 200 mg PO QAM #30 tabs 12/02/20 04/06/22 Rx famotidine 20 mg tablet 20 mg PO QAM #30 tabs 12/02/20 04/06/22 Rx acetaminophen 325 mg tablet 325 mg PO Q4 PRN Fever Or Pain 01/29/21 04/06/22 History apixaban 5 mg tablet (Eliquis) 5 mg PO AMHS 01/29/21 04/06/22 History aspirin 81 mg chewable tablet 81 mg PO DAILY 01/29/21 04/06/22 History (Aspirin Childrens) docusate sodium 100 mg capsule 100 mg PO DAILY PRN Constipation 01/29/21 04/06/22 History polyethylene glycol 3350 17 17 g PO DAILY PRN Constipation 01/29/21 04/06/22 History gram/dose oral powder (Miralax) GenTeal Tears Moderate (PF) 2 drp BID PRN Dry Eye(S) 04/06/22 04/06/22 History benzocaine 1 unit PO Q6 PRN Toothache 04/06/22 04/06/22 History duloxetine 30 mg capsule,delayed 30 mg PO DAILY 04/06/22 04/06/22 History release (Cymbalta) Patient History Medical History Alzheimer's dementia CKD (chronic kidney disease), stage III Confusion Dizziness (09/19/14) New onset atrial fibrillation Pulmonary embolism Right knee DJD Right knee pain Vascular dementia Surgical History H/O knee surgery Hx of tonsillectomy Family History Other Cancer Dementia Social History Smoking Status: Never smoker Hx Alcohol Use: No Hx Substance Use: No Preferred Language: Faroese Communication Ability: Impaired 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 Beliefs That Will Affect Care: None Current Living Situation: [facility] Current Living Situation Comment: Mell Carty Feels Safe at Home: Yes Assistive Devices: Glasses and Hearing Aid - Bilateral Review of Systems Review of Systems: Unobtainable due to cognitive status ESAS Pain by observation 0/3 Dyspnea by observation 1/3 PPS 20% Physical Exam Constitutional: + lethargic ENMT: Mouth: + dry oral mucous membranes Respiratory: + uses accessory muscles Cardiovascular: Rate/Rhythm: + bradycardic Musculoskeletal: Extremities: + muscle atrophy Skin: cool to touch Neurologic: Speech / Cognition: + abnormal cognition Genitourinary: Peck Results & Data ([facility]) Vital Signs (Past 12 Hours) Vital Signs Temp Pulse Pulse Resp BP BP Pulse Ox 04/07/22 11:48 97.5 F L 49 L 16 107/51 L 92 04/07/22 07:03 04/07/22 07:58 97.9 F 49 L 16 108/53 L 92 04/07/22 04:00 47 L 93 04/07/22 03:52 112/51 L 04/07/22 03:52 48 L 90 04/07/22 03:04 121/62 04/07/22 03:04 49 L 92 04/07/22 03:00 49 L 91 04/07/22 02:29 52 L O2 Del Method O2 Flow Rate 04/07/22 11:48 Non-rebreather 15 04/07/22 07:03 Non-rebreather 15 04/07/22 07:58 Non-rebreather 15 04/07/22 04:00 04/07/22 03:52 04/07/22 03:52 Non-rebreather 15 04/07/22 03:04 04/07/22 03:04 Non-rebreather 15 04/07/22 03:00 04/07/22 02:29 PG Care Time/CCT Total # of Minutes Spent Total Time Spent: 93 Total Time Spent with Patient: Total time spent is greater than 50% in coordination of care (as documented) at patient's floor/unit and/or counseling patient: goals of care, code status, prognosis, family education and support, symptom management Coding Level of Care Code 48341 Initial Inpt Care Lvl 3 Diagnoses Delirium R41.0 Palliative care encounter Z51.5 Acute respiratory failure with hypoxemia J96.01
[2022-04-07] MEDS: DOXYCYCLINE SUSP 25 MG/5 ML 60ML PO SCH (13:59)
[2022-04-07] MEDS ORDERED: POTASSIUM ACETATE/NSS 10 MEQ/105 ML BAG IV ONE (14:00)
[2022-04-07] MEDS: LACTATED RINGER'S 1,000 ML IV SCH (14:40)
[2022-04-07] MEDS: DONEPEZIL HCL 10 MG TAB PO SCH (21:45)
[2022-04-08] MEDS: DOXYCYCLINE HYCLATE 100 MG in DEXTROSE 5% 100 ML IV SCH (01:51)
[2022-04-08] MEDS: PIPERACILLIN/TAZOBACTAM 3.375 GM in DEXTROSE 5% 100 ML IV SCH (04:42)
[2022-04-08] MEDS: LACTATED RINGER'S 1,000 ML IV SCH (07:57)
[2022-04-08] MEDS: dexAMETHasone 6 MG in SYRINGE 0 ML IV SCH (08:00)
[2022-04-08] MEDS ORDERED: ENOXAPARIN INJ 40 MG/0.4 ML SYR SQ SCH (09:00)
[2022-04-08 09:57] LABS: Hematocrit (blood only) 41.4 % (40.1-51.0); Mean Corpuscular Hemoglobin 31.7 pg (25.0-34.0); Mean Corpuscular Hgb Conc 33.8 g/dL (32.0-36.0); Mean Corpuscular Volume 93.9 fL (80.0-100.0); Mean Platelet Volume 9.4 fL (9.4-12.4); Nucleated RBC # (auto) 0.04 K/uL (0-0); Nucleated RBC % (auto) 0.2 %; Platelet Count 331 K/uL (130-400); RDW Coefficient of Variation 14.3 % (11.5-14.5); RDW Standard Deviation 49.5 fL (36.4-46.3); Red Blood Count 4.41 M/uL (4.63-6.08); White Blood Count 19.19 K/ul (4.8-10.8)
[2022-04-08] MEDS: AMIODARONE 200 MG TAB PO SCH (10:32)
[2022-04-08] MEDS: ASPIRIN 81 MG CHEW PO SCH (10:32)
[2022-04-08] MEDS: ZINC SULFATE 220 MG CAPSULE PO SCH (10:33)
[2022-04-08] MEDS: SENNA 8.6 MG TAB PO SCH (10:33)
[2022-04-08] MEDS: DULoxetine HCL 30 MG CAP PO SCH (10:33)
[2022-04-08] MEDS: METOPROLOL SUCC 25MG EXT REL TAB PO SCH (10:33)
[2022-04-08] MEDS: busPIRone 7.5 MG TAB PO SCH (10:33)
[2022-04-08] MEDS: FAMOTIDINE 20 MG TAB PO SCH (10:33)
[2022-04-08] MEDS: MEMANTINE HCL 10 MG TAB PO SCH (10:33)
[2022-04-08] MEDS: ATORVASTATIN 40 MG TAB PO SCH (10:33)
[2022-04-08 10:49] LABS: Albumin Level 2.4 gm/dl (3.4-5.0); BUN Creatinine Ratio 27.7 (10-20); Bilirubin Direct 0.2 mg/dl (0-0.2); Bilirubin,Total 0.7 mg/dl (0.2-1.0); Calcium 7.8 mg/dl (8.5-10.1); Creatinine Clr Calc Pharmacy 78.7 ml/min; Est GFR (Non-African American) 83.7 ml/min; Total Protein 5.8 gm/dl (6.0-8.3)
[2022-04-08] MEDS ORDERED: ONDANSETRON 4 MG OD TAB SL PRN (10:49)
[2022-04-08] MEDS ORDERED: GLYCOPYRROLATE 0.2 MG/ML VIAL IV PRN (10:49)
[2022-04-08] MEDS ORDERED: LORazepam 0.5 MG TAB PO PRN (10:49)
[2022-04-08] MEDS ORDERED: LORazepam 0.5 MG in SYRINGE 0.25 ML IV PRN ×2 (10:49→22:06)
[2022-04-08] MEDS ORDERED: ONDANSETRON INJ 2 MG/ML 2 ML VIAL IV PRN (10:49)
[2022-04-08] MEDS: MoRPHine SULFATE 4 MG/ML 1 ML CARP\\VIAL IV PRN ×5 (11:05→20:46)
--- NOTE | 2022-04-08 11:57 | Palliative Care Progress Note ---
Date of Service April 08, 2022 Assessment & Plan (1) Delirium: Plan: Add zyprexa at hs and prn for agitated delirium. (2) Dyspnea: Plan: Add prn morphine. Titrate O2 for comfort based on discussion with family. Discussed with RN. (3) Palliative care encounter: Plan: I met with Mrs. Mims, her son Ruben, and daughter Jose Angel, at bedside. We reviewed today's labs and that Delmi is more hypoxic today with high flow O2. She is concerned that he is suffering. At her request, we reviewed some of conversation from yesterday regarding his current status with treatment, possible shift of focus to symptom management and comfort, prognosis and what to expect. They are all in agreement that Delmi would not want prolonged aggres sive care given his poor prognosis. They would like to shift focus of care to symptom management rather than disease management. Will adjust orders to reflect their wishes. (4) Acute respiratory failure with hypoxemia: (5) Dementia: (6) Bilateral pneumonia: Admission and Anticipated Discharge Date Admission Date: April 05, 2022 Subjective More restless today. Facial grimace per . Review of Systems Review of Systems: Unobtainable due to cognitive status Pain by observation 1/3 Dyspnea by observation 1/3 PPS 20% Physical Exam Constitutional: + ill appearing ENMT: Mouth: + dry oral mucous membranes Respiratory: + uses accessory muscles Cardiovascular: Rate/Rhythm: + bradycardic Musculoskeletal: Extremities: + muscle atrophy Neurologic: Speech / Cognition: + abnormal cognition Results & Data ([facility]) Vital Signs (Past 12 Hours) Vital Signs Temp Pulse Pulse Resp BP Pulse Ox O2 Del Method 04/08/22 07:30 Non-rebreather 04/08/22 07:55 97.9 F 55 L 21 123/62 88 L Non-rebreather 04/08/22 07:00 54 L 04/08/22 03:00 98.3 F 57 L 20 124/74 91 Non-rebreather O2 Flow Rate 04/08/22 07:30 15 04/08/22 07:55 15 04/08/22 07:00 04/08/22 03:00 15 PG Care Time/CCT Total # of Minutes Spent Total Time Spent: 35 Total Time Spent with Patient: Total time spent is greater than 50% in coordination of care (as documented) at patient's floor/unit and/or counseling patient: goals of care, prognosis, symptom management, family education and support Coding Level of Care Code 66807 Subseq Hosp Care Lvl 3 Diagnoses Delirium R41.0 Dyspnea R06.00 Palliative care encounter Z51.5 Acute respiratory failure with hypoxemia J96.01 Dementia G30.9; F02.81 Alzheimer's disease onset: unspecified onset Dementia behavioral disturbance: with behavioral disturbance Dementia type: Alzheimer's Bilateral pneumonia J18.9 (1) Dementia Alzheimer's disease onset: unspecified onset Dementia behavioral disturbance: with behavioral disturbance Dementia type: Alzheimer's Qualified Code(s): G30.9 - Alzheimer's disease, unspecified; F02.81 - Dementia in other diseases classified elsewhere with behavioral disturbance
--- NOTE | 2022-04-08 12:45 | Hospitalist Progress Note ---
Date of Service April 08, 2022 Assessment & Plan (1) Acute respiratory failure with hypoxemia: (2) COVID-19: (3) Bilateral pneumonia: (4) Alzheimer's dementia: (5) Ambulatory dysfunction: (6) Paroxysmal atrial fibrillation: Plan 77 year old male with Alzheimer's dementia, resident of memory care unit who was sent to the ED for hypoxia, shortness of breath and fever. Acute hypoxic respiratory failure due to COVID 19 pneumonia CXR noted bilateral opacities, cardiomegaly and trace pleural effusion COVID 19 positive. Leucocytosis He tested positive for COVID 19 about 3 weeks ago and was treated with a course of paxlovid Was reported to not have resp symptoms then until this illness. COVID 19 pneumonia + Aspiration pneumonia Was on dexamethasone and antibiotics Was requiring NRB 15l/min. 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 and children had GOC meeting with Palliative Specialist and decided to change to comfort measures only Review of Systems Review of Systems: Unobtainable due to reduced consciousness Physical Exam Constitutional: + well hydrated; no acute distress Unconscious Respiratory: normal respiratory effort; no respiratory distress Diminished breath sounds Cardiovascular: Rate/Rhythm: regular rhythm and + bradycardic S1 S2 Gastrointestinal (Abdomen): normal bowel sounds, soft, nontender, no hepatosplenomegaly Musculoskeletal: No pedal edema Neurologic: Unconscious Results & Data Results & Data ([facility]) Vital Signs (Past 12 Hours) Vital Signs Temp Pulse Pulse Resp BP Pulse Ox O2 Del Method 04/08/22 07:30 Non-rebreather 04/08/22 07:55 36.6 C 55 L 21 123/62 88 L Non-rebreather 04/08/22 07:00 54 L 04/08/22 03:00 36.8 C 57 L 20 124/74 91 Non-rebreather O2 Flow Rate 04/08/22 07:30 15 04/08/22 07:55 15 04/08/22 07:00 04/08/22 03:00 15 Laboratory Results Abnormal lab results 04/08/22 04/08/22 Range/Units 09:36 09:36 WBC 19.19 H (4.8-10.8) K/ul RBC 4.41 L (4.63-6.08) M/uL RDW Std Deviation 49.5 H (36.4-46.3) fL Absolute Nucleated RBC 0.04 H (0-0) K/uL Chloride 114 H (98-107) mmol/L BUN/Creatinine Ratio 27.7 H (10-20) Calcium 7.8 L (8.5-10.1) mg/dl Total Protein 5.8 L (6.0-8.3) gm/dl Albumin 2.4 L (3.4-5.0) gm/dl
[2022-04-08] MEDS: OLANZapine ZYDIS 5 MG ORALLY DIS. TAB PO SCH (21:13)
[2022-04-09] MEDS: MoRPHine SULFATE 4 MG/ML 1 ML CARP\\VIAL IV PRN ×7 (01:29→21:25)
[2022-04-09] MEDS: OLANZapine ZYDIS 5 MG ORALLY DIS. TAB PO SCH ×2 (12:17→21:23)
--- NOTE | 2022-04-09 16:54 | Hospitalist Progress Note ---
Date of Service April 09, 2022 Assessment & Plan (1) Acute respiratory failure with hypoxemia: (2) COVID-19: (3) Bilateral pneumonia: (4) Alzheimer's dementia: (5) Ambulatory dysfunction: (6) Paroxysmal atrial fibrillation: Plan 77 year old male with Alzheimer's dementia, resident of memory care unit who was sent to the ED for hypoxia, shortness of breath and fever. Was initially managed for Acute hypoxic respiratory failure due to COVID 19 pneumonia and aspiration pneumonia on the background of Alzheimer's dementia/ambulatory dysfunction: Patient was requiring up to 15 L oxygen and hypoxia was worsening. Family had goals of care discussion with palliative and CAR INSPECTION AND REPAIR MANAGER status since 04/08. All other meds discontinued, no labs, diet as tolerated, patient comfortable. Admission and Anticipated Discharge Date Admission Date: April 05, 2022 Subjective Patient seen and examined who was initially managed for acute respiratory failure with hypoxemia likely secondary to pneumonia secondary to COVID-19 infection on the background of Alzheimer's dementia/ambulatory dysfunction who is now comfort measures only status. Patient was lying in bed, on 3 L nasal cannula oxygen, comfortable, weak voice, not able to open eyes on calling name, but responds with hard to understand weak voice upon calling. Physical Exam Physical Exam: GENERAL: Appears comfortable, NAD, on 3 L nasal cannula oxygen HEENT: Atraumatic, eyes closed. NECK: No JVD, no neck masses. HEART: S1 and S2 heard. Regular rate and rhythm. Bradycardic. No murmur, no gallop. RESPIRATORY SYSTEM: Normal AP diameter. No accessory muscle use. Diminished breath sounds. ABDOMEN: Soft, bowel sounds present, no distention. CENTRAL NERVOUS SYSTEM: No facial droop. rest n/a. EXTREMITIES: No edema, no erythema seen. Urinary catheter in situ with dark yellow urine collection noted. Results & Data Results & Data ([facility]) Vital Signs (Past 12 Hours) Vital Signs O2 Del Method O2 Flow Rate 04/09/22 13:33 Nasal Cannula 3
[2022-04-10] MEDS: MoRPHine SULFATE 4 MG/ML 1 ML CARP\\VIAL IV PRN ×5 (01:09→17:51)
[2022-04-10] MEDS: OLANZapine ZYDIS 5 MG ORALLY DIS. TAB PO SCH (09:40)
[2022-04-10] MEDS ORDERED: STAT IV Infusion **Titration per Protocol STA (10:12)
[2022-04-10] MEDS ORDERED: LORazepam 1 MG in SYRINGE 0.25 ML IV PRN (10:14)
[2022-04-10] MEDS: MoRPHine SULF/NSS 100 MG/100 ML BAG IV SCH (12:09)
--- NOTE | 2022-04-10 12:43 | Palliative Care Progress Note ---
Date of Service April 10, 2022 Assessment & Plan (1) Dyspnea: Plan: Oxygen has been weaned to 2L NC. He does not appear to be short of breath. His would like oxygen removed as it does not appear to be useful from a comfort standpoint at this time. (2) Pain: Plan: He does have some pain behaviors and has had 84mg OME in the last 24 hours. His is concerned that he is having pain between prn doses of morphine. We discussed morphine infusion for steady state analgesia. She would very much like to do that. Morphine infusion ordered at 2mg/hr with 2mg bolus doses available every thirty minutes as needed. Discussed with RN. We also discussed nonphysical aspects of pain and Mrs. Mims feels that he is having some psychological pain as well. Ativan dose increased to one mg. Continue routine dosing. (3) Delirium: Plan: On zyprexa ODT bid. He is also on routine ativan. (4) Palliative care encounter: Plan: Mrs. Mims is concerned that Delmi is frustrated by not having at this point. She has spoken with him and given him permission to go. She does not want any interventions that may prolong his dying time. We talked about changes in medication to ease any frustration or suffering that he may be having. His dying time does not appear imminent at this time but he is likely to within the next day or two. (5) Acute respiratory failure with hypoxemia: (6) Bilateral pneumonia: Admission and Anticipated Discharge Date Admission Date: April 05, 2022 Subjective Nonverbal. Restless at times. Grimaces with contact. He has had 28mg IV morphine in last 24 hours in prn dosing. Review of Systems Review of Systems: ESAS Pain by observation 1/3 Dyspnea by observation 0/3 PPS 20% Physical Exam Constitutional: + ill appearing and + thin ENMT: Mouth: + dry oral mucous membranes Respiratory: normal respiratory effort; no labored breathing no audible tracheal secretions Cardiovascular: no mottling Gastrointestinal (Abdomen): soft Skin: warm Neurologic: lethargic Genitourinary: incontinent Results & Data ([facility]) Vital Signs (Past 12 Hours) Vital Signs Temp Pulse Resp BP Pulse Ox O2 Del Method O2 Flow Rate 04/10/22 06:02 100.0 F H 81 28 H 99/60 L 82 L Nasal Cannula 2.0 PG Care Time/CCT Total # of Minutes Spent Total Time Spent: 50 Total Time Spent with Patient: Total time spent is greater than 50% in coordination of care (as documented) at patient's floor/unit and/or counseling patient:symptom management, family education and support, prognosis, coordination of care Coding Level of Care Code 69042 Subseq Hosp Care Lvl 3 Diagnoses Dyspnea R06.00 Pain R52 Delirium R41.0 Palliative care encounter Z51.5 Acute respiratory failure with hypoxemia J96.01 Bilateral pneumonia J18.9
[2022-04-10] MEDS: LORazepam 1 MG in SYRINGE 0.5 ML IV PRN (15:42)
--- NOTE | 2022-04-10 18:15 | Hospitalist Progress Note ---
Date of Service April 10, 2022 Assessment & Plan (1) Acute respiratory failure with hypoxemia: (2) COVID-19: (3) Bilateral pneumonia: (4) Alzheimer's dementia: (5) Ambulatory dysfunction: (6) Paroxysmal atrial fibrillation: Plan 77 year old male with Alzheimer's dementia, resident of memory care unit who was sent to the ED for hypoxia, shortness of breath and fever. Was initially managed for Acute hypoxic respiratory failure due to COVID 19 pneumonia and aspiration pneumonia on the background of Alzheimer's dementia/ambulatory dysfunction: Patient was requiring up to 15 L oxygen and hypoxia was worsening. Family had goals of care discussion with palliative and SALES COMMISSIONS ANALYST status since 04/08. All other meds discontinued, no labs, diet as tolerated, patient comfortable. Admission and Anticipated Discharge Date Admission Date: April 05, 2022 Subjective Patient seen and examined who was initially managed for acute respiratory failure with hypoxemia likely secondary to pneumonia secondary to COVID-19 infection on the background of Alzheimer's dementia/ambulatory dysfunction who is now comfort measures only status. Patient was lying in bed, on 2 L nasal cannula oxygen, comfortable, non verbal, not able to open eyes on calling name, not in distress. Physical Exam Physical Exam: GENERAL: Appears comfortable, NAD, on 2 L nasal cannula oxygen HEENT: Atraumatic, eyes closed. NECK: No JVD, no neck masses. HEART: S1 and S2 heard. Regular rate and rhythm. Bradycardic. No murmur, no gallop. RESPIRATORY SYSTEM: Normal AP diameter. No accessory muscle use. Diminished breath sounds. ABDOMEN: Soft, bowel sounds present, no distention. CENTRAL NERVOUS SYSTEM: No facial droop. rest n/a. EXTREMITIES: No edema, no erythema seen. Urinary catheter in situ with dark yellow urine collection noted. Results & Data Results & Data ([facility]) Vital Signs (Past 12 Hours) Vital Signs O2 Del Method O2 Flow Rate 04/10/22 08:45 Nasal Cannula 2
[2022-04-11] MEDS: LORazepam 1 MG in SYRINGE 0.5 ML IV PRN (08:18)
[2022-04-11] MEDS: MoRPHine SULFATE 4 MG/ML 1 ML CARP\\VIAL IV PRN ×5 (08:26→20:05)
--- NOTE | 2022-04-11 17:18 | Hospitalist Progress Note ---
Date of Service April 11, 2022 Assessment & Plan (1) Acute respiratory failure with hypoxemia: (2) COVID-19: (3) Bilateral pneumonia: (4) Alzheimer's dementia: (5) Ambulatory dysfunction: (6) Paroxysmal atrial fibrillation: Plan 77 year old male with Alzheimer's dementia, resident of memory care unit who was sent to the ED for hypoxia, shortness of breath and fever. Was initially managed for Acute hypoxic respiratory failure due to COVID 19 pneumonia and aspiration pneumonia on the background of Alzheimer's dementia/ambulatory dysfunction: Patient was requiring up to 15 L oxygen and hypoxia was worsening. Family had goals of care discussion with palliative and CONTROL AND RECOVERY COMBAT RESCUE status since 04/08. All other meds discontinued, no labs, diet as tolerated, patient comfortable. Admission and Anticipated Discharge Date Admission Date: April 05, 2022 Subjective Patient seen and examined who was initially managed for acute respiratory failure with hypoxemia likely secondary to pneumonia secondary to COVID-19 infection on the background of Alzheimer's dementia/ambulatory dysfunction who is now comfort measures only status. Patient was lying in bed, on RA, comfortable, non verbal, not able to open eyes on calling name, not in distress. Physical Exam Physical Exam: GENERAL: Appears comfortable, NAD, on RA HEENT: Atraumatic, eyes closed. NECK: No JVD, no neck masses. HEART: S1 and S2 heard. Regular rate and rhythm. Bradycardic. No murmur, no gallop. RESPIRATORY SYSTEM: Normal AP diameter. No accessory muscle use. Diminished breath sounds. ABDOMEN: Soft, bowel sounds present, no distention. CENTRAL NERVOUS SYSTEM: No facial droop. rest n/a. EXTREMITIES: No edema, no erythema seen. Urinary catheter in situ with dark yellow urine collection noted. Results & Data Results & Data ([facility]) Vital Signs (Past 12 Hours) Vital Signs Temp Pulse Resp BP Pulse Ox O2 Del Method 04/11/22 08:18 37.7 C H 93 H 22 109/64 70 L Room Air
[2022-04-11] MEDS: MoRPHine SULF/NSS 100 MG/100 ML BAG IV SCH (23:36)
[2022-04-12] MEDS: MoRPHine SULFATE 4 MG/ML 1 ML CARP\\VIAL IV PRN ×4 (06:18→23:16)
[2022-04-12] MEDS: LORazepam 1 MG in SYRINGE 0.5 ML IV PRN ×2 (10:00→20:04)
--- NOTE | 2022-04-12 16:53 | Hospitalist Progress Note ---
Date of Service April 12, 2022 Assessment & Plan (1) Acute respiratory failure with hypoxemia: (2) COVID-19: (3) Bilateral pneumonia: (4) Alzheimer's dementia: (5) Ambulatory dysfunction: (6) Paroxysmal atrial fibrillation: Plan 77 year old male with Alzheimer's dementia, resident of memory care unit who was sent to the ED for hypoxia, shortness of breath and fever. Was initially managed for Acute hypoxic respiratory failure due to COVID 19 pneumonia and aspiration pneumonia on the background of Alzheimer's dementia/ambulatory dysfunction: Patient was requiring up to 15 L oxygen and hypoxia was worsening. Family had goals of care discussion with palliative and SWATCH CHECKER status since 04/08. All other meds discontinued, no labs, diet as tolerated, patient comfortable. Admission and Anticipated Discharge Date Admission Date: April 05, 2022 Subjective Patient seen and examined who was initially managed for acute respiratory failure with hypoxemia likely secondary to pneumonia secondary to COVID-19 infection on the background of Alzheimer's dementia/ambulatory dysfunction who is now comfort measures only status. Patient was lying in bed, on RA, comfortable, non verbal, not able to open eyes on calling name, not in distress. Pt's at bedside. Physical Exam Physical Exam: GENERAL: Appears comfortable, NAD, on RA HEENT: Atraumatic, eyes closed. NECK: No JVD, no neck masses. HEART: S1 and S2 heard. Regular rate and rhythm. Bradycardic. No murmur, no gallop. RESPIRATORY SYSTEM: Normal AP diameter. No accessory muscle use. Diminished breath sounds. ABDOMEN: Soft, bowel sounds present, no distention. CENTRAL NERVOUS SYSTEM: No facial droop. rest n/a. EXTREMITIES: No edema, no erythema seen. Urinary catheter in situ with no urine collection noted. Results & Data Results & Data ([facility]) Vital Signs (Past 12 Hours) Vital Signs O2 Del Method 04/12/22 08:20 Room Air
[2022-04-12] MEDS: MoRPHine SULF/NSS 100 MG/100 ML BAG IV SCH (20:05)
[2022-04-13] MEDS: MoRPHine SULF/NSS 100 MG/100 ML BAG IV SCH (04:21)
[2022-04-13] MEDS: LORazepam 1 MG in SYRINGE 0.5 ML IV PRN (13:37)
--- NOTE | 2022-04-13 15:59 | Hospitalist Progress Note ---
Date of Service April 13, 2022 Assessment & Plan (1) Acute respiratory failure with hypoxemia: (2) COVID-19: (3) Bilateral pneumonia: (4) Alzheimer's dementia: (5) Ambulatory dysfunction: (6) Paroxysmal atrial fibrillation: Plan 77 year old male with Alzheimer's dementia, resident of memory care unit who was sent to the ED for hypoxia, shortness of breath and fever. Was initially managed for Acute hypoxic respiratory failure due to COVID 19 pneumonia and aspiration pneumonia on the background of Alzheimer's dementia/ambulatory dysfunction: Patient was requiring up to 15 L oxygen and hypoxia was worsening. Family had goals of care discussion with palliative and TYPEWRITERS FUNCTIONAL TESTER status since 04/08. All other meds discontinued, no labs, diet as tolerated, patient comfortable. Admission and Anticipated Discharge Date Admission Date: April 05, 2022 Subjective Patient seen and examined who was initially managed for acute respiratory failure with hypoxemia likely secondary to pneumonia secondary to COVID-19 infection on the background of Alzheimer's dementia/ambulatory dysfunction who is now comfort measures only status. Patient was lying in bed, on RA, comfortable, non verbal, not able to open eyes on calling name, not in distress. Physical Exam Physical Exam: GENERAL: Appears comfortable, NAD, on RA HEENT: Atraumatic, eyes closed. NECK: No JVD, no neck masses. HEART: S1 and S2 heard. Regular rate and rhythm. No murmur, no gallop. RESPIRATORY SYSTEM: Shallow breathing. Diminished breath sounds. ABDOMEN: Soft, bowel sounds present, no distention. CENTRAL NERVOUS SYSTEM: No facial droop. rest n/a. EXTREMITIES: No ble edema, no erythema seen. RUE edema noted. Urinary catheter in situ with no urine collection noted. Results & Data Results & Data ([facility]) Vital Signs (Past 12 Hours) Vital Signs Temp Pulse Resp BP Pulse Ox O2 Del Method 04/13/22 13:55 38.6 C H 105 H 24 88/53 L 68 L Room Air 04/13/22 08:41 Room Air 04/13/22 09:43 Room Air
--- NOTE | 2022-04-14 13:44 | Discharge Summary ---
Date of Service April 13, 2022 Admission HPI Per Admitting Provider 77 year old male with history of mixed Alzheimer's dementia, PAF, h/o PE/DVT, h/o pericardial effusion s/p colchicine, resident of [facility] sent to the ED for hypoxia and low grade fever. Patient is a resident of memory care unit but was declining over the past few days, hence transferred to the skilled unit yesterday. This morning, he had hypoxia for which he was sent to the ED. I spoke to the over the phone as well as the staff from the facility to get the history and verify the medications. Also, saw and examined the patient at bedside. Patient is awake, alert oriented to self and doesn't know why he was sent to the ED. Denies any issues currently and is comfortable. Per the facility staff, he tested positive for COVID 3 weeks back around March 17 and completed 5 day of paxolvid around March 23 however he never had any respiratory issues other than mild cough. He was never hypoxic or short of breath. They did not test him again afterwards to see if he was negative and never had any CXR done. He also completed a course of bactrim and Augmentin over the past month for UTIs but recent urine culture from 04/02 was negative. He also had hip and leg pain for which he was on oxycodone 5 mg bid from 03/21 to 03/28 but was held due to concern for cognitive changes. Hip/pelvis xray was done which did not show any acute abnormalities other than OA. He was noted to be declining functionally and cognitively over the past few days and was transferred to the skilled unit yesterday. This morning, he was noted to be hypoxic- oxygen saturation of 68% with 2 L oxygen and was put on 4 L oxygen by EMS and went up to 88%. He was placed on non rebreather which improved the saturation to 90s and he was brought to the ED. In the ED, work up showed leucocytosis of 20K, mild temperature of 37.9, normal leucocytosis and CXR with PNA. He was given zosyn/vanc in the ED. Hospitalist service was consulted for further management. Admission Exam Per Admitting Provider General: Lying comfortably in bed, not in acute distress, on non rebreather mask at 11 L HEENT: PERRL, dry oral mucosa Chest: Clear breath sounds bilaterally with basilar crackles CVS: Regular rate and rhythm, normal heart sounds, no murmur Abdomen: Soft, non tender, not distended, normal bowel sounds Neuro: Awake, alert, oriented to self, answers simple questions, follows simple commands Extremities: No edema Principal Diagnosis (1) Acute respiratory failure with hypoxemia: (2) COVID-19: (3) Bilateral pneumonia: (4) Alzheimer's dementia: (5) Ambulatory dysfunction: (6) Paroxysmal atrial fibrillation: Discharge Exam See Apr 13 progress note. Discharge Data Allergies Allergy/AdvReac Type Severity Reaction Status Date / Time No Known Drug Allergies Allergy Unknown ` Verified 01/29/21 23:12 Consultations 04/05/22 09:56 ED Decision to Admit Stat 04/06/22 11:20 Consult Pulmonology Routine 04/07/22 09:27 Consult Palliative Care Routine 04/08/22 10:50 Consult Palliative Care Routine Hospital Course (1) Pneumonia due to severe acute respiratory syndrome coronavirus 2 (SARS-CoV-2): Plan 77 year old male with Alzheimer's dementia, resident of memory care unit who was sent to the ED for hypoxia, shortness of breath and fever. Was initially managed for Acute hypoxic respiratory failure due to COVID 19 pneumonia and aspiration pneumonia on the background of Alzheimer's dementia/ambulatory dysfunction: Patient was requiring up to 15 L oxygen and hypoxia was worsening. Family had goals of care discussion with palliative and DOCUMENT RESTORER status since 04/08. Patient on Apr 13, 2022 at 1950 hours. Cause of : Acute hypoxic respiratory failure secondary to Pneumonia due to COVID 19 virus infection and Aspiration Pneumonia on the background of Alzheimer's dementia. Total Time Total Time Spent Total Time Spent (In Minutes): 35 Discharge Plan Discharge Items Patient Disposition: Other Date/Time: 04/13/22 19:50
== END 2022-04-13 23:15 | disposition expired | DRG 177 ==
LOC: ED 08:27 → 2E 10:17 → SUATTDRO 10:17 → 2E 11:22 → 3E 04-08 16:42
DX: J12.82 Pneumonia due to coronavirus disease 2019; Z86.718 Personal history of other venous thrombosis and embolism; J69.0 Pneumonitis due to inhalation of food and vomit; Z79.01 Long term (current) use of anticoagulants; F02.80 Dementia in other diseases classified elsewhere, unspecified severity, without behavioral disturbance, psychotic disturbance, mood disturbance, and anxiety; J96.01 Acute respiratory failure with hypoxia; U07.1 COVID-19; Z51.5 Encounter for palliative care; I48.0 Paroxysmal atrial fibrillation; Z86.711 Personal history of pulmonary embolism; E87.6 Hypokalemia; N18.30 Chronic kidney disease, stage 3 unspecified; Z66 Do not resuscitate; Z79.82 Long term (current) use of aspirin; F03.90 Unspecified dementia, unspecified severity, without behavioral disturbance, psychotic disturbance, mood disturbance, and anxiety